=== PATIENT | male | born 1960 | race Caucasian/White ===

== ENCOUNTER 2019-07-16 18:10 | Emergency (ER) | payer OTHER, SELFPAY ==
[2019-07-16 18:11] VITALS: BP 152/105; PULSE 91; RESP 17; TEMP 36.8; O2SAT 97; BMI 27.4
--- NOTE | 2019-07-16 18:41 | ED.VIS.EYE ---
History of Present Illness Chief Complaint: Eye Problem Informant: Patient Location: Right Eye Onset: Today Context: Sudden Onset Timing: Continuous Current Severity: Mild Maximum Severity: Moderate Worsened by: Blinking Relieved by: Nothing Associated Symptoms - Eyes: Foreign body sensation History of injury: Yes, - - Grinding Visual correction: Glasses Narrative: Patient is 59-year-old male presents with foreign body sensation right eye. He states he was grinding. Is wearing his glasses. He denies photophobia. Denies drainage from the eye. Denies history of glaucoma or diabetes. He has had a foreign body in the past. He states he can see it. He has no other complaints. Prior similar symptoms: Yes Recent Illness/Hospitalization: No - Past Medical History (1) No significant past medical history Status: Acute Past Medical History - Allergies and Home Meds Allergies/Adverse Reactions: Allergies No Known Allergies Allergy (Verified 07/16/19 18:11) Primary Care Physician: Ron Underwood MD [Primary Care Provider] - Prior records reviewed: No Past Medical History: None Surgical History: noncontributory Lives: Spouse/ Significant Other Smoking Status: Never smoker Alcohol: None Drugs: None Review of Systems Eyes: Denies: Visual changes - bilaterally, Blurred Vision - bilaterally, Diplopia ENT: Denies: Rhinorrhea, Sore throat Hematologic: Denies: Easy bruising, Easy bleeding Allergy: Denies: Uticaria, Swelling of the mouth, Swelling of the tongue Physical Exam Visual Acuity: bilateral: 20/20 - 20/25 right and left eye Visual Acuity: Corrected Eyelid: Normal inspection, Right eyelid everted, Left eyelid everted, No foreign body Right Conjunctiva/Sclera: Normal inspection, No foreign body, No erythema Right Cornea: No abrasion, No dye uptake, Foreign body Left Cornea: Normal inspection, No foreign body, No abrasion Extraocular Motion: Normal exam, No pain, No palsy, No nystagmus Pupils: Normal accomodation, PERRL Right pupil size in mm: 3 Left pupil size in mm: 3 Anterior chamber: Normal exam, Deep and quiet Posterior Segment: Normal fundoscopic exam Vital Signs/Narrative: Vital Signs Temp Pulse Resp BP Pulse Ox 07/16/19 18:11 98.3 F 91 17 152/105 H 97 Inital Vital Signs reviewed: Yes General: Well nourished, Well developed Head: Normocephalic, Atraumatic ENT: Moist mucous membranes, No rhinorrhea Neck: Supple, Nontender Cardiovascular: Regular rate, Regular rhythm Respiratory: No distress Skin: Normal color, No rash Neurological: Alert, Oriented x3, Cranial nerves II-XII grossly intact, Normal Strength, Normal Sensation Psychological: Normal affect, Normal Mood Diagnostic/Tx/Re-eval - Treatment and Re-Evaluation Foreign body removal: Eye hilda Residual rust ring: No Removed with eye hilda: Yes Tetracaine: right eye - Medical Decision Making Has visible metallic foreign body with rust ring. I was anesthetized with tetracaine and stained with fluorescein. No other abnormalities noted. The metallic foreign body with rust ring was removed in total using ophthalmic bur. Patient tolerated procedure well. ED Disposition - Plan for ED Patient: Disposition: Home or Assisted Living Diagnosis: Foreign body in cornea, left eye, initial encounter Instructions: ED EYE FOREIGN BODY Corneal Referrals: Ron Underwood MD [Primary Care Provider] - As Needed
[2019-07-16] MEDS: Fluorescein 1 MG STRIP 1 STRIP RIGHT EYE (18:55)
[2019-07-16] MEDS: Tetracaine 0.5% Ophthalmic Bottle 1 DRP RIGHT EYE (18:56)
[2019-07-16 18:59] VITALS: RESP 16
== END 2019-07-16 18:58 | disposition home or self-care (01) ==
PROVIDERS: Emergency Provider Emergency Medicine; PCP Family Medicine
DX: T15.02XA Foreign body in cornea, left eye, initial encounter (principal); X58.XXXA Exposure to other specified factors, initial encounter; Y93.9 Activity, unspecified; Y92.9 Unspecified place or not applicable
CPT/HCPCS: 99283

== ENCOUNTER 2021-12-20 16:15 | Emergency (ER) | payer OTHER, SELFPAY ==
[2021-12-20 16:16] VITALS: BP 130/99; PULSE 112; RESP 18; TEMP 36.1; O2SAT 95; BMI 28.7
--- NOTE | 2021-12-20 16:38 | EX.ED.VISEXT ---
HPI History of Present Illness Chief Complaint: Bite Informant: patient Narrative Narrative: Patient found out that there was a bat in his house. He knows he was exposed to it about a week ago but does not know if he has been exposed since. He does not think that he was bitten. He gets lots of scrapes at work but does not think the bat caused any of these. He is totally asymptomatic and has no complaints at all. He has never had the rabies vaccine. ROS ROS ED ENT ENT ED: Denies sore throat Cardiovascular Cardiovascular: Denies racing heartbeat Gastrointestinal Gastrointestinal: Denies nausea or vomiting Musculoskeletal Musculoskeletal: Denies myalgias Integumentary Denies abscess, Abrasions or rash Neurologic Neurologic: Denies headache(s), paresthesias or weakness Allergic/Immunologic Allergic/Immunologic ED: Denies urticaria PFSH PFSH Home Medications fluoxetine 20 mg capsule 40 mg PO DAILY 05/04/15 [History Last Taken Unknown] Allergy/AdvReac Type Severity Reaction Status Date / Time No Known Allergies Allergy Verified 12/20/21 16:18 Social History Smoking Status: Never smoker EXAM Physical Exam Const Vital Signs: 12/20/21 16:16 Temperature 96.9 F L Temperature Source Temporal Pulse Rate 112 H Respiratory Rate 18 Blood Pressure 130/99 H Blood Pressure Mean 109 Pulse Ox 95 Oxygen Delivery Method Room Air Positive well nourished and well developed General Appearance ED: well developed and NAD HEENT atraumatic Eyes EOMs intact bilaterally Resp normal respiratory effort Cardio regular rate and regular rhythm Cardio Narrative: Rates about 85 when I listen to him. GI non-tender Back/Spine no CVA tenderness Extremity normal to inspection Neuro Sensorium / Orientation: alert Psych mental status grossly normal Skin skin turgor normal MDM MDM MDM Narrative Medical decision making narrative: We will initiate the rabies series here. I cannot inject the immunoglobulin around the bite site because there is no known bite site. But he does have known exposure. He will follow-up for his repeat vaccines. Discharge Plan Triage Chief Complaint: Bite ED Provider: Alonzo Weber Dx/Rx/DC Orders Clinical Impression: Exposure to bat without known bite Instructions: Understanding Rabies Prescriptions: No Action fluoxetine 20 MG capsule 40 mg PO DAILY Primary Care Provider: Ron Underwood Referrals: Ron Underwood MD [Primary Care Provider] - As Needed Activity Restrictions/Additional Instructions: Follow-up here for repeat doses as scheduled. To maintain immunity, titers are all been drawn to gauge need for further immunization Disposition Disposition: Home, Self Care
[2021-12-20 16:49] VITALS: RESP 18
[2021-12-20] MEDS: Rabies Immune Globulin/PF 300 UNIT/ML, 1 ML VIAL 310 UNIT IM (17:36)
[2021-12-20] MEDS: Rabies Immune Globulin/PF 300 UNIT/ML, 5 ML VIAL 1500 UNIT IM (17:38)
[2021-12-20] MEDS: Rabies Vaccine,Human Diploid 2.5 UNITS Vial IM (17:40)
== END 2021-12-20 18:33 | disposition home or self-care (01) ==
PROVIDERS: Emergency Provider Emergency Medicine; PCP Family Medicine; Visit Provider Emergency Medicine
DX: Z23 Encounter for immunization (principal)
CPT/HCPCS: 90375; 90675; 96372; 99282

== ENCOUNTER 2021-12-23 13:17 | Outpatient (CLI) | payer OTHER, SELFPAY ==
[2021-12-23 13:18] VITALS: BP 139/98; PULSE 88; RESP 16; TEMP 36.4; O2SAT 95; BMI 28.7
[2021-12-23] MEDS: Rabies Vaccine,Human Diploid 2.5 UNITS Vial IM (14:00)
== END 2021-12-23 14:53 | disposition home or self-care (01) ==
LOC: ED 14:54
PROVIDERS: PCP Family Medicine; Referring Provider Emergency Medicine; Visit Provider Emergency Medicine
DX: Z23 Encounter for immunization (principal)
CPT/HCPCS: 90675; 96372

== ENCOUNTER → 2021-12-28 | Outpatient (CLI) | payer OTHER, SELFPAY ==
[2021-12-28 16:54] VITALS: BP 144/104; PULSE 87; PULSE 90; RESP 16; TEMP 37.1; O2SAT 98; BMI 28.7
[2021-12-28] MEDS: Rabies Vaccine,Human Diploid 2.5 UNITS Vial IM (18:52)
== END | disposition home or self-care (01) ==
LOC: ED 18:53
PROVIDERS: PCP Family Medicine; Visit Provider Emergency Medicine
DX: Z23 Encounter for immunization (principal)
CPT/HCPCS: 90675; 96372

== ENCOUNTER 2022-01-03 17:42 | Outpatient (CLI) | payer OTHER, SELFPAY ==
[2022-01-03 17:42] VITALS: TEMP 37; BMI 28.7
[2022-01-03] MEDS: Rabies Vaccine,Human Diploid 2.5 UNITS Vial IM (18:26)
[2022-01-03 18:28] VITALS: BP 144/86; PULSE 88; RESP 17; TEMP 36.6; O2SAT 95; BMI 28.7
== END 2022-01-03 19:16 | disposition home or self-care (01) ==
PROVIDERS: PCP Family Medicine
DX: Z23 Encounter for immunization (principal)
CPT/HCPCS: 90675; 96372

== ENCOUNTER 2025-03-04 15:17 | Emergency (ER) | payer OTHER, SELFPAY ==
[2025-03-04 15:18] VITALS: BP 139/89; PULSE 117; RESP 18; TEMP 36.3; O2SAT 95; BMI 29.2
--- NOTE | 2025-03-04 15:31 | EX.ED.DYSGE1 ---
HPI History of Present Illness Chief Complaint: Bite Narrative Narrative: Patient is 64-year-old male who presents to the emergency department chief complaint of left leg dog bite. 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 He states that he went to his primary care physician who updated his tetanus shot and recommended him getting the rabies vaccination. He states that the health department and the game [employer] is also involved he states. This is a known dog and is someone's pet. PFSH PFS Home Medications Medication Instructions Recorded Last Taken Type fluoxetine 20 mg capsule 40 mg PO DAILY 05/04/15 Unknown History Allergy/AdvReac Type Severity Reaction Status Date / Time No Known Allergies Allergy Verified 03/04/25 15:18 Social History Smoking Status: Never smoker ROS ROS ED ROS Narrative Constitutional: Denies any fevers or chills, headaches Neurological: Denies any numbness, some tingling Musculoskeletal: Denies back pain Skin: Complains of dog bite to the left leg as noted above EXAM Physical Exam Narrative Exam Narrative: General: Patient is lying in bed rest comfortably did not appear to be acute distress Head: Atraumatic, normocephalic Eyes: PERRL bilaterally, EOMI bilateral, no conjunctival injection noted Neck: Soft, supple, trachea midline Cardiovascular: Patient tachycardic with a regular rate Musculoskeletal: Left lower extremity compartments are soft compressible Extremities: +5/5 strength in the bilateral lower extremities Neurological: Patient follow commands that he was at [facility] years 2024 Skin: Patient has dog bite to the left calf muscle that is scabbed over at this point in time no surrounding erythema no purulent discharge noted Const Vital Signs: 03/04/25 15:18 Temperature 97.3 F L Temperature Source Temporal Pulse Rate 117 H Respiratory Rate 18 Blood Pressure 139/89 H Blood Pressure Mean 105 Pulse Ox 95 Oxygen Delivery Method Room Air MDM MDM MDM Narrative Medical decision making narrative: Patient is a 64-year-old male who presented to the emergency department the chief complaint of dog bite to the left calf for rabies vaccination and immunoglobulin. On the differential diagnose includes but limited to dog bite, rabies although have low suspicion for this and I discussed this with him however he is adamant that he wants this vaccination series as this is also [employer]. Patient states that he already has a prescription for antibiotics for his dog bite. Once again his tetanus shot was updated by his primary care physician I injected the immunoglobulin around the wound the patient was given intramuscular vaccine as well. He tolerated this well. He is advised to return for the subsequent series he was also advised to have the dog quarantine and observed although once again I have low suspicion that this dog has rabies as this was a individual's pet. He is advised take the antibiotic as prescribed. He is agreeable to plan all questions earns answered is discharged home in stable condition Discharge Plan Triage Chief Complaint: Bite ED Provider: Agustin Ford Dx/Rx/DC Orders Clinical Impression: Dog bite of left lower leg, Rabies vaccine administered Prescriptions: No Action fluoxetine 20 MG capsule 40 mg PO DAILY Primary Care Provider: Ron Underwood Referrals: Ron Underwood MD [Primary Care Provider, Family Practice] Activity Restrictions/Additional Instructions: Ensure you follow the vaccine series. Have a dog observed. Follow-up your doctor & return with worsening symptoms or concerns Print Language: Tajik Disposition Disposition: Home, Self Care
[2025-03-04] MEDS: Rabies Immune Globulin/PF 300 UNIT/ML, 5 ML VIAL 1500 UNIT IM (16:06)
[2025-03-04] MEDS: Rabies Immune Globulin/PF 300 UNIT/ML, 1 ML VIAL 350 UNIT IM (16:08)
[2025-03-04 16:10] VITALS: BP 139/89; PULSE 117; RESP 18; TEMP 36.3; O2SAT 95
== END 2025-03-04 16:13 | disposition home or self-care (01) ==
PROVIDERS: Emergency Provider Emergency Medicine; PCP Family Medicine; Visit Provider Emergency Medicine
DX: S80.872A Other superficial bite, left lower leg, initial encounter (principal); W54.0XXA Bitten by dog, initial encounter; Y99.0 Civilian activity done for income or pay; Z23 Encounter for immunization
CPT/HCPCS: 90675; 96372; 99282; 90375

== ENCOUNTER → 2025-03-07 | Outpatient (CLI) | payer OTHER, SELFPAY ==
[2025-03-07 12:19] VITALS: BP 171/113; PULSE 99; RESP 16; TEMP 36.7; O2SAT 96; BMI 28.7
--- OUTSIDE RECORDS SUMMARY | 2025-03-07 12:33 | XMS RPT_ITS | CCD ---
Author Organization [facility] Care Team Providers Care 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 Name Role Phone Ron Whitley Primary Care Unavailable Provider, Ed Physician Attending Unavailab Alonzo [place] Attending Unavailable Ron Whitley Primary Care Unavailable Parth Ferris Referring Unavailable Parth Ferris Attending Unavailable Ron Whitley Primary Care Unavailable Alonzo Weber Attending Unavailable Ron Whitley Primary Care Unavailable Ron Whitley MD Primary Care Provider Ron Whitley MD Primary Care Provider Veda OIL BOILERAyaka CAREY Unavailable Leesa Brady PA-C Unavailable Ron Whitley MD Primary Care Provider [phone] TALI YANEZ Attending Unavailable RON WHITLEY Primary Care Unavailable RON WHITLEY Primary Care Unavailable AYAKA MCCOLLUM Referring Unavailable RON WHITLEY Primary Care Unavailable AYAKA MCCOLLUM Referring Unavailable RON WHITLEY Primary Care Unavailable AYAKA MCCOLLUM Attending Unavailable RON WHITLEY Primary Care Unavailable AYAKA MCCOLLUM Referring Unavailable RON WHITLEY Primary Care Unavailable AYAKA MCCOLLUM Referring Unavailable AYAKA MCCOLLUM Attending Unavailable RON WHITLEY Primary Care Unavailable Allergies Allergy Classification Reported Allergen(s) Allergy Type Date of Onset Reaction(s) Facility (18 sources) atorvastatin; Translations: [ATORVASTATIN] Drug Allergy 11-27-2019 Myalgia [facility] Work Phone: Medications Current Medications Medication Drug Class(es) Dates Sig (Normalized) Sig (Original) FLUoxetine 40 mg oral capsule (20 sources) Serotonin Reuptake Inhibitor Start: 10-24-2022 End: 05-07-2024 take 1 capsule by mouth once daily FLUoxetine (PROZAC) 40 mg capsule Indications: Generalized anxiety disorder Take 1 capsule by mouth once daily. 90 capsule 1 05/07/2024 Active Start: 05-04-2015 take 40 mg by mouth once daily Fluoxetine Active 40 MG PO DAILY May 04, 2015 1:00am Comment on above: Take 1 capsule by mo [facility] once daily. mirtazapine 15 mg oral tablet (5 sources) Start: 05-07-19 take 1 tablet by mouth once daily at bedtime mirtazapine (REMERON) 15 mg tablet Indications: Primary insomnia Take 1 tablet by mouth daily at bedtime. 90 tablet 05/07/2024 Active omeprazole 20 mg disintegrating oral tablet (18 sources) Proton Pump Inhibitor Start: 12-19-19 End: 05-07-19 take 1 tablet by mouth once daily omeprazole 20 mg disintegrating tablet (PriLOSEC) Indications: GERD without esophagitis Take 1 tablet by mouth once daily. 90 tablet 3 05/07/2024 Active Comment on above: Take 20 mg by mouth once daily. [facility]. pravastatin sodium 10 mg oral tablet (4 sources) HMG-CoA Reductase Inhibitor Start: 05-11-19 take 1 tablet by mouth once daily pravastatin (PRAVACHOL) 10 mg tablet Indications: Mixed hyperlipidemia Take 1 tablet by mouth once daily. 90 tablet 05/11/2024 Active Completed/Discontinued Medications Medication Drug Class(es) Dates Sig (Normalized) Sig (Original) LORazepam 0.5 mg oral tablet (6 sources) Benzodiazepine Start: 12-18-2022 End: 06-16-2023 take 1 tablet by mouth three times daily as needed for anxiety LORazepam (ATIVAN) 0.5 mg Indications: Generalized anxiety disorder Take 1 tablet by mouth three times daily as needed (anxiety) for up to 180 days. 10 tablet 12/18/2022 06/16/2023 Comment on above: Take 1 tablet by phill three times daily as needed (anxiety) for up to 180 days. polyethylene glycol 3350 263693 mg / potassium chloride 2970 mg / sodium bicarbonate 6740 mg / sodium chloride 5860 mg / sodium sulfate 96423 mg powder for oral solution (12 sources) Osmotic Laxative Start: 04-17-2021 End: 05-07-2024 peg 3350-Electrolytes (GOLYTELY) 236-22.74-6.74 -5.86 gram suspension Indications: Encounter for screening colonoscopy Refer to printed prep instructions from your provider. 4000 mL 04/17/2021 05/07/2024 Discontinued Comment on above: Refer to printed pre p instructions from your provider. propranolol hydrochloride 20 mg oral tablet (13 sources) beta-Adrenergic Tamanna Start: 03-09-2021 End: 05-07-2024 propranolol (INDERAL) 20 mg tablet Indications: Generalized anxiety disorder , Palpitations Take 1 tablet by mouth once daily as needed. Take one(1) tablet 30 min prior to stressful situation. 90 tablet 1 12/18/2022 05/07/2024 Discontinued Comment on above: Take 1 tablet by phill th once daily as needed. Take one(1) tablet 30 min prior to stressful situation. traZODone hydrochloride 50 mg oral tablet (9 sources) Serotonin Reuptake Inhibitor Start: 12-18-2022 End: 05-07-2024 take 1 tablet by mouth once daily at bedtime traZODone (DESYREL) 50 mg tablet Take 1 tablet by mouth daily at bedtime. 30 tablet 5 12/18/2022 05/07/2024 Discontinued Comment on above: Take 1 tablet by phill th daily at bedtime. Problems Active Problems Problem Classification Problem Date Documented Date Episodic/Chronic Abdominal pain (1 source) Unspecified abdominal pain; Translations: [Right flank pain] Onset: 11-24-2024 Episodic Anxiety disorders (20 sources) Generalized anxiety disorder; Translations: [Generalized anxiety disorder] Onset: 09-17-2008 10-29-2022 Chronic Disorders of lipid metabolism (20 sources) Mixed hyperlipidemia; Translations: [Mixed hyperlipidemia] Onset: 06-26-2011 10-29-2022 Chronic Esophageal disorders (19 sources) Gastroesophageal reflux disease without esophagitis; Translations: [Gastro-esophageal reflux disease without esophagitis] Onset: 08-18-2015 08-18-2015 Chronic Genitourinary symptoms and ill-defined conditions (19 sources) Proteinuria; Translations: [Proteinuria, unspecified] Onset: 08-21-2015 08-21-2015 Episodic Hyperplasia of prostate (3 sources) Benign prostatic hypertrophy with outflow obstruction; Translations: [Benign prostatic hyperplasia with lower urinary tract symptoms] Onset: 07-30-2024 07-08-2023 Chronic Miscellaneous mental health disorders (3 sources) Primary insomnia; Translations: [Primary insomnia] Onset: 05-07-2024 12-18-2022 Chronic Osteoarthritis (17 sources) Osteoarthritis; Translations: [Unspecified osteoarthritis, unspecified site] Onset: 06-06-2010 11-08-2015 Chronic Other circulatory disease (1 source) Elevated blood-pressure reading without diagnosis of hypertension; Translations: [Elevated blood-pressure reading, without diagnosis of hypertension] 05-07-2024 Episodic Other diseases of kidney and ureters (1 source) Other obstructive and reflux uropathy; Translations: [BPH with obstruction/lower urinary tract symptoms] Onset: 07-30-2024 Episodic Other eye disorders (1 source) Subconjunctival hemorrhage of right eye; Translations: [Conjunctival hemorrhage, right eye] 03-19-2023 Episodic Other injuries and conditions due to external causes (4 sources) Foreign body in left cornea; Translations: [Foreign body in cornea, left eye, initial encounter] Episodic Other lower respiratory disease (2 sources) Cough; Translations: [Acute cough] 03-19-2023 Episodic Other nervous system disorders (1 source) Other chronic pain; Translations: [Chronic midline low back pain without sciatica] Onset: 11-24-2024 Chronic Unclassified (4 sources) No history of clinical finding in subject; Translations: [No significant past medical history] Unclassified (1 source) Chronic midline low back pain without sciatica; Translations: [Chronic midline low back pain without sciatica] Onset: 11-24-2024 Past or Other Problems Problem Classification Problem Date Documented Da te Episodic/Chronic Cardiac dysrhythmias (17 sources) Palpitations; Translations: [Palpitations] Onset: 09-17-2008 06-23-2014 Episodic Diabetes mellitus without complication (20 sources) Hyperglycemia; Translations: [Impaired fasting glucose] Onset: 08-17-2013 10-29-2022 Episodic Immunizations and screening for infectious disease (7 sources) Contact with and (suspected) exposure to unspecified communicable disease; Translations: [Exposure to bat without known bite] Onset: 01-08-2022 05-07-2024 Episodic Other aftercare (1 source) Other fdc (current) drug therapy; Translations: [Medication management] Onset: 05-07-2024 Episodic Other and unspecified benign neoplasm (16 sources) Dermal cellular nevus ; Translations: [Other benign neoplasm of skin, unspecified] Onset: 10-24-2017 10-24-2017 Episodic Other circulatory disease (1 source) Elevated blood-pressure reading, without diagnosis of hypertension; Translations: [Elevated BP without diagnosis of hypertension] Onset: 05-07-2024 Episodic Other connective tissue disease (16 sources) Ganglion cyst of tendon sheath; Translations: [Ganglion, unspecified site] Onset: 06-06-2010 06-23-2014 Episodic Other screening for suspected conditions (not mental disorders or infectious disease) (20 sources) Patient encounter status; Translations: [Encounter for screening for malignant neoplasm of prostate] Onset: 04-11-2016 10-29-2022 Episodic Other upper respiratory disease (16 sources) Lesion of nose; Translations: [Other specified disorders of nose and nasal sinuses] Onset: 2017 2017 Episodic Screening and history of mental health and substance abuse codes (1 source) Encounter for screening for depression; Translations: [Screening for depression] Onset: 05-07-2024 Episodic Results Test Name Value Interpretation Reference Range Facility [facility] 11-24-2024 [facility] ASYA SHETH ([id number]) 1960 M Date Time Provider Department 11/24/24 10:20 AM AYAKA MCCOLLUM [facility] During your visit today, we recorded the following information about you: Pulse Blood pressure Weight 86/minute 140/90 91 kg Ayaka Mccollum APRN.[facility] 11/24/2024 10:45 AM Signed Chief Complaint Patient presents with: 6 Month Exam Back Pain: X 1 year worsening X 1 week HPI Asya Sheth is a 64 year old male who presents here today for Above Complaints.. Patient presents for routine follow up. Back Pain: - Chronic back pain, predominantly in the right lower back, x1 year. - Significant exacerbation over the past couple of weeks, affecting sleep. - Last night was the first night he could sleep without waking up in pain. - Denies numbness, tingling, or any known injury or instigating event. - Engages in frequent lifting and bending due to work. Past medical history, appointments, medications, allergies reviewed. 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 Osteoarthritis 06/06/2010 Palpitations 09/17/2008 Previous Surgical History PAST SURGICAL HISTORY Procedure Laterality Date COLONOSCOPY 05/22/2021 repeat in 5 years COLONOSCOPY FLX DX W/COLLJ SPEC WHEN PFRMD 08/09/2010 HERNIA REPAIR HX TONSILLECTOMY HX Family History FAMILY HISTORY Problem Relation Age of Onset other (colitis) Mother ulcerative colitis Coronary Artery Disease Father CABGX2 Patient Allergies ALLERGIES Allergen Reactions Lipitor [Atorvastat* Myalgia Current Medications Current Outpatient Medications on File Prior to Visit Medication Sig pravastatin (PRAVACHOL) 10 mg tablet Take 1 tablet by mouth once daily. omeprazole 20 mg disintegrating tablet (PriLOSEC) Take 1 tablet by mouth once daily. mirtazapine (REMERON) 15 mg tablet Take 1 tablet by mouth daily at bedtime. FLUoxetine (PROZAC) 40 mg capsule Take 1 capsule by mouth once daily. No current facility-administered medications on file prior to visit. Social History Social History Tobacco Use Smoking status: Never Smokeless tobacco: Former Vaping Use Vaping status: Never Used Substance Use Topics Alcohol use: Yes Alcohol/week: 4.0 - 6.0 standard drinks of alcohol Types: 4 - 6 Cans of Beer (12oz) per week Comment: 1 beer daily Drug use: Not Currently Review of Symptoms REVIEW OF SYSTEMS SEE HPI EXAM: BP 140/90 Pulse 86 Wt 91 kg (200 lb 9.9 oz) BMI 28.98 kg/m? General Appearance: Well appearing, alert, in no acute distress, well-hydrated, well nourished. Back:no pain to palpation of vertebrae, good flexion and extension, good range of motion, no muscle tenderness, reflexes are 2+ and symmetric, motor and sensory appear to be normal, negative SLR test, no evidence of scoliosis Lungs: Lungs clear to auscultation. No wheezing, rhonchi, rales.. Heart: RRR without murmur, gallop, or rubs. No ectopy. Health Maintenance List Advance Directive Discussion due on 04/21/2025 Shingrix Vaccine(1 of 2) due on 05/07/2025 Pneumococcal Vaccine: 50+(1 of 1 - PCV) due on 05/07/2025 Depression Screening due on 05/07/2025 Colorectal Cancer Screening due on 05/22/2026 Diabetes Screening due on 05/07/2027 DTaP,Tdap,Td Vaccine(2 - Td or Tdap) due on 06/29/2027 Lipid Screening due on 05/07/2029 Prostate Cancer Screening Discussion due on 06/05/2029 RSV Vaccine(1 - 1-dose 75+ series) due on 2034 Hepatitis C Screening Completed Influenza Vaccine Discontinued HIV Screening Discontinued ASSESSMENT/PLAN: 1. Mixed hyperlipidemia - ICD9: 272.2, ICD10: E78.2 (primary diagnosis) - Control undetermined, due for labs - Continue current medications - Counseled on healthy diet and regular exercise - LIPID PANEL, NONFASTING 2. GERD without esophagitis - ICD9: 530.81, ICD10: K21.9 - Continue treatment with Prilosec 20 mg QD - OMEPRAZOLE 20 MG DELAYED RELEASE,DISINTEGRATING TABLET 3. Primary insomnia - ICD9: 307.42, ICD10: F51.01 - MIRTAZAPINE 15 MG TABLET 4. Generalized anxiety disorder - ICD9: 300.02, ICD10: F41.1 - Patient reports he is not currently taking prozac. 5. Chronic midline low back pain without sciatica - ICD9: 724.2, 338.29, ICD10: M54.50, G89.29 -Patient offered PT but declined. Provided back stretches and exercises and advised patient to notify us if no improvement in symptoms. 6. Right flank pain - ICD9: 789.09, ICD10: R10.9 - Labs of Urine analysis - Work up with XR KUB - XR ABDOMEN 3V KUB W/OBLIQUES - UA DIP, URINE (POC) Ayaka Mccollum APRN.Ayaka Solorio APRN.VACUUM REPAIRER 11/24/2024 10 (more content not included)... Normal [facility] LIPID PANEL, NONFASTINGon Cholesterol [Mass/Vol] 218 mg/dL High <200 [facility] Comment on above: Order Comment: Speci men Type: BLOOD SPECIMEN Ordering Facility: [facility] Address: [address] [place] [address] Result Comment: <200 mg/dL, Desirable 200-239 mg/dL, Borderline high >239 mg/dL, High Performed By: #### L IPNF #### [facility] CLIA [id number] [address] [place] [address] [place] HDL CHOLESTEROL, NF 44 mg/dL Normal >39 [facility] Comment on above: Order Comment: Speci men Type: BLOOD SPECIMEN Ordering Facility: [facility] Address: [address] [place] [address] Result Comment: 40-5 9 mg/dL, Acceptable >59 mg/dL, High: Negative risk factor for coronary heart disease <40 mg/dL, Low: Positive risk factor for coronary heart disease Performed By: #### L IPNF #### [facility] CLIA [id number] [address] [place] [address] [place] LDL CHOLESTEROL CALCULATED, NF 132 mg/dL High <100 [facility] Comment on above: Order Comment: Speci men Type: BLOOD SPECIMEN Ordering Facility: [facility] Address: [address] [place] [address] Result Comment: <100 mg/dL, Optimal 100-129 mg/dL, Near optimal/above optimal 130-159 mg/dL, Borderline high 160-189 mg/dL, High >189 mg/dL, Very high Secondary prevention optimal LDL Cholesterol levels are recommended to be <70 mg/dL LDL cholesterol is calculated using the Andujar-NIH equation. Performed By: #### L IPNF #### [facility] CLIA [id number] [address] [place] [address] [place] LDL/HDL RATIO, NF 3.00 mg/dL High <2.54 [facility] Comment on above: Order Comment: Grace hayward Type: BLOOD SPECIMEN Ordering Facility: [facility] Address: [address] [place] [address] Result Comment: Donaldo basurto: 1. National Cholesterol Education Program ATP III Guideline At-A-Glance Quick Desk Reference: National Heart, Lung, and Blood [place]. National Institutes of Health. 2001: NIH Publication No. 01-3305. 2. An International Atherosclerosis Society position paper: global recommendations for the management of dyslipidemia: executive summary, Atherosclerosis. 2014: 232(2):410-413. Performed By: #### L IPNF #### [facility] CLIA [id number] [address] [place] [address] [place] NON HDL CHOL, NF 174 mg/dL High <130 [facility] Comment on above: Order Comment: Grace hayward Type: BLOOD SPECIMEN Ordering Facility: [facility] Address: [address] [place] [address] Result Comment: <130 mg/dL, Optimal 130-159 mg/dL, Near optimal/above optimal 160-189 mg/dL, Borderline high 190-219 mg/dL, High >219 mg/dL, Very high Secondary prevention optimal non HDL Cholesterol levels are recommended to be <100 mg/dL Performed By: #### L IPNF #### [facility] CLIA [id number] [address] [place] [address] [place] T CHOL/HDL RATIO NF 4.95 mg/dL Normal <5.10 [facility] Comment on above: Order Comment: Jaylini men Type: BLOOD SPECIMEN Ordering Facility: [facility] Address: [address] [place] [address] Performed By: #### L IPNF #### [facility] CLIA [id number] [address] [place] [address] [place] TRIGLYCERIDES, NF 234 mg/dL High <150 [facility] Comment on above: Order Comment: Grace men Type: BLOOD SPECIMEN Ordering Facility: [facility] Address: [address] [place] [address] Result Comment: <150 mg/dL, Normal 150-199 mg/dL, Borderline high 200-499 mg/dL, High >499 mg/dL, Very high Performed By: #### L IPNF #### [facility] CLIA [id number] [address] [place] [address] OF [facility] VLDL CHOLESTEROL, NF 42 mg/dL High <30 [facility] Comment on above: Order Comment: Speci men Type: BLOOD SPECIMEN Ordering Facility: [facility] Address: [address] [place] [address] Performed By: #### L IPNF #### [facility] CLIA [id number] [address] [place] [address] STATES OF [facility] XR ABDOMEN 3V KUB W/OBLIQUES on 11-24-2024 XR ABDOMEN 3V KUB W/OBLIQUES * * *Final Report* * * DATE OF EXAM: Nov 24 2024 11:03AM WOX [id number] - XR ABDOMEN 3V KUB W/OBLIQUES / PROCEDURE REASON: Right flank pain * * * * Physician Interpretation * * * * EXAM TITLE: XR ABDOMEN 3V KUB W/OBLIQUES EXAM DATE/TIME: 11/24/2024 11:03 AM COMPARISON: None. CLINICAL INDICATION/HISTORY: Flank pain. TECHNIQUE: AP and oblique views of the abdomen are presented. FINDINGS: No abnormal radiopaque opacities projecting over the kidneys. There are multiple phleboliths in the pelvis. No abnormally dilated bowel loops identified. The spine shows degenerative changes. IMPRESSION: Unremarkable abdomen x-ray. Sewer Repairer: PSCB Transcribe Date/Time: Nov 24 2024 11:08A Dictated by : ANISHA WILSON MD This examination was interpreted and the report reviewed and electronically signed by: ANISHA WILSON MD on Nov 24 2024 11:10AM EST [id number] Normal [facility] CNOVon 07-30-2024 CNOV Office Visit ([facility] ) CLAREASYA SANTANA ([id number]) 1960 M Date Time Provider Department 07/30/24 9:15 AM TALI YANEZ [facility] During your visit today, we recorded the following information about you: Pulse Weight Height 97/minute 90.3 kg 1.772 m Tali Yanez MD 07/30/2024 9:32 AM Signed ESTABLISHED PATIENT OFFICE VISIT HISTORY OF PRESENT ILLNESS Patient presents with: Benign Prostatic Hypertrophy Nocturia Asya Sheth is a 64 year old male who presents with for follow up regarding his PSA LAB RESULTS Creatinine Date Value Ref Range Status 05/07/2024 0.95 0.73 - 1.22 mg/dL Final PSA (ng/mL) Date Value 06/05/2024 3.45 06/14/2023 3.81 11/13/2022 4.51 10/10/2016 1.99 PSA Screening (ng/mL) Date Value 05/07/2024 4.31 Color (no units) Date Value 05/07/2024 Yellow 10/10/2016 Yellow Clarity (no units) Date Value 05/07/2024 Clear 10/10/2016 Clear Glucose, Urine Date Value 05/07/2024 Negative 10/10/2016 Negative mg/dL Bilirubin, Urine (no units) Date Value 05/07/2024 Negative 10/10/2016 Negative Ketones, Urine (no units) Date Value 05/07/2024 Negative 10/10/2016 Negative Specific Keyser, Ur (no units) Date Value 05/07/2024 1.022 10/10/2016 1.015 Hemoglobin/Blood,Ur Date Value 05/07/2024 Negative 10/10/2016 Negative pH, Urine (no units) Date Value 05/07/2024 5.5 10/10/2016 6.0 Protein, Urine Date Value 05/07/2024 Trace 10/10/2016 Negative mg/dL Urobilinogen (no units) Date Value 05/07/2024 0.2 EU/dL 10/10/2016 Normal Nitrites (no units) Date Value 05/07/2024 Negative 10/10/2016 Negative Leukest (no units) Date Value 10/10/2016 Negative Leuk Esterase (no units) Date Value 05/07/2024 Negative ALLERGIES Allergen Reactions Lipitor [Atorvastat* Myalgia MEDICATIONS: pravastatin (PRAVACHOL) 10 mg tablet Take 1 tablet by mouth once daily. omeprazole 20 mg disintegrating tablet (PriLOSEC) Take 1 tablet by mouth once daily. mirtazapine (REMERON) 15 mg tablet Take 1 tablet by mouth daily at bedtime. FLUoxetine (PROZAC) 40 mg capsule Take 1 capsule by mouth once daily. REVIEW OF SYSTEMS GENERAL:no unintentional weight loss, malaise or fevers. NEUROLOGIC: pt is alert and oriented GENITOURINARY: No history of dysuria, frequency or incontinence The remainder of the ROS was reviewed and is negative. HISTORIES PAST MEDICAL HISTORY Diagnosis Date Elevated fasting blood sugar 08/17/2013 Ganglion of tendon 06/06/2010 Generalized anxiety disorder 09/17/2008 GERD without esophagitis 08/18/2015 Intradermal nevus 10/24/2017 Removed from back 2015 Mixed hyperlipidemia 06/26/2011 Nasal sore 2017 chronic Osteoarthritis 06/06/2010 Palpitations 09/17/2008 FAMILY HISTORY Problem Relation Age of Onset other (colitis) Mother ulcerative colitis Coronary Artery Disease Father CABGX2 PAST SURGICAL HISTORY Procedure Laterality Date COLONOSCOPY 05/22/2021 repeat in 5 years COLONOSCOPY FLX DX W/COLLJ SPEC WHEN PFRMD 08/09/2010 HERNIA REPAIR HX TONSILLECTOMY HX SOCIAL HISTORY Social History Tobacco Use Smoking status: Never Smokeless tobacco: Former Vaping Use Vaping status: Never Used Substance Use Topics Alcohol use: Yes Alcohol/week: 4.0 - 6.0 standard drinks of alcohol Types: 4 - 6 Cans of Beer (12oz) per week Comment: 1 beer daily Drug use: Not Currently PHYSICAL EXAMINATION General appearance: Well appearing, alert, in no acute distress, well-hydrated, well nourished Psych Alert and oriented to person, place and time Respiratory: no wheezing or rhonchi Abdomen Genitourinary: MALE EXAM: Exam NOT Indicated 06/05/2024 PSA 3.5 06/14/2023 PSA 3.8 11/13/2022 PSA 4.5 Assessment and Plan: LUTS- IPSS 6, nocturia 0-1x, off urgency, no hematuria Elevated PSA- no Fhx of prostate cancer, prior DANIELLA B9 and he declined MRI. Latest PSA stable at 3.5 Allergies As of Date: 07/30/2024 Noted Allergy Reaction LIPITOR (ATORVASTATIN) 11/27/2019 17 - Myalgia Date Reviewed: 07/30/2024 Reviewed by: Yumiko Valdez MA - Fully Assessed Reason for Visit: Benign Prostatic Hypertrophy [1144] Nocturia [2774] Primary Visit Diagnosis:Elevated PSA [R97.20] Other Visit Diagnoses:BPH with obstruction/lower urinary tract symptoms [N40.1, N13.8] Nocturia [R35.1] Prescriptions as of 07/30/2024 - pravastatin (PRAVACHOL) 10 mg tablet Take 1 tablet by mouth once daily. - omeprazole 20 mg disintegrating tablet (PriLOSEC) Take 1 tablet by mouth once daily. - mirtazapine (REMERON) 15 mg tablet Take 1 tablet by mouth daily at bedtime. - FLUoxetine (PROZAC) 40 mg capsule Take 1 capsule by mouth once daily. Meds Comments as of 03/09/2021: 2 200 mg tabs Ibuprofen, L-Lysine daily and Loratadine 10 mg daily. Problem List As Of Date 07/30/2024 Noted Resolved Palpitations [R00.2] 08/21 (more content not included)... Normal [facility] Free PSA [Mass/Vol]on 2024 Free PSA/Total PSA [Mass fraction] 19 % Normal [facility] Comment on above: Order Comment: Speci men Type: BLOOD SPECIMEN Ordering Facility: [facility] Address: [address] [place] [address] Result Comment: Tota l and free PSA test methodology used is the Electrochemiluminescence Immunoassay by [employer]. Total or free PSA values by differing methodologies cannot be interchanged. The below table lists the probability of finding prostate cancer upon needle biopsy, for men 50 years or older and total PSA concentrations from 4.0-10.0 ng/mL. Results should be interpreted within the broader clinical context. Free PSA(%) 50-59 years 60-69 years >69 years <11 49.2% 57.5% 64.5% 11-18 26.9% 33.9% 40.8% 19-25 18.3% 23.9% 29.7% >25 9.1% 12.2% 15.8% Performed By: #### 1 0886-0 #### [facility] [place] [id number] [address] [place] [address] [place] Prostate specific Ag [Mass/Vol] 3.45 ng/mL High <2.60 [facility] Comment on above: Order Comment: Speci men Type: BLOOD SPECIMEN Ordering Facility: [facility] Address: [address] [place] [address] Result Comment: Tota l PSA test methodology used is the Electrochemiluminescence Immunoassay by [employer]. Total PSA values by differing methodologies cannot be interchanged. For an individual patient, the significance of a PSA level should be interpreted in a broad clinical context, including age, race, family history, digital rectal exam, prostate size, results of prior testing (prostate biopsy, free PSA, PCA3), and use of 5-alpha reductase inhibitors. Considering the high incidence of asymptomatic cancer in the general population that may not pose an ultimate risk to a patient, the decision to recommend urological evaluation or prostate biopsy should be individualized after consideration of all these factors. REFERENCE: Lazaro Clemens M.D., M.P.H., Hebert Espinal M.D., Ph.D., Sudhakar Carney M.D., Isis Mehta, M.P.H., Ayana Rodriguez, [place]. Effect of Verification Bias on Screening for Prostate Cancer by Measurement of Prostatic Specific Antigen. N Engl J Med 2003,349:335-42. Performed By: #### 1 0886-0 #### [facility] CLIA [id number] [address] [place] [address] OF ELIZABETH Fito 05-11-2024 STEPHANYN Telephone (FAMPWS) ASYA SHETH ([id number]) 1960 M Date Time Provider Department 05/11/24 AYAKA MCCOLLUM During your visit today, we recorded the following information about you: Ayaka Mccollum APRN.VACUUM REPAIRER 05/11/2024 7:59 AM Signed Please let patient know his labs show an elevated PSA. I would like to get a follow up lab to check this. Also his lipid panel is elevated from previous. His total cholesterol is high and his LDL is high. Is patient open to trying a different statin medication? Vira Wheatley LPN 05/11/2024 10:08 AM Signed Message left for patient to return call to review provider's message with him. FLAKITO Ayala Sherrie, RN 05/11/2024 10:44 AM Signed Patient voices understanding of provider's message below and will complete lab order. Patient agreeable to trying a different statin medication. Send to [facility]. Thank you. Ayaka Mccollum, KESHAWN.VACUUM REPAIRER 05/11/2024 12:04 PM Signed Rx sent. Vira Wheatley LPN 05/11/2024 12:28 PM Signed Patient updated and voiced understanding. Vira Wheatley LPN Allergies As of Date: 05/11/2024 Noted Allergy Reaction LIPITOR (ATORVASTATIN) 11/27/2019 17 - Myalgia Date Reviewed: 05/07/2024 Reviewed by: Janett Mejia MA - Fully Assessed Reason for Visit: Results [95] Primary Visit Diagnosis:Elevated PSA [R97.20] Other Visit Diagnosis:Mixed hyperlipidemia [E78.2] Order(s):PROSTATE SPECIFIC ANTIGEN, FREE [SQPSATF] Order #: [id number] FUTURE pravastatin (PRAVACHOL) 10 mg tabletTake 1 tablet by mouth once daily.Disp: 90 tabletRfl: 0 Prescriptions as of 05/11/2024 - pravastatin (PRAVACHOL) 10 mg tablet Take 1 tablet by mouth once daily. - omeprazole 20 mg disintegrating tablet (PriLOSEC) Take 1 tablet by mouth once daily. - mirtazapine (REMERON) 15 mg tablet Take 1 tablet by mouth daily at bedtime. - FLUoxetine (PROZAC) 40 mg capsule Take 1 capsule by mouth once daily. Meds Comments as of 03/09/2021: 2 200 mg tabs Ibuprofen, L-Lysine daily and Loratadine 10 mg daily. Problem List As Of Date 05/11/2024 Noted Resolved Palpitations [R00.2] 09/17/2008 Generalized anxiety disorder [F41.1] 09/17/2008 Osteoarthritis [M19.90] 06/06/2010 Ganglion of tendon [M67.40] 06/06/2010 Mixed hyperlipidemia [E78.2] 06/26/2011 Elevated fasting blood sugar [R73.01] 08/17/2013 GERD without esophagitis [K21.9] 08/18/2015 Proteinuria [R80.9] 08/21/2015 Prostate cancer screening [Z12.5] 04/11/2016 Well adult exam [Z00.00] 2017 Nasal sore [J34.89] 2017 Intradermal nevus [D23.9] 10/24/2017 Screening for colon cancer [Z12.11] 10/24/2017 Elevated PSA [R97.20] 06/13/2023 Prescriptions ordered this encounter Disp Refills Start End PRAVASTATIN 10 MG TABLET 90 t* 0 05/11/2024 Route: ORAL Sig: Take 1 tablet by mouth once daily. Encounter Status:Closed by VIRA WHEATLEY on 05/11/24 Normal [facility] CBC W Auto Differential pane l (Bld)on 05-07-2024 Basophils (Bld) [#/Vol] 0.03 10*3/uL Normal <0.11 [facility] Comment on above: Order Comment: Speci men Type: BLOOD SPECIMEN Ordering Facility: [facility] Address: [address] [place] [address] Performed By: #### 5 7021-8 #### [facility] CLIA [id number] [address] [place] [address] [place] [address] [place] Basophils/100 WBC (Bld) 0.5 % Normal [facility] Comment on above: Order Comment: Speci men Type: BLOOD SPECIMEN Ordering Facility: [facility] Address: [address] [place] [address] Performed By: #### 5 7021-8 #### [facility] CLIA [id number] [address] [place] [address] [place] Differential cell count method Nom (Bld) Auto Normal [facility] Comment on above: Order Comment: Speci men Type: BLOOD SPECIMEN Ordering Facility: [facility] Address: [address] [place] [address] Performed By: #### 5 7021-8 #### [facility] CLIA [id number] [address] [place] [address] [place] Eosinophils (Bld) [#/Vol] 0.13 10*3/uL Normal <0.46 [facility] Comment on above: Order Comment: Speci men Type: BLOOD SPECIMEN Ordering Facility: [facility] Address: [address] [place] [address] Performed By: #### 5 7021-8 #### [facility] CLIA [id number] [address] [place] [address] [place] Eosinophils/100 WBC (Bld) 2.2 % Normal [facility] Comment on above: Order Comment: Speci men Type: BLOOD SPECIMEN Ordering Facility: [facility] Address: [address] [place] [address] Performed By: #### 5 7021-8 #### [facility] CLIA [id number] [address] [place] [address] [place] Erythrocyte distribution width (RBC) [Ratio] 12.4 % Normal 11.5-15.0 [facility] Comment on above: Order Comment: Speci men Type: BLOOD SPECIMEN Ordering Facility: [facility] Address: [address] [place] [address] Performed By: #### 5 7021-8 #### [facility] CLIA [id number] [address] [place] [address] [place] Hematocrit (Bld) [Volume fraction] 47.9 % Normal 39.0-51.0 [facility] Comment on above: Order Comment: Speci men Type: BLOOD SPECIMEN Ordering Facility: [facility] Address: [address] [place] [address] Performed By: #### 5 7021-8 #### [facility] CLIA [id number] [address] [place] [address] [place] Hemoglobin (Bld) [Mass/Vol] 16.2 g/dL Normal 13.0-17.0 [facility] Comment on above: Order Comment: Speci men Type: BLOOD SPECIMEN Ordering Facility: [facility] Address: [address] [place] [address] Performed By: #### 5 7021-8 #### [facility] CLIA [id number] [address] [place] [address] [place] Immature granulocytes (Bld) [#/Vol] 10*3/uL Normal <0.10 [facility] Comment on above: Order Comment: Speci men Type: BLOOD SPECIMEN Ordering Facility: [facility] Address: [address] [place] [address] Performed By: #### 5 7021-8 #### [facility] CLIA [id number] [address] [place] [address] [place] Immature granulocytes/100 WBC (Bld) 0.3 % Normal [facility] Comment on above: Order Comment: Speci men Type: BLOOD SPECIMEN Ordering Facility: [facility] Address: [address] [place] [address] Performed By: #### 5 7021-8 #### [facility] CLIA [id number] [address] [place] [address] [place] Lymphocytes (Bld) [#/Vol] 1.19 10*3/uL Normal 1.00-4.00 [facility] Comment on above: Order Comment: Speci men Type: BLOOD SPECIMEN Ordering Facility: [facility] Address: [address] [place] [address] Performed By: #### 5 7021-8 #### [facility] CLIA [id number] [address] [place] [address] [place] Lymphocytes/100 WBC (Bld) 20.4 % Normal [facility] Comment on above: Order Comment: Speci men Type: BLOOD SPECIMEN Ordering Facility: [facility] Address: [address] [place] [address] Performed By: #### 5 7021-8 #### [facility] CLIA [id number] [address] [place] [address] [place] MCH (RBC) [Entitic mass] 31.9 pg Normal 26.0-34.0 [facility] Comment on above: Order Comment: Speci men Type: BLOOD SPECIMEN Ordering Facility: [facility] Address: [address] [place] [address] Performed By: #### 5 7021-8 #### [facility] CLIA [id number] [address] [place] [address] [place] MCHC (RBC) [Mass/Vol] 33.8 g/dL Normal 30.5-36.0 [facility] Comment on above: Order Comment: Speci men Type: BLOOD SPECIMEN Ordering Facility: [facility] Address: [address] [place] [address] Performed By: #### 5 7021-8 #### [facility] CLIA [id number] [address] [place] [address] [place] MCV (RBC) [Entitic vol] 94.3 fL Normal 80.0-100.0 [facility] Comment on above: Order Comment: Speci men Type: BLOOD SPECIMEN Ordering Facility: [facility] Address: [address] [place] [address] Performed By: #### 5 7021-8 #### [facility] CLIA [id number] [address] [place] [address] [place] Monocytes (Bld) [#/Vol] 0.51 10*3/uL Normal <0.87 [facility] Comment on above: Order Comment: Speci men Type: BLOOD SPECIMEN Ordering Facility: [facility] Address: [address] [place] [address] Performed By: #### 5 7021-8 #### [facility] CLIA [id number] [address] [place] [address] [place] Monocytes/100 WBC (Bld) 8.7 % Normal [facility] Comment on above: Order Comment: Speci men Type: BLOOD SPECIMEN Ordering Facility: [facility] Address: [address] [place] [address] Performed By: #### 5 7021-8 #### [facility] CLIA [id number] [address] [place] [address] [place] Neutrophils (Bld) [#/Vol] 3.96 10*3/uL Normal 1.45-7.50 [facility] Comment on above: Order Comment: Speci men Type: BLOOD SPECIMEN Ordering Facility: [facility] Address: [address] [place] [address] Performed By: #### 5 7021-8 #### [facility] CLIA [id number] [address] [place] [address] [place] Neutrophils/100 WBC (Bld) 67.9 % Normal [facility] Comment on above: Order Comment: Speci men Type: BLOOD SPECIMEN Ordering Facility: [facility] Address: [address] [place] [address] Performed By: #### 5 7021-8 #### [facility] CLIA [id number] [address] [place] [address] [place] Nucleated RBC (Bld) [#/Vol] 10*3/uL Normal <0.01 [facility] Comment on above: Order Comment: Speci men Type: BLOOD SPECIMEN Ordering Facility: [facility] Address: [address] [place] [address] Performed By: #### 5 7021-8 #### [facility] CLIA [id number] [address] [place] [address] [place] Nucleated RBC/100 WBC (Bld) [Ratio] 0.0 /100 WBC Normal [facility] Comment on above: Order Comment: Speci men Type: BLOOD SPECIMEN Ordering Facility: [facility] Address: [address] [place] [address] Performed By: #### 5 7021-8 #### [facility] CLIA [id number] [address] [place] [address] [place] Platelet mean volume (Bld) [Entitic vol] 10.1 fL Normal 9.0-12.7 [facility] Comment on above: Order Comment: Speci men Type: BLOOD SPECIMEN Ordering Facility: [facility] Address: [address] [place] [address] Performed By: #### 5 7021-8 #### [facility] CLIA [id number] [address] [place] [address] [place] Platelets (Bld) [#/Vol] 184 10*3/uL Normal 150-400 [facility] Comment on above: Order Comment: Speci men Type: BLOOD SPECIMEN Ordering Facility: [facility] Address: [address] [place] [address] Performed By: #### 5 7021-8 #### [facility] CLIA [id number] [address] [place] [address] [place] RBC (Bld) [#/Vol] 5.08 10*6/uL Normal 4.20-6.00 [facility] Comment on above: Order Comment: Speci men Type: BLOOD SPECIMEN Ordering Facility: [facility] Address: [address] [place] [address] Performed By: #### 5 7021-8 #### [facility] CLIA [id number] [address] [place], [place] [address] [id number] [place] WBC (Bld) [#/Vol] 5.84 10*3/uL Normal 3.70-11.00 [facility] Comment on above: Order Comment: Speci men Type: BLOOD SPECIMEN Ordering Facility: [facility] Address: [address] [place] [address] Performed By: #### 5 7021-8 #### [facility] CLIA [id number] [address] [place], [place] [id number] [place] CNOVon 05-07-2024 CNOV Office Visit (FAMPWS ) ASYA SHETH ([id number]) 1960 M Date Time Provider Department 05/07/24 10:40 AM AYAKA MCCOLLUM During your visit today, we recorded the following information about you: Pulse Respiration Blood pressure Weight 89/minute 16/minute 147/98 90.3 kg Ayaka Mccollum APRN.VACUUM REPAIRER 05/07/2024 11:40 AM Signed Chief Complaint Patient presents with: Physical HPI Asya Sheth is a 64 year old male who presents here today for Above Complaints.. Pt presents today for annual well visit. Pt states his anxiety has been well controlled with his current medication. He is still having difficulty with sleep he often wakes up during the night. He was prescribed trazadone to help with sleep on 12/18/2022, but took the medication with alcohol and was nauseated after. Pt states he has not tried taking the medication since and has not been getting quality sleep. Pt states he does currently drink 2-3 beers a night prior to going to sleep which could be affecting his sleep. He has tried melatonin and benadryl which pt states has not helped with his sleep and often leaves him feeling tired in the morning. Pt is open to trying a different medication to help with sleep. Pt denies nausea,vomiting, headache, cough, chest pain, SOB, fever, chills, lower extremity swelling, abdominal pain and dizziness. Past medical history, appointments, medications, allergies reviewed. 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 Osteoarthritis 06/06/2010 Palpitations 09/17/2008 Previous Surgical History PAST SURGICAL HISTORY Procedure Laterality Date COLONOSCOPY 05/22/2021 repeat in 5 years COLONOSCOPY FLX DX W/COLLJ SPEC WHEN PFRMD 08/09/2010 HERNIA REPAIR HX TONSILLECTOMY HX Family History FAMILY HISTORY Problem Relation Age of Onset other (colitis) Mother ulcerative colitis Coronary Artery Disease Father CABGX2 Patient Allergies ALLERGIES Allergen Reactions Lipitor [Atorvastat* Myalgia Current Medications Current Outpatient Medications on File Prior to Visit Medication Sig FLUoxetine (PROZAC) 40 mg capsule Take 1 capsule by mouth once daily. propranolol (INDERAL) 20 mg tablet Take 1 tablet by mouth once daily as needed. Take one(1) tablet 30 min prior to stressful situation. omeprazole 20 mg disintegrating tablet (PriLOSEC) Take 1 tablet by mouth once daily. traZODone (DESYREL) 50 mg tablet Take 1 tablet by mouth daily at bedtime. peg 3350-Electrolytes (GOLYTELY) 236-22.74-6.74 -5.86 gram suspension Refer to printed prep instructions from your provider. (Patient not taking: Reported on 12/18/2022) No current facility-administered medications on file prior to visit. Social History Social History Tobacco Use Smoking status: Never Smokeless tobacco: Former Vaping Use Vaping status: Never Used Substance Use Topics Alcohol use: Yes Alcohol/week: 4.0 - 6.0 standard drinks of alcohol Types: 4 - 6 Cans of Beer (12oz) per week Comment: 1 beer daily Drug use: Not Currently Review of Symptoms REVIEW OF SYSTEMS GENERAL: No weight loss, malaise or fevers, Negative for malaise, significant weight loss, fever RESPIRATORY: Negative for cough, hemoptysis, wheezing, COPD, dyspnea or shortness of breath CARDIOVASCULAR: Negative for chest pain, leg swelling, hypertension, CHF or palpitations PSYCH: Negative for mood disorder and recent psychosocial stressors NEURO: No history of headaches, syncope, paralysis, seizures or tremors EXAM: BP 147/98 Pulse 89 Resp 16 Wt 90.3 kg (199 lb) BMI 28.75 kg/m? General Appearance: Well appearing, alert, in no acute distress, well-hydrated, well nourished.. Lungs: Lungs clear to auscultation. No wheezing, rhonchi, rales.. Heart: RRR without murmur, gallop, or rubs. No ectopy. Abdomen: Normal abdominal exam, Abdomen soft, non-tender. Bowel sounds normal. No masses, organomegaly. Neurologic: Gait normal. Reflexes normal and symmetric. Sensation grossly intact.. Health Maintenance List Depression Screening Never done Shingrix Vaccine(1 of 2) Never done Pneumococcal Vaccine: 50+(1 of 1 - PCV) Never done Advance Directive Discussion Never done Diabetes Screening due on 11/13/2025 Colorectal Cancer Screening due on 05/22/2026 DTaP,Tdap,Td Vaccine(2 - Td or Tdap) due on 06/29/2027 Lipid Screening due on 11/14/2027 Prostate Cancer Screening Discussion due on 06/14/2028 RSV Vaccine(1 - 1-dose 75+ series) due on 2034 Hepatitis C Screening Completed Covid-19 Vaccine Completed Influenza Vaccine Discontinued HIV Screening Disc (more content not included)... Normal [facility] Comprehensive metabolic 2000 panelon 05-07-2024 Albumin [Mass/Vol] 4.4 g/dL Normal 3.9-4.[address] [facility] Comment on above: Order Comment: Speci men Type: URINE SPECIMEN Ordering Facility: [facility] Address: [address] [place] [address] Performed By: #### 2 4356-8 #### [facility] CLIA [id number] [address] [place] [address] [place] [address] [place] ALP [Catalytic activity/Vol] 101 U/L Normal 38-113 [facility] Comment on above: Order Comment: Speci men Type: URINE SPECIMEN Ordering Facility: [facility] Address: [address] [place] [address] Performed By: #### 2 4356-8 #### [facility] CLIA [id number] [address] [place] [address] [place] ALT [Catalytic activity/Vol] 40 U/L Normal 10-54 [facility] Comment on above: Order Comment: Speci men Type: URINE SPECIMEN Ordering Facility: [facility] Address: [address] [place] [address] Performed By: #### 2 4356-8 #### [facility] CLIA [id number] [address] [place] [address] [place] Anion gap [Moles/Vol] 13 mmol/L Normal 8-15 [facility] Comment on above: Order Comment: Speci men Type: URINE SPECIMEN Ordering Facility: [facility] Address: [address] [place] [address] Performed By: #### 2 4356-8 #### [facility] CLIA [id number] [address] [place] [address] [place] AST [Catalytic activity/Vol] 34 U/L Normal 14-40 [facility] Comment on above: Order Comment: Speci men Type: URINE SPECIMEN Ordering Facility: [facility] Address: [address] [place] [address] Performed By: #### 2 4356-8 #### [facility] CLIA [id number] [address] [place] [address] [place] Bilirubin [Mass/Vol] 0.9 mg/dL Normal 0.2-1.3 [facility] Comment on above: Order Comment: Speci men Type: URINE SPECIMEN Ordering Facility: [facility] Address: [address] [place] [address] Performed By: #### 2 4356-8 #### [facility] CLIA [id number] [address] [place] [address] [place] Calcium [Mass/Vol] 9.4 mg/dL Normal 8.5-10.[address] [facility] Comment on above: Order Comment: Speci men Type: URINE SPECIMEN Ordering Facility: [facility] Address: [address] [place] [address] Performed By: #### 2 4356-8 #### [facility] CLIA [id number] [address] [place] [address] [place] Chloride [Moles/Vol] 104 mmol/L Normal 98-107 [facility] Comment on above: Order Comment: Speci men Type: URINE SPECIMEN Ordering Facility: [facility] Address: [address] [place] [address] Performed By: #### 2 4356-8 #### [facility] [facility] CLIA [id number] [address] [place] [address] [place] CO2 [Moles/Vol] 23 mmol/L Normal 22-30 [facility] Comment on above: Order Comment: Speci men Type: URINE SPECIMEN Ordering Facility: [facility] Address: [address] [place] [address] Performed By: #### 2 4356-8 #### [facility] CLIA [id number] [address] [place] [address] [place] Creatinine [Mass/Vol] 0.95 mg/dL Normal 0.73-1.22 [facility] Comment on above: Order Comment: Speci men Type: URINE SPECIMEN Ordering Facility: [facility] Address: [address] [place] [address] Performed By: #### 2 4356-8 #### [facility] CLIA [id number] [address] [place] [address] [place] Creatinine and Glomerular filtration rate.predicted panel (S/P/Bld) 89 mL/min/1.73m??? Normal >=60 [facility] Comment on above: Order Comment: Speci men Type: URINE SPECIMEN Ordering Facility: [facility] Address: [address] [place] [address] Result Comment: Juanita mated Glomerular Filtration Rate (eGFR) is calculated using the 2020 CKD-EPI creatinine equation. This equation utilizes serum creatinine, sex, and age as parameters. The creatinine assay has traceable calibration to isotope dilution-mass spectrometry. Refer to KDIGO guidelines for clinical interpretation. In patients with unstable renal function, e.g. those with acute kidney injury, the eGFR may not accurately reflect actual GFR. Performed By: #### 2 4356-8 #### [facility] CLIA [id number] [address] [place] [address] [place] Glucose [Mass/Vol] 103 mg/dL High 74-[address] [facility] Comment on above: Order Comment: Speci men Type: URINE SPECIMEN Ordering Facility: [facility] Address: [address] [place] [address] Result Comment: The [place] Diabetes Association (ADA) provides guidance for cutoff values for fasting glucose and random glucose. The ADA defines fasting as no caloric intake for at least 8 hours. Fasting plasma glucose results between 100 to 125 mg/dL indicate increased risk for diabetes (prediabetes). Fasting plasma glucose results greater than or equal to 126 mg/dL meet the criteria for diagnosis of diabetes. In the absence of unequivocal hyperglycemia, results should be confirmed by repeat testing. In a patient with classic symptoms of hyperglycemia or hyperglycemic crisis, random plasma glucose results greater than or equal to 200 mg/dL meet the criteria for diagnosis of diabetes. Reference: Standards of Medical Care in Diabetes 2016, [place] Diabetes Association. Diabetes Care. 2016.39(Suppl 1). Performed By: #### 2 4356-8 #### [facility] CLIA [id number] [address] [place] [address] [place] Potassium [Moles/Vol] 4.6 mmol/L Normal 3.7-5.1 [facility] Comment on above: Order Comment: Speci men Type: URINE SPECIMEN Ordering Facility: [facility] Address: [address] [place] [address] Performed By: #### 2 4356-8 #### [facility] CLIA [id number] [address] [place] [address] [place] Protein [Mass/Vol] 7.3 g/dL Normal 6.3-8.[address] [facility] Comment on above: Order Comment: Speci men Type: URINE SPECIMEN Ordering Facility: [facility] Address: [address] [place] [address] Performed By: #### 2 4356-8 #### [facility] CLIA [id number] [address] [place] [address] [place] Sodium [Moles/Vol] 140 mmol/L Normal 136-[address] [facility] Comment on above: Order Comment: Speci men Type: URINE SPECIMEN Ordering Facility: [facility] Address: [address] [place] [address] Performed By: #### 2 4356-8 #### [facility] CLIA [id number] [address] [place] [address] [place] Urea nitrogen [Mass/Vol] 12 mg/dL Normal 9-24 [facility] Comment on above: Order Comment: Speci men Type: URINE SPECIMEN Ordering Facility: [facility] Address: [address] [place] [address] Performed By: #### 2 4356-8 #### [facility] CLIA [id number] [address] [place] [address] [place] HbA1c (Bld)on 05-07-2024 Average glucose Estimated from glycated hemoglobin (Bld) [Mass/Vol] 105 mg/dL Normal [facility] Comment on above: Order Comment: Speci men Type: BLOOD SPECIMEN Ordering Facility: [facility] Address: [address] [place] [address] Result Comment: eAG: (Estimated average glucose) is a calculated value from HgbA1c and is pharmacy sales representative of the average blood glucose level in the last 2-3 month period. Performed By: #### 5 5454-3 #### [facility] CLIA [id number] [address] [place] [address] [place] HbA1c (Bld) [Mass fraction] 5.3 % Normal 4.3-5.6 [facility] Comment on above: Order Comment: Grace men Type: BLOOD SPECIMEN Ordering Facility: [facility] Address: [address] [place] [address] Result Comment: [place] Diabetes Association guidelines indicate that patients with HgbA1c in the range 5.7-6.4% are at increased risk for development of diabetes, and intervention by lifestyle modification may be beneficial. HgbA1c greater or equal to 6.5% is considered diagnostic of diabetes. Performed By: #### 5 5454-3 #### [facility] CLIA [id number] [address] [place] [address] [place] LIPID PANEL, NONFASTINGon Cholesterol [Mass/Vol] 251 mg/dL High <200 [facility] Comment on above: Order Comment: Grace men Type: URINE SPECIMEN Ordering Facility: [facility] Address: [address] [place] [address] Result Comment: <200 mg/dL, Desirable 200-239 mg/dL, Borderline high >239 mg/dL, High Performed By: #### 2 4356-8 #### [facility] CLIA [id number] [address] [place] [address] [place] HDL CHOLESTEROL, NF 58 mg/dL Normal >39 [facility] Comment on above: Order Comment: Jaylini men Type: URINE SPECIMEN Ordering Facility: [facility] Address: [address] [place] [address] Result Comment: 40-5 9 mg/dL, Acceptable >59 mg/dL, High: Negative risk factor for coronary heart disease <40 mg/dL, Low: Positive risk factor for coronary heart disease Performed By: #### 2 4356-8 #### [facility] CLIA [id number] [address] [place] [address] [place] LDL CHOLESTEROL, NF 167 mg/dL High <100 [facility] Comment on above: Order Comment: Speci men Type: URINE SPECIMEN Ordering Facility: [facility] Address: [address] [place] [address] Result Comment: <100 mg/dL, Optimal 100-129 mg/dL, Near optimal/above optimal 130-159 mg/dL, Borderline high 160-189 mg/dL, High >189 mg/dL, Very high Secondary prevention optimal LDL Cholesterol levels are recommended to be < 70 mg/dL Performed By: #### 2 4356-8 #### [facility] CLIA [id number] [address] [place] [address] [place] LDL/HDL RATIO, NF 2.88 mg/dL High <2.54 [facility] Comment on above: Order Comment: Speci men Type: URINE SPECIMEN Ordering Facility: [facility] Address: [address] [place] [address] Result Comment: Refe rence: 1. National Cholesterol Education Program ATP III Guideline At-A-Glance Quick Desk Reference: National Heart, Lung, and Blood [place]. National Institutes of Health. 2001: NIH Publication No. 01-3305. 2. An International Atherosclerosis Society position paper: global recommendations for the management of dyslipidemia: executive summary, Atherosclerosis. 2014: 232(2):410-413. Performed By: #### 2 4356-8 #### [facility] CLIA [id number] [address] [place] [address] [place] NON HDL CHOL, NF 193 mg/dL High <130 [facility] Comment on above: Order Comment: Speci men Type: URINE SPECIMEN Ordering Facility: [facility] Address: [address] [place] [address] Result Comment: <130 mg/dL, Optimal 130-159 mg/dL, Near optimal/above optimal 160-189 mg/dL, Borderline high 190-219 mg/dL, High >219 mg/dL, Very high Secondary prevention optimal non HDL Cholesterol levels are recommended to be <100 mg/dL Performed By: #### 2 4356-8 #### [facility] CLIA [id number] [address] [place], [place] [address] [place] T CHOL/HDL RATIO NF 4.33 mg/dL Normal <5.10 [facility] Comment on above: Order Comment: Speci men Type: URINE SPECIMEN Ordering Facility: [facility] Address: [address] [place] [address] Performed By: #### 2 4356-8 #### [facility] CLIA [id number] [address] [place] [address] [place] TRIGLYCERIDES, NF 128 mg/dL Normal <150 [facility] Comment on above: Order Comment: Speci men Type: URINE SPECIMEN Ordering Facility: [facility] Address: [address] [place] [address] Result Comment: <150 mg/dL, Normal 150-199 mg/dL, Borderline high 200-499 mg/dL, High >499 mg/dL, Very high Performed By: #### 2 4356-8 #### [facility] CLIA [id number] [address] [place] [address] [place] VLDL CHOLESTEROL, NF 26 mg/dL Normal <30 [facility] Comment on above: Order Comment: Speci men Type: URINE SPECIMEN Ordering Facility: [facility] Address: [address] [place] [address] Performed By: #### 2 4356-8 #### [facility] CLIA [id number] [address] [place] [address] [place] Magnesium SerPl-mCncon 05-07 Magnesium [Mass/Vol] 2.1 mg/dL Normal 1.7-2.3 [facility] Comment on above: Order Comment: Speci men Type: URINE SPECIMEN Ordering Facility: [facility] Address: [address] [place] [address] Performed By: #### 2 4356-8 #### [facility] CLIA [id number] [address] [place] [address] [place] PSA/PROSTATE SPECIFIC ANTIGE N SCREENINGon 05-07-2024 Prostate specific Ag [Mass/Vol] 4.31 ng/mL High <2.60 [facility] Comment on above: Order Comment: Speci men Type: BLOOD SPECIMEN Ordering Facility: [facility] Address: [address] [place] [address] Result Comment: Mark santiago PSA test methodology used is the Electrochemiluminescence Immunoassay by [employer]. Total PSA values by differing methodologies cannot be interchanged. For an individual patient, the significance of a PSA level should be interpreted in a broad clinical context, including age, race, family history, digital rectal exam, prostate size, results of prior testing (prostate biopsy, free PSA, PCA3), and use of 5-alpha reductase inhibitors. Considering the high incidence of asymptomatic cancer in the general population that may not pose an ultimate risk to a patient, the decision to recommend urological evaluation or prostate biopsy should be individualized after consideration of all these factors. REFERENCE: Lazaro Clemens M.D., M.P.H., Hebert Espinal M.D., Ph.D., Sudhakar Carney M.D., Isis Mehta, M.P.H., Ayana Rodriguez, Sc.Hedy. Effect of Verification Bias on Screening for Prostate Cancer by Measurement of Prostatic Specific Antigen. N Engl J Med 2003,349:335-42. Performed By: #### P SAS1 #### [facility] CLIA [id number] [address] [place] [address] [place] TSH SerPl-aCncon 05-07-2024 TSH Qn 0.965 m[IU]/L Normal 0.270-4.200 [facility] Comment on above: Order Comment: Speci men Type: URINE SPECIMEN Ordering Facility: [facility] Address: [address] [place], [place] [address] [address] Performed By: #### 2 4356-8 #### [facility] CLIA [id number] [address] [place] [address] [place] Urinalysis complete panel (U )on 05-07-2024 Bacteria LM.HPF (Urine sed) [#/Area] Negative Normal Negative [facility] Comment on above: Order Comment: Speci men Type: URINE SPECIMEN Ordering Facility: [facility] Address: [address] [place] [address] Performed By: #### 2 4356-8 #### [facility] CLIA [id number] [address] [place] [address] [place] Bilirubin Ql (U) Negative Normal Negative [facility] Comment on above: Order Comment: Speci men Type: URINE SPECIMEN Ordering Facility: [facility] Address: [address] [place] [address] Performed By: #### 2 4356-8 #### [facility] CLIA [id number] [address] [place] [address] [place] Clarity (Unsp spec) Clear Normal Clear [facility] Comment on above: Order Comment: Speci men Type: URINE SPECIMEN Ordering Facility: [facility] Address: [address] [place] [address] Performed By: #### 2 4356-8 #### [facility] CLIA [id number] [address] [place] [address] [place] Color (U) Yellow Normal Yellow [facility] Comment on above: Order Comment: Speci men Type: URINE SPECIMEN Ordering Facility: [facility] Address: [address] [place] [address] Performed By: #### 2 4356-8 #### [facility] CLIA [id number] [address] [place] [address] [place] Epithelial cells LM.HPF (Urine sed) [#/Area] None Seen Normal [facility] Comment on above: Order Comment: Speci men Type: URINE SPECIMEN Ordering Facility: [facility] Address: [address] [place] [address] Performed By: #### 2 4356-8 #### [facility] CLIA [id number] [address] [place] [address] [place] Glucose Test strip (U) [Mass/Vol] Negative Normal Negative [facility] Comment on above: Order Comment: Speci men Type: URINE SPECIMEN Ordering Facility: [facility] Address: [address] [place] [address] Performed By: #### 2 4356-8 #### [facility] CLIA [id number] [address] [place] [address] [place] Hemoglobin Ql (U) Negative Normal Negative [facility] Comment on above: Order Comment: Speci men Type: URINE SPECIMEN Ordering Facility: [facility] Address: [address] [place] [address] Performed By: #### 2 4356-8 #### [facility] CLIA [id number] [address] [place] [address] [place] Hyaline casts (Urine sed) [#/Area] 0 /[LPF] Normal 0 /LPF [facility] Comment on above: Order Comment: Speci men Type: URINE SPECIMEN Ordering Facility: [facility] Address: [address] [place] [address] Performed By: #### 2 4356-8 #### [facility] CLIA [id number] [address] [place] [address] [place] Ketones Ql (U) Negative Normal Negative [facility] Comment on above: Order Comment: Speci men Type: URINE SPECIMEN Ordering Facility: [facility] Address: [address] [place] [address] Performed By: #### 2 4356-8 #### [facility] CLIA [id number] [address] [place] [address] [place] Leukocyte esterase Test strip Ql (U) Negative Normal Negative [facility] Comment on above: Order Comment: Speci men Type: URINE SPECIMEN Ordering Facility: [facility] Address: [address] [place] [address] Performed By: #### 2 4356-8 #### [facility] CLIA [id number] [address] [place] [address] [place] Nitrite Ql (U) Negative Normal Negative [facility] Comment on above: Order Comment: Speci men Type: URINE SPECIMEN Ordering Facility: [facility] Address: [address] [place] [address] Performed By: #### 2 4356-8 #### [facility] CLIA [id number] [address] [place] [address] [place] pH (U) 5.5 [pH] Normal <8.5 [facility] Comment on above: Order Comment: Speci men Type: URINE SPECIMEN Ordering Facility: [facility] Address: [address] [place] [address] Performed By: #### 2 4356-8 #### [facility] CLIA [id number] [address] [place] [address] [place] Protein (U) [Mass/Vol] Trace Abnormal Negative [facility] Comment on above: Order Comment: Speci men Type: URINE SPECIMEN Ordering Facility: [facility] Address: [address] [place] [address] Performed By: #### 2 4356-8 #### [facility] CLIA [id number] [address] [place] [address] [place] RBC LM.HPF (Urine sed) [#/Area] 0-2 /HPF Normal 0-2 /HPF [facility] Comment on above: Order Comment: Speci men Type: URINE SPECIMEN Ordering Facility: [facility] Address: [address] [place] [address] Performed By: #### 2 4356-8 #### [facility] CLIA [id number] [address] [place] [address] [place] Specific gravity (U) [Rel density] 1.022 Normal 1.005-1.030 [facility] Comment on above: Order Comment: Speci men Type: URINE SPECIMEN Ordering Facility: [facility] Address: [address] [place] [address] Performed By: #### 2 4356-8 #### [facility] CLIA [id number] [address] [place] [address] [place] Urobilinogen Ql (U) 0.2 EU/dL Normal 0.2-1.0 EU/dL [facility] Comment on above: Order Comment: Speci men Type: URINE SPECIMEN Ordering Facility: [facility] Address: [address] [place] [address] Performed By: #### 2 4356-8 #### [facility] CLIA [id number] [address] [place] [address] [place] WBC LM.HPF (Urine sed) [#/Area] 0-5 /HPF Normal 0-5 /HPF [facility] Comment on above: Order Comment: Speci men Type: URINE SPECIMEN Ordering Facility: [facility] Address: [address] [place] [address] Performed By: #### 2 4356-8 #### [facility] [place] [id number] [address] [place] [address] [place] Vit B12 [facility] 025 Cobalamin (Vitamin B12) [Mass/Vol] 495 pg/mL Normal 232-1245 [facility] Comment on above: Order Comment: Speci men Type: URINE SPECIMEN Ordering Facility: [facility] Address: [address] [place] [address] Performed By: #### 2 4356-8 #### [facility] CLIA [id number] [address] [place] [address] [place] Influenza virus A and B RNA and SARS-CoV-2 (COVID-19) N gene panel SEBASTIÁN+probe (Resp)on 03-19-2023 FLUAV RNA SEBASTIÁN+probe Ql (Unsp spec) Detected Abnormal Not Detected [facility] FLUBV RNA SEBASITÁN+probe Ql (Unsp spec) Not detected Not Detected [facility] SARS-CoV-2 (COVID-19) RNA SEBASTIÁN+probe Ql (Resp) Not detected See comment [facility] XR CHEST 2V FRONTAL/LATon [facility] XR Chest PA and Lateralon IMPRESSION: No acute radiographic abnormality. Sewer Repairer: ISABELL Transcribe Date/Time: Mar 19 2023 1:20P Dictated by : NAZIA OCAMPO MD This examination was interpreted and the report reviewed and electronically signed by: NAZIA OCAMPO MD on Mar 19 2023 1:21PM [facility] DIVISION OF RADIOLOGY * * *Final Report* * * DATE OF EXAM: Mar 19 2023 1:20PM WOX 5291 - XR CHEST 2V FRONTAL/LAT / PROCEDURE REASON: Acute cough * * * * Physician Interpretation * * * * EXAMINATION: CHEST RADIOGRAPH (2 VIEW FRONTAL & LATERAL) CLINICAL HISTORY: Acute cough MQ: XC2_6 EXAM DATE/TIME: 03/19/2023 1:20 PM COMPARISON: Chest x-ray dated June 23, 2049 RESULT: Lines, tubes, and devices: None. Lungs and pleura: No consolidation. No lung mass. No pleural effusion. No pneumothorax. Cardiomediastinal silhouette: Stable cardiomediastinal silhouette when accounting for slight differences in patient positioning. Bones and soft tissues: Degenerative changes are present within the thoracic spine. DIVISION OF RADIOLOGY Provider, [facility] - 03/19/2023 * * *Final Report* * * DATE OF EXAM: Mar 19 2023 1:20PM WOX 5291 - XR CHEST 2V FRONTAL/LAT / PROCEDURE REASON: Acute cough * * * * Physician Interpretation * * * * EXAMINATION: CHEST RADIOGRAPH (2 VIEW FRONTAL & LATERAL) CLINICAL HISTORY: Acute cough MQ: XC2_6 EXAM DATE/TIME: 03/19/2023 1:20 PM COMPARISON: Chest x-ray dated June 23, 2049 RESULT: Lines, tubes, and devices: None. Lungs and pleura: No consolidation. No lung mass. No pleural effusion. No pneumothorax. Cardiomediastinal silhouette: Stable cardiomediastinal silhouette when accounting for slight differences in patient positioning. Bones and soft tissues: Degenerative changes are present within the thoracic spine. IMPRESSION IMPRESSION: No acute radiographic abnormality. Sewer Repairer: PSCB Transcribe Date/Time: Mar 19 2023 1:20P Dictated by : NAZIA OCAMPO MD This examination was interpreted and the report reviewed and electronically signed by: NAZIA OCAMPO MD on Mar 19 2023 1:21PM EST [facility] Radiology Study observation (narrative) [facility] XR Chest PA and LateralOrder ed By: [facility] Provider on 03-19-2023 [facility] Emergency Department Summary on 12-20-2021 Emergency Department Summary [facility] Medical Records Department [address] [place] [address] Emergency Department Summary 12/20/21 MR#: [id number] Acct: [id number] Name: ASYA SHETH Rep #: [id number] : 1960 61 From: Alonzo Weber MD PCP: Dr. Ron Whitley MD Status:PRE ER Location: ED HPI History of Present Illness Chief Complaint: Bite Informant: patient Narrative Narrative: Patient found out that there was a bat in his house. He knows he was exposed to it about a week ago but does not know if he has been exposed since. He does not think that he was bitten. He gets lots of scrapes at work but does not think the bat caused any of these. He is totally asymptomatic and has no complaints at all. He has never had the rabies vaccine. [facility] ED ENT ENT ED: Denies sore throat Cardiovascular Cardiovascular: Denies racing heartbeat Gastrointestinal Gastrointestinal: Denies nausea or vomiting Musculoskeletal Musculoskeletal: Denies myalgias Integumentary Denies abscess, Abrasions or rash Neurologic Neurologic: Denies headache(s), paresthesias or weakness Allergic/Immunologic Allergic/Immunologic ED: Denies urticaria PFSH PFSH Home Medications fluoxetine 20 mg capsule 40 mg PO DAILY 05/04/15 [History Last Taken Unknown] Allergy/AdvReac Type Severity Reaction Status Date / Time No Known Allergies Allergy Verified 12/20/21 16:18 Social History Smoking Status: Never smoker EXAM Physical Exam Const Vital Signs: 12/20/21 16:16 Temperature 96.9 F L Temperature Source Temporal Pulse Rate 112 H Respiratory Rate 18 Blood Pressure 130/99 H Blood Pressure Mean 109 Pulse Ox 95 Oxygen Delivery Method Room Air Positive well nourished and well developed General Appearance ED: well developed and NAD HEENT atraumatic Eyes EOMs intact bilaterally Resp normal respiratory effort Cardio regular rate and regular rhythm Cardio Narrative: Rates about 85 when I listen to him. GI non-tender Back/Spine no CVA tenderness Extremity normal to inspection Neuro Sensorium / Orientation: alert Psych mental status grossly normal Skin skin turgor normal MDM MDM MDM Narrative Medical decision making narrative: We will initiate the rabies series here. I cannot inject the immunoglobulin around the bite site because there is no known bite site. But he does have known exposure. He will follow-up for his repeat vaccines. Discharge Plan Triage Chief Complaint: Bite ED Provider: Alonzo Weber Dx/Rx/DC Orders Clinical Impression: Exposure to bat without known bite Instructions: Understanding Rabies Prescriptions: No Action fluoxetine 20 MG capsule 40 mg PO DAILY Primary Care Provider: Ron Whitley Referrals: Ron Whitley MD [Primary Care Provider] - As Needed Activity Restrictions/Additional Instructions: Follow-up here for repeat doses as scheduled. To maintain immunity, titers are all been drawn to gauge need for further immunization Disposition Disposition: Home, Self Care What to do if you have Problems For any increased pain, shortness of breath, bleeding, nausea or vomiting, chest pain, or any unexpected problems, contact your Primary Care Provider. Call [facility] ([phone]) or report to the closest Emergency Room. Call 911 if necessary. 12/20/21 1641 Cosigner Signature (if applicable): CC: Dr. Ron Whitley MD Signed Normal [facility] Vital Signs Date Time Vital Sign Value Performing Clinician Facility 07-30-2024 09:06-0400 Body height 177.2 cm Tali Yanez MD Work Phone: [facility] 07-30-2024 09:06-0400 Body mass index (BMI) [Ratio] 28.75 kg/m2 Tali Yanez MD Work Phone: [facility] 07-30-2024 09:06-0400 Body weight 90.27 kg Tali Yanez MD Work Phone: [facility] 07-30-2024 09:06-0400 Heart rate 97 /min Tali Yanez MD Work Phone: [facility] 07-30-2024 09:06-0400 SaO2% (BldA) [Mass fraction] 98 % Tali Yanez MD Work Phone: [facility] 05-07-2024 10:27-0500 Body mass index (BMI) [Ratio] 28.75 kg/m2 Ayaka Mccollum OIL BOILER.VACUUM REPAIRER Work Phone: [facility] 05-07-2024 10:27-0500 Body weight 90.27 kg Ayaka Mccollum OIL BOILER.VACUUM REPAIRER Work Phone: [facility] 05-07-2024 10:27-0500 Diastolic blood pressure 98 mm[Hg] Ayaka Mccollum APRN.VACUUM REPAIRER Work Phone: [facility] 05-07-2024 10:27-0500 Heart rate 89 /min Ayaka Mccollum APRN.VACUUM REPAIRER Work Phone: [facility] 05-07-2024 10:27-0500 Respiratory rate 16 /min Ayaka Mccollum OIL BOILER.VACUUM REPAIRER Work Phone: [facility] 05-07-2024 10:27-0500 Systolic blood pressure 147 mm[Hg] Ayaka Mccollum OIL BOILER.VACUUM REPAIRER Work Phone: [facility] 07-08-2023 08:21-0400 Body height 177.2 cm Tali Yanez MD Work Phone: [facility] 07-08-2023 08:21-0400 Body weight 88 kg Tali Yanez MD Work Phone: [facility] 07-08-2023 08:21-0400 Heart rate 61 /min Tali Yanez MD Work Phone: [facility] 07-08-2023 08:21-0400 SaO2% (BldA) [Mass fraction] 99 % Tali Yanez MD Work Phone: [facility] 03-19-2023 12:52-0500 Body temperature 98.71 [degF] Camilla Chao PA-C Work Phone: [facility] 03-19-2023 12:52-0500 Body weight 88 kg Camilla Bogner PA-C Work Phone: [facility] 03-19-2023 12:52-0500 Diastolic blood pressure 80 mm[Hg] Camilla Bogner PA-C Work Phone: [facility] 03-19-2023 12:52-0500 Heart rate 97 /min Camilla Bogner PA-C Work Phone: [facility] 03-19-2023 12:52-0500 Respiratory rate 20 /min Camilla Bogner PA-C Work Phone: [facility] 03-19-2023 12:52-0500 SaO2% (BldA) [Mass fraction] 95 % Camilla Bogner PA-C Work Phone: [facility] 03-19-2023 12:52-0500 Systolic blood pressure 112 mm[Hg] Camilla Bogner PA-C Work Phone: [facility] 12-18-2022 11:57-0400 Body height 177.2 cm Leesa Brady PA-C Work Phone: [facility] 12-18-2022 11:57-0400 Body temperature 98.91 [degF] Leesa Brady PA-C Work Phone: [facility] 12-18-2022 11:57-0400 Body weight 88 kg Leesa Brady PA-C Work Phone: [facility] 12-18-2022 11:57-0400 Diastolic blood pressure 84 mm[Hg] Leesa Brady PA-C Work Phone: [facility] 12-18-2022 11:57-0400 Heart rate 60 /min Leesa Brady PA-C Work Phone: [facility] 12-18-2022 11:57-0400 Respiratory rate 16 /min Leesa Brady PA-C Work Phone: [facility] 12-18-2022 11:57-0400 Systolic blood pressure 122 mm[Hg] Leesa Brady PA-C Work Phone: [facility] 01-03-2022 18:28-0400 Body height 177.8 cm [facility] Work Phone: 01-03-2022 18:28-0400 Body mass index (BMI) [Ratio] 28.7 kg/m2 [facility] Work Phone: 01-03-2022 18:28-0400 Body temperature 97.9 [degF] [facility] Work Phone: 01-03-2022 18:28-0400 Body weight 90.71 kg [facility] Work Phone: 01-03-2022 18:28-0400 Diastolic blood pressure 86 mm[Hg] [facility] Work Phone: 01-03-2022 18:28-0400 Heart rate 88 /min [facility] Work Phone: 01-03-2022 18:28-0400 Respiratory rate 17 /min [facility] Work Phone: 01-03-2022 18:28-0400 SaO2% (BldA) [Mass fraction] 95 % [facility] Work Phone: 01-03-2022 18:28-0400 Systolic blood pressure 144 mm[Hg] [facility] Work Phone: 12-28-2021 16:54-0400 Body height 177.8 cm [facility] Work Phone: 12-28-2021 16:54-0400 Body mass index (BMI) [Ratio] 28.7 kg/m2 [facility] Work Phone: 12-28-2021 16:54-0400 Body temperature 98.7 [degF] [facility] Work Phone: 12-28-2021 16:54-0400 Body weight 90.71 kg [facility] Work Phone: 12-28-2021 16:54-0400 Diastolic blood pressure 104 mm[Hg] [facility] Work Phone: 12-28-2021 16:54-0400 Heart rate 90 /min [facility] Work Phone: 12-28-2021 16:54-0400 Respiratory rate 16 /min [facility] Work Phone: 12-28-2021 16:54-0400 SaO2% (BldA) [Mass fraction] 98 % [facility] Work Phone: 12-28-2021 16:54-0400 Systolic blood pressure 144 mm[Hg] [facility] Work Phone: 12-23-2021 13:18-0400 Body height 177.8 cm [facility] Work Phone: 12-23-2021 13:18-0400 Body mass index (BMI) [Ratio] 28.7 kg/m2 [facility] Work Phone: 12-23-2021 13:18-0400 Body temperature 97.5 [degF] [facility] Work Phone: 12-23-2021 13:18-0400 Body weight 90.71 kg [facility] Work Phone: 12-23-2021 13:18-0400 Diastolic blood pressure 98 mm[Hg] [facility] Work Phone: 12-23-2021 13:18-0400 Heart rate 88 /min [facility] Work Phone: 12-23-2021 13:18-0400 Respiratory rate 16 /min [facility] Work Phone: 12-23-2021 13:18-0400 SaO2% (BldA) [Mass fraction] 95 % [facility] Work Phone: 12-23-2021 13:18-0400 Systolic blood pressure 139 mm[Hg] [facility] Work Phone: 12-20-2021 16:49-0400 Respiratory rate 18 /min [facility] Work Phone: 12-20-2021 16:16-0400 Body height 177.8 cm [facility] Work Phone: 12-20-2021 16:16-0400 Body mass index (BMI) [Ratio] 28.7 kg/m2 [facility] Work Phone: 12-20-2021 16:16-0400 Body temperature 96.9 [degF] [facility] Work Phone: 12-20-2021 16:16-0400 Body weight 90.71 kg [facility] Work Phone: 12-20-2021 16:16-0400 Diastolic blood pressure 99 mm[Hg] [facility] Work Phone: 12-20-2021 16:16-0400 Heart rate 112 /min [facility] Work Phone: 12-20-2021 16:16-0400 SaO2% (BldA) [Mass fraction] 95 % [facility] Work Phone: 12-20-2021 16:16-0400 Systolic blood pressure 130 mm[Hg] [facility] Work Phone: Encounters Encounter Date Encounter Type Care Provider Facility Start: 11-24-2024 End: 11-24-2024 ambulatory RON WHITLEY Facility:[facility] Start: 11-24-2024 End: 11-24-2024 ambulatory AYAKA MCCOLLUM Facility:[facility] Start: 07-30-2024 End: 07-30-2024 Patient encounter procedure Tali Yanez MD Work Phone: Urology Comment on above: Elevated PSA (Primar y Dx); BPH with obstruction/lower urinary tract symptoms; Nocturia Start: 07-30-2024 End: 07-30-2024 ambulatory TALI YANEZ Facility:[facility] Start: 07-04-2024 End: 07-05-2024 Refill Ron Whitley MD Work Phone: [facility] Comment on above: Refill Request Start: 06-11-2024 End: 06-11-2024 Follow-up encounter Ayaka Mccollum APRN.VACUUM REPAIRER Work Phone: [facility] Start: 06-05-2024 End: 06-05-2024 ambulatory RON WHITLEY Facility:[facility] Start: 05-11-2024 End: 05-11-2024 Telephone encounter Ayaka Mccollum APRN.VACUUM REPAIRER Work Phone: [facility] Comment on above: Results Start: 05-07-2024 End: 05-07-2024 Patient encounter procedure Ayaka Mccollum APRN.VACUUM REPAIRER Work Phone: [facility] Comment on above: Medication managemen t (Primary Dx); Screening for depression; Elevated PSA; Mixed hyperlipidemia; Elevated fasting blood sugar; Generalized anxiety disorder; Encounter for immunization; GERD without esophagitis; Elevated BP without diagnosis of hypertension; Primary insomnia Start: 05-07-2024 End: 05-07-2024 ambulatory RON WHITLEY Facility:[facility] Start: 05-05-2024 End: 05-05-2024 Refill Ron Whitley MD Work Phone: [facility] Comment on above: Refill Request Start: 07-08-2023 End: 07-08-2023 Patient encounter procedure Tali Yanez MD Work Phone: Urology Comment on above: BPH with obstruction /lower urinary tract symptoms (Primary Dx); Elevated PSA; Nocturia Start: 06-15-2023 Telephone encounter Ron Whitley MD Work Phone: [facility] Comment on above: Results Start: 06-13-2023 Telephone encounter Rut Valentin [address] Comment on above: Orders Start: 03-20-2023 Telephone encounter Isai DAWSON Work Phone: [facility] Comment on above: Results Start: 03-19-2023 End: 03-19-2023 Subsequent hospital visit by physician Nika [facility] Work Phone: Radiology Comment on above: Acute cough [R05.1] Start: 03-19-2023 End: 03-19-2023 Office outpatient visit 15 minutes Camilla Chao PA-C Work Phone: [facility] Comment on above: Acute cough (Primary Dx); Subconjunctival hemorrhage of right eye Start: 12-18-2022 End: 12-18-2022 Patient encounter procedure Leesa Brady PA-C Work Phone: [facility] Comment on above: Well adult exam (Deepa quin Dx); Generalized anxiety disorder; Palpitations; Mixed hyperlipidemia; GERD without esophagitis; Elevated fasting blood sugar; Osteoarthritis, unspecified osteoarthritis type, unspecified site; Elevated PSA; Primary insomnia Start: 12-18-2022 End: 12-18-2022 Patient encounter status Leesa Brady PA-C Work Phone: [facility] Work Phone: Start: 11-23-2022 Refill Ron howard MD Work Phone: [facility] Comment on above: Refill Request Start: 11-21-2022 Telephone encounter Ron Whitley MD Work Phone: [facility] Comment on above: Appointment Start: 10-26-2022 Telephone encounter Leesa patiño PA-C Work Phone: [facility] Comment on above: Orders Start: 01-03-2022 End: 01-03-2022 ambulatory Ron Whitley Facility:[facility] Start: 01-03-2022 End: 01-03-2022 ambulatory [facility] Work Phone: Start: 01-03-2022 End: 01-03-2022 Patient encounter procedure [facility] Start: 12-28-2021 End: 12-28-2021 Patient encounter procedure [facility] Start: 12-28-2021 End: 12-28-2021 ambulatory Alonzo Weber [facility] Work Phone: Start: 12-23-2021 End: 12-23-2021 ambulatory Parth Ferris Facility:[facility] Start: 12-23-2021 End: 12-23-2021 Emergency department patient visit [facility] Start: 12-23-2021 End: 12-23-2021 Patient encounter procedure [facility] Start: 12-20-2021 End: 12-20-2021 Emergency department patient visit Alonzo Weber Facility:[facility] Start: 12-20-2021 End: 12-20-2021 Emergency department patient visit [facility] Start: 05-26-2019 Patient encounter status Maryuri Brady PA-C Work Phone: [facility] Work Phone: Procedures Date Procedure Procedure Detail Performing Clinician Start: 05-07-2024 Adult depression scr eening assessment Ayaka Mccollum APRN.VACUUM REPAIRER Work Phone: Start: 05-07-2024 Lipid 1996 panel - S allie or Plasma Ayaka Mccollum APRN.VACUUM REPAIRER Work Phone: Start: 03-19-2023 COVID & INFLUENZA A/ B NAAT, ROUTINE Camilla Chao PA-C Work Phone: Start: 03-19-2023 Radiologic exam ches t 2 views Camilla Chao PA-C Work Phone: Start: 11-13-2022 Lipid 1996 panel - S allie or Plasma Isai DAWSON Work Phone: Start: 05-22-2021 Colonoscopy Leesa NORRISC Work Phone: Plan of Treatment Date Care Activity Detail Author Start: 2034 RSV Vaccine (1 - 1-d ose 75+ series) RSV Vaccine (1 - 1-dose 75+ series) [facility] Start: 06-05-2029 Prostate specific antigen measurement Prostate Cancer Screening Discussion [facility] Start: 05-07-2029 Lipid panel Lipid Screening [facility] Start: 05-07-2029 Prostate specific antigen measurement Prostate Cancer Screening Discussion [facility] Start: 06-14-2028 Prostate specific antigen measurement Prostate Cancer Screening Discussion [facility] Start: 11-14-2027 Lipid 1996 panel - Serum or Plasma Lipid Screening [facility] Start: 11-14-2027 Lipid panel Lipid Screening [facility] Start: 11-14-2027 LIPID SCREEN LIPID SCREEN [facility] Start: 11-14-2027 PROSTATE CANCER SCREENING DISCUSSION PROSTATE CANCER SCREENING DISCUSSION [facility] Start: 11-14-2027 Prostate specific antigen measurement Prostate Cancer Screening Discussion [facility] Start: 06-29-2027 Urine microalbumin profile [facility] Start: 05-07-2027 Diabetes Screening Diabetes Screenin g [facility] Start: 05-22-2026 Colonoscopy COLONOSCOPY [facility] Start: 05-22-2026 COLORECTAL CANCER SCREENING COLORECTAL CANCER SCREENING [facility] Start: 05-22-2026 Screening for malign ant neoplasm of colon [facility] Start: 03-11-2026 LIPID SCREEN LIPID SCREEN [facility] Start: 11-13-2025 DIABETES SCREEN DIABETES SCREEN [facility] Start: 11-13-2025 Diabetes Screening Diabetes Screenin g [facility] Start: 05-07-2025 Depression Screening Depression Scre ening [facility] Start: 05-07-2025 Pneumococcal Vaccine : 50+ (1 of 1 - PCV) Pneumococcal Vaccine: 50+ (1 of 1 - PCV) [facility] Comment on above: Postponed from 04/25 (Declined at this time) Start: 05-07-2025 Shingrix Vaccine (1 of 2) Shingrix Vaccine (1 of 2) [facility] Comment on above: Postponed from 04/25 (Declined at this time) Start: 04-21-2025 Advance Directive Discussion Advance Directive Discussion [facility] Comment on above: Postponed from 04/25 (Declined at this time) Start: 11-04-2024 End: 11-04-2024 Patient encounter procedure [facility] Comment on above: 6 month follow up Start: 09-11-2024 Covid-19 Vaccine () Covid-19 Vaccine () [facility] Start: 07-30-2024 End: 07-30-2024 Patient encounter procedure 07/30/2024 9:15 AM EDT Office Visit Urology [address] [place] [address] Tali Yanez MD [address] [place] [address] 1 year follow up psa prior Urology Comment on above: 1 year follow up psa prior Start: 07-07-2024 End: 10-06-2024 Prostate specific Ag [Mass/volume] in Serum or Plasma PSA/PROSTSPECAG DIAG Lab Routine Elevated PSA BPH with obstruction/lower urinary tract symptoms Nocturia Expected: 07/07/2024 (Approximate), Expires: 10/06/2024 [facility] Work Phone: Comment on above: Expected: 07/07/2024 (Approximate), Expires: 10/06/2024 Start: 05-11-2024 End: 08-10-2024 Prostate Specific Ag Free [Mass/volume] in Serum or Plasma PROSTATE SPECIFIC ANTIGEN, FREE Lab Routine Elevated PSA Expected: 05/11/2024, Expires: 08/10/2024 [facility] Work Phone: Comment on above: Expected: 05/11/2024 , Expires: 08/10/2024 Start: 05-07-2024 End: 08-06-2024 CBC W Auto Differential panel - Blood [facility] Work Phone: Comment on above: Expected: 05/07/2024 , Expires: 08/06/2024 Start: 05-07-2024 End: 08-06-2024 Cobalamin (Vitamin B12) [Mass/volume] in Serum or Plasma [facility] Comment on above: Expected: 05/07/2024 , Expires: 08/06/2024 Start: 05-07-2024 End: 08-06-2024 Comprehensive metabolic 2000 panel - Serum or Plasma [facility] Comment on above: Expected: 05/07/2024 , Expires: 08/06/2024 Start: 05-07-2024 End: 08-06-2024 Hemoglobin A1c in Blood [facility] Comment on above: Expected: 05/07/2024 , Expires: 08/06/2024 Start: 05-07-2024 End: 08-06-2024 LIPID PANEL, NONFASTING [facility] Comment on above: Expected: 05/07/2024 , Expires: 08/06/2024 Start: 05-07-2024 End: 08-06-2024 Magnesium [Mass/volume] in Serum or Plasma [facility] Comment on above: Expected: 05/07/2024 , Expires: 08/06/2024 Start: 05-07-2024 End: 08-06-2024 PSA/PROSTATE SPECIFIC ANTIGEN SCREENING [facility] Comment on above: Expected: 05/07/2024 , Expires: 08/06/2024 Start: 05-07-2024 End: 08-06-2024 Thyrotropin [Units/volume] in Serum or Plasma [facility] Comment on above: Expected: 05/07/2024 , Expires: 08/06/2024 Start: 05-07-2024 End: 08-06-2024 Urinalysis complete panel - Urine [facility] Comment on above: Expected: 05/07/2024 , Expires: 08/06/2024 Start: 05-07-2024 End: 05-07-2024 Patient encounter procedure 05/07/2024 10:40 AM EST Office Visit [facility] [address] [place], [place] [id number] Ayaka Mccollum APRN.VACUUM REPAIRER [address] [place] [address] Yearly exam [facility] Comment on above: Yearly exam Start: 2024 Advance Directive Discussion Advance Directive Discussion [facility] Start: 03-11-2024 DIABETES SCREEN DIABETES SCREEN [facility] Start: 01-04-2024 End: 04-04-2024 Prostate specific Ag [Mass/volume] in Serum or Plasma PSA/PROSTSPECAG DIAG Lab Routine Elevated PSA BPH with obstruction/lower urinary tract symptoms Nocturia Expected: 01/04/2024 (Approximate), Expires: 04/04/2024 [facility] Work Phone: Comment on above: Expected: 01/04/2024 (Approximate), Expires: 04/04/2024 Start: 12-22-2023 Covid-19 Vaccine () Covid-19 Vaccine () [facility] Start: 06-13-2023 End: 09-12-2023 Prostate Specific Ag Free [Mass/volume] in Serum or Plasma PSA FREE Lab Routine Elevated PSA Expected: 06/13/2023, Expires: 09/12/2023 [facility] Work Phone: Comment on above: Expected: 06/13/2023 , Expires: 09/12/2023 Start: 04-22-2023 Depression Assessment Depression Ass [facility] Start: 04-21-2023 DEPRESSION ASSESSMENT DEPRESSION ASS [facility] Comment on above: Postponed from 04/22 (Postponed To Appropriate Date) Start: 03-20-2023 End: 05-20-2023 Prostate Specific Ag Free [Mass/volume] in Serum or Plasma PSA FREE Lab Routine Elevated PSA Expected: 03/20/2023, Expires: 05/20/2023 [facility] Work Phone: Comment on above: Expected: 03/20/2023 , Expires: 05/20/2023 Start: 12-21-2022 Covid-19 Vaccine () Covid-19 Vaccine () [facility] Start: 10-29-2022 End: 12-29-2022 CBC W Auto Differential panel - Blood CBC + DIFF Lab Routine Mixed hyperlipidemia Generalized anxiety disorder Prostate cancer screening Elevated fasting blood sugar Expected: 10/29/2022, Expires: 12/29/2022 [facility] Work Phone: Comment on above: Expected: 10/29/2022 , Expires: 12/29/2022 Start: 10-29-2022 End: 12-29-2022 Comprehensive metabolic 2000 panel - Serum or Plasma COMP METABOLIC PANEL Lab Routine Mixed hyperlipidemia Generalized anxiety disorder Prostate cancer screening Elevated fasting blood sugar Expected: 10/29/2022, Expires: 12/29/2022 [facility] Work Phone: Comment on above: Expected: 10/29/2022 , Expires: 12/29/2022 Start: 10-29-2022 End: 12-29-2022 Hemoglobin A1c in Blood HGB A1C Lab Routine Mixed hyperlipidemia Generalized anxiety disorder Prostate cancer screening Elevated fasting blood sugar Expected: 10/29/2022, Expires: 12/29/2022 [facility] Work Phone: Comment on above: Expected: 10/29/2022 , Expires: 12/29/2022 Start: 10-29-2022 End: 12-29-2022 LIPID PANEL, NONFASTING LIPID PANEL, NONFASTING Lab Routine Mixed hyperlipidemia Generalized anxiety disorder Prostate cancer screening Elevated fasting blood sugar Expected: 10/29/2022, Expires: 12/29/2022 [facility] Work Phone: Comment on above: Expected: 10/29/2022 , Expires: 12/29/2022 Start: 10-29-2022 End: 12-29-2022 Prostate specific Ag [Mass/volume] in Serum or Plasma PSA/PROSTSPECAG DIAG Lab Routine Prostate cancer screening Expected: 10/29/2022, Expires: 12/29/2022 [facility] Work Phone: Comment on above: Expected: 10/29/2022 , Expires: 12/29/2022 Start: 10-29-2022 End: 12-29-2022 Urinalysis complete panel - Urine URINALYSIS, WITH MICROSCOPIC Lab Routine Mixed hyperlipidemia Generalized anxiety disorder Prostate cancer screening Elevated fasting blood sugar Expected: 10/29/2022, Expires: 12/29/2022 [facility] Work Phone: Comment on above: Expected: 10/29/2022 , Expires: 12/29/2022 Start: 04-22-2022 DEPRESSION ASSESSMENT DEPRESSION ASS ESSMENT [facility] Start: 10-10-2021 PROSTATE CANCER SCREENING DISCUSSION PROSTATE CANCER SCREENING DISCUSSION [facility] Start: 05-18-2021 COVID-19 VACCINE (4 - Pfizer series) COVID-19 VACCINE (4 - Pfizer series) [facility] Start: 2019 RSV Vaccine (1 - 1-d ose 60+ series) RSV Vaccine (1 - 1-dose 60+ series) [facility] Start: 2009 Pneumococcal Vaccine : 50+ (1 of 1 - PCV) Pneumococcal Vaccine: 50+ (1 of 1 - PCV) [facility] Start: 2009 SHINGRIX VACCINE (1 of 2) SHINGRIX VACCINE (1 of 2) [facility] Start: 2004 COLOGUARD (FIT-DNA) COLOGUARD (FIT-D NA) [facility] Start: [address] COLONOGRAPHY [facility] Start: 2004 FECAL OCCULT BLOOD FECAL OCCULT BLOO D [facility] Start: 2004 Screening for malign ant neoplasm of colon [facility] Start: 2004 SIGMOIDOSCOPY SIGMOIDOSCOPY [facility] Start: 1977 Depression Screening Depression Scre ening [facility] Start: 1977 HIV SCREENING HIV SCREENING [facility] Patient Education Understanding Rabies [facility] Work Phone: Patient referral [facility] Work Phone: [facility] Immunizations Immunization Date Immunization Notes Care Provider Fa cili 01-03-2022 rabies vaccine, for intramuscular injection [facility] 12-28-2021 rabies vaccine, for intramuscular injection [facility] 12-23-2021 rabies vaccine, for intramuscular injection [facility] 12-20-2021 rabies immune globulin [facility] 12-20-2021 rabies vaccine, for intramuscular injection [facility] 07-27-2020 COVID-19 original vaccine, age 12+ yr, monovalent (PFIZER-BIONTECH - PURPLE TOP) Leesa Brady PA-C Work Phone: [facility] 07-02-2020 COVID-19 original vaccine, age 12+ yr, monovalent (PFIZER-BIONTECH - PURPLE TOP) Leesa Brady PA-C Work Phone: [facility] 06-28-2017 tetanus toxoid, redu alisia diphtheria toxoid, and acellular pertussis vaccine, adsorbed Leesa Brady PA-C Work Phone: [facility] 09-17-2008 tetanus and diphther ia toxoids, adsorbed, preservative free, for adult use (2 Lf of tetanus toxoid and 2 Lf of diphtheria toxoid) Leesa Brady PA-C Work Phone: [facility] Payers Date Payer Category Payer Self-pay [id number] 2018 Private Health Insurance MMO SUP ERMED PPO [id number] 2018 Unknown MMO MMO SUPERMED PPO [id number] 2018-Present [phone] [address] [place] [address] PPO [id number] 2018 Unknown [id number] Unknown OB [id number] Unknown OBW [id number] [id number] Unknown [id number] Unknown [id number] Unknown [id number] Unknown [id number] Social History Date Type Detail Facility Start: 12-20-2021 Tobacco smoking stat us NHIS Unknown if ever smoked [facility] Work Phone: Start: 07-16-2019 None [facility] Work Phone: Start: 07-16-2019 Spouse/ Signif icant Other [facility] Work Phone: Start: 1960 Sex Assigned At Male W [facility] Work Phone: Start: 06-23-2014 End: 12-18-2022 Tobacco smoking status NHIS Never smoked tobacco [facility] Work Phone: Start: 06-23-2014 End: 12-18-2022 Tobacco use and exposure Former smokeless tobacco user [facility] Work Phone: Start: 06-21-2021 End: 07-30-2024 Alcohol intake Current drinker of alcohol (finding) [facility] Start: 06-21-2021 End: 11-15-2022 History of Social function [facility] Start: 06-21-2021 End: 11-15-2022 Tobacco use panel [facility] Adult Depression Screening Assessment 0 [facility] Start: 05-22-2021 Alcohol Comment 1 beer daily [facility] Start: 1960 Sex Assigned At Not on file C [facility] Functional Status Date Assessment Result Facility 06-23-2014 Are you deaf, or do you have serious difficulty hearing No 06/23/2014 10:15 AM Sheela Thompson LPN [facility] Work Phone: 06-23-2014 Are you blind, or do you have serious difficulty seeing, even when wearing glasses No 06/23/2014 10:15 AM Sheela Thompson LPN No [facility] 06-23-2014 Do you have serious difficulty walking or climbing stairs No 06/23/2014 10:15 AM Sheela Thompson LPN No [facility] 06-23-2014 Do you have difficul ty dressing or bathing No 06/23/2014 10:15 AM Sheela Thompson LPN No [facility] 06-23-2014 Because of a physica l, mental, or emotional condition, do you have difficulty doing errands alone such as visiting a physician's office or shopping No 06/23/2014 10:15 AM Sheela Thompson LPN No [facility] Mental Status Date Assessment Result Facility 12-20-2021 Cognitive function Level Of Cons ciousness Awake;Alert;Appropriate;Fol lows Commands [facility] Work Phone: 06-23-2014 Because of a physica l, mental, or emotional condition, do you have serious difficulty concentrating, remembering, or making decisions No 06/23/2014 10:15 AM Sheela Thompson LPN No [facility] Clinical Notes 10-29-2022 to 11-24-2024 Tali Yanez MD - 07/30/2024 9:12 AM EDTTelephone Encounter - Marivel Oliveira MA - 07/05/2024 3:10 PM EDTTelephone Encounter - Marivel Oliveira MA - 07/05/2024 3:10 PM EDTPatient Instructions Note Date & Type Note Facility 11-24-2024 Note HNO ID: [id number] Author: JANETT SARABIA Tech Service: ? Author Type: Obstetrical Nurse Type: Progress Notes Filed: 11/24/2024 11:02 Note Text: Radiology Service Progress Note PATIENT NAME: Asya Sheth DATE OF SERVICE: November 24, 2024 TIME: 10:49 AM PATIENT IDENTITY VERIFICATION COMPLETED USING TWO (2) IDENTIFIERS: Name and Date of confirmed by patient verbally. FALL SCREENING: Has the patient had 2 falls in the last year or 1 fall with injury or currently using an Ambulatory Assistive Device (Walker, Cane, Wheelchair, Crutches, etc.)? No PATIENT GENDER DATA: Assigned male at PATIENT RELEVANT IMPLANT DATA REVIEWED: Yes PATIENT PRESENTS WITH AN IMPLANTABLE OR ATTACHED CROCODILE FARMER: No RADIOLOGY DEPARTMENT: General X-ray: Exam(s) Completed: Abdomen X-Ray: Abdomen with Obliques PERIPHERAL IV DATA: Not applicable SIGNED BY: Ben Mahan November 24, 2024 10:49 AM [facility] 11-24-2024 Note HNO ID: [id number] Author: AYAKA MCCOLLUM APRN.VACUUM REPAIRER Service: ? Author Type: Nurse Practitioner Type: Progress Notes Filed: 11/24/2024 10:45 Note Text: Chief Complaint Patient presents with: 6 Month Exam Back Pain: X 1 year worsening X 1 week HPI Asya Sheth is a 64 year old male who presents here today for Above Complaints.. Patient presents for routine follow up. Back Pain: - Chronic back pain, predominantly in the right lower back, x1 year. - Significant exacerbation over the past couple of weeks, affecting sleep. - Last night was the first night he could sleep without waking up in pain. - Denies numbness, tingling, or any known injury or instigating event. - Engages in frequent lifting and bending due to work. Past medical history, appointments, medications, allergies reviewed. 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 Osteoarthritis 06/06/2010 Palpitations 09/17/2008 Previous Surgical History PAST SURGICAL HISTORY Procedure Laterality Date COLONOSCOPY 05/22/2021 repeat in 5 years COLONOSCOPY FLX DX W/COLLJ SPEC WHEN PFRMD 08/09/2010 HERNIA REPAIR HX TONSILLECTOMY HX Family History FAMILY HISTORY Problem Relation Age of Onset other (colitis) Mother ulcerative colitis Coronary Artery Disease Father CABGX2 Patient Allergies ALLERGIES Allergen Reactions Lipitor [Atorvastat* Myalgia Current Medications Current Outpatient Medications on File Prior to Visit Medication Sig pravastatin (PRAVACHOL) 10 mg tablet Take 1 tablet by mouth once daily. omeprazole 20 mg disintegrating tablet (PriLOSEC) Take 1 tablet by mouth once daily. mirtazapine (REMERON) 15 mg tablet Take 1 tablet by mouth daily at bedtime. FLUoxetine (PROZAC) 40 mg capsule Take 1 capsule by mouth once daily. No current facility-administered medications on file prior to visit. Social History Social History Tobacco Use Smoking status: Never Smokeless tobacco: Former Vaping Use Vaping status: Never Used Substance Use Topics Alcohol use: Yes Alcohol/week: 4.0 - 6.0 standard drinks of alcohol Types: 4 - 6 Cans of Beer (12oz) per week Comment: 1 beer daily Drug use: Not Currently Review of Symptoms REVIEW OF SYSTEMS SEE HPI EXAM: BP 140/90 Pulse 86 Wt 91 kg (200 lb 9.9 oz) BMI 28.98 kg/m? General Appearance: Well appearing, alert, in no acute distress, well-hydrated, well nourished. Back:no pain to palpation of vertebrae, good flexion and extension, good range of motion, no muscle tenderness, reflexes are 2+ and symmetric, motor and sensory appear to be normal, negative SLR test, no evidence of scoliosis Lungs: Lungs clear to auscultation. No wheezing, rhonchi, rales.. Heart: RRR without murmur, gallop, or rubs. No ectopy. Health Maintenance List Advance Directive Discussion due on 04/21/2025 Shingrix Vaccine(1 of 2) due on 05/07/2025 Pneumococcal Vaccine: 50+(1 of 1 - PCV) due on 05/07/2025 Depression Screening due on 05/07/2025 Colorectal Cancer Screening due on 05/22/2026 Diabetes Screening due on 05/07/2027 DTaP,Tdap,Td Vaccine(2 - Td or Tdap) due on 06/29/2027 Lipid Screening due on 05/07/2029 Prostate Cancer Screening Discussion due on 06/05/2029 RSV Vaccine(1 - 1-dose 75+ series) due on 2034 Hepatitis C Screening Completed Influenza Vaccine Discontinued HIV Screening Discontinued ASSESSMENT/PLAN: 1. Mixed hyperlipidemia - ICD9: 272.2, ICD10: E78.2 (primary diagnosis) - Control undetermined, due for labs - Continue current medications - Counseled on healthy diet and regular exercise - LIPID PANEL, NONFASTING 2. GERD without esophagitis - ICD9: 530.81, ICD10: K21.9 - Continue treatment with Prilosec 20 mg QD - OMEPRAZOLE 20 MG DELAYED RELEASE,DISINTEGRATING TABLET 3. Primary insomnia - ICD9: 307.42, ICD10: F51.01 - MIRTAZAPINE 15 MG TABLET 4. Generalized anxiety disorder - ICD9: 300.02, ICD10: F41.1 - Patient reports he is not currently taking prozac. 5. Chronic midline low back pain without sciatica - ICD9: 724.2, 338.29, ICD10: M54.50, G89.29 -Patient offered PT but declined. Provided back stretches and exercises and advised patient to notify us if no improvement in symptoms. 6. Right flank pain - ICD9: 789.09, ICD10: R10.9 - Labs of Urine analysis - Work up with XR KUB - XR ABDOMEN 3V KUB W/OBLIQUES - UA DIP, URINE (POC) Ayaka Mccollum APRN.[facility] 07-30-2024 History of Presen t illness Narrative ESTABLISHED PATIENT OFFICE VISIT HISTORY OF PRESENT ILLNESS Patient presents with: Benign Prostatic Hypertrophy Nocturia Asya Sheth is a 64 year old male who presents with for follow up regarding his PSA LAB RESULTS Creatinine Date Value Ref Range Status 05/07/2024 0.95 0.73 - 1.22 mg/dL Final PSA (ng/mL) Date Value 06/05/2024 3.45 06/14/2023 3.81 11/13/2022 4.51 10/10/2016 1.99 PSA Screening (ng/mL) Date Value 05/07/2024 4.31 Color (no units) Date Value 05/07/2024 Yellow 10/10/2016 Yellow Clarity (no units) Date Value 05/07/2024 Clear 10/10/2016 Clear Glucose, Urine Date Value 05/07/2024 Negative 10/10/2016 Negative mg/dL Bilirubin, Urine (no units) Date Value 05/07/2024 Negative 10/10/2016 Negative Ketones, Urine (no units) Date Value 05/07/2024 Negative 10/10/2016 Negative Specific Keyser, Ur (no units) Date Value 05/07/2024 1.022 10/10/2016 1.015 Hemoglobin/Blood,Ur Date Value 05/07/2024 Negative 10/10/2016 Negative pH, Urine (no units) Date Value 05/07/2024 5.5 10/10/2016 6.0 Protein, Urine Date Value 05/07/2024 Trace 10/10/2016 Negative mg/dL Urobilinogen (no units) Date Value 05/07/2024 0.2 EU/dL 10/10/2016 Normal Nitrites (no units) Date Value 05/07/2024 Negative 10/10/2016 Negative Leukest (no units) Date Value 10/10/2016 Negative Leuk Esterase (no units) Date Value 05/07/2024 Negative ALLERGIES Allergen Reactions Lipitor [Atorvastat* Myalgia MEDICATIONS: pravastatin (PRAVACHOL) 10 mg tablet Take 1 tablet by mouth once daily. omeprazole 20 mg disintegrating tablet (PriLOSEC) Take 1 tablet by mouth once daily. mirtazapine (REMERON) 15 mg tablet Take 1 tablet by mouth daily at bedtime. FLUoxetine (PROZAC) 40 mg capsule Take 1 capsule by mouth once daily. REVIEW OF SYSTEMS GENERAL:no unintentional weight loss, malaise or fevers. NEUROLOGIC: pt is alert and oriented GENITOURINARY: No history of dysuria, frequency or incontinence The remainder of the ROS was reviewed and is negative. HISTORIES PAST MEDICAL HISTORY Diagnosis Date Elevated fasting blood sugar 08/17/2013 Ganglion of tendon 06/06/2010 Generalized anxiety disorder 09/17/2008 GERD without esophagitis 08/18/2015 Intradermal nevus 10/24/2017 Removed from back 2015 Mixed hyperlipidemia 06/26/2011 Nasal sore 2017 chronic Osteoarthritis 06/06/2010 Palpitations 09/17/2008 FAMILY HISTORY Problem Relation Age of Onset other (colitis) Mother ulcerative colitis Coronary Artery Disease Father CABGX2 PAST SURGICAL HISTORY Procedure Laterality Date COLONOSCOPY 05/22/2021 repeat in 5 years COLONOSCOPY FLX DX W/COLLJ SPEC WHEN PFRMD 08/09/2010 HERNIA REPAIR HX TONSILLECTOMY HX SOCIAL HISTORY Social History Tobacco Use Smoking status: Never Smokeless tobacco: Former Vaping Use Vaping status: Never Used Substance Use Topics Alcohol use: Yes Alcohol/week: 4.0 - 6.0 standard drinks of alcohol Types: 4 - 6 Cans of Beer (12oz) per week Comment: 1 beer daily Drug use: Not Currently PHYSICAL EXAMINATION General appearance: Well appearing, alert, in no acute distress, well-hydrated, well nourished Psych Alert and oriented to person, place and time Respiratory: no wheezing or rhonchi Abdomen Genitourinary: MALE EXAM: Exam NOT Indicated 06/05/2024 PSA 3.5 06/14/2023 PSA 3.8 11/13/2022 PSA 4.5 Assessment and Plan: LUTS- IPSS 6, nocturia 0-1x, off urgency, no hematuria Elevated PSA- no Fhx of prostate cancer, prior DANIELLA B9 and he declined MRI. Latest PSA stable at 3.5 documented in this encounter [facility] 07-30-2024 Note HNO ID: [id number] Author: TALI YANEZ MD Service: ? Author Type: Physician Type: Progress Notes Filed: 07/30/2024 09:32 Note Text: ESTABLISHED PATIENT OFFICE VISIT HISTORY OF PRESENT ILLNESS Patient presents with: Benign Prostatic Hypertrophy Nocturia Asya Sheth is a 64 year old male who presents with for follow up regarding his PSA LAB RESULTS Creatinine Date Value Ref Range Status 05/07/2024 0.95 0.73 - 1.22 mg/dL Final PSA (ng/mL) Date Value 06/05/2024 3.45 06/14/2023 3.81 11/13/2022 4.51 10/10/2016 1.99 PSA Screening (ng/mL) Date Value 05/07/2024 4.31 Color (no units) Date Value 05/07/2024 Yellow 10/10/2016 Yellow Clarity (no units) Date Value 05/07/2024 Clear 10/10/2016 Clear Glucose, Urine Date Value 05/07/2024 Negative 10/10/2016 Negative mg/dL Bilirubin, Urine (no units) Date Value 05/07/2024 Negative 10/10/2016 Negative Ketones, Urine (no units) Date Value 05/07/2024 Negative 10/10/2016 Negative Specific Keyser, Ur (no units) Date Value 05/07/2024 1.022 10/10/2016 1.015 Hemoglobin/Blood,Ur Date Value 05/07/2024 Negative 10/10/2016 Negative pH, Urine (no units) Date Value 05/07/2024 5.5 10/10/2016 6.0 Protein, Urine Date Value 05/07/2024 Trace 10/10/2016 Negative mg/dL Urobilinogen (no units) Date Value 05/07/2024 0.2 EU/dL 10/10/2016 Normal Nitrites (no units) Date Value 05/07/2024 Negative 10/10/2016 Negative Leukest (no units) Date Value 10/10/2016 Negative Leuk Esterase (no units) Date Value 05/07/2024 Negative ALLERGIES Allergen Reactions Lipitor [Atorvastat* Myalgia MEDICATIONS: pravastatin (PRAVACHOL) 10 mg tablet Take 1 tablet by mouth once daily. omeprazole 20 mg disintegrating tablet (PriLOSEC) Take 1 tablet by mouth once daily. mirtazapine (REMERON) 15 mg tablet Take 1 tablet by mouth daily at bedtime. FLUoxetine (PROZAC) 40 mg capsule Take 1 capsule by mouth once daily. REVIEW OF SYSTEMS GENERAL:no unintentional weight loss, malaise or fevers. NEUROLOGIC: pt is alert and oriented GENITOURINARY: No history of dysuria, frequency or incontinence The remainder of the ROS was reviewed and is negative. HISTORIES PAST MEDICAL HISTORY Diagnosis Date Elevated fasting blood sugar 08/17/2013 Ganglion of tendon 06/06/2010 Generalized anxiety disorder 09/17/2008 GERD without esophagitis 08/18/2015 Intradermal nevus 10/24/2017 Removed from back 2015 Mixed hyperlipidemia 06/26/2011 Nasal sore 2017 chronic Osteoarthritis 06/06/2010 Palpitations 09/17/2008 FAMILY HISTORY Problem Relation Age of Onset other (colitis) Mother ulcerative colitis Coronary Artery Disease Father CABGX2 PAST SURGICAL HISTORY Procedure Laterality Date COLONOSCOPY 05/22/2021 repeat in 5 years COLONOSCOPY FLX DX W/COLLJ SPEC WHEN PFRMD 08/09/2010 HERNIA REPAIR HX TONSILLECTOMY HX SOCIAL HISTORY Social History Tobacco Use Smoking status: Never Smokeless tobacco: Former Vaping Use Vaping status: Never Used Substance Use Topics Alcohol use: Yes Alcohol/week: 4.0 - 6.0 standard drinks of alcohol Types: 4 - 6 Cans of Beer (12oz) per week Comment: 1 beer daily Drug use: Not Currently PHYSICAL EXAMINATION General appearance: Well appearing, alert, in no acute distress, well-hydrated, well nourished Psych Alert and oriented to person, place and time Respiratory: no wheezing or rhonchi Abdomen Genitourinary: MALE EXAM: Exam NOT Indicated 06/05/2024 PSA 3.5 06/14/2023 PSA 3.8 11/13/2022 PSA 4.5 Assessment and Plan: LUTS- IPSS 6, nocturia 0-1x, off urgency, no hematuria Elevated PSA- no Fhx of prostate cancer, prior DANIELLA B9 and he declined MRI. Latest PSA stable at 3.5 [facility] 07-05-2024 Telephone encounter Note Pt notified via Apprema that he should have another 90 day supply at pharmacy. Marivel Oliveira MA [facility] 07-05-2024 Miscellaneous Notes Pt notified via Apprema that he should have another 90 day supply at pharmacy. Marivel Oliveira MA Prescription Refill Information The patient has been identified by name and date of : Yes Caregiver verified no other encounters exist for this prescription request: Yes Caregiver confirmed with patient/requestor that no other refills are due, in the near future, with this provider at this time: Yes The last office visit in the department: 05/07/24 Does the patient have a future office visit with this provider/department: Yes Requested Prescriptions Pending Prescriptions Disp Refills FLUoxetine (PROZAC) 40 mg capsule 90 capsule 1 Sig: Take 1 capsule by mouth once daily. Bessy Polanco July 04, 2024 11:14 AM documented in this encounter [facility] 07-04-2024 Telephone encounter Note Prescription Refill Information The patient has been identified by name and date of : Yes Caregiver verified no other encounters exist for this prescription request: Yes Caregiver confirmed with patient/requestor that no other refills are due, in the near future, with this provider at this time: Yes The last office visit in the department: 05/07/24 Does the patient have a future office visit with this provider/department: Yes Requested Prescriptions Pending Prescriptions Disp Refills FLUoxetine (PROZAC) 40 mg capsule 90 capsule 1 Sig: Take 1 capsule by mouth once daily. Bessy Polanco July 04, 2024 11:14 AM [facility] 06-11-2024 Telephone encounter Note Pt active on Tivixhart- message sent Janett Mejia MA [facility] 06-11-2024 Miscellaneous Notes Pt active on mychart- message sent Janett Mejia MA Please let patient know his PSA continues to decrease. documented in this encounter [facility] 06-11-2024 Telephone encounter Note Please let patient know his PSA continues to decrease. [facility] 05-11-2024 Telephone encounter Note Patient updated and voiced understanding. Vira Wheatley LPN [facility] 05-11-2024 Miscellaneous Notes Patient updated and voiced understanding. Vira Wheatley LPN Rx sent. Patient voices understanding of provider's message below and will complete lab order. Patient agreeable to trying a different statin medication. Send to [facility]. Thank you. Message left for patient to return call to review provider's message with him. Vira Wheatley LPN Please let patient know his labs show an elevated PSA. I would like to get a follow up lab to check this. Also his lipid panel is elevated from previous. His total cholesterol is high and his LDL is high. Is patient open to trying a different statin medication? documented in this encounter [facility] 05-11-2024 Telephone encounter Note Rx sent. [facility] 05-11-2024 Telephone encounter Note Patient voices understanding of provider's message below and will complete lab order. Patient agreeable to trying a different statin medication. Send to [facility]. Thank you. [facility] 05-11-2024 Telephone encounter Note Message left for patient to return call to review provider's message with him. Vira Wheatley LPN [facility] 05-11-2024 Telephone encounter Note Please let patient know his labs show an elevated PSA. I would like to get a follow up lab to check this. Also his lipid panel is elevated from previous. His total cholesterol is high and his LDL is high. Is patient open to trying a different statin medication? [facility] 05-07-2024 Note Addended by: AYAKA MCCOLLUM on: 05/07/2024 11:41 AM Modules accepted: Orders [facility] 05-07-2024 Miscellaneous Notes Addended by: AYAKA MCCOLLUM on: 05/07/2024 11:41 AM Modules accepted: Orders documented in this encounter [facility] 05-07-2024 Note HNO ID: [id number] Author: AYAKA MCCOLLUM APRN.STEPHANY Service: ? Author Type: Nurse Practitioner Type: Progress Notes Filed: 05/07/2024 11:40 Note Text: Chief Complaint Patient presents with: Physical HPI Asya Sheth is a 64 year old male who presents here today for Above Complaints.. Pt presents today for annual well visit. Pt states his anxiety has been well controlled with his current medication. He is still having difficulty with sleep he often wakes up during the night. He was prescribed trazadone to help with sleep on 12/18/2022, but took the medication with alcohol and was nauseated after. Pt states he has not tried taking the medication since and has not been getting quality sleep. Pt states he does currently drink 2-3 beers a night prior to going to sleep which could be affecting his sleep. He has tried melatonin and benadryl which pt states has not helped with his sleep and often leaves him feeling tired in the morning. Pt is open to trying a different medication to help with sleep. Pt denies nausea,vomiting, headache, cough, chest pain, SOB, fever, chills, lower extremity swelling, abdominal pain and dizziness. Past medical history, appointments, medications, allergies reviewed. 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 Osteoarthritis 06/06/2010 Palpitations 09/17/2008 Previous Surgical History PAST SURGICAL HISTORY Procedure Laterality Date COLONOSCOPY 05/22/2021 repeat in 5 years COLONOSCOPY FLX DX W/COLLJ SPEC WHEN PFRMD 08/09/2010 HERNIA REPAIR HX TONSILLECTOMY HX Family History FAMILY HISTORY Problem Relation Age of Onset other (colitis) Mother ulcerative colitis Coronary Artery Disease Father CABGX2 Patient Allergies ALLERGIES Allergen Reactions Lipitor [Atorvastat* Myalgia Current Medications Current Outpatient Medications on File Prior to Visit Medication Sig FLUoxetine (PROZAC) 40 mg capsule Take 1 capsule by mouth once daily. propranolol (INDERAL) 20 mg tablet Take 1 tablet by mouth once daily as needed. Take one(1) tablet 30 min prior to stressful situation. omeprazole 20 mg disintegrating tablet (PriLOSEC) Take 1 tablet by mouth once daily. traZODone (DESYREL) 50 mg tablet Take 1 tablet by mouth daily at bedtime. peg 3350-Electrolytes (GOLYTELY) 236-22.74-6.74 -5.86 gram suspension Refer to printed prep instructions from your provider. (Patient not taking: Reported on 12/18/2022) No current facility-administered medications on file prior to visit. Social History Social History Tobacco Use Smoking status: Never Smokeless tobacco: Former Vaping Use Vaping status: Never Used Substance Use Topics Alcohol use: Yes Alcohol/week: 4.0 - 6.0 standard drinks of alcohol Types: 4 - 6 Cans of Beer (12oz) per week Comment: 1 beer daily Drug use: Not Currently Review of Symptoms REVIEW OF SYSTEMS GENERAL: No weight loss, malaise or fevers, Negative for malaise, significant weight loss, fever RESPIRATORY: Negative for cough, hemoptysis, wheezing, COPD, dyspnea or shortness of breath CARDIOVASCULAR: Negative for chest pain, leg swelling, hypertension, CHF or palpitations PSYCH: Negative for mood disorder and recent psychosocial stressors NEURO: No history of headaches, syncope, paralysis, seizures or tremors EXAM: BP 147/98 Pulse 89 Resp 16 Wt 90.3 kg (199 lb) BMI 28.75 kg/m? General Appearance: Well appearing, alert, in no acute distress, well-hydrated, well nourished.. Lungs: Lungs clear to auscultation. No wheezing, rhonchi, rales.. Heart: RRR without murmur, gallop, or rubs. No ectopy. Abdomen: Normal abdominal exam, Abdomen soft, non-tender. Bowel sounds normal. No masses, organomegaly. Neurologic: Gait normal. Reflexes normal and symmetric. Sensation grossly intact.. Health Maintenance List Depression Screening Never done Shingrix Vaccine(1 of 2) Never done Pneumococcal Vaccine: 50+(1 of 1 - PCV) Never done Advance Directive Discussion Never done Diabetes Screening due on 11/13/2025 Colorectal Cancer Screening due on 05/22/2026 DTaP,Tdap,Td Vaccine(2 - Td or Tdap) due on 06/29/2027 Lipid Screening due on 11/14/2027 Prostate Cancer Screening Discussion due on 06/14/2028 RSV Vaccine(1 - 1-dose 75+ series) due on 2034 Hepatitis C Screening Completed Covid-19 Vaccine Completed Influenza Vaccine Discontinued HIV Screening Discontinued Data reviewed Last 5 Encounter BP Readings: Date: BP: 05/07/2024 147/98 03/19/2023 112/80 12/18/2022 122/84 06/13/2021 130/76 05/22/2021 126/83 ASSESSMENT/PLAN: 1. Medication management - ICD9: V58.69, ICD10: Z79.899 (primary diagnosis) (more content not included)... [facility] 05-07-2024 History of Presen t illness Narrative Chief Complaint Patient presents with: Physical HPI Asya Sheth is a 64 year old male who presents here today for Above Complaints.. Pt presents today for annual well visit. Pt states his anxiety has been well controlled with his current medication. He is still having difficulty with sleep he often wakes up during the night. He was prescribed trazadone to help with sleep on 12/18/2022, but took the medication with alcohol and was nauseated after. Pt states he has not tried taking the medication since and has not been getting quality sleep. Pt states he does currently drink 2-3 beers a night prior to going to sleep which could be affecting his sleep. He has tried melatonin and benadryl which pt states has not helped with his sleep and often leaves him feeling tired in the morning. Pt is open to trying a different medication to help with sleep. Pt denies nausea,vomiting, headache, cough, chest pain, SOB, fever, chills, lower extremity swelling, abdominal pain and dizziness. Past medical history, appointments, medications, allergies reviewed. 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 Osteoarthritis 06/06/2010 Palpitations 09/17/2008 Previous Surgical History PAST SURGICAL HISTORY Procedure Laterality Date COLONOSCOPY 05/22/2021 repeat in 5 years COLONOSCOPY FLX DX W/COLLJ SPEC WHEN PFRMD 08/09/2010 HERNIA REPAIR HX TONSILLECTOMY HX Family History FAMILY HISTORY Problem Relation Age of Onset other (colitis) Mother ulcerative colitis Coronary Artery Disease Father CABGX2 Patient Allergies ALLERGIES Allergen Reactions Lipitor [Atorvastat* Myalgia Current Medications Current Outpatient Medications on File Prior to Visit Medication Sig FLUoxetine (PROZAC) 40 mg capsule Take 1 capsule by mouth once daily. propranolol (INDERAL) 20 mg tablet Take 1 tablet by mouth once daily as needed. Take one(1) tablet 30 min prior to stressful situation. omeprazole 20 mg disintegrating tablet (PriLOSEC) Take 1 tablet by mouth once daily. traZODone (DESYREL) 50 mg tablet Take 1 tablet by mouth daily at bedtime. peg 3350-Electrolytes (GOLYTELY) 236-22.74-6.74 -5.86 gram suspension Refer to printed prep instructions from your provider. (Patient not taking: Reported on 12/18/2022) No current facility-administered medications on file prior to visit. Social History Social History Tobacco Use Smoking status: Never Smokeless tobacco: Former Vaping Use Vaping status: Never Used Substance Use Topics Alcohol use: Yes Alcohol/week: 4.0 - 6.0 standard drinks of alcohol Types: 4 - 6 Cans of Beer (12oz) per week Comment: 1 beer daily Drug use: Not Currently Review of Symptoms REVIEW OF SYSTEMS GENERAL: No weight loss, malaise or fevers, Negative for malaise, significant weight loss, fever RESPIRATORY: Negative for cough, hemoptysis, wheezing, COPD, dyspnea or shortness of breath CARDIOVASCULAR: Negative for chest pain, leg swelling, hypertension, CHF or palpitations PSYCH: Negative for mood disorder and recent psychosocial stressors NEURO: No history of headaches, syncope, paralysis, seizures or tremors EXAM: BP 147/98 Pulse 89 Resp 16 Wt 90.3 kg (199 lb) BMI 28.75 kg/m General Appearance: Well appearing, alert, in no acute distress, well-hydrated, well nourished.. Lungs: Lungs clear to auscultation. No wheezing, rhonchi, rales.. Heart: RRR without murmur, gallop, or rubs. No ectopy. Abdomen: Normal abdominal exam, Abdomen soft, non-tender. Bowel sounds normal. No masses, organomegaly. Neurologic: Gait normal. Reflexes normal and symmetric. Sensation grossly intact.. Health Maintenance List Depression Screening Never done Shingrix Vaccine(1 of 2) Never done Pneumococcal Vaccine: 50+(1 of 1 - PCV) Never done Advance Directive Discussion Never done Diabetes Screening due on 11/13/2025 Colorectal Cancer Screening due on 05/22/2026 DTaP,Tdap,Td Vaccine(2 - Td or Tdap) due on 06/29/2027 Lipid Screening due on 11/14/2027 Prostate Cancer Screening Discussion due on 06/14/2028 RSV Vaccine(1 - 1-dose 75+ series) due on 2034 Hepatitis C Screening Completed Covid-19 Vaccine Completed Influenza Vaccine Discontinued HIV Screening Discontinued Data reviewed Last 5 Encounter BP Readings: Date: BP: 05/07/2024 147/98 03/19/2023 112/80 12/18/2022 122/84 06/13/2021 130/76 05/22/2021 126/83 ASSESSMENT/PLAN: 1. Medication management - ICD9: V58.69, ICD10: Z79.899 (primary diagnosis) - COMPLETE BLOOD COUNT AND DIFFERENTIAL - COMPREHENSIVE METABOLIC PANEL - URINALYSIS, WITH MICROSCOPIC - THYROID STIMULATING HORMONE - VITAMIN B12 - MAGNESIUM 2. Screening for depression - ICD9: V79.0, ICD10: Z13.31 - DEPRESSION SCREENING 3. Elevated PSA - ICD9: 790.93, ICD10: R97.20 - PSA/PROSTATE SPECIFIC ANTIGEN SCREENING 4. Mixed hyperlipidemia - ICD9: 272.2, ICD10: E78.2 - Control undetermined, due for labs - Continue current medications - Counseled on healthy diet and regular exercise - LIPID PANEL, NONFASTING 5. Elevated fasting blood sugar - ICD9: 790.21, ICD10: R73.01 - HEMOGLOBIN A1C - URINALYSIS, WITH MICROSCOPIC 6. Generalized anxiety disorder - ICD9: 300.02, ICD10: F41.1 - FLUOXETINE 40 MG CAPSULE 7.GERD without esophagitis - ICD9: 530.81, ICD10: K21.9 - Continue treatment with Prilosec 20 mg QD - OMEPRAZOLE 20 MG DELAYED RELEASE,DISINTEGRATING TABLET 8. Elevated BP without diagnosis of hypertension - ICD9: 796.2, ICD10: R03.0 Suspected [place] elevation - Encouraged dietary sodium restriction/DASH diet - Recommended regular aerobic exercise. - Recommend home blood pressure monitoring, to bring results in on next visit - Goal of BP <130/80 9. Primary insomnia - ICD9: 307.42, ICD10: F51.01 - MIRTAZAPINE 15 MG TABLET I have personally seen and examined the patient and performed the medical-decision making components. I have reviewed the Advanced Practice Registered Nurse (OIL BOILER) student's documentation and verified the findings in the note as written. Any additions or changes are noted in bold/italics. Ayaka Mccollum APRN.VACUUM REPAIRER documented in this encounter [facility] 05-05-2024 Telephone encounter Note The following approved medication requests have been transmitted electronically. Requested Prescriptions Signed Prescriptions Disp Refills FLUoxetine (PROZAC) 40 mg capsule 30 capsule 0 Sig: Take 1 capsule by mouth once daily. Authorizing Provider: LEESA BRADY PA-C [facility] 05-05-2024 Miscellaneous Notes The following approved medication requests have been transmitted electronically. Requested Prescriptions Signed Prescriptions Disp Refills FLUoxetine (PROZAC) 40 mg capsule 30 capsule 0 Sig: Take 1 capsule by mouth once daily. Authorizing Provider: LEESA BRADY PA-C Patient scheduled for 05/07/2023 to be seen by Ayaka Prescription Refill Information The patient has been identified by name and date of : Yes Caregiver verified no other encounters exist for this prescription request: Yes Caregiver confirmed with patient/requestor that no other refills are due, in the near future, with this provider at this time: Yes The last office visit in the department: 12/18/2022 Does the patient have a future office visit with this provider/department: No Requested Prescriptions Pending Prescriptions Disp Refills FLUoxetine (PROZAC) 40 mg capsule 90 capsule 3 Sig: Take 1 capsule by mouth once daily. Mary Cash May 05, 2024 10:10 AM documented in this encounter [facility] 05-05-2024 Telephone encounter Note Patient scheduled for 05/07/2023 to be seen by Ayaka [facility] 05-05-2024 Telephone encounter Note Prescription Refill Information The patient has been identified by name and date of : Yes Caregiver verified no other encounters exist for this prescription request: Yes Caregiver confirmed with patient/requestor that no other refills are due, in the near future, with this provider at this time: Yes The last office visit in the department: 12/18/2022 Does the patient have a future office visit with this provider/department: No Requested Prescriptions Pending Prescriptions Disp Refills FLUoxetine (PROZAC) 40 mg capsule 90 capsule 3 Sig: Take 1 capsule by mouth once daily. Mary Crane [facility] May 05, 2024 10:10 AM [facility] 07-08-2023 History of Presen t illness Narrative NEW PATIENT HISTORY AND PHYSICAL EXAM HISTORY OF PRESENT ILLNESS Patient presents with: Elevated PSA Asya Sheth is a 63 year old male who presents as a new patient for evaluation of elevated PSA LAB RESULTS Creatinine Date Value Ref Range Status 11/13/2022 0.97 0.73 - 1.22 mg/dL Final PSA (ng/mL) Date Value 06/14/2023 3.81 11/13/2022 4.51 10/10/2016 1.99 Color (no units) Date Value 11/13/2022 Yellow 10/10/2016 Yellow Clarity (no units) Date Value 11/13/2022 Clear 10/10/2016 Clear Glucose, Urine Date Value 11/13/2022 Negative 10/10/2016 Negative mg/dL Bilirubin, Urine (no units) Date Value 11/13/2022 Negative 10/10/2016 Negative Ketones, Urine (no units) Date Value 11/13/2022 Negative 10/10/2016 Negative Specific Keyser, Ur (no units) Date Value 11/13/2022 1.023 10/10/2016 1.015 Hemoglobin/Blood,Ur Date Value 11/13/2022 Negative 10/10/2016 Negative pH, Urine (no units) Date Value 11/13/2022 5.5 10/10/2016 6.0 Protein, Urine Date Value 11/13/2022 Trace 10/10/2016 Negative mg/dL Urobilinogen (no units) Date Value 11/13/2022 Negative 10/10/2016 Normal Nitrites (no units) Date Value 11/13/2022 Negative 10/10/2016 Negative Leukest (no units) Date Value 10/10/2016 Negative Leuk Esterase (no units) Date Value 11/13/2022 25 Cheri/uL REVIEW OF SYSTEMS (10) ALLERGIC See allergies listed above GENERAL:no unintentional weight loss, healthy appearing male in no distress RESPIRATORY: Negative for cough, wheezing or shortness of breath. CARDIOVASCULAR: no leg swelling/edema. GASTROINTESTINAL: no nausea/emesis GENITOURINARY: nocturia MUSCULOSKELETAL: Not complaining of muscle pain NEUROLOGIC:alert and oriented SKIN warm and dry PSYCHIATRIC: not complaining of depression/anxiety The remainder of the ROS was reviewed and is negative. MEDICATIONS: FLUoxetine (PROZAC) 40 mg capsule Take 1 capsule by mouth once daily. propranolol (INDERAL) 20 mg tablet Take 1 tablet by mouth once daily as needed. Take one(1) tablet 30 min prior to stressful situation. omeprazole 20 mg disintegrating tablet (PriLOSEC) Take 1 tablet by mouth once daily. traZODone (DESYREL) 50 mg tablet Take 1 tablet by mouth daily at bedtime. peg 3350-Electrolytes (GOLYTELY) 236-22.74-6.74 -5.86 gram suspension Refer to printed prep instructions from your provider. (Patient not taking: Reported on 12/18/2022) ALLERGIES Allergen Reactions Lipitor [Atorvastat* Myalgia HISTORIES PAST MEDICAL HISTORY Diagnosis Date Elevated fasting blood sugar 08/17/2013 Ganglion of tendon 06/06/2010 Generalized anxiety disorder 09/17/2008 GERD without esophagitis 08/18/2015 Intradermal nevus 10/24/2017 Removed from back 2015 Mixed hyperlipidemia 06/26/2011 Nasal sore 2017 chronic Osteoarthritis 06/06/2010 Palpitations 09/17/2008 PAST SURGICAL HISTORY Procedure Laterality Date COLONOSCOPY 05/22/2021 repeat in 5 years COLONOSCOPY FLX DX W/COLLJ SPEC WHEN PFRMD 08/09/2010 HERNIA REPAIR HX TONSILLECTOMY HX FAMILY HISTORY Problem Relation Age of Onset other (colitis) Mother ulcerative colitis Coronary Artery Disease Father CABGX2 SOCIAL HISTORY Social History Tobacco Use Smoking status: Never Smokeless tobacco: Former Vaping Use Vaping Use: Never used Substance Use Topics Alcohol use: Yes Alcohol/week: 4.0 - 6.0 standard drinks of alcohol Types: 4 - 6 Cans of Beer (12oz) per week Comment: 1 beer daily Drug use: Not Currently Pulse 61 Ht 177.2 cm (5' 9.76) Wt 88 kg (194 lb) SpO2 99% BMI 28.02 kg/m PHYSICAL EXAM: (8) General Appearance: Well appearing, alert, in no acute distress, well-hydrated, well nourished.. Skin: Skin color, texture, turgor normal. Respiratory: Normal respritory effort no wheezing Genitourinary: Exam prostate 3+, NT and no nodules Neurologic alert and oriented Psych nl affect and mood PSA (ng/mL) Date Value 06/14/2023 3.81 11/13/2022 4.51 10/10/2016 1.99 Assessment and Plan: LUTS- IPSS 6, nocturia 0-1x, off urgency, no hematuria Elevated PSA- the patient and I have discussed the implications of his elevated PSA of 3.8 which could be from either a benign or malignant etiology. I told him that there are several things that could falsely elevate his PSA, including sex before blood test, enlarged prostate, or inflammatory process in prostate but he says none of these apply to his recently. We discussed the role of prostate MRI in a biopsy naive patient like himself and I explained that there is no consensus on the role of prostate MRI prior to first TRUS prostate biopsy but it may help detect clinically relevant cancer and allow us to calculate a PSA density both of which will help guide the decision regarding biopsy. I also explained that if the MRI is negative prostate cancer may still be present so a random biopsy may still be indicated. Pt understands the above and all questions were answered - he has no Fhx of prostate cancer, DANIELLA B9 - he's not interested in a prostate MRI, check PSA in 6 & 12 mths documented in this encounter [facility] 06-15-2023 Miscellaneous Notes Spoke with patient. Given message from provider's office. Patient verbalizes understanding. Gabbi Dumas RN Left message for patient to contact office. Information was faxed to Dr. Yanez Let patient know his total PSA is still elevated but not as high as the last time. However his % Free PSA is low at 13 and this is concerning. I would like to have him see Dr [facility]. Order placed. documented in this encounter [facility] 06-14-2023 Miscellaneous Notes Pt notified of Dr Whitley's message. Pt verbalizes understanding. Jt De Dios LPN Let patient know I replaced the order for the Free PSA that was originally placed 12/18/2022. Also advise him that he does not get it done in the next 60 days it will automatically cancel again. Patient needs PSA reordered. Lab at the end of April before he was able to get it done. Thank you documented in this encounter [facility] 03-20-2023 Miscellaneous Notes Pt was notified of the results. Pt verbalized understanding. Celina Marquez MA Left message for pt to call back. Celina Marquez MA Please call patient and let him know that he tested positive for influenza A. This is contagious. Stay isolated. He is out of the window for treatment with Tamiflu. Follow-up with PCP if symptoms or not improving. documented in this encounter [facility] 03-19-2023 History of Presen t illness Narrative Radiology Service Progress Note PATIENT NAME: Asya Sheth DATE OF SERVICE: March 19, 2023 TIME: 1:14 PM PATIENT IDENTITY VERIFICATION COMPLETED USING TWO (2) IDENTIFIERS: Name and Date of confirmed by patient verbally. FALL SCREENING: Has the patient had 2 falls in the last year or 1 fall with injury or currently using an Ambulatory Assistive Device (Walker, Cane, Wheelchair, Crutches, etc.)? No PATIENT GENDER DATA: Male PATIENT RELEVANT IMPLANT DATA REVIEWED: Yes RADIOLOGY DEPARTMENT: General X-ray: Exam(s) Completed: Chest X-Ray PERIPHERAL IV DATA: Not applicable SIGNED BY: RT Marlin(R) March 19, 2023 1:14 PM documented in this encounter [facility] 03-19-2023 History of Presen t illness Narrative 03/19/2023 Patient presents with: Flu Like Symptoms: Body aches, headache, cough, chills x 3 days Eye Problem: Left eye blood vessels popped x 1 week SUBJECTIVE: This is a 62 year old that is here today for Complaint(s) of flu like symptoms x 3 days. Notes body aches and chills and CALLAHAN. + cough and congestion. No flu shot this year. COVID negative at home. Denies SOB, wheezing, vomiting, diarrhea, chest pain, leg swelling, calf pain. Taking OTC cough/cold meds, tylenol/motrin. Also notes right eye redness along the side ad bottom. No pain associated, vision changes, trauma. Admits to lifting heavy items regularly. Does not wear contact lenses. 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 propranolol (INDERAL) 20 mg tablet Take 1 tablet by mouth once daily as needed. Take one(1) tablet 30 min prior to stressful situation. omeprazole 20 mg disintegrating tablet (PriLOSEC) Take 1 tablet by mouth once daily. LORazepam (ATIVAN) 0.5 mg Take 1 tablet by mouth three times daily as needed (anxiety) for up to 180 days. traZODone (DESYREL) 50 mg tablet Take 1 tablet by mouth daily at bedtime. peg 3350-Electrolytes (GOLYTELY) 236-22.74-6.74 -5.86 gram suspension Refer to printed prep instructions from your provider. (Patient not taking: Reported on 12/18/2022) No current facility-administered medications for this visit. SOCIAL HISTORY Social History Tobacco Use Smoking status: Never Smokeless tobacco: Former Vaping Use Vaping Use: Never used Substance Use Topics Alcohol use: Yes Alcohol/week: 4.0 - 6.0 standard drinks of alcohol Types: 4 - 6 Cans of Beer (12oz) per week Comment: 1 beer daily Drug use: Not Currently REVIEW OF SYSTEMS See HPI OBJECTIVE: BP 112/80 Pulse 97 Temp 37.1 C (98.7 F) Resp 20 Wt 88 kg (194 lb) SpO2 95% BMI 28.01 kg/m APPEARANCE alert, in no acute distress, well-hydrated, well nourished. EYES PERRLA, right conjunctiva, subconjunctival hemorrhage from 6 o'clock to 9 o'clock, does not cross limbus. EOMs intact. No drainage. No periorbital edema. Left conjunctiva normal and sclera normal. EARS External ears normal, canals clear. TMs normal MITCH NOSE/SINUS Nares normal. Septum midline. Mucosa normal. No drainage or sinus tenderness. THROAT normal, no erythema NECK Supple, no adenopathy; HEART RRR with normal S1 and S2, LUNG clear to auscultation, No wheezing, rhonchi, rales. ASSESSMENT/PLAN: 1. Acute cough - ICD9: 786.2, ICD10: R05.1 (primary diagnosis) Supportive care with fluids and rest R/o COVID suspicious for influenza. >48 hours, outside of tamiflu. OTC cough/cold meds Reviewed red flags and when to seek care sooner. - XR CHEST 2V FRONTAL/LAT - COVID & INFLUENZA A/B NAAT, ROUTINE F/u in 3-5 days if not improving, sooner if worsening. 2. Subconjunctival hemorrhage of right eye - ICD9: 372.72, ICD10: H11.31 Supportive Reviewed red flags and when to seek care sooner. Patient advise and reassurance given The patient indicates understanding of these issues and agrees with the plan. Camilla Chao PA-C 03/20/2023 documented in this encounter [facility] 12-18-2022 Instructions Leesa Brady PA-C - 12/18/2022 12:37 PM EDT Repeat PSA in . Follow up in 1 year documented in this encounter [facility] 12-18-2022 History of Presen t illness Narrative Chief Complaint Patient presents with: Yearly Exam HPI Asya Sheth is a 62 year old male who presents here today for yearly physical. Patient with hx of Anxiety, OA, elevated glucose, GERD, hyperlipidemia, and those as below. Has had some some issues with sleeping. Has trouble staying asleep. But he does go to bed fairly early and sleeps about 5-6 hrs before he starts to wake up. No other concerns. Past medical history, appointments, medications, allergies reviewed. 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 Osteoarthritis 06/06/2010 Palpitations 09/17/2008 Previous Surgical History PAST SURGICAL HISTORY Procedure Laterality Date COLONOSCOPY 05/22/2021 repeat in 5 years COLONOSCOPY FLX DX W/COLLJ SPEC WHEN PFRMD 08/09/2010 HERNIA REPAIR HX TONSILLECTOMY HX Family History FAMILY HISTORY Problem Relation Age of Onset other (colitis) Mother ulcerative colitis Coronary Artery Disease Father CABGX2 Patient Allergies ALLERGIES Allergen Reactions Lipitor [Atorvastat* Myalgia Current Medications Current Outpatient Medications on File Prior to Visit Medication Sig FLUoxetine (PROZAC) 40 mg capsule Take 1 capsule by mouth once daily. propranolol (INDERAL) 20 mg tablet Take 1 tablet by mouth once daily as needed. Take one(1) tablet 30 min prior to stressful situation. omeprazole 20 mg disintegrating tablet (PriLOSEC) Take 20 mg by mouth once daily. peg 3350-Electrolytes (GOLYTELY) 236-22.74-6.74 -5.86 gram suspension Refer to printed prep instructions from your provider. (Patient not taking: Reported on 12/18/2022) No current facility-administered medications on file prior to visit. Social History Social History Tobacco Use Smoking status: Never Smokeless tobacco: Former Vaping Use Vaping Use: Never used Substance Use Topics Alcohol use: Yes Alcohol/week: 10.0 - 15.0 standard drinks of alcohol Types: 4 - 6 Cans of Beer (12oz) per week Comment: 1 beer daily Drug use: Not Currently Review of Symptoms REVIEW OF SYSTEMS GENERAL: No weight loss, malaise or fevers HEENT: No changes in hearing or vision, no nose bleeds or other nasal problems NECK: Negative for lumps, goiter, pain and significant neck swelling RESPIRATORY: Negative for cough, hemoptysis, wheezing, COPD, dyspnea or shortness of breath CARDIOVASCULAR: Negative for chest pain, leg swelling, CHF or palpitations GI: Negative for abdominal discomfort, blood in stools or black stools, change in bowel habit, heart burn, nausea, vomiting : No history of dysuria, frequency or incontinence MUSCULOSKELETAL: Negative for joint pain or swelling, back pain or muscle pain SKIN: Negative for lesions, rash, and itching PSYCH: See HPI HEMATOLOGY/LYMPHOLOGY: Negative for prolonged bleeding, bruising easily or swollen nodes ENDOCRINE: Negative for cold or heat intolerance, polyuria, polydipsia and goiter NEURO: No history of headaches, syncope, paralysis, seizures or tremors EXAM: BP 122/84 (BP Site: Left Arm, BP Position: Sitting, BP Cuff Size: Large Adult) Pulse 60 Temp 37.2 C (98.9 F) Resp 16 Ht 177.2 cm (5' 9.78) Wt 88 kg (194 lb) BMI 28.01 kg/m General Appearance: Well appearing, alert, in no acute distress, well-hydrated, well nourished.. Skin: Skin color, texture, turgor normal, no suspicious rashes or lesions. Head: Normocephalic, no masses, lesions, tenderness or abnormalities. Eyes: Anicteric sclera. Pupils are equally round and reactive to light. Extraocular movements are intact. . Ears: External ears normal, canals clear, TMs pearly stephens. Nose/Sinuses: Nares normal, septum midline, mucosa normal, no drainage or sinus tenderness. Oropharynx: Lips, mucosa, and tongue normal, teeth and gums normal, oropharynx normal. Neck: Supple, no adenopathy; thyroid symmetric, normal size, no bruits. Lungs: Lungs clear to auscultation. No wheezing, rhonchi, rales.. Heart: RRR without murmur, gallop, or rubs. No ectopy. Abdomen: Normal abdominal exam, Abdomen soft, non-tender. Bowel sounds normal. No masses, organomegaly. Extremities: No deformities, edema, skin discoloration, clubbing or cyanosis. Good capillary refill. . Peripheral Pulses: Normal. Neurologic: Gait normal. Reflexes normal and symmetric. Sensation grossly intact.. Health Maintenance List SHINGRIX VACCINE(1 of 2) Never done DEPRESSION ASSESSMENT due on 04/21/2023 DIABETES SCREEN due on 11/13/2025 COLORECTAL CANCER SCREENING due on 05/22/2026 DTAP,TDAP,TD(2 - Td or Tdap) due on 06/29/2027 LIPID SCREEN due on 11/14/2027 PROSTATE CANCER SCREENING DISCUSSION due on 11/14/2027 HEPATITIS C SCREENING Completed COVID-19 VACCINE Completed INFLUENZA Discontinued HIV SCREENING Discontinued Data reviewed Component Latest Ref Rng & Units 11/13/2022 WBC 3.70 - 11.00 k/uL 6.05 RBC 4.20 - 6.00 m/uL 4.88 Hemoglobin 13.0 - 17.0 g/dL 15.6 Hematocrit 39.0 - 51.0 % 45.8 MCV 80.0 - 100.0 fL 93.9 MCH 26.0 - 34.0 pg 32.0 MCHC 30.5 - 36.0 g/dL 34.1 RDW-CV 11.5 - 15.0 % 12.2 Platelet Count 150 - 400 k/uL 229 MPV 9.0 - 12.7 fL 10.1 Neut% % 71.8 Abs Neut (ANC) 1.45 - 7.50 k/uL 4.34 Lymph% % 19.5 Abs Lymph 1.00 - 4.00 k/uL 1.18 Torrance% % 6.9 Abs [place]rance <0.87 k/uL 0.42 Eosin% % 1.0 Abs Eosin <0.46 k/uL 0.06 Baso% % 0.5 Abs Baso <0.11 k/uL 0.03 Immature Gran % % 0.3 IMMATURE GRANS (ABS) <0.10 k/uL <0.03 NRBC /100 WBC 0.0 Absolute nRBC <0.01 k/uL <0.01 DTYPE Auto Protein, Total 6.3 - 8.0 g/dL 7.2 Albumin 3.9 - 4.9 g/dL 4.5 Calcium 8.5 - 10.2 mg/dL 9.6 Bilirubin, Total 0.2 - 1.3 mg/dL 0.6 Alkaline Phosphatase 38 - 113 U/L 104 AST 14 - 40 U/L 33 ALT 10 - 54 U/L 43 Glucose 74 - 99 mg/dL 105 (H) BUN 9 - 24 mg/dL 13 Creatinine 0.73 - 1.22 mg/dL 0.97 Sodium 136 - 144 mmol/L 141 Potassium 3.7 - 5.1 mmol/L 4.5 Chloride 97 - 105 mmol/L 105 CO2 22 - 30 mmol/L 23 Anion Gap 9 - 18 mmol/L 13 eGFR >=60 mL/min/1.73m 88 Color Yellow Yellow Clarity Clear Clear Glucose, Urine Trace, Negative Negative Bilirubin, Urine Negative Negative Ketones, Urine Trace, Negative Negative Specific Keyser, Ur 1.005 - 1.030 1.023 Hemoglobin/Blood,Ur Negative, Trace Negative pH, Urine 5.0 - 8.0 5.5 Protein, Urine Trace, Negative Trace Urobilinogen Negative Negative Nitrites Negative Negative Leukest Negative, 25 Cheri/uL 25 Cheri/uL WBC, Urine 0-5 /HPF 0-5 /HPF RBC, Urine 0-3 /HPF 0-3 /HPF Hyaline Cast 0 /LPF 1-3 /LPF (A) Total Cholesterol, Nonfasting <200 mg/dL 239 (H) Triglycerides, Nonfasting <150 mg/dL 144 HDL Cholesterol, Nonfasting >39 mg/dL 51 LDL Cholesterol, Nonfasting <100 mg/dL 159 (H) Non HDL Cholesterol, Nonfasting <130 mg/dL 188 (H) VLDL Cholesterol, Nonfasting <30 mg/dL 29 Total Chol/HDL Ratio, Nonfasting <5.10 mg/dL 4.69 LDL/HDL Ratio, Nonfasting <2.54 mg/dL 3.12 (H) Hemoglobin A1C 4.3 - 5.6 % 5.6 Estimated Average Glucose mg/dL 114 PSA <2.60 ng/mL 4.51 (H) ASSESSMENT/PLAN: 1. Well adult exam - ICD9: V70.0, ICD10: Z00.00 (primary diagnosis) - Counseled on healthy diet and regular exercise - Follow up for annual exam in one year - patient will check insurance for shingles vaccine 2. Generalized anxiety disorder - ICD9: 300.02, ICD10: F41.1 Stable Refills given - FLUOXETINE 40 MG CAPSULE - PROPRANOLOL 20 MG TABLET - LORAZEPAM 0.5 MG TABLET 3. Palpitations - ICD9: 785.1, ICD10: R00.2 stable - PROPRANOLOL 20 MG TABLET 4. Mixed hyperlipidemia - ICD9: 272.2, ICD10: E78.2 - Uncontrolled - Counseled on healthy diet and regular exercise - discussed trying a different statin. Patient wishes to work on diet 5. GERD without esophagitis - ICD9: 530.81, ICD10: K21.9 Stable 6. Elevated fasting blood sugar - ICD9: 790.21, ICD10: R73.01 Recent a1c is normal 7. Osteoarthritis, unspecified osteoarthritis type, unspecified site - ICD9: 715.90, ICD10: M19.90 stable 8. Elevated PSA - ICD9: 790.93, ICD10: R97.20 Recheck in about 3 months - PSA FREE 9. Primary insomnia - ICD9: 307.42, ICD10: F51.01 Discussed proper sleep hygiene and normal expectations. Can try trazodone Recheck/update me in 2 weeks. Leesa Brady PA-C documented in this encounter [facility] 11-26-2022 Miscellaneous Notes Patient scheduled. Patience Gutierrez MA Left message on voicemail to call office back Nikki Hramon Ma Patient's complete PE on 11/15/2022 had to be canceled because Leesa had to leave due to illness. Please help reschedule documented in this encounter [facility] 11-23-2022 Miscellaneous Notes The following approved medication requests have been transmitted electronically. Requested Prescriptions Signed Prescriptions Disp Refills FLUoxetine (PROZAC) 40 mg capsule 30 capsule 0 Sig: Take 1 capsule by mouth once daily. Authorizing Provider: RON WHITLEY MD ALICE: 03/09/21 with ME NOV: 12/18/22-rescheduled d/t provider left sick with RR Last refill: 10/24/22 With 15 and 0 refills Janett Suazo MA Patient has been identified by name and date of : Yes Last office visit in this department: 03/09/2021 RX INSTRUCTIONS: Patient aware RX will be sent to pharmacy. No need to notify patient. Patient phones requesting refills as follows: Requested Prescriptions Pending Prescriptions Disp Refills FLUoxetine (PROZAC) 40 mg capsule 15 capsule 0 Sig: Take 1 capsule by mouth once daily. Please review and advise. Adithya Lara documented in this encounter [facility] 10-29-2022 Miscellaneous Notes Pt notified of same. Jt De Dios LPN Orders placed. Patient has an appointment scheduled for 11/15/22 and is asking if needs to complete labs prior? documented in this encounter [facility] Evaluation note No assessment inform ation available [facility] Work Phone: Evaluation note Diagnosis Mixed hyperlipidemia- Primary Generalized anxiety disorder Prostate cancer screening Special screening for malignant neoplasm of prostate Elevated fasting blood sugar Impaired fasting glucose [facility] Generalized anxiety disorder [facility] Diagnosis Well adult exam- Primary Routine general medical examination at a health care facility Generalized anxiety disorder Palpitations Mixed hyperlipidemia GERD without esophagitis Esophageal reflux Elevated fasting blood sugar Impaired fasting glucose Osteoarthritis, unspecified osteoarthritis type, unspecified site Elevated PSA Elevated prostate specific antigen (PSA) Primary insomnia Persistent disorder of initiating or maintaining sleep [facility] Acute cough- Primary Subconjunctival hemorrhage of right eye [facility] Diagnosis Elevated PSA Elevated prostate specific antigen (PSA) [facility] Diagnosis Elevated PSA- Primary Elevated prostate specific antigen (PSA) [facility] BPH with obstruction/lower urinary tract symptoms- Primary Hypertrophy of prostate with urinary obstruction and other lower urinary tract symptoms (LUTS) Elevated PSA Elevated prostate specific antigen (PSA) Nocturia [facility] Acute cough [facility] Diagnosis Generalized anxiety disorder [facility] Diagnosis Medication management- Primary Encounter for long-term (current) use of other medications Screening for depression Elevated PSA Elevated prostate specific antigen (PSA) Mixed hyperlipidemia Elevated fasting blood sugar Impaired fasting glucose Generalized anxiety disorder Encounter for immunization Need for other specified prophylactic vaccination against single bacterial disease GERD without esophagitis Esophageal reflux Elevated BP without diagnosis of hypertension Primary insomnia Persistent disorder of initiating or maintaining sleep [facility] Elevated PSA- Primary Elevated prostate specific antigen (PSA) Mixed hyperlipidemia [facility] Generalized anxiety disorder [facility] Elevated PSA- Primary Elevated prostate specific antigen (PSA) BPH with obstruction/lower urinary tract symptoms Hypertrophy of prostate with urinary obstruction and other lower urinary tract symptoms (LUTS) Nocturia [facility] Additional Instructions Follow-up here for repeat doses as scheduled. To maintain immunity, titers are all been drawn [facility] gauge [facility] Work [facility]: Chief Complaint and Reason for Visit Chief Complaint BAT EXPOSURE MEDS ONLY Chief Complaint BAT EXPOSURE Chief Complaint BAT EXPOSURE MEDS ONLY MEDS ONLY Chief Complaint BAT EXPOSURE MEDS ONLY MEDS ONLY RABIES VACCINE Advance Directives No Advanced Directives Records Found Advance Directive Response Recorded Date/ Time Living Will No December 20 2 4:56pm Power of Ear Mold Laboratory Technician No December 20 022 4:56pm Summary Purpose Family History No Family History Records FoundNo Family History Records FoundNo Family History Records Found Reason for Referral Specialty Diagnoses / Procedures Referred By Contjay t Referred To Contact Urology Diagnoses Elevated PSA Procedures CONSULT TO UROLOGY OFFICE/OUTPATIENT [facility] 60 MINUTES Ron Whitley MD [address] [place] [address] Referral ID Status Reason Start Date Expiration Date Visits Requested Visits Authorized [id number] Authorized PCP Requested Referral 06/15/2023 06/14/2024 1 1 Additional Source Comments Goals (unrecognized section and content) Goals may be documented in a n alternate sectionGoals may be documented in an alternate sectionGoals may be documented in an alternate sectionGoals may be documented in an alternate section (unrecognized sect ion and content) No Status Records FoundNo Status Records FoundNo Status Records Found INFORMATION SOURCE (unrecogn ized section and content) DATE CREATED AUTHOR 01/17/2022 [facility] DATE CREATED AUTHOR AUTHOR'S ORGANIZ ATION 07/31/2024 [facility] DATE CREATED AUTHOR AUTHOR'S ORGANIZ ATION 11/30/2024 [facility] Source Comments (unrecognize d section and content) In the event this informatio n is protected by the Federal Confidentiality of Alcohol and Drug Abuse Patient Records regulations: The Federal rules restrict any use of the information to criminally investigate or prosecute any alcohol or drug abuse patient[facility] the event this information is protected by the Federal Confidentiality of Alcohol and Drug Abuse Patient Records regulations: The Federal rules restrict any use of the information to criminally investigate or prosecute any alcohol or drug abuse patient.[facility] the event this information is protected by the Federal Confidentiality of Alcohol and Drug Abuse Patient Records regulations: The Federal rules restrict any use of the information to criminally investigate or prosecute any alcohol or drug abuse patient.[facility] the event this information is protected by the Federal Confidentiality of Alcohol and Drug Abuse Patient Records regulations: The Federal rules restrict any use of the information to criminally investigate or prosecute any alcohol or drug abuse patient.[facility] the event this information is protected by the Federal Confidentiality of Alcohol and Drug Abuse Patient Records regulations: The Federal rules restrict any use of the information to criminally investigate or prosecute any alcohol or drug abuse patient.[facility] the event this information is protected by the Federal Confidentiality of Alcohol and Drug Abuse Patient Records regulations: The Federal rules restrict any use of the information to criminally investigate or prosecute any alcohol or drug abuse patient.[facility] the event this information is protected by the Federal Confidentiality of Alcohol and Drug Abuse Patient Records regulations: The Federal rules restrict any use of the information to criminally investigate or prosecute any alcohol or drug abuse patient.[facility] the event this information is protected by the Federal Confidentiality of Alcohol and Drug Abuse Patient Records regulations: The Federal rules restrict any use of the information to criminally investigate or prosecute any alcohol or drug abuse patient.[facility] the event this information is protected by the Federal Confidentiality of Alcohol and Drug Abuse Patient Records regulations: The Federal rules restrict any use of the information to criminally investigate or prosecute any alcohol or drug abuse patient.[facility] the event this information is protected by the Federal Confidentiality of Alcohol and Drug Abuse Patient Records regulations: The Federal rules restrict any use of the information to criminally investigate or prosecute any alcohol or drug abuse patient.[facility] the event this information is protected by the Federal Confidentiality of Alcohol and Drug Abuse Patient Records regulations: The Federal rules restrict any use of the information to criminally investigate or prosecute any alcohol or drug abuse patient.[facility] the event this information is protected by the Federal Confidentiality of Alcohol and Drug Abuse Patient Records regulations: The Federal rules restrict any use of the information to criminally investigate or prosecute any alcohol or drug abuse patient.[facility] the event this information is protected by the Federal Confidentiality of Alcohol and Drug Abuse Patient Records regulations: The Federal rules restrict any use of the information to criminally investigate or prosecute any alcohol or drug abuse patient.[facility] the event this information is protected by the Federal Confidentiality of Alcohol and Drug Abuse Patient Records regulations: The Federal rules restrict any use of the information to criminally investigate or prosecute any alcohol or drug abuse patient.[facility] the event this information is protected by the Federal Confidentiality of Alcohol and Drug Abuse Patient Records regulations: The Federal rules restrict any use of the information to criminally investigate or prosecute any alcohol or drug abuse patient.[facility] the event this information is protected by the Federal Confidentiality of Alcohol and Drug Abuse Patient Records regulations: The Federal rules restrict any use of the information to criminally investigate or prosecute any alcohol or drug abuse patient.[facility] Reason for Visit (unrecogniz ed section and content) Reason Comments Orders Reason Comments Refill Request Reason Comments Appointment Reason Comments Yearly Exam Reason Comments Results Reason Comments Flu Like Symptoms Body aches, headache , cough, chills x 3 days Eye Problem Left eye blood vesse ls popped x 1 week Reason Comments Results Reason Comments Elevated PSA Specialty Diagnoses / Procedures Referred By Su de la cruz Referred To Contact Urology Diagnoses Elevated PSA Procedures CONSULT TO UROLOGY OFFICE/OUTPATIENT NEW HIGH MDM 60 MINUTES Ron Whitley MD [address] [place] [address] Referral ID Status Reason Start Date Expiration Date V isits Requested Visits Authorized [id number] Closed PCP Requested Referral 06/15/2023 06/14/2024 1 1 Reason Onset Date Comments Refill Request 05/05/2024 Reason Comments Physical Reason Onset Date Comments Refill Request 07/04/2024 Reason Comments Benign Prostatic Hypertrophy Nocturia Care Teams (unrecognized sec tion and content) 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 Relationship Specialty Start Date End Date Ron Whitley MD [address], [place] [address] PCP - General Family Medicine 05/09/15 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 Relationship Specialty Start Date End Date Ron Whitley MD [address], [place] [address] PCP - General Family Medicine 05/09/15 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 Relationship Specialty Start Date End Date Ron Whitley MD [address], [place] [id number] PCP - General Family Medicine 05/09/15 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 Relationship Specialty Start Date End Date Ron Whitley MD [address] [place], [place] [address] [phone] PCP - General Family Medicine 05/09/15 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 Relationship Specialty Start Date End Date Ron Whitley MD [address] [place], [place] [address] [phone] PCP - General Family Medicine 05/09/15 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 Relationship Specialty Start Date End Date Ron Whitley MD [address] [place] [address] PCP - General Family Medicine 05/09/15 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 Relationship Specialty Start Date End Date Ron Whitley MD [address] [place] [address] PCP - General Family Medicine 05/09/15 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 Relationship Specialty Start Date End Date Ron Whitley MD [address] [place] [address] PCP - General Family Medicine 05/09/15 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 Relationship Specialty Start Date End Date Ron Whitley MD [address] [place] [address] PCP - General Family Medicine 05/09/15 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 Relationship Specialty Start Date End Date Ron Whitley MD [address] [place] [address] PCP - General Family Medicine 05/09/15 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 Relationship Specialty Start Date End Date Ron Whitley MD [address] [place] [address] PCP - General Family Medicine 05/09/15 Ayaka Mccollum APRN.CNP [address] [place] [address] Hammer Adjuster Family Medicine 03/28/24 Leesa Brady PA-C [address] [place] [address] Hammer Adjuster Family Medicine 03/28/24 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 Relationship Specialty Start Date End Date Ron Whitley MD [address] [place] [address] PCP - General Family Medicine 05/09/15 Ayaka Mccollum, KESHAWN.VACUUM REPAIRER [address] [facility] [place] [address] Hammer Adjuster Family Medicine 03/28/24 Leesa Brady PA-C [address] [place] [address] Hammer Adjuster Family Medicine 03/28/24 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 Relationship Specialty Start Date End Date Ron Whitley MD [address] [place] [address] PCP - General Family Medicine 05/09/15 Ayaka Mccollum, KESHAWN.VACUUM REPAIRER [address] [facility] [place] [address] Hammer Adjuster Family Medicine 03/28/24 Leesa Brady PA-C [address] [place] [address] [facility] 03/28/24 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 Relationship Specialty Start Date End Date Ron Whitley MD [address] [place] [address] PCP - General Family Medicine 05/09/15 Ayaka Mccollum APRN.VACUUM REPAIRER [address] [facility] [place] [address] Hammer Adjuster Family Medicine 03/28/24 Leesa Brady PA-C [address] [place] [address] [facility] 03/28/24 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 Relationship Specialty [place] [address] [place] [phone] PCP - General Family Medicine 05/09/15 Ayaka Mccollum APRN.VACUUM REPAIRER [address] [place] [address] [phone] [facility] 03/28/24 Leesa Brady PA-C [facility] [place], [place] [address] [facility] 03/28/24 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 Relationship Specialty Start Date End Date Ron Whitley MD [address] [place] [phone] PCP - General Family Medicine 07/27/24 Ayaka Mccollum APRN.VACUUM REPAIRER [address] [place] [address] [phone] [facility] 03/28/24 Leesa Brady PA-C [facility] [place] [address] [facility] 03/28/24 FOR RECORDS PERTAINING TO PATIENTS WHO ARE OR HAVE BEEN ENROLLED IN A CHEMICAL DEPENDENCY/SUBSTANCEABUSE PROGRAM, SOME INFORMATION MAY BE OMITTED. This clinical summary was aggregated from multiple sources. Caution should be exercised in using it in the provision of clinical care. This summary normalizes information from multiple sources, and as a consequence, information in this document may materially change the coding, format and clinical context of patient data. In addition, data may be omitted in some cases. CLINICAL DECISIONS SHOULD BE BASED ON THE PRIMARY CLINICAL RECORDS. [facility] [employer] [facility]. provides no warranty or guarantee of the accuracy or completeness of information in this document.
--- OUTSIDE RECORDS SUMMARY | 2025-03-07 13:16 | XMS RPT_ITS | CCD ---
Author Organization [facility] Care Team Providers Care Data Entry Name Role Phone Ron Whitley Primary Care Unavailable Provider, Ed Physician Attending Unavailab Alonzo [place] Attending Unavailable Ron Whitley Primary Care Unavailable Parth Ferris Referring Unavailable Parth Ferris Attending Unavailable Ron Whitley Primary Care Unavailable Alonzo Weber Attending Unavailable Ron Whitley Primary Care Unavailable Ron Whitley MD Primary Care Provider Ron Whitley MD Primary Care Provider [phone] Veda ROLLER SETTERAyaka CAREY Unavailable Leesa Brady PA-C Unavailable Ron Whitley MD Primary Care Provider [phone] TALI YANEZ Attending Unavailable RON WHITLEY Primary [...] atorvastatin; Translations: [ATORVASTATIN] Drug Allergy 11-27-2019 Myalgia [facility] Work Phone: Medications Current Medications Medication Drug [...] on above: Take 1 capsule by mo [facility] once daily. mirtazapine 15 mg oral tablet [...] mouth once daily. [facility] tablet by [facility]. pravastatin sodium 10 mg [...] up to 180 days. polyethylene glycol 3350 [id number] mg / potassium chloride 2970 mg / sodium bicarbonate 6740 mg / sodium chloride 5860 mg / sodium sulfate 09298 mg powder for oral solution (12 sources) [...] 05-07-2024 Episodic Other aftercare (1 source) Other senior living (current) drug therapy; Translations: [Medication management] Onset: [...] Test Name Value Interpretation Reference Range Facility [facility] 11-24-2024 CNOV [facility] ASYA SHETH ([id number]) 1960 M Date Time Provider Department 11/24/24 10:20 AM AYAKA MCCOLLUM [facility] During your visit today, we recorded the following information about you: Pulse Blood pressure Weight 86/minute 140/90 91 kg Ayaka Mccollum APRN.[facility] 11/24/2024 10:45 AM Signed Chief Complaint [...] DIP, URINE (POC) Ayaka Mccollum APRN.Ayaka Solorio APRN.SWATCH PASTER 11/24/2024 10 (more content not included)... Normal [facility] LIPID PANEL, NONFASTINGon Cholesterol [Mass/Vol] 218 mg/dL High <200 [facility] Comment on above: Order Comment: Speci men Type: BLOOD SPECIMEN Ordering Facility: [facility] Address: [address] [place] [address] Result Comment: <200 mg/dL, Desirable 200-239 mg/dL, Borderline high >239 mg/dL, High Performed By: #### L IPNF #### [facility] CLIA [id number] [address] [place] [address] [place] HDL CHOLESTEROL, NF 44 mg/dL Normal >39 [facility] Comment on above: Order Comment: Speci men Type: BLOOD SPECIMEN Ordering Facility: [facility] Address: [address] [place] [address] Result Comment: 40-5 9 mg/dL, Acceptable >59 mg/dL, High: Negative risk factor for coronary heart disease <40 mg/dL, Low: Positive risk factor for coronary heart disease Performed By: #### L IPNF #### [facility] CLIA [id number] [address] [place] [address] [place] LDL CHOLESTEROL CALCULATED, NF 132 mg/dL High <100 [facility] Comment on above: Order Comment: Speci men Type: BLOOD SPECIMEN Ordering Facility: [facility] Address: [address] [place] [address] Result Comment: <100 mg/dL, Optimal 100-129 mg/dL, Near optimal/above optimal 130-159 mg/dL, Borderline high 160-189 mg/dL, High >189 mg/dL, Very high Secondary prevention optimal LDL Cholesterol levels are recommended to be <70 mg/dL LDL cholesterol is calculated using the Andujar-NIH equation. Performed By: #### L IPNF #### [facility] CLIA [id number] [address] [place] [address] [place] LDL/HDL RATIO, NF 3.00 mg/dL High <2.54 [facility] Comment on above: Order Comment: Grace hayward Type: BLOOD SPECIMEN Ordering Facility: [facility] Address: [address] [place] [address] Result Comment: Donaldo basurto: 1. National Cholesterol Education Program ATP III Guideline At-A-Glance Quick Desk Reference: National Heart, Lung, and Blood [place]. National Institutes of Health. 2001: NIH Publication No. 01-3305. 2. An International Atherosclerosis Society position paper: global recommendations for the management of dyslipidemia: executive summary, Atherosclerosis. 2014: 232(2):410-413. Performed By: #### L IPNF #### [facility] CLIA [id number] [address] [place] [address] [place] NON HDL CHOL, NF 174 mg/dL High <130 [facility] Comment on above: Order Comment: Grace ahyward Type: BLOOD SPECIMEN Ordering Facility: [facility] Address: [address] [place] [address] Result Comment: <130 mg/dL, Optimal 130-159 mg/dL, Near optimal/above optimal 160-189 mg/dL, Borderline high 190-219 mg/dL, High >219 mg/dL, Very high Secondary prevention optimal non HDL Cholesterol levels are recommended to be <100 mg/dL Performed By: #### L IPNF #### [facility] CLIA [id number] [address] [place] [address] [place] T CHOL/HDL RATIO NF 4.95 mg/dL Normal <5.10 [facility] Comment on above: Order Comment: Jaylini men Type: BLOOD SPECIMEN Ordering Facility: [facility] Address: [address] [place] [address] Performed By: #### L IPNF #### [facility] CLIA [id number] [address] [place] [address] [place] TRIGLYCERIDES, NF 234 mg/dL High <150 [facility] Comment on above: Order Comment: Grace men Type: BLOOD SPECIMEN Ordering Facility: [facility] Address: [address] [place] [address] Result Comment: <150 mg/dL, Normal 150-199 mg/dL, Borderline high 200-499 mg/dL, High >499 mg/dL, Very high Performed By: #### L IPNF #### [facility] CLIA [id number] [address] [place] [address] OF [facility] VLDL CHOLESTEROL, NF 42 mg/dL High <30 [facility] Comment on above: Order Comment: Speci men Type: BLOOD SPECIMEN Ordering Facility: [facility] Address: [address] [place] [address] Performed By: #### L IPNF #### [facility] CLIA [id number] [address] [place] [address] STATES OF [facility] XR ABDOMEN 3V KUB W/OBLIQUES on 11-24-2024 [...] shows degenerative changes. IMPRESSION: Unremarkable abdomen x-ray. [employer] Specialist: PSCB Transcribe Date/Time: Nov 24 2024 11:08A Dictated by : ANISHA WILSON MD This examination was interpreted and the report reviewed and electronically signed by: ANISHA WILSON MD on Nov 24 2024 11:10AM EST [id number] Normal [facility] CNOVon 07-30-2024 CNOV Office Visit ([facility] ) CLAREASYA SANTANA ([id number]) 1960 M Date Time Provider Department 07/30/24 [...] Date Value 05/07/2024 Negative 10/10/2016 Negative Specific [place], Ur (no units) Date Value 05/07/2024 1.022 [...] [R00.2] 08/21 (more content not included)... Normal [facility] Free PSA [Mass/Vol]on 2024 Free PSA/Total PSA [Mass fraction] 19 % Normal [facility] Comment on above: Order Comment: Speci men Type: BLOOD SPECIMEN Ordering Facility: [facility] Address: [address] [place] [address] Result Comment: Tota l and free PSA [...] 15.8% Performed By: #### 1 0886-0 #### [facility] IA [id number] [address] [place] [address] [place] Prostate specific Ag [Mass/Vol] 3.45 ng/mL High <2.60 [facility] Comment on above: Order Comment: Speci men Type: BLOOD SPECIMEN Ordering Facility: [facility] Address: [address] [place] [address] Result Comment: Tota l PSA test methodology [...] 2003,349:335-42. Performed By: #### 1 0886-0 #### [facility] CLIA [id number] [address] [place] [address] OF [place] Fito 05-11-2024 STEPHANYN Telephone (FAMPWS) ASYA SHETH ([id number]) 1960 M Date Time Provider Department 05/11/24 AYAKA MCCOLLUM During your visit today, we recorded the following information about you: Ayaka Mccollum APRN.SWATCH PASTER 05/11/2024 7:59 AM Signed Please let patient [...] trying a different statin medication. Send to [facility]. Thank you. Ayaka Mccollum, KESHAWN.SWATCH PASTER 05/11/2024 12:04 PM Signed Rx sent. Vira [...] Order(s):PROSTATE SPECIFIC ANTIGEN, FREE [SQPSATF] Order #: [id number] FUTURE pravastatin (PRAVACHOL) 10 mg tabletTake 1 [...] Status:Closed by VIRA WHEATLEY on 05/11/24 Normal [facility] CBC W Auto Differential pane l (Bld)on 05-07-2024 Basophils (Bld) [#/Vol] 0.03 10*3/uL Normal <0.11 [facility] Comment on above: Order Comment: Speci men Type: BLOOD SPECIMEN Ordering Facility: [facility] Address: [address] [place] [address] Performed By: #### 5 7021-8 #### [facility] CLIA [id number] [address] [place] [address] [place] [address] [place] Basophils/100 WBC (Bld) 0.5 % Normal [facility] Comment on above: Order Comment: Speci men Type: BLOOD SPECIMEN Ordering Facility: [facility] Address: [address] [place] [address] Performed By: #### 5 7021-8 #### [facility] CLIA [id number] [address] [place] [address] [place] Differential cell count method Nom (Bld) Auto Normal [facility] Comment on above: Order Comment: Speci men Type: BLOOD SPECIMEN Ordering Facility: [facility] Address: [address] [place] [address] Performed By: #### 5 7021-8 #### [facility] CLIA [id number] [address] [place] [address] [place] Eosinophils (Bld) [#/Vol] 0.13 10*3/uL Normal <0.46 [facility] Comment on above: Order Comment: Speci men Type: BLOOD SPECIMEN Ordering Facility: [facility] Address: [address] [place] [address] Performed By: #### 5 7021-8 #### [facility] CLIA [id number] [address] [place] [address] [place] Eosinophils/100 WBC (Bld) 2.2 % Normal [facility] Comment on above: Order Comment: Speci men Type: BLOOD SPECIMEN Ordering Facility: [facility] Address: [address] [place] [address] Performed By: #### 5 7021-8 #### [facility] CLIA [id number] [address] [place] [address] [place] Erythrocyte distribution width (RBC) [Ratio] 12.4 % Normal 11.5-15.0 [facility] Comment on above: Order Comment: Speci men Type: BLOOD SPECIMEN Ordering Facility: [facility] Address: [address] [place] [address] Performed By: #### 5 7021-8 #### [facility] CLIA [id number] [address] [place] [address] [place] Hematocrit (Bld) [Volume fraction] 47.9 % Normal 39.0-51.0 [facility] Comment on above: Order Comment: Speci men Type: BLOOD SPECIMEN Ordering Facility: [facility] Address: [address] [place] [address] Performed By: #### 5 7021-8 #### [facility] CLIA [id number] [address] [place] [address] [place] Hemoglobin (Bld) [Mass/Vol] 16.2 g/dL Normal 13.0-17.0 [facility] Comment on above: Order Comment: Speci men Type: BLOOD SPECIMEN Ordering Facility: [facility] Address: [address] [place] [address] Performed By: #### 5 7021-8 #### [facility] CLIA [id number] [address] [place] [address] [place] Immature granulocytes (Bld) [#/Vol] 10*3/uL Normal <0.10 [facility] Comment on above: Order Comment: Speci men Type: BLOOD SPECIMEN Ordering Facility: [facility] Address: [address] [place] [address] Performed By: #### 5 7021-8 #### [facility] CLIA [id number] [address] [place] [address] [place] Immature granulocytes/100 WBC (Bld) 0.3 % Normal [facility] Comment on above: Order Comment: Speci men Type: BLOOD SPECIMEN Ordering Facility: [facility] Address: [address] [place] [address] Performed By: #### 5 7021-8 #### [facility] CLIA [id number] [address] [place] [address] [place] Lymphocytes (Bld) [#/Vol] 1.19 10*3/uL Normal 1.00-4.00 [facility] Comment on above: Order Comment: Speci men Type: BLOOD SPECIMEN Ordering Facility: [facility] Address: [address] [place] [address] Performed By: #### 5 7021-8 #### [facility] CLIA [id number] [address] [place] [address] [place] Lymphocytes/100 WBC (Bld) 20.4 % Normal [facility] Comment on above: Order Comment: Speci men Type: BLOOD SPECIMEN Ordering Facility: [facility] Address: [address] [place] [address] Performed By: #### 5 7021-8 #### [facility] CLIA [id number] [address] [place] [address] [place] MCH (RBC) [Entitic mass] 31.9 pg Normal 26.0-34.0 [facility] Comment on above: Order Comment: Speci men Type: BLOOD SPECIMEN Ordering Facility: [facility] Address: [address] [place] [address] Performed By: #### 5 7021-8 #### [facility] CLIA [id number] [address] [place] [address] [place] MCHC (RBC) [Mass/Vol] 33.8 g/dL Normal 30.5-36.0 [facility] Comment on above: Order Comment: Speci men Type: BLOOD SPECIMEN Ordering Facility: [facility] Address: [address] [place] [address] Performed By: #### 5 7021-8 #### [facility] CLIA [id number] [address] [place] [address] [place] MCV (RBC) [Entitic vol] 94.3 fL Normal 80.0-100.0 [facility] Comment on above: Order Comment: Speci men Type: BLOOD SPECIMEN Ordering Facility: [facility] Address: [address] [place] [address] Performed By: #### 5 7021-8 #### [facility] CLIA [id number] [address] [place] [address] [place] Monocytes (Bld) [#/Vol] 0.51 10*3/uL Normal <0.87 [facility] Comment on above: Order Comment: Speci men Type: BLOOD SPECIMEN Ordering Facility: [facility] Address: [address] [place] [address] Performed By: #### 5 7021-8 #### [facility] CLIA [id number] [address] [place] [address] [place] Monocytes/100 WBC (Bld) 8.7 % Normal [facility] Comment on above: Order Comment: Speci men Type: BLOOD SPECIMEN Ordering Facility: [facility] Address: [address] [place] [address] Performed By: #### 5 7021-8 #### [facility] CLIA [id number] [address] [place] [address] [place] Neutrophils (Bld) [#/Vol] 3.96 10*3/uL Normal 1.45-7.50 [facility] Comment on above: Order Comment: Speci men Type: BLOOD SPECIMEN Ordering Facility: [facility] Address: [address] [place] [address] Performed By: #### 5 7021-8 #### [facility] CLIA [id number] [address] [place] [address] [place] Neutrophils/100 WBC (Bld) 67.9 % Normal [facility] Comment on above: Order Comment: Speci men Type: BLOOD SPECIMEN Ordering Facility: [facility] Address: [address] [place] [address] Performed By: #### 5 7021-8 #### [facility] CLIA [id number] [address] [place] [address] [place] Nucleated RBC (Bld) [#/Vol] 10*3/uL Normal <0.01 [facility] Comment on above: Order Comment: Speci men Type: BLOOD SPECIMEN Ordering Facility: [facility] Address: [address] [place] [address] Performed By: #### 5 7021-8 #### [facility] CLIA [id number] [address] [place] [address] [place] Nucleated RBC/100 WBC (Bld) [Ratio] 0.0 /100 WBC Normal [facility] Comment on above: Order Comment: Speci men Type: BLOOD SPECIMEN Ordering Facility: [facility] Address: [address] [place] [address] Performed By: #### 5 7021-8 #### [facility] CLIA [id number] [address] [place] [address] [place] Platelet mean volume (Bld) [Entitic vol] 10.1 fL Normal 9.0-12.7 [facility] Comment on above: Order Comment: Speci men Type: BLOOD SPECIMEN Ordering Facility: [facility] Address: [address] [place] [address] Performed By: #### 5 7021-8 #### [facility] CLIA [id number] [address] [place] [address] [place] Platelets (Bld) [#/Vol] 184 10*3/uL Normal 150-400 [facility] Comment on above: Order Comment: Speci men Type: BLOOD SPECIMEN Ordering Facility: [facility] Address: [address] [place] [address] Performed By: #### 5 7021-8 #### [facility] CLIA [id number] [address] [place] [address] [place] RBC (Bld) [#/Vol] 5.08 10*6/uL Normal 4.20-6.00 [facility] Comment on above: Order Comment: Speci men Type: BLOOD SPECIMEN Ordering Facility: [facility] Address: [address] [place] [address] Performed By: #### 5 7021-8 #### [facility] CLIA [id number] [address] [place], [place] [address] [id number] [place] WBC (Bld) [#/Vol] 5.84 10*3/uL Normal 3.70-11.00 [facility] Comment on above: Order Comment: Speci men Type: BLOOD SPECIMEN Ordering Facility: [facility] Address: [address] [place] [address] Performed By: #### 5 7021-8 #### [facility] CLIA [id number] [address] [place], [place] [id number] [place] CNOVon 05-07-2024 CNOV Office Visit (FAMPWS ) ASYA SHETH ([id number]) 1960 M Date Time Provider Department 05/07/24 10:40 AM AYAKA MCCOLLUM During your visit today, we recorded the following information about you: Pulse Respiration Blood pressure Weight 89/minute 16/minute 147/98 90.3 kg Ayaka Mccollum APRN.SWATCH PASTER 05/07/2024 11:40 AM Signed Chief Complaint Patient [...] Screening Disc (more content not included)... Normal [facility] Comprehensive metabolic 2000 panelon 05-07-2024 Albumin [Mass/Vol] 4.4 g/dL Normal 3.9-4.[address] [facility] Comment on above: Order Comment: Speci men Type: URINE SPECIMEN Ordering Facility: [facility] Address: [address] [place] [address] Performed By: #### 2 4356-8 #### [facility] CLIA [id number] [address] [place] [address] [place] [address] [place] ALP [Catalytic activity/Vol] 101 U/L Normal 38-113 [facility] Comment on above: Order Comment: Speci men Type: URINE SPECIMEN Ordering Facility: [facility] Address: [address] [place] [address] Performed By: #### 2 4356-8 #### [facility] CLIA [id number] [address] [place] [address] [place] ALT [Catalytic activity/Vol] 40 U/L Normal 10-54 [facility] Comment on above: Order Comment: Speci men Type: URINE SPECIMEN Ordering Facility: [facility] Address: [address] [place] [address] Performed By: #### 2 4356-8 #### [facility] CLIA [id number] [address] [place] [address] [place] Anion gap [Moles/Vol] 13 mmol/L Normal 8-15 [facility] Comment on above: Order Comment: Speci men Type: URINE SPECIMEN Ordering Facility: [facility] Address: [address] [place] [address] Performed By: #### 2 4356-8 #### [facility] CLIA [id number] [address] [place] [address] [place] AST [Catalytic activity/Vol] 34 U/L Normal 14-40 [facility] Comment on above: Order Comment: Speci men Type: URINE SPECIMEN Ordering Facility: [facility] Address: [address] [place] [address] Performed By: #### 2 4356-8 #### [facility] CLIA [id number] [address] [place] [address] [place] Bilirubin [Mass/Vol] 0.9 mg/dL Normal 0.2-1.3 [facility] Comment on above: Order Comment: Speci men Type: URINE SPECIMEN Ordering Facility: [facility] Address: [address] [place] [address] Performed By: #### 2 4356-8 #### [facility] CLIA [id number] [address] [place] [address] [place] Calcium [Mass/Vol] 9.4 mg/dL Normal 8.5-10.[address] [facility] Comment on above: Order Comment: Speci men Type: URINE SPECIMEN Ordering Facility: [facility] Address: [address] [place] [address] Performed By: #### 2 4356-8 #### [facility] CLIA [id number] [address] [place] [address] [place] Chloride [Moles/Vol] 104 mmol/L Normal 98-107 [facility] Comment on above: Order Comment: Speci men Type: URINE SPECIMEN Ordering Facility: [facility] Address: [address] [place] [address] Performed By: #### 2 4356-8 #### [facility] CLIA [id number] [address] [place] [address] [place] CO2 [Moles/Vol] 23 mmol/L Normal 22-30 [facility] Comment on above: Order Comment: Speci men Type: URINE SPECIMEN Ordering Facility: [facility] Address: [address] [place] [address] Performed By: #### 2 4356-8 #### [facility] CLIA [id number] [address] [place] [address] [place] Creatinine [Mass/Vol] 0.95 mg/dL Normal 0.73-1.22 [facility] Comment on above: Order Comment: Speci men Type: URINE SPECIMEN Ordering Facility: [facility] Address: [address] [place] [address] Performed By: #### 2 4356-8 #### [facility] CLIA [id number] [address] [place] [address] [place] Creatinine and Glomerular filtration rate.predicted panel (S/P/Bld) 89 mL/min/1.73m??? Normal >=60 [facility] Comment on above: Order Comment: Speci men Type: URINE SPECIMEN Ordering Facility: [facility] Address: [address] [place] [address] Result Comment: Juanita mated Glomerular Filtration Rate [...] GFR. Performed By: #### 2 4356-8 #### [facility] CLIA [id number] [address] [place] [address] [place] Glucose [Mass/Vol] 103 mg/dL High 74-[address] [facility] Comment on above: Order Comment: Speci men Type: URINE SPECIMEN Ordering Facility: [facility] Address: [address] [place] [address] Result Comment: The [place] [employer] (ADA) provides guidance for cutoff [...] Standards of Medical Care in Diabetes 2016, [place] [employer]. Diabetes Care. 2016.39(Suppl 1). Performed By: #### 2 4356-8 #### [facility] CLIA [id number] [address] [place] [address] [place] Potassium [Moles/Vol] 4.6 mmol/L Normal 3.7-5.1 [facility] Comment on above: Order Comment: Speci men Type: URINE SPECIMEN Ordering Facility: [facility] Address: [address] [place] [address] Performed By: #### 2 4356-8 #### [facility] CLIA [id number] [address] [place] [address] [place] Protein [Mass/Vol] 7.3 g/dL Normal 6.3-8.[address] [facility] Comment on above: Order Comment: Speci men Type: URINE SPECIMEN Ordering Facility: [facility] Address: [address] [place] [address] Performed By: #### 2 4356-8 #### [facility] CLIA [id number] [address] [place] [address] [place] Sodium [Moles/Vol] 140 mmol/L Normal 136-[address] [facility] Comment on above: Order Comment: Speci men Type: URINE SPECIMEN Ordering Facility: [facility] Address: [address] [place] [address] Performed By: #### 2 4356-8 #### [facility] CLIA [id number] [address] [place] [address] [place] Urea nitrogen [Mass/Vol] 12 mg/dL Normal 9-24 [facility] Comment on above: Order Comment: Speci men Type: URINE SPECIMEN Ordering Facility: [facility] Address: [address] [place] [address] Performed By: #### 2 4356-8 #### [facility] CLIA [id number] [address] [place] [address] [place] HbA1c (Bld)on 05-07-2024 Average glucose Estimated from glycated hemoglobin (Bld) [Mass/Vol] 105 mg/dL Normal [facility] Comment on above: Order Comment: Speci men Type: BLOOD SPECIMEN Ordering Facility: [facility] Address: [address] [place] [address] Result Comment: eAG: (Estimated average glucose) is a calculated value from HgbA1c and is rental sales representative of the average blood glucose level in the last 2-3 month period. Performed By: #### 5 5454-3 #### [facility] CLIA [id number] [address] [place] [address] [place] HbA1c (Bld) [Mass fraction] 5.3 % Normal 4.3-5.6 [facility] Comment on above: Order Comment: Grace men Type: BLOOD SPECIMEN Ordering Facility: [facility] Address: [address] [place] [address] Result Comment: Amer ican Diabetes Association guidelines indicate that patients with HgbA1c in the range 5.7-6.4% are at increased risk for development of diabetes, and intervention by lifestyle modification may be beneficial. HgbA1c greater or equal to 6.5% is considered diagnostic of diabetes. Performed By: #### 5 5454-3 #### [facility] CLIA [id number] [address] [place] [address] [place] LIPID PANEL, NONFASTINGon Cholesterol [Mass/Vol] 251 mg/dL High <200 [facility] Comment on above: Order Comment: Grace men Type: URINE SPECIMEN Ordering Facility: [facility] Address: [address] [place] [address] Result Comment: <200 mg/dL, Desirable 200-239 mg/dL, Borderline high >239 mg/dL, High Performed By: #### 2 4356-8 #### [facility] CLIA [id number] [address] [place] [address] [place] HDL CHOLESTEROL, NF 58 mg/dL Normal >39 [facility] Comment on above: Order Comment: Jaylini men Type: URINE SPECIMEN Ordering Facility: [facility] Address: [address] [place] [address] Result Comment: 40-5 9 mg/dL, Acceptable >59 mg/dL, High: Negative risk factor for coronary heart disease <40 mg/dL, Low: Positive risk factor for coronary heart disease Performed By: #### 2 4356-8 #### [facility] CLIA [id number] [address] [place] [address] [place] LDL CHOLESTEROL, NF 167 mg/dL High <100 [facility] Comment on above: Order Comment: Speci men Type: URINE SPECIMEN Ordering Facility: [facility] Address: [address] [place] [address] Result Comment: <100 mg/dL, Optimal 100-129 mg/dL, Near optimal/above optimal 130-159 mg/dL, Borderline high 160-189 mg/dL, High >189 mg/dL, Very high Secondary prevention optimal LDL Cholesterol levels are recommended to be < 70 mg/dL Performed By: #### 2 4356-8 #### [facility] CLIA [id number] [address] [place] [address] [place] LDL/HDL RATIO, NF 2.88 mg/dL High <2.54 [facility] Comment on above: Order Comment: Speci men Type: URINE SPECIMEN Ordering Facility: [facility] Address: [address] [place] [address] Result Comment: Refe rence: 1. National Cholesterol Education Program ATP III Guideline At-A-Glance Quick Desk Reference: National Heart, Lung, and Blood [place]. National Institutes of Health. 2001: NIH Publication No. 01-3305. 2. An International Atherosclerosis Society position paper: global recommendations for the management of dyslipidemia: executive summary, Atherosclerosis. 2014: 232(2):410-413. Performed By: #### 2 4356-8 #### [facility] CLIA [id number] [address] [place] [address] [place] NON HDL CHOL, NF 193 mg/dL High <130 [facility] Comment on above: Order Comment: Speci men Type: URINE SPECIMEN Ordering Facility: [facility] Address: [address] [place] [address] Result Comment: <130 mg/dL, Optimal 130-159 mg/dL, Near optimal/above optimal 160-189 mg/dL, Borderline high 190-219 mg/dL, High >219 mg/dL, Very high Secondary prevention optimal non HDL Cholesterol levels are recommended to be <100 mg/dL Performed By: #### 2 4356-8 #### [facility] CLIA [id number] [address] [place], [place] [id number] [place] T CHOL/HDL RATIO NF 4.33 mg/dL Normal <5.10 [facility] Comment on above: Order Comment: Speci men Type: URINE SPECIMEN Ordering Facility: [facility] Address: [address] [place] [address] Performed By: #### 2 4356-8 #### [facility] CLIA [id number] [address] [place] [address] [place] TRIGLYCERIDES, NF 128 mg/dL Normal <150 [facility] Comment on above: Order Comment: Speci men Type: URINE SPECIMEN Ordering Facility: [facility] Address: [address] [place] [address] Result Comment: <150 mg/dL, Normal 150-199 mg/dL, Borderline high 200-499 mg/dL, High >499 mg/dL, Very high Performed By: #### 2 4356-8 #### [facility] CLIA [id number] [address] [place] [address] [place] VLDL CHOLESTEROL, NF 26 mg/dL Normal <30 [facility] Comment on above: Order Comment: Speci men Type: URINE SPECIMEN Ordering Facility: [facility] Address: [address] [place] [address] Performed By: #### 2 4356-8 #### [facility] CLIA [id number] [address] [place] [address] [place] Magnesium SerPl-mCncon 05-07 Magnesium [Mass/Vol] 2.1 mg/dL Normal 1.7-2.3 [facility] Comment on above: Order Comment: Speci men Type: URINE SPECIMEN Ordering Facility: [facility] Address: [address] [place] [address] Performed By: #### 2 4356-8 #### [facility] CLIA [id number] [address] [place] [address] [place] PSA/PROSTATE SPECIFIC ANTIGE N SCREENINGon 05-07-2024 Prostate specific Ag [Mass/Vol] 4.31 ng/mL High <2.60 [facility] Comment on above: Order Comment: Speci men Type: BLOOD SPECIMEN Ordering Facility: [facility] Address: [address] [place] [address] Result Comment: Mark santiago PSA test methodology [...] 2003,349:335-42. Performed By: #### P SAS1 #### [facility] CLIA [id number] [address] [place] [address] [place] TSH SerPl-aCncon 05-07-2024 TSH Qn 0.965 m[IU]/L Normal 0.270-4.200 [facility] Comment on above: Order Comment: Speci men Type: URINE SPECIMEN Ordering Facility: [facility] Address: [address] [place], [place] [address] [address] Performed By: #### 2 4356-8 #### [facility] CLIA [id number] [address] [place] [address] [place] Urinalysis complete panel (U )on 05-07-2024 Bacteria LM.HPF (Urine sed) [#/Area] Negative Normal Negative [facility] Comment on above: Order Comment: Speci men Type: URINE SPECIMEN Ordering Facility: [facility] Address: [address] [place] [address] Performed By: #### 2 4356-8 #### [facility] CLIA [id number] [address] [place] [address] [place] Bilirubin Ql (U) Negative Normal Negative [facility] Comment on above: Order Comment: Speci men Type: URINE SPECIMEN Ordering Facility: [facility] Address: [address] [place] [address] Performed By: #### 2 4356-8 #### [facility] CLIA [id number] [address] [place] [address] [place] Clarity (Unsp spec) Clear Normal Clear [facility] Comment on above: Order Comment: Speci men Type: URINE SPECIMEN Ordering Facility: [facility] Address: [address] [place] [address] Performed By: #### 2 4356-8 #### [facility] CLIA [id number] [address] [place] [address] [place] Color (U) Yellow Normal Yellow [facility] Comment on above: Order Comment: Speci men Type: URINE SPECIMEN Ordering Facility: [facility] Address: [address] [place] [address] Performed By: #### 2 4356-8 #### [facility] CLIA [id number] [address] [place] [address] [place] Epithelial cells LM.HPF (Urine sed) [#/Area] None Seen Normal [facility] Comment on above: Order Comment: Speci men Type: URINE SPECIMEN Ordering Facility: [facility] Address: [address] [place] [address] Performed By: #### 2 4356-8 #### [facility] CLIA [id number] [address] [place] [address] [place] Glucose Test strip (U) [Mass/Vol] Negative Normal Negative [facility] Comment on above: Order Comment: Speci men Type: URINE SPECIMEN Ordering Facility: [facility] Address: [address] [place] [address] Performed By: #### 2 4356-8 #### [facility] CLIA [id number] [address] [place] [address] [place] Hemoglobin Ql (U) Negative Normal Negative [facility] Comment on above: Order Comment: Speci men Type: URINE SPECIMEN Ordering Facility: [facility] Address: [address] [place] [address] Performed By: #### 2 4356-8 #### [facility] CLIA [id number] [address] [place] [address] [place] Hyaline casts (Urine sed) [#/Area] 0 /[LPF] Normal 0 /LPF [facility] Comment on above: Order Comment: Speci men Type: URINE SPECIMEN Ordering Facility: [facility] Address: [address] [place] [address] Performed By: #### 2 4356-8 #### [facility] CLIA [id number] [address] [place] [address] [place] Ketones Ql (U) Negative Normal Negative [facility] Comment on above: Order Comment: Speci men Type: URINE SPECIMEN Ordering Facility: [facility] Address: [address] [place] [address] Performed By: #### 2 4356-8 #### [facility] CLIA [id number] [address] [place] [address] [place] Leukocyte esterase Test strip Ql (U) Negative Normal Negative [facility] Comment on above: Order Comment: Speci men Type: URINE SPECIMEN Ordering Facility: [facility] Address: [address] [place] [address] Performed By: #### 2 4356-8 #### [facility] CLIA [id number] [address] [place] [address] [place] Nitrite Ql (U) Negative Normal Negative [facility] Comment on above: Order Comment: Speci men Type: URINE SPECIMEN Ordering Facility: [facility] Address: [address] [place] [address] Performed By: #### 2 4356-8 #### [facility] CLIA [id number] [address] [place] [address] [place] pH (U) 5.5 [pH] Normal <8.5 [facility] Comment on above: Order Comment: Speci men Type: URINE SPECIMEN Ordering Facility: [facility] Address: [address] [place] [address] Performed By: #### 2 4356-8 #### [facility] CLIA [id number] [address] [place] [address] [place] Protein (U) [Mass/Vol] Trace Abnormal Negative [facility] Comment on above: Order Comment: Speci men Type: URINE SPECIMEN Ordering Facility: [facility] Address: [address] [place] [address] Performed By: #### 2 4356-8 #### [facility] CLIA [id number] [address] [place] [address] [place] RBC LM.HPF (Urine sed) [#/Area] 0-2 /HPF Normal 0-2 /HPF [facility] Comment on above: Order Comment: Speci men Type: URINE SPECIMEN Ordering Facility: [facility] Address: [address] [place] [address] Performed By: #### 2 4356-8 #### [facility] CLIA [id number] [address] [place] [address] [place] Specific gravity (U) [Rel density] 1.022 Normal 1.005-1.030 [facility] Comment on above: Order Comment: Speci men Type: URINE SPECIMEN Ordering Facility: [facility] Address: [address] [place] [address] Performed By: #### 2 4356-8 #### [facility] CLIA [id number] [address] [place] [address] [place] Urobilinogen Ql (U) 0.2 EU/dL Normal 0.2-1.0 EU/dL [facility] Comment on above: Order Comment: Speci men Type: URINE SPECIMEN Ordering Facility: [facility] Address: [address] [place] [address] Performed By: #### 2 4356-8 #### [facility] CLIA [id number] [address] [place] [address] [place] WBC LM.HPF (Urine sed) [#/Area] 0-5 /HPF Normal 0-5 /HPF [facility] Comment on above: Order Comment: Speci men Type: URINE SPECIMEN Ordering Facility: [facility] Address: [address] [place] [address] Performed By: #### 2 4356-8 #### [facility] IA [id number] [address] [place] [address] [place] [facility] Cobalamin (Vitamin B12) [Mass/Vol] 495 pg/mL Normal 232-1245 [facility] Comment on above: Order Comment: Speci men Type: URINE SPECIMEN Ordering Facility: [facility] Address: [address] [place] [address] Performed By: #### 2 4356-8 #### [facility] CLIA [id number] [address] [place] [address] [place] Influenza virus A and B RNA and SARS-CoV-2 (COVID-19) N gene panel SEBASTIÁN+probe (Resp)on 03-19-2023 FLUAV RNA SEBASTIÁN+probe Ql (Unsp spec) Detected Abnormal Not Detected [facility] FLUBV RNA SEBASTIÁN+probe Ql (Unsp spec) Not detected Not Detected [facility] SARS-CoV-2 (COVID-19) RNA SEBASTIÁN+probe Ql (Resp) Not detected See comment [facility] XR CHEST 2V FRONTAL/LATon [facility] XR Chest PA and Lateralon IMPRESSION: No acute radiographic abnormality. Retail Zone Specialist: ISABELL Transcribe Date/Time: Mar 19 2023 1:20P Dictated by : NAZIA OCAMPO MD This examination was interpreted and the report reviewed and electronically signed by: NAZIA OCAMPO MD on Mar 19 2023 1:21PM [facility] * * *Final Report* [...] the thoracic spine. DIVISION OF RADIOLOGY Provider, [facility] - 03/19/2023 * * *Final Report* * [...] spine. IMPRESSION IMPRESSION: No acute radiographic abnormality. Retail Zone Specialist: PSCB Transcribe Date/Time: Mar 19 2023 1:20P Dictated by : NAZIA OCAMPO MD This examination was interpreted and the report reviewed and electronically signed by: NAZIA OCAMPO MD on Mar 19 2023 1:21PM EST [facility] Radiology Study observation (narrative) [facility] XR Chest PA and LateralOrder ed By: [facility] Provider on 03-19-2023 [facility] Emergency Department Summary on 12-20-2021 Emergency Department Summary [facility] Medical Records Department [address] [place] [address] Emergency Department Summary 12/20/21 MR#: [id number] Acct: [id number] Name: ASYA SHETH Rep #: [id number] : 1960 61 From: Alonzo Weber MD [...] has never had the rabies vaccine. ROS [facility] ED ENT ENT ED: Denies [...] your Primary Care Provider. Call [facility] ([phone]) or report to the closest Emergency Room. Call 911 if necessary. 12/20/21 1641 Cosigner Signature (if applicable): CC: Dr. Ron Whitley MD Signed Normal [facility] Vital Signs Date Time Vital Sign Value Performing Clinician Facility 07-30-2024 09:06-0400 Body height 177.2 cm Tali Yanez MD Work Phone: [facility] 07-30-2024 09:06-0400 Body mass index (BMI) [Ratio] 28.75 kg/m2 Tali Yanez MD Work Phone: [facility] 07-30-2024 09:06-0400 Body weight 90.27 kg Tali Yanez MD Work Phone: [facility] 07-30-2024 09:06-0400 Heart rate 97 /min Tali Yanez MD Work Phone: [facility] 07-30-2024 09:06-0400 SaO2% (BldA) [Mass fraction] 98 % Tali Yanez MD Work Phone: [facility] 05-07-2024 10:27-0500 Body mass index (BMI) [Ratio] 28.75 kg/m2 Ayaka Mccollum ROLLER SETTER.SWATCH PASTER Work Phone: [facility] 05-07-2024 10:27-0500 Body weight 90.27 kg Ayaka Mccollum ROLLER SETTER.SWATCH PASTER Work Phone: [facility] 05-07-2024 10:27-0500 Diastolic blood pressure 98 mm[Hg] Ayaka Mccollum APRN.SWATCH PASTER Work Phone: [facility] 05-07-2024 10:27-0500 Heart rate 89 /min Ayaka Mccollum APRN.SWATCH PASTER Work Phone: [facility] 05-07-2024 10:27-0500 Respiratory rate 16 /min Ayaka Mccollum ROLLER SETTER.SWATCH PASTER Work Phone: [facility] 05-07-2024 10:27-0500 Systolic blood pressure 147 mm[Hg] Ayaka Mccollum ROLLER SETTER.SWATCH PASTER Work Phone: [facility] 07-08-2023 08:21-0400 Body height 177.2 cm Tali Yanez MD Work Phone: [facility] 07-08-2023 08:21-0400 Body weight 88 kg Tali Yanez MD Work Phone: [facility] 07-08-2023 08:21-0400 Heart rate 61 /min Tali Yanez MD Work Phone: [facility] 07-08-2023 08:21-0400 SaO2% (BldA) [Mass fraction] 99 % Tali Yanez MD Work Phone: [facility] 03-19-2023 12:52-0500 Body temperature 98.71 [degF] Camilla Chao PA-C Work Phone: [facility] 03-19-2023 12:52-0500 Body weight 88 kg Camilla Bogner PA-C Work Phone: [facility] 03-19-2023 12:52-0500 Diastolic blood pressure 80 mm[Hg] Camilla Bogner PA-C Work Phone: [facility] 03-19-2023 12:52-0500 Heart rate 97 /min Camilla Bogner PA-C Work Phone: [facility] 03-19-2023 12:52-0500 Respiratory rate 20 /min Camilla Bogner PA-C Work Phone: [facility] 03-19-2023 12:52-0500 SaO2% (BldA) [Mass fraction] 95 % Camilla Bogner PA-C Work Phone: [facility] 03-19-2023 12:52-0500 Systolic blood pressure 112 mm[Hg] Camilla Bogner PA-C Work Phone: [facility] 12-18-2022 11:57-0400 Body height 177.2 cm Leesa Brady PA-C Work Phone: [facility] 12-18-2022 11:57-0400 Body temperature 98.91 [degF] Leesa Brady PA-C Work Phone: [facility] 12-18-2022 11:57-0400 Body weight 88 kg Leesa Brady PA-C Work Phone: [facility] 12-18-2022 11:57-0400 Diastolic blood pressure 84 mm[Hg] Leesa Brady PA-C Work Phone: [facility] 12-18-2022 11:57-0400 Heart rate 60 /min Leesa Brady PA-C Work Phone: [facility] 12-18-2022 11:57-0400 Respiratory rate 16 /min Leesa Brady PA-C Work Phone: [facility] 12-18-2022 11:57-0400 Systolic blood pressure 122 mm[Hg] Leesa Brady PA-C Work Phone: [facility] 01-03-2022 18:28-0400 Body height 177.8 cm [facility] Work Phone: 01-03-2022 18:28-0400 Body mass index (BMI) [Ratio] 28.7 kg/m2 [facility] Work Phone: 01-03-2022 18:28-0400 Body temperature 97.9 [degF] [facility] Work Phone: 01-03-2022 18:28-0400 Body weight 90.71 kg [facility] Work Phone: 01-03-2022 18:28-0400 Diastolic blood pressure 86 mm[Hg] [facility] Work Phone: 01-03-2022 18:28-0400 Heart rate 88 /min [facility] Work Phone: 01-03-2022 18:28-0400 Respiratory rate 17 /min [facility] Work Phone: 01-03-2022 18:28-0400 SaO2% (BldA) [Mass fraction] 95 % [facility] Work Phone: 01-03-2022 18:28-0400 Systolic blood pressure 144 mm[Hg] [facility] Work Phone: 12-28-2021 16:54-0400 Body height 177.8 cm [facility] Work Phone: 12-28-2021 16:54-0400 Body mass index (BMI) [Ratio] 28.7 kg/m2 [facility] Work Phone: 12-28-2021 16:54-0400 Body temperature 98.7 [degF] [facility] Work Phone: 12-28-2021 16:54-0400 Body weight 90.71 kg [facility] Work Phone: 12-28-2021 16:54-0400 Diastolic blood pressure 104 mm[Hg] [facility] Work Phone: 12-28-2021 16:54-0400 Heart rate 90 /min [facility] Work Phone: 12-28-2021 16:54-0400 Respiratory rate 16 /min [facility] Work Phone: 12-28-2021 16:54-0400 SaO2% (BldA) [Mass fraction] 98 % [facility] Work Phone: 12-28-2021 16:54-0400 Systolic blood pressure 144 mm[Hg] [facility] Work Phone: 12-23-2021 13:18-0400 Body height 177.8 cm [facility] Work Phone: 12-23-2021 13:18-0400 Body mass index (BMI) [Ratio] 28.7 kg/m2 [facility] Work Phone: 12-23-2021 13:18-0400 Body temperature 97.5 [degF] [facility] Work Phone: 12-23-2021 13:18-0400 Body weight 90.71 kg [facility] Work Phone: 12-23-2021 13:18-0400 Diastolic blood pressure 98 mm[Hg] [facility] Work Phone: 12-23-2021 13:18-0400 Heart rate 88 /min [facility] Work Phone: 12-23-2021 13:18-0400 Respiratory rate 16 /min [facility] Work Phone: 12-23-2021 13:18-0400 SaO2% (BldA) [Mass fraction] 95 % [facility] Work Phone: 12-23-2021 13:18-0400 Systolic blood pressure 139 mm[Hg] [facility] Work Phone: 12-20-2021 16:49-0400 Respiratory rate 18 /min [facility] Work Phone: 12-20-2021 16:16-0400 Body height 177.8 cm [facility] Work Phone: 12-20-2021 16:16-0400 Body mass index (BMI) [Ratio] 28.7 kg/m2 [facility] Work Phone: 12-20-2021 16:16-0400 Body temperature 96.9 [degF] [facility] Work Phone: 12-20-2021 16:16-0400 Body weight 90.71 kg [facility] Work Phone: 12-20-2021 16:16-0400 Diastolic blood pressure 99 mm[Hg] [facility] Work Phone: 12-20-2021 16:16-0400 Heart rate 112 /min [facility] Work Phone: 12-20-2021 16:16-0400 SaO2% (BldA) [Mass fraction] 95 % [facility] Work Phone: 12-20-2021 16:16-0400 Systolic blood pressure 130 mm[Hg] [facility] Work Phone: Encounters Encounter Date Encounter Type Care Provider Facility Start: 11-24-2024 End: 11-24-2024 ambulatory RON WHITLEY Facility:[facility] Start: 11-24-2024 End: 11-24-2024 ambulatory AYAKA MCCOLLUM Facility:[facility] Start: 07-30-2024 End: 07-30-2024 Patient encounter procedure Tali Yanez MD Work Phone: Urology Comment on above: Elevated PSA (Primar y Dx); BPH with obstruction/lower urinary tract symptoms; Nocturia Start: 07-30-2024 End: 07-30-2024 ambulatory TALI YANEZ Facility:[facility] Start: 07-04-2024 End: 07-05-2024 Refill Ron Whitley MD Work Phone: [facility] [place] Comment on above: Refill Request Start: 06-11-2024 End: 06-11-2024 Follow-up encounter Ayaka Mccollum APRN.SWATCH PASTER Work Phone: [facility] Start: 06-05-2024 End: 06-05-2024 ambulatory RON WHITLEY Facility:[facility] Start: 05-11-2024 End: 05-11-2024 Telephone encounter Ayaka Mccollum APRN.SWATCH PASTER Work Phone: [facility] [place] Comment on above: Results Start: 05-07-2024 End: 05-07-2024 Patient encounter procedure Ayaka Mccollum APRN.SWATCH PASTER Work Phone: [facility] [place] Comment on above: Medication managemen t (Primary Dx); Screening for depression; Elevated PSA; Mixed hyperlipidemia; Elevated fasting blood sugar; Generalized anxiety disorder; Encounter for immunization; GERD without esophagitis; Elevated BP without diagnosis of hypertension; Primary insomnia Start: 05-07-2024 End: 05-07-2024 ambulatory RON WHITLEY Facility:[facility] Start: 05-05-2024 End: 05-05-2024 Refill Ron Whitley MD Work Phone: [facility] [place] Comment on above: Refill Request Start: 07-08-2023 End: 07-08-2023 Patient encounter procedure Tali Yanez MD Work Phone: Urology Comment on above: BPH with obstruction /lower urinary tract symptoms (Primary Dx); Elevated PSA; Nocturia Start: 06-15-2023 Telephone encounter Ron Whitley MD Work Phone: [facility] [place] Comment on above: Results Start: 06-13-2023 Telephone encounter Rut Valentin [address] Comment on above: Orders Start: 03-20-2023 Telephone encounter Isai DAWSON Work Phone: [facility] Comment on above: Results Start: 03-19-2023 End: 03-19-2023 Subsequent hospital visit by physician Nika [facility] Work Phone: Radiology Comment on above: Acute cough [R05.1] Start: 03-19-2023 End: 03-19-2023 Office outpatient visit 15 minutes Camilla Chao PA-C Work Phone: [facility] Comment on above: Acute cough (Primary Dx); Subconjunctival hemorrhage of right eye Start: 12-18-2022 End: 12-18-2022 Patient encounter procedure Leesa Brady PA-C Work Phone: [facility] Comment on above: Well adult exam (Deepa quin Dx); Generalized anxiety disorder; Palpitations; Mixed hyperlipidemia; GERD without esophagitis; Elevated fasting blood sugar; Osteoarthritis, unspecified osteoarthritis type, unspecified site; Elevated PSA; Primary insomnia Start: 12-18-2022 End: 12-18-2022 Patient encounter status Leesa Brady PA-C Work Phone: [facility] Work Phone: Start: 11-23-2022 Refill [facility]ard MD [facility] Comment on above: Refill Request Start: 11-21-2022 Telephone encounter [facility] Whit[facility] MD [facility] Comment on above: Appointment Start: 10-26-2022 Telephone encounter Leesa patiño PA-C Work Phone: [facility] [place] Comment on above: Orders Start: 01-03-2022 End: 01-03-2022 ambulatory Ron Whitley Facility:[facility] Start: 01-03-2022 End: 01-03-2022 ambulatory [facility] Work Phone: Start: 01-03-2022 End: 01-03-2022 Patient encounter procedure [facility] Start: 12-28-2021 End: 12-28-2021 Patient encounter procedure [facility] Start: 12-28-2021 End: 12-28-2021 ambulatory Alonzo Weber [facility] Work Phone: Start: 12-23-2021 End: 12-23-2021 ambulatory Parth Ferris Facility:[facility] Start: 12-23-2021 End: 12-23-2021 Emergency department patient visit [facility] Start: 12-23-2021 End: 12-23-2021 Patient encounter procedure [facility] Start: 12-20-2021 End: 12-20-2021 Emergency department patient visit Alonzo Weber Facility:[facility] Start: 12-20-2021 End: 12-20-2021 Emergency department patient visit [facility] Start: 05-26-2019 Patient encounter status Maryuri Brady PA-C Work Phone: [facility] Work Phone: Procedures Date Procedure Procedure Detail Performing Clinician Start: 05-07-2024 Adult depression scr eening assessment Ayaka Mccollum APRN.SWATCH PASTER Work Phone: Start: 05-07-2024 Lipid 1996 panel - S allie or Plasma Ayaka Mccollum APRN.SWATCH PASTER Work Phone: Start: 03-19-2023 COVID & INFLUENZA [...] RSV Vaccine (1 - 1-dose 75+ series) [facility] Start: 06-05-2029 Prostate specific antigen measurement Prostate Cancer Screening Discussion [facility] Start: 05-07-2029 Lipid panel Lipid Screening [facility] Start: 05-07-2029 Prostate specific antigen measurement Prostate Cancer Screening Discussion [facility] Start: 06-14-2028 Prostate specific antigen measurement Prostate Cancer Screening Discussion [facility] Start: 11-14-2027 Lipid 1996 panel - Serum or Plasma Lipid Screening [facility] Start: 11-14-2027 Lipid panel Lipid Screening [facility] Start: 11-14-2027 LIPID SCREEN LIPID SCREEN [facility] Start: 11-14-2027 PROSTATE CANCER SCREENING DISCUSSION PROSTATE CANCER SCREENING DISCUSSION [facility] Start: 11-14-2027 Prostate specific antigen measurement Prostate Cancer Screening Discussion [facility] Start: 06-29-2027 Urine microalbumin profile [facility] Start: 05-07-2027 Diabetes Screening Diabetes Screenin g [facility] Start: 05-22-2026 Colonoscopy COLONOSCOPY [facility] Start: 05-22-2026 COLORECTAL CANCER SCREENING COLORECTAL CANCER SCREENING [facility] Start: 05-22-2026 Screening for malign ant neoplasm of colon [facility] Start: 03-11-2026 LIPID SCREEN LIPID SCREEN [facility] Start: 11-13-2025 DIABETES SCREEN DIABETES SCREEN [facility] Start: 11-13-2025 Diabetes Screening Diabetes Screenin g [facility] Start: 05-07-2025 Depression Screening Depression Scre ening [facility] Start: 05-07-2025 Pneumococcal Vaccine : 50+ (1 of 1 - PCV) Pneumococcal Vaccine: 50+ (1 of 1 - PCV) [facility] Comment on above: Postponed from 04/25 (Declined at this time) Start: 05-07-2025 Shingrix Vaccine (1 of 2) Shingrix Vaccine (1 of 2) [facility] Comment on above: Postponed from 04/25 (Declined at this time) Start: 04-21-2025 Advance Directive Discussion Advance Directive Discussion [facility] Comment on above: Postponed from 04/25 (Declined at this time) Start: 11-04-2024 End: 11-04-2024 Patient encounter procedure [facility] Comment on above: 6 month follow up Start: 09-11-2024 Covid-19 Vaccine () Covid-19 Vaccine () [facility] Start: 07-30-2024 End: 07-30-2024 Patient encounter procedure 07/30/2024 9:15 AM EDT Office Visit Urology [address] [place] [address] Tali Yanez MD [address] [place] [address] 1 year follow up psa prior Urology Comment on above: 1 year follow up psa prior Start: 07-07-2024 End: 10-06-2024 Prostate specific Ag [Mass/volume] in Serum or Plasma PSA/PROSTSPECAG DIAG Lab Routine Elevated PSA BPH with obstruction/lower urinary tract symptoms Nocturia Expected: 07/07/2024 (Approximate), Expires: 10/06/2024 [facility] Work Phone: Comment on above: Expected: 07/07/2024 (Approximate), Expires: 10/06/2024 Start: 05-11-2024 End: 08-10-2024 Prostate Specific Ag Free [Mass/volume] in Serum or Plasma PROSTATE SPECIFIC ANTIGEN, FREE Lab Routine Elevated PSA Expected: 05/11/2024, Expires: 08/10/2024 [facility] Work Phone: Comment on above: Expected: 05/11/2024 , Expires: 08/10/2024 Start: 05-07-2024 End: 08-06-2024 CBC W Auto Differential panel - Blood [facility] Work Phone: Comment on above: Expected: 05/07/2024 , Expires: 08/06/2024 Start: 05-07-2024 End: 08-06-2024 Cobalamin (Vitamin B12) [Mass/volume] in Serum or Plasma [facility] Comment on above: Expected: 05/07/2024 , Expires: 08/06/2024 Start: 05-07-2024 End: 08-06-2024 Comprehensive metabolic 2000 panel - Serum or Plasma [facility] Comment on above: Expected: 05/07/2024 , Expires: 08/06/2024 Start: 05-07-2024 End: 08-06-2024 Hemoglobin A1c in Blood [facility] Comment on above: Expected: 05/07/2024 , Expires: 08/06/2024 Start: 05-07-2024 End: 08-06-2024 LIPID PANEL, NONFASTING [facility] Comment on above: Expected: 05/07/2024 , Expires: 08/06/2024 Start: 05-07-2024 End: 08-06-2024 Magnesium [Mass/volume] in Serum or Plasma [facility] Comment on above: Expected: 05/07/2024 , Expires: 08/06/2024 Start: 05-07-2024 End: 08-06-2024 PSA/PROSTATE SPECIFIC ANTIGEN SCREENING [facility] Comment on above: Expected: 05/07/2024 , Expires: 08/06/2024 Start: 05-07-2024 End: 08-06-2024 Thyrotropin [Units/volume] in Serum or Plasma [facility] Comment on above: Expected: 05/07/2024 , Expires: 08/06/2024 Start: 05-07-2024 End: 08-06-2024 Urinalysis complete panel - Urine [facility] Comment on above: Expected: 05/07/2024 , Expires: 08/06/2024 Start: 05-07-2024 End: 05-07-2024 Patient encounter procedure 05/07/2024 10:40 AM EST Office Visit [facility] [address], [place] [id number] Ayaka Mccollum APRN.SWATCH PASTER [address] [place] [address] Yearly exam [facility] Comment on above: Yearly exam Start: 2024 Advance Directive Discussion Advance Directive Discussion [facility] Start: 03-11-2024 DIABETES SCREEN DIABETES SCREEN [facility] Start: 01-04-2024 End: 04-04-2024 Prostate specific Ag [Mass/volume] in Serum or Plasma PSA/PROSTSPECAG DIAG Lab Routine Elevated PSA BPH with obstruction/lower urinary tract symptoms Nocturia Expected: 01/04/2024 (Approximate), Expires: 04/04/2024 [facility] Work Phone: Comment on above: Expected: 01/04/2024 (Approximate), Expires: 04/04/2024 Start: 12-22-2023 Covid-19 Vaccine () Covid-19 Vaccine () [facility] Start: 06-13-2023 End: 09-12-2023 Prostate Specific Ag Free [Mass/volume] in Serum or Plasma PSA FREE Lab Routine Elevated PSA Expected: 06/13/2023, Expires: 09/12/2023 [facility] Work Phone: Comment on above: Expected: 06/13/2023 , Expires: 09/12/2023 Start: 04-22-2023 Depression Assessment Depression Ass [facility] Start: 04-21-2023 DEPRESSION ASSESSMENT DEPRESSION ASS [facility] Comment on above: Postponed from 04/22 (Postponed To Appropriate Date) Start: 03-20-2023 End: 05-20-2023 Prostate Specific Ag Free [Mass/volume] in Serum or Plasma PSA FREE Lab Routine Elevated PSA Expected: 03/20/2023, Expires: 05/20/2023 [facility] Work Phone: Comment on above: Expected: 03/20/2023 , Expires: 05/20/2023 Start: 12-21-2022 Covid-19 Vaccine () Covid-19 Vaccine () [facility] Start: 10-29-2022 End: 12-29-2022 CBC W Auto Differential panel - Blood CBC + DIFF Lab Routine Mixed hyperlipidemia Generalized anxiety disorder Prostate cancer screening Elevated fasting blood sugar Expected: 10/29/2022, Expires: 12/29/2022 [facility] Work Phone: Comment on above: Expected: 10/29/2022 , Expires: 12/29/2022 Start: 10-29-2022 End: 12-29-2022 Comprehensive metabolic 2000 panel - Serum or Plasma COMP METABOLIC PANEL Lab Routine Mixed hyperlipidemia Generalized anxiety disorder Prostate cancer screening Elevated fasting blood sugar Expected: 10/29/2022, Expires: 12/29/2022 [facility] Work Phone: Comment on above: Expected: 10/29/2022 , Expires: 12/29/2022 Start: 10-29-2022 End: 12-29-2022 Hemoglobin A1c in Blood HGB A1C Lab Routine Mixed hyperlipidemia Generalized anxiety disorder Prostate cancer screening Elevated fasting blood sugar Expected: 10/29/2022, Expires: 12/29/2022 [facility] Work Phone: Comment on above: Expected: 10/29/2022 , Expires: 12/29/2022 Start: 10-29-2022 End: 12-29-2022 LIPID PANEL, NONFASTING LIPID PANEL, NONFASTING Lab Routine Mixed hyperlipidemia Generalized anxiety disorder Prostate cancer screening Elevated fasting blood sugar Expected: 10/29/2022, Expires: 12/29/2022 [facility] Work Phone: Comment on above: Expected: 10/29/2022 , Expires: 12/29/2022 Start: 10-29-2022 End: 12-29-2022 Prostate specific Ag [Mass/volume] in Serum or Plasma PSA/PROSTSPECAG DIAG Lab Routine Prostate cancer screening Expected: 10/29/2022, Expires: 12/29/2022 [facility] Work Phone: Comment on above: Expected: 10/29/2022 , Expires: 12/29/2022 Start: 10-29-2022 End: 12-29-2022 Urinalysis complete panel - Urine URINALYSIS, WITH MICROSCOPIC Lab Routine Mixed hyperlipidemia Generalized anxiety disorder Prostate cancer screening Elevated fasting blood sugar Expected: 10/29/2022, Expires: 12/29/2022 [facility] Work Phone: Comment on above: Expected: 10/29/2022 , Expires: 12/29/2022 Start: 04-22-2022 DEPRESSION ASSESSMENT DEPRESSION ASS ESSMENT [facility] Start: 10-10-2021 PROSTATE CANCER SCREENING DISCUSSION PROSTATE CANCER SCREENING DISCUSSION [facility] Start: 05-18-2021 COVID-19 VACCINE (4 - Pfizer series) COVID-19 VACCINE (4 - Pfizer series) [facility] Start: 2019 RSV Vaccine (1 - 1-d ose 60+ series) RSV Vaccine (1 - 1-dose 60+ series) [facility] Start: 2009 Pneumococcal Vaccine : 50+ (1 of 1 - PCV) Pneumococcal Vaccine: 50+ (1 of 1 - PCV) [facility] Start: 2009 SHINGRIX VACCINE (1 of 2) SHINGRIX VACCINE (1 of 2) [facility] Start: 2004 COLOGUARD (FIT-DNA) COLOGUARD (FIT-D NA) [facility] Start: [address] COLONOGRAPHY [facility] Start: 2004 FECAL OCCULT BLOOD FECAL OCCULT BLOO D [facility] Start: 2004 Screening for malign ant neoplasm of colon [facility] Start: 2004 SIGMOIDOSCOPY SIGMOIDOSCOPY [facility] Start: 1977 Depression Screening Depression Scre ening [facility] Start: 1977 HIV SCREENING HIV SCREENING [facility] Patient Education Understanding Rabies [facility] Work Phone: Patient referral [facility] Work Phone: [facility] Immunizations Immunization Date Immunization Notes Care Provider Fa cili 01-03-2022 rabies vaccine, for intramuscular injection [facility] 12-28-2021 rabies vaccine, for intramuscular injection [facility] 12-23-2021 rabies vaccine, for intramuscular injection [facility] 12-20-2021 rabies immune globulin [facility] 12-20-2021 rabies vaccine, for intramuscular injection [facility] 07-27-2020 COVID-19 original vaccine, age 12+ yr, monovalent (PFIZER-BIONTECH - PURPLE TOP) Leesa Brady PA-C Work Phone: [facility] 07-02-2020 COVID-19 original vaccine, age 12+ yr, monovalent (PFIZER-BIONTECH - PURPLE TOP) Leesa Brady PA-C Work Phone: [facility] 06-28-2017 tetanus toxoid, redu alisia diphtheria toxoid, and acellular pertussis vaccine, adsorbed Leesa Brady PA-C Work Phone: [facility] 09-17-2008 tetanus and diphther ia toxoids, adsorbed, preservative free, for adult use (2 Lf of tetanus toxoid and 2 Lf of diphtheria toxoid) Leesa Brady PA-C Work Phone: [facility] Payers Date Payer Category Payer Self-pay [id number] 2018 Private Health Insurance MMO SUP [employer] PPO [id number] 2018 Unknown MMO MMO [employer] PPO [id number] 2018-Present [phone] [address] [place] [address] PPO [id number] 2018 Unknown [id number] OB [id number] Unknown OBW AULTCOMP [id number] Unknown [id number] Unknown [id number] Unknown [id number] Social History Date Type Detail Facility Start: 12-20-2021 Tobacco smoking stat us NHIS Unknown if ever smoked [facility] Work Phone: Start: 07-16-2019 None [facility] Work Phone: Start: 07-16-2019 Spouse/ Signif icant Other [facility] Work Phone: Start: 1960 Sex Assigned At Male W [facility] Work Phone: Start: 06-23-2014 End: 12-18-2022 Tobacco smoking status NHIS Never smoked tobacco [facility] Work Phone: Start: 06-23-2014 End: 12-18-2022 Tobacco use and exposure Former smokeless tobacco user [facility] Work Phone: Start: 06-21-2021 End: 07-30-2024 Alcohol intake Current drinker of alcohol (finding) [facility] Start: 06-21-2021 End: 11-15-2022 History of Social function [facility] Start: 06-21-2021 End: 11-15-2022 Tobacco use panel [facility] Adult Depression Screening Assessment 0 [facility] Start: 05-22-2021 Alcohol Comment 1 beer daily [facility] Start: 1960 Sex Assigned At Not on file C [facility] Functional Status Date Assessment Result Facility 06-23-2014 Are you deaf, or do you have serious difficulty hearing No 06/23/2014 10:15 AM Sheela Thompson LPN [facility] Work Phone: 06-23-2014 Are you blind, or do you have serious difficulty seeing, even when wearing glasses No 06/23/2014 10:15 AM Sheela Thompson LPN No [facility] 06-23-2014 Do you have serious difficulty walking or climbing stairs No 06/23/2014 10:15 AM Sheela Thompson LPN No [facility] 06-23-2014 Do you have difficul ty dressing or bathing No 06/23/2014 10:15 AM Sheela Thompson LPN No [facility] 06-23-2014 Because of a physica l, mental, or emotional condition, do you have difficulty doing errands alone such as visiting a physician's office or shopping No 06/23/2014 10:15 AM Sheela Thompson LPN No [facility] Mental Status Date Assessment Result Facility 12-20-2021 Cognitive function Level Of Cons ciousness Awake;Alert;Appropriate;Fol lows Commands [facility] Work Phone: 06-23-2014 Because of a physica l, mental, or emotional condition, do you have serious difficulty concentrating, remembering, or making decisions No 06/23/2014 10:15 AM Sheela Thompson LPN No [facility] Clinical Notes 10-29-2022 to 11-24-2024 Tali Yanez MD - 07/30/2024 9:12 AM EDTTelephone Encounter - Marivel Oliveira MA - 07/05/2024 3:10 PM EDTTelephone Encounter - Marivel Oliveira MA - 07/05/2024 3:10 PM EDTPatient Instructions Note Date & Type Note Facility 11-24-2024 Note HNO ID: [id number] Author: JANETT SARABIA Tech Service: ? Author Type: Quality Control Inspector Type: Progress Notes Filed: 11/24/2024 11:02 Note [...] PATIENT PRESENTS WITH AN IMPLANTABLE OR ATTACHED BAND BUILDER: No RADIOLOGY DEPARTMENT: General X-ray: Exam(s) Completed: Abdomen X-Ray: Abdomen with Obliques PERIPHERAL IV DATA: Not applicable SIGNED BY: Ben Mahan November 24, 2024 10:49 AM [facility] 11-24-2024 Note HNO ID: [id number] Author: AYAKA MCCOLLUM APRN.SWATCH PASTER Service: ? Author Type: Nurse Practitioner Type: [...] - UA DIP, URINE (POC) Ayaka Mccollum APRN.[facility] 07-30-2024 History of Presen t illness Narrative [...] Date Value 05/07/2024 Negative 10/10/2016 Negative Specific [place], Ur (no units) Date Value 05/07/2024 1.022 [...] stable at 3.5 documented in this encounter [facility] 07-30-2024 Note HNO ID: [id number] Author: TALI YANEZ MD Service: ? Author [...] Date Value 05/07/2024 Negative 10/10/2016 Negative Specific [place], Ur (no units) Date Value 05/07/2024 1.022 [...] declined MRI. Latest PSA stable at 3.5 [facility] 07-05-2024 Telephone encounter Note Pt notified via [employer] that he should have another 90 day supply at pharmacy. Marivel Oliveira MA [facility] 07-05-2024 Miscellaneous Notes Pt notified via [employer] that he should have another 90 day [...] 2024 11:14 AM documented in this encounter [facility] 07-04-2024 Telephone encounter Note Prescription Refill Information [...] Bessy Polanco July 04, 2024 11:14 AM [facility] 06-11-2024 Telephone encounter Note Pt active on [employer]- message sent Janett Mejia MA [facility] 06-11-2024 Miscellaneous Notes Pt active on mychart- message sent Janett Mejia MA Please let patient know his PSA continues to decrease. documented in this encounter [facility] 06-11-2024 Telephone encounter Note Please let patient know his PSA continues to decrease. [facility] 05-11-2024 Telephone encounter Note Patient updated and voiced understanding. Vira Wheatley LPN [facility] 05-11-2024 Miscellaneous Notes Patient updated and voiced understanding. Vira Wheatley LPN Rx sent. Patient voices understanding of provider's message below and will complete lab order. Patient agreeable to trying a different statin medication. Send to [facility]. Thank you. Message left for patient [...] different statin medication? documented in this encounter [facility] 05-11-2024 Telephone encounter Note Rx sent. [facility] 05-11-2024 Telephone encounter Note Patient voices understanding of provider's message below and will complete lab order. Patient agreeable to trying a different statin medication. Send to [facility]. Thank you. [facility] 05-11-2024 Telephone encounter Note Message left for patient to return call to review provider's message with him. Vira Wheatley LPN [facility] 05-11-2024 Telephone encounter Note Please let patient know his labs show an elevated PSA. I would like to get a follow up lab to check this. Also his lipid panel is elevated from previous. His total cholesterol is high and his LDL is high. Is patient open to trying a different statin medication? [facility] 05-07-2024 Note Addended by: AYAKA MCCOLLUM on: 05/07/2024 11:41 AM Modules accepted: Orders [facility] 05-07-2024 Miscellaneous Notes Addended by: AYAKA MCCOLLUM on: 05/07/2024 11:41 AM Modules accepted: Orders documented in this encounter [facility] 05-07-2024 Note HNO ID: [id number] Author: AYAKA MCCOLLUM APRN.STEPHANY Service: ? Author [...] Z79.899 (primary diagnosis) (more content not included)... [facility] 05-07-2024 History of Presen t illness Narrative [...] have reviewed the Advanced Practice Registered Nurse (ROLLER SETTER) student's documentation and verified the findings in the note as written. Any additions or changes are noted in bold/italics. Ayaka Mccollum APRN.SWATCH PASTER documented in this encounter [facility] 05-05-2024 Telephone encounter Note The following approved medication requests have been transmitted electronically. Requested Prescriptions Signed Prescriptions Disp Refills FLUoxetine (PROZAC) 40 mg capsule 30 capsule 0 Sig: Take 1 capsule by mouth once daily. Authorizing Provider: LEESA BRADY PA-C [facility] 05-05-2024 Miscellaneous Notes The following approved medication [...] 2024 10:10 AM documented in this encounter [facility] 05-05-2024 Telephone encounter Note Patient scheduled for 05/07/2023 to be seen by Ayaka [facility] 05-05-2024 Telephone encounter Note Prescription Refill Information [...] capsule by mouth once daily. [facility] May 05, 2024 10:10 AM [facility] 07-08-2023 History of Presen t illness Narrative [...] Date Value 11/13/2022 Negative 10/10/2016 Negative Specific [place], Ur (no units) Date Value 11/13/2022 1.023 [...] & 12 mths documented in this encounter [facility] 06-15-2023 Miscellaneous Notes Spoke with patient. Given [...] [facility] Order placed. documented in this encounter [facility] 06-14-2023 Miscellaneous Notes Pt notified of Dr [...] done. Thank you documented in this encounter [facility] 03-20-2023 Miscellaneous Notes Pt was notified of [...] or not improving. documented in this encounter [facility] 03-19-2023 History of Presen t illness Narrative [...] 2023 1:14 PM documented in this encounter [facility] 03-19-2023 History of Presen t illness Narrative [...] Chao PA-C 03/20/2023 documented in this encounter [facility] 12-18-2022 Instructions Leesa Brady PA-C - 12/18/2022 12:37 PM EDT Repeat PSA in . Follow up in 1 year documented in this encounter [facility] 12-18-2022 History of Presen t illness Narrative [...] Abs Lymph 1.00 - 4.00 k/uL 1.18 Coles% % 6.9 Abs Coles <0.87 k/uL 0.42 Eosin% % 1.0 Abs [...] Negative Ketones, Urine Trace, Negative Negative Specific [place], Ur 1.005 - 1.030 1.023 Hemoglobin/Blood,Ur Negative, [...] Leesa Brady PA-C documented in this encounter [facility] 11-26-2022 Miscellaneous Notes Patient scheduled. Patience Gutierrez MA Left message on voicemail to call office back Nikki Harmon Ma Patient's complete PE on 11/15/2022 had to be canceled because Leesa had to leave due to illness. Please help reschedule documented in this encounter [facility] 11-23-2022 Miscellaneous Notes The following approved medication [...] advise. Adithya Lara documented in this encounter [facility] 10-29-2022 Miscellaneous Notes Pt notified of same. Jt De Dios LPN Orders placed. Patient has an appointment scheduled for 11/15/22 and is asking if needs to complete labs prior? documented in this encounter [facility] Evaluation note No assessment inform ation available [facility] Work Phone: Evaluation note Diagnosis Mixed hyperlipidemia- [...] specific antigen (PSA) [facility] B[facility] with obstruction/lower urinary [...] or maintaining sleep [facility] Elevated PSA- Primary Elevated prostate specific antigen (PSA) Mixed hyperlipidemia [facility] Generalized anxiety disorder [facility] Elevated PSA- Primary Elevated prostate specific antigen (PSA) BPH with obstruction/lower urinary tract symptoms Hypertrophy of prostate with urinary obstruction and other lower urinary tract symptoms (LUTS) Nocturia [facility] Additional Instructions Follow-up here [...] No December 20 2 4:56pm 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 No December 20 022 4:56pm Summary Purpose Family History No Family History Records FoundNo Family History Records FoundNo Family History Records Found Reason for Referral Specialty Diagnoses / Procedures Referred By Contjay t Referred To Contact Urology Diagnoses Elevated PSA Procedures CONSULT TO UROLOGY OFFICE/OUTPATIENT [facility] 60 MINUTES Ron Whitley MD [address] [place] [address] Referral ID Status Reason Start Date Expiration Date Visits Requested Visits Authorized [id number] Authorized PCP Requested Referral 06/15/2023 06/14/2024 1 [...] section and content) DATE CREATED AUTHOR 01/17/2022 [facility] DATE CREATED AUTHOR AUTHOR'S ORGANIZ ATION 07/31/2024 [facility] DATE CREATED AUTHOR AUTHOR'S ORGANIZ ATION 11/30/2024 [facility] Source Comments (unrecognize d section and content) In the event this informatio n is protected by the Federal Confidentiality of Alcohol and Drug Abuse Patient Records regulations: The Federal rules restrict any use of the information to criminally investigate or prosecute any alcohol or drug abuse patient.[facility] the event this information is protected by the Federal Confidentiality of Alcohol and Drug Abuse Patient Records regulations: The Federal rules restrict any use of the information to criminally investigate or prosecute any alcohol or drug abuse patient.[facility] the event this information is protected by the Federal Confidentiality of Alcohol and Drug Abuse Patient Records regulations: The Federal rules restrict any use of the information to criminally investigate or prosecute any alcohol or drug abuse patient.[facility] the event this information is protected by the Federal Confidentiality of Alcohol and Drug Abuse Patient Records regulations: The Federal rules restrict any use of the information to criminally investigate or prosecute any alcohol or drug abuse patient.[facility] the event this information is protected by the Federal Confidentiality of Alcohol and Drug Abuse Patient Records regulations: The Federal rules restrict any use of the information to criminally investigate or prosecute any alcohol or drug abuse patient.[facility] the event this information is protected by the Federal Confidentiality of Alcohol and Drug Abuse Patient Records regulations: The Federal rules restrict any use of the information to criminally investigate or prosecute any alcohol or drug abuse patient.[facility] the event this information is protected by the Federal Confidentiality of Alcohol and Drug Abuse Patient Records regulations: The Federal rules restrict any use of the information to criminally investigate or prosecute any alcohol or drug abuse patient.[facility] the event this information is protected by the Federal Confidentiality of Alcohol and Drug Abuse Patient Records regulations: The Federal rules restrict any use of the information to criminally investigate or prosecute any alcohol or drug abuse patient.[facility] the event this information is protected by the Federal Confidentiality of Alcohol and Drug Abuse Patient Records regulations: The Federal rules restrict any use of the information to criminally investigate or prosecute any alcohol or drug abuse patient.[facility] the event this information is protected by the Federal Confidentiality of Alcohol and Drug Abuse Patient Records regulations: The Federal rules restrict any use of the information to criminally investigate or prosecute any alcohol or drug abuse patient.[facility] the event this information is protected by the Federal Confidentiality of Alcohol and Drug Abuse Patient Records regulations: The Federal rules restrict any use of the information to criminally investigate or prosecute any alcohol or drug abuse patient.[facility] the event this information is protected by the Federal Confidentiality of Alcohol and Drug Abuse Patient Records regulations: The Federal rules restrict any use of the information to criminally investigate or prosecute any alcohol or drug abuse patient.[facility] the event this information is protected by the Federal Confidentiality of Alcohol and Drug Abuse Patient Records regulations: The Federal rules restrict any use of the information to criminally investigate or prosecute any alcohol or drug abuse patient.[facility] the event this information is protected by the Federal Confidentiality of Alcohol and Drug Abuse Patient Records regulations: The Federal rules restrict any use of the information to criminally investigate or prosecute any alcohol or drug abuse patient.[facility] the event this information is protected by the Federal Confidentiality of Alcohol and Drug Abuse Patient Records regulations: The Federal rules restrict any use of the information to criminally investigate or prosecute any alcohol or drug abuse patient.[facility] the event this information is protected by the Federal Confidentiality of Alcohol and Drug Abuse Patient Records regulations: The Federal rules restrict any use of the information to criminally investigate or prosecute any alcohol or drug abuse patient.[facility] Reason for Visit (unrecogniz ed section and [...] MDM 60 MINUTES Ron Whitley MD [address] [place] [address] Referral ID Status Reason Start Date Expiration Date V isits Requested Visits Authorized [id number] Closed PCP Requested Referral 06/15/2023 06/14/2024 1 1 Reason Onset Date Comments Refill Request 05/05/2024 Reason Comments Physical Reason Onset Date Comments Refill Request 07/04/2024 Reason Comments Benign Prostatic Hypertrophy Nocturia Care Teams (unrecognized sec tion and content) Data Entry Relationship Specialty Start Date End Date Ron Whitley MD [address] [place], [place] [id number] PCP - General Family Medicine 05/09/15 Data Entry Relationship Specialty Start Date End Date Ron Whitley MD [address] [place], [place] [id number] PCP - General Family Medicine 05/09/15 Data Entry Relationship Specialty Start Date End Date Ron Whitley MD [address] [place], [place] [id number] PCP - General Family Medicine 05/09/15 Data Entry Relationship Specialty Start Date End Date Ron Whitley MD [address] [place], [place] [address] [phone] PCP - General Family Medicine 05/09/15 Data Entry Relationship Specialty Start Date End Date Ron Whitley MD [address] [place], [place] [address] [phone] PCP - General Family Medicine 05/09/15 Data Entry Relationship Specialty Start Date End Date Ron Whitley MD [address] [facility] [place] [address] PCP - General Family Medicine 05/09/15 Data Entry Relationship Specialty Start Date End Date Ron Whitley MD [address] [place] [address] PCP - General Family Medicine 05/09/15 Data Entry Relationship Specialty Start Date End Date Ron Whitley MD [address] [place] [address] PCP - General Family Medicine 05/09/15 Data Entry Relationship Specialty Start Date End Date Ron Whitley MD [address] [place] [address] PCP - General Family Medicine 05/09/15 Data Entry Relationship Specialty Start Date End Date Ron Whitley MD [address] [place] [address] PCP - General Family Medicine 05/09/15 Data Entry Relationship Specialty Start Date End Date Ron Whitley MD [address] [place] [address] PCP - General Family Medicine 05/09/15 Ayaka Mccollum APRN.CNP [address] [place] [address] [facility] 03/28/24 Leesa Brady PA-C [address] [facility] [place] [address] [facility] 03/28/24 Data Entry Relationship Specialty Start Date End Date Ron Whitley MD [address] [facility] [place] [address] PCP - General Family Medicine 05/09/15 Ayaka Mccollum, KESHAWN.SWATCH PASTER [address] [facility] [place] [address] [facility] 03/28/24 Leesa Brady PA-C [address] [facility] [place] [address] [facility] 03/28/24 Data Entry Relationship Specialty Start Date End Date Ron Whitley MD [address] [facility] [place] [address] PCP - General Family Medicine 05/09/15 Ayaka Mccollum, KESHAWN.SWATCH PASTER [address] [facility] [place] [address] [facility] 03/28/24 Leesa Brady PA-C [address] [facility] [place] [address] [facility] 03/28/24 Data Entry Relationship Specialty Start Date End Date Ron Whitley MD [address] [facility] [place] [address] PCP - General Family Medicine 05/09/15 Ayaka Mccollum APRN.SWATCH PASTER [address] [facility] [place] [address] [facility] 03/28/24 Leesa Brady PA-C [address] [facility] [place] [address] [facility] 03/28/24 Data Entry Relationship Specialty [place] [address] [place] [id number] PCP - General Family Medicine 05/09/15 Ayaka Mccollum APRN.SWATCH PASTER [address] [place] [phone] [facility] 03/28/24 Leesa Brady PA-C [facility] [place], [place] [address] [facility] 03/28/24 Data Entry Relationship Specialty Start Date End Date Ron Whitley MD [address] [place] [id number] PCP - General Family Medicine 07/27/24 Ayaka Mccollum APRN.SWATCH PASTER [address] [place] [phone] [facility] 03/28/24 Leesa Brady PA-C [facility] [place] [address] [facility] 03/28/24 FOR RECORDS PERTAINING TO PATIENTS WHO [...] BE BASED ON THE PRIMARY CLINICAL RECORDS. [facility] [employer] [facility]. provides no warranty or guarantee of the accuracy or completeness of information in this document.
== END | disposition home or self-care (01) ==
PROVIDERS: PCP Family Medicine; Visit Provider Emergency Medicine
DX: Z20.3 Contact with and (suspected) exposure to rabies (principal); Z23 Encounter for immunization
CPT/HCPCS: 90675; 96372

== ENCOUNTER 2025-03-11 17:17 | Outpatient (CLI) | payer OTHER, SELFPAY ==
[2025-03-11 17:18] VITALS: BP 176/100; PULSE 96; RESP 16; TEMP 36.6; O2SAT 95; BMI 28.5
[2025-03-11 17:58] VITALS: BP 176/100; PULSE 96; RESP 16; TEMP 36.6; O2SAT 95
--- OUTSIDE RECORDS SUMMARY | 2025-03-11 19:26 | XMS RPT_ITS | CCD ---
Author Organization [facility] Care Team Providers Care Manufacturing Inspector Name Role Phone Ron Whitley Primary Care Unavailable Provider, Ed Physician Attending Unavailab Alonzo Boston Attending Unavailable Ron Whitley Primary Care Unavailable Parth Ferris Referring Unavailable Parth Ferris Attending Unavailable Ron Whitley Primary Care Unavailable Alonzo Weber Attending Unavailable Ron Whitley Primary Care Unavailable Ron Whitley MD Primary Care Provider [phone] Ron Whitley MD Primary Care Provider [phone] Veda MANAGER SOCIAL MEDIAAyaka CAREY Unavailable Leesa Brady PA-C Unavailable Ron Whitley MD Primary Care Provider [phone] TALI YANEZ Attending Unavailable RON WHITLEY Primary [...] atorvastatin; Translations: [ATORVASTATIN] Drug Allergy 11-27-2019 Myalgia [facility] Work Phone: Medications Current Medications Medication Drug [...] on above: Take 1 capsule by mo [facility] once daily. mirtazapine 15 mg oral [...] mouth once daily. [facility]. pravastatin sodium 10 mg [...] up to 180 days. polyethylene glycol 3350 020354 mg / potassium chloride 2970 mg / sodium bicarbonate 6740 mg / sodium chloride 5860 mg / sodium sulfate 92617 mg powder for oral solution (12 sources) [...] 05-07-2024 Episodic Other aftercare (1 source) Other fpc (current) drug therapy; Translations: [Medication management] Onset: [...] Test Name Value Interpretation Reference Range Facility [facility] 11-24-2024 [facility] ASYA SHETH ([id number]) 1960 M Date Time Provider Department 11/24/24 10:20 AM AYAKA MCCOLLUM [facility] During your visit today, we recorded the following information about you: Pulse Blood pressure Weight 86/minute 140/90 91 kg Ayaka Mccollum APRN.[facility] 11/24/2024 10:45 AM Signed Chief Complaint [...] DIP, URINE (POC) Ayaka Mccollum APRN.Ayaka Solorio APRN.NETWORK INTERN 11/24/2024 10 (more content not included)... Normal [facility] LIPID PANEL, NONFASTINGon Cholesterol [Mass/Vol] 218 mg/dL High <200 [facility] Comment on above: Order Comment: Speci men Type: BLOOD SPECIMEN Ordering Facility: [facility] Address: [address] [place] [address] Result Comment: <200 mg/dL, Desirable 200-239 mg/dL, Borderline high >239 mg/dL, High Performed By: #### L IPNF #### [facility] CLIA [id number] [address] [place] [address] [place] HDL CHOLESTEROL, NF 44 mg/dL Normal >39 [facility] Comment on above: Order Comment: Speci men Type: BLOOD SPECIMEN Ordering Facility: [facility] Address: [address] [place] [address] Result Comment: 40-5 9 mg/dL, Acceptable >59 mg/dL, High: Negative risk factor for coronary heart disease <40 mg/dL, Low: Positive risk factor for coronary heart disease Performed By: #### L IPNF #### [facility] CLIA [id number] [address] [place] [address] [place] LDL CHOLESTEROL CALCULATED, NF 132 mg/dL High <100 [facility] Comment on above: Order Comment: Speci men Type: BLOOD SPECIMEN Ordering Facility: [facility] Address: [address] [place] [address] Result Comment: <100 mg/dL, Optimal 100-129 mg/dL, Near optimal/above optimal 130-159 mg/dL, Borderline high 160-189 mg/dL, High >189 mg/dL, Very high Secondary prevention optimal LDL Cholesterol levels are recommended to be <70 mg/dL LDL cholesterol is calculated using the Andujar-NIH equation. Performed By: #### L IPNF #### [facility] CLIA [id number] [address] [place] [address] [place] LDL/HDL RATIO, NF 3.00 mg/dL High <2.54 [facility] Comment on above: Order Comment: Grace hayward Type: BLOOD SPECIMEN Ordering Facility: [facility] Address: [address] [place] [address] Result Comment: Donaldo basurto: 1. National Cholesterol Education Program ATP III Guideline At-A-Glance Quick Desk Reference: National Heart, Lung, and Blood [place]. National Institutes of Health. 2001: NIH Publication No. 01-3305. 2. An International Atherosclerosis Society position paper: global recommendations for the management of dyslipidemia: executive summary, Atherosclerosis. 2014: 232(2):410-413. Performed By: #### L IPNF #### [facility] CLIA [id number] [address] [place] [address] [place] NON HDL CHOL, NF 174 mg/dL High <130 [facility] Comment on above: Order Comment: Grace hayward Type: BLOOD SPECIMEN Ordering Facility: [facility] Address: [address] [place] [address] Result Comment: <130 mg/dL, Optimal 130-159 mg/dL, Near optimal/above optimal 160-189 mg/dL, Borderline high 190-219 mg/dL, High >219 mg/dL, Very high Secondary prevention optimal non HDL Cholesterol levels are recommended to be <100 mg/dL Performed By: #### L IPNF #### [facility] CLIA [id number] [address] [place] [address] [place] T CHOL/HDL RATIO NF 4.95 mg/dL Normal <5.10 [facility] Comment on above: Order Comment: Jaylini men Type: BLOOD SPECIMEN Ordering Facility: [facility] Address: [address] [place] [address] Performed By: #### L IPNF #### [facility] CLIA [id number] [address] [place] [address] [place] TRIGLYCERIDES, NF 234 mg/dL High <150 [facility] Comment on above: Order Comment: Grace men Type: BLOOD SPECIMEN Ordering Facility: [facility] Address: [address] [place] [address] Result Comment: <150 mg/dL, Normal 150-199 mg/dL, Borderline high 200-499 mg/dL, High >499 mg/dL, Very high Performed By: #### L IPNF #### [facility] CLIA [id number] [address] [place] [address] OF [facility] VLDL CHOLESTEROL, NF 42 mg/dL High <30 [facility] Comment on above: Order Comment: Speci men Type: BLOOD SPECIMEN Ordering Facility: [facility] Address: [address] [place] [address] Performed By: #### L IPNF #### [facility] CLIA [id number] [address] [place] [address] STATES OF [facility] XR ABDOMEN 3V KUB W/OBLIQUES [...] shows degenerative changes. IMPRESSION: Unremarkable abdomen x-ray. Hotel Server: PSCB Transcribe Date/Time: Nov 24 2024 11:08A Dictated by : ANISHA WILSON MD This examination was interpreted and the report reviewed and electronically signed by: ANISHA WILSON MD on Nov 24 2024 11:10AM EST [id number] Normal [facility] CNOVon 07-30-2024 CNOV Office Visit ([facility] ) CLAREASYA SANTANA ([id number]) 1960 M Date Time Provider Department 07/30/24 [...] Date Value 05/07/2024 Negative 10/10/2016 Negative Specific [place], Ur (no units) Date Value 05/07/2024 1.022 [...] [R00.2] 08/21 (more content not included)... Normal [facility] Free PSA [Mass/Vol]on 2024 Free PSA/Total PSA [Mass fraction] 19 % Normal [facility] Comment on above: Order Comment: Speci men Type: BLOOD SPECIMEN Ordering Facility: [facility] Address: [address] [place] [address] Result Comment: Tota l and free PSA [...] 15.8% Performed By: #### 1 0886-0 #### [facility] IA [id number] [address] [place] [address] [place] Prostate specific Ag [Mass/Vol] 3.45 ng/mL High <2.60 [facility] Comment on above: Order Comment: Speci men Type: BLOOD SPECIMEN Ordering Facility: [facility] Address: [address] [place] [address] Result Comment: Tota l PSA test methodology [...] 2003,349:335-42. Performed By: #### 1 0886-0 #### [facility] CLIA [id number] [address] [place] [address] OF [place] Fito 05-11-2024 STEPHANYN Telephone ([facility]) ASYA SHETH ([id number]) 1960 M Date Time Provider Department 05/11/24 AYAKA MCCOLLUM During your visit today, we recorded the following information about you: Ayaka Mccollum APRN.NETWORK INTERN 05/11/2024 7:59 AM Signed Please let patient [...] trying a different statin medication. Send to [facility]. Thank you. Ayaka Mccollum, EKSHAWN.NETWORK INTERN 05/11/2024 12:04 PM Signed Rx sent. Vira [...] Order(s):PROSTATE SPECIFIC ANTIGEN, FREE [SQPSATF] Order #: [id number] FUTURE pravastatin (PRAVACHOL) 10 mg tabletTake 1 [...] Status:Closed by VIRA WHEATLEY on 05/11/24 Normal [facility] CBC W Auto Differential pane l (Bld)on 05-07-2024 Basophils (Bld) [#/Vol] 0.03 10*3/uL Normal <0.11 [facility] Comment on above: Order Comment: Speci men Type: BLOOD SPECIMEN Ordering Facility: [facility] Address: [address] [place] [address] Performed By: #### 5 7021-8 #### [facility] CLIA [id number] [address] [place] [address] [place] [address] [place] Basophils/100 WBC (Bld) 0.5 % Normal [facility] Comment on above: Order Comment: Speci men Type: BLOOD SPECIMEN Ordering Facility: [facility] Address: [address] [place] [address] Performed By: #### 5 7021-8 #### [facility] CLIA [id number] [address] [place] [address] [place] Differential cell count method Nom (Bld) Auto Normal [facility] Comment on above: Order Comment: Speci men Type: BLOOD SPECIMEN Ordering Facility: [facility] Address: [address] [place] [address] Performed By: #### 5 7021-8 #### [facility] CLIA [id number] [address] [place] [address] [place] Eosinophils (Bld) [#/Vol] 0.13 10*3/uL Normal <0.46 [facility] Comment on above: Order Comment: Speci men Type: BLOOD SPECIMEN Ordering Facility: [facility] Address: [address] [place] [address] Performed By: #### 5 7021-8 #### [facility] CLIA [id number] [address] [place] [address] [place] Eosinophils/100 WBC (Bld) 2.2 % Normal [facility] Comment on above: Order Comment: Speci men Type: BLOOD SPECIMEN Ordering Facility: [facility] Address: [address] [place] [address] Performed By: #### 5 7021-8 #### [facility] CLIA [id number] [address] [place] [address] [place] Erythrocyte distribution width (RBC) [Ratio] 12.4 % Normal 11.5-15.0 [facility] Comment on above: Order Comment: Speci men Type: BLOOD SPECIMEN Ordering Facility: [facility] Address: [address] [place] [address] Performed By: #### 5 7021-8 #### [facility] CLIA [id number] [address] [place] [address] [place] Hematocrit (Bld) [Volume fraction] 47.9 % Normal 39.0-51.0 [facility] Comment on above: Order Comment: Speci men Type: BLOOD SPECIMEN Ordering Facility: [facility] Address: [address] [place] [address] Performed By: #### 5 7021-8 #### [facility] CLIA [id number] [address] [place] [address] [place] Hemoglobin (Bld) [Mass/Vol] 16.2 g/dL Normal 13.0-17.0 [facility] Comment on above: Order Comment: Speci men Type: BLOOD SPECIMEN Ordering Facility: [facility] Address: [address] [place] [address] Performed By: #### 5 7021-8 #### [facility] CLIA [id number] [address] [place] [address] [place] Immature granulocytes (Bld) [#/Vol] 10*3/uL Normal <0.10 [facility] Comment on above: Order Comment: Speci men Type: BLOOD SPECIMEN Ordering Facility: [facility] Address: [address] [place] [address] Performed By: #### 5 7021-8 #### [facility] CLIA [id number] [address] [place] [address] [place] Immature granulocytes/100 WBC (Bld) 0.3 % Normal [facility] Comment on above: Order Comment: Speci men Type: BLOOD SPECIMEN Ordering Facility: [facility] Address: [address] [place] [address] Performed By: #### 5 7021-8 #### [facility] CLIA [id number] [address] [place] [address] [place] Lymphocytes (Bld) [#/Vol] 1.19 10*3/uL Normal 1.00-4.00 [facility] Comment on above: Order Comment: Speci men Type: BLOOD SPECIMEN Ordering Facility: [facility] Address: [address] [place] [address] Performed By: #### 5 7021-8 #### [facility] CLIA [id number] [address] [place] [address] [place] Lymphocytes/100 WBC (Bld) 20.4 % Normal [facility] Comment on above: Order Comment: Speci men Type: BLOOD SPECIMEN Ordering Facility: [facility] Address: [address] [place] [address] Performed By: #### 5 7021-8 #### [facility] CLIA [id number] [address] [place] [address] [place] MCH (RBC) [Entitic mass] 31.9 pg Normal 26.0-34.0 [facility] Comment on above: Order Comment: Speci men Type: BLOOD SPECIMEN Ordering Facility: [facility] Address: [address] [place] [address] Performed By: #### 5 7021-8 #### [facility] CLIA [id number] [address] [place] [address] [place] MCHC (RBC) [Mass/Vol] 33.8 g/dL Normal 30.5-36.0 [facility] Comment on above: Order Comment: Speci men Type: BLOOD SPECIMEN Ordering Facility: [facility] Address: [address] [place] [address] Performed By: #### 5 7021-8 #### [facility] CLIA [id number] [address] [place] [address] [place] MCV (RBC) [Entitic vol] 94.3 fL Normal 80.0-100.0 [facility] Comment on above: Order Comment: Speci men Type: BLOOD SPECIMEN Ordering Facility: [facility] Address: [address] [place] [address] Performed By: #### 5 7021-8 #### [facility] CLIA [id number] [address] [place] [address] [place] Monocytes (Bld) [#/Vol] 0.51 10*3/uL Normal <0.87 [facility] Comment on above: Order Comment: Speci men Type: BLOOD SPECIMEN Ordering Facility: [facility] Address: [address] [place] [address] Performed By: #### 5 7021-8 #### [facility] CLIA [id number] [address] [place] [address] [place] Monocytes/100 WBC (Bld) 8.7 % Normal [facility] Comment on above: Order Comment: Speci men Type: BLOOD SPECIMEN Ordering Facility: [facility] Address: [address] [place] [address] Performed By: #### 5 7021-8 #### [facility] CLIA [id number] [address] [place] [address] [place] Neutrophils (Bld) [#/Vol] 3.96 10*3/uL Normal 1.45-7.50 [facility] Comment on above: Order Comment: Speci men Type: BLOOD SPECIMEN Ordering Facility: [facility] Address: [address] [place] [address] Performed By: #### 5 7021-8 #### [facility] CLIA [id number] [address] [place] [address] [place] Neutrophils/100 WBC (Bld) 67.9 % Normal [facility] Comment on above: Order Comment: Speci men Type: BLOOD SPECIMEN Ordering Facility: [facility] Address: [address] [place] [address] Performed By: #### 5 7021-8 #### [facility] CLIA [id number] [address] [place] [address] [place] Nucleated RBC (Bld) [#/Vol] 10*3/uL Normal <0.01 [facility] Comment on above: Order Comment: Speci men Type: BLOOD SPECIMEN Ordering Facility: [facility] Address: [address] [place] [address] Performed By: #### 5 7021-8 #### [facility] CLIA [id number] [address] [place] [address] [place] Nucleated RBC/100 WBC (Bld) [Ratio] 0.0 /100 WBC Normal [facility] Comment on above: Order Comment: Speci men Type: BLOOD SPECIMEN Ordering Facility: [facility] Address: [address] [place] [address] Performed By: #### 5 7021-8 #### [facility] CLIA [id number] [address] [place] [address] [place] Platelet mean volume (Bld) [Entitic vol] 10.1 fL Normal 9.0-12.7 [facility] Comment on above: Order Comment: Speci men Type: BLOOD SPECIMEN Ordering Facility: [facility] Address: [address] [place] [address] Performed By: #### 5 7021-8 #### [facility] CLIA [id number] [address] [place] [address] [place] Platelets (Bld) [#/Vol] 184 10*3/uL Normal 150-400 [facility] Comment on above: Order Comment: Speci men Type: BLOOD SPECIMEN Ordering Facility: [facility] Address: [address] [place] [address] Performed By: #### 5 7021-8 #### [facility] CLIA [id number] [address] [place] [address] [place] RBC (Bld) [#/Vol] 5.08 10*6/uL Normal 4.20-6.00 [facility] Comment on above: Order Comment: Speci men Type: BLOOD SPECIMEN Ordering Facility: [facility] Address: [address] [place] [address] Performed By: #### 5 7021-8 #### [facility] CLIA [id number] [address] [place], [place] [address] [id number] [place] WBC (Bld) [#/Vol] 5.84 10*3/uL Normal 3.70-11.00 [facility] Comment on above: Order Comment: Speci men Type: BLOOD SPECIMEN Ordering Facility: [facility] Address: [address] [place] [address] Performed By: #### 5 7021-8 #### [facility] CLIA [id number] [address] [place], [place] [address] [place] CNOVon 05-07-2024 CNOV Office Visit ([facility] ) ASYA SHETH ([id number]) 1960 M Date Time Provider Department 05/07/24 10:40 AM AYAKA MCCOLLUM During your visit today, we recorded the following information about you: Pulse Respiration Blood pressure Weight 89/minute 16/minute 147/98 90.3 kg Ayaka Mccollum APRN.NETWORK INTERN 05/07/2024 11:40 AM Signed Chief Complaint Patient [...] Screening Disc (more content not included)... Normal [facility] Comprehensive metabolic 2000 panelon 05-07-2024 Albumin [Mass/Vol] 4.4 g/dL Normal 3.9-4.9 [facility] Comment on above: Order Comment: Speci men Type: URINE SPECIMEN Ordering Facility: [facility] Address: [address] [place] [address] Performed By: #### 2 4356-8 #### [facility] CLIA [id number] [address] [place] [address] [place] [address] [place] ALP [Catalytic activity/Vol] 101 U/L Normal 38-113 [facility] Comment on above: Order Comment: Speci men Type: URINE SPECIMEN Ordering Facility: [facility] Address: [address] [place] [address] Performed By: #### 2 4356-8 #### [facility] CLIA [id number] [address] [place] [address] [place] ALT [Catalytic activity/Vol] 40 U/L Normal 10-54 [facility] Comment on above: Order Comment: Speci men Type: URINE SPECIMEN Ordering Facility: [facility] Address: [address] [place] [address] Performed By: #### 2 4356-8 #### [facility] CLIA [id number] [address] [place] [address] [place] Anion gap [Moles/Vol] 13 mmol/L Normal 8-15 [facility] Comment on above: Order Comment: Speci men Type: URINE SPECIMEN Ordering Facility: [facility] Address: [address] [place] [address] Performed By: #### 2 4356-8 #### [facility] CLIA [id number] [address] [place] [address] [place] AST [Catalytic activity/Vol] 34 U/L Normal 14-40 [facility] Comment on above: Order Comment: Speci men Type: URINE SPECIMEN Ordering Facility: [facility] Address: [address] [place] [address] Performed By: #### 2 4356-8 #### [facility] CLIA [id number] [address] [place] [address] [place] Bilirubin [Mass/Vol] 0.9 mg/dL Normal 0.2-1.3 [facility] Comment on above: Order Comment: Speci men Type: URINE SPECIMEN Ordering Facility: [facility] Address: [address] [place] [address] Performed By: #### 2 4356-8 #### [facility] CLIA [id number] [address] [place] [address] [place] Calcium [Mass/Vol] 9.4 mg/dL Normal 8.5-10.2 [facility] Comment on above: Order Comment: Speci men Type: URINE SPECIMEN Ordering Facility: [facility] Address: [address] [place] [address] Performed By: #### 2 4356-8 #### [facility] CLIA [id number] [address] [place] [address] [place] Chloride [Moles/Vol] 104 mmol/L Normal 98-107 [facility] Comment on above: Order Comment: Speci men Type: URINE SPECIMEN Ordering Facility: [facility] Address: [address] [place] [address] Performed By: #### 2 4356-8 #### [facility] CLIA [id number] [address] [place] [address] [place] CO2 [Moles/Vol] 23 mmol/L Normal 22-30 [facility] Comment on above: Order Comment: Speci men Type: URINE SPECIMEN Ordering Facility: [facility] Address: [address] [place] [address] Performed By: #### 2 4356-8 #### [facility] CLIA [id number] [address] [place] [address] [place] Creatinine [Mass/Vol] 0.95 mg/dL Normal 0.73-1.22 [facility] Comment on above: Order Comment: Speci men Type: URINE SPECIMEN Ordering Facility: [facility] Address: [address] [place] [address] Performed By: #### 2 4356-8 #### [facility] CLIA [id number] [address] [place] [address] [place] Creatinine and Glomerular filtration rate.predicted panel (S/P/Bld) 89 mL/min/1.73m??? Normal >=60 [facility] Comment on above: Order Comment: Speci men Type: URINE SPECIMEN Ordering Facility: [facility] Address: [address] [place] [address] Result Comment: Juanita mated Glomerular Filtration Rate [...] GFR. Performed By: #### 2 4356-8 #### [facility] CLIA [id number] [address] [place] [address] [place] Glucose [Mass/Vol] 103 mg/dL High 74-99 [facility] Comment on above: Order Comment: Speci men Type: URINE SPECIMEN Ordering Facility: [facility] Address: [address] [place] [address] Result Comment: The [place] [employer] Association (ADA) provides guidance for cutoff [...] Standards of Medical Care in Diabetes 2016, [place] [employer]. Diabetes Care. 2016.39(Suppl 1). Performed By: #### 2 4356-8 #### [facility] CLIA [id number] [address] [place] [address] [place] Potassium [Moles/Vol] 4.6 mmol/L Normal 3.7-5.1 [facility] Comment on above: Order Comment: Speci men Type: URINE SPECIMEN Ordering Facility: [facility] Address: [address] [place] [address] Performed By: #### 2 4356-8 #### [facility] CLIA [id number] [address] [place] [address] [place] Protein [Mass/Vol] 7.3 g/dL Normal 6.3-8.0 [facility] Comment on above: Order Comment: Speci men Type: URINE SPECIMEN Ordering Facility: [facility] Address: [address] [place] [address] Performed By: #### 2 4356-8 #### [facility] CLIA [id number] [address] [place] [address] [place] Sodium [Moles/Vol] 140 mmol/L Normal 136-144 [facility] Comment on above: Order Comment: Speci men Type: URINE SPECIMEN Ordering Facility: [facility] Address: [address] [place] [address] Performed By: #### 2 4356-8 #### [facility] CLIA [id number] [address] [place] [address] [place] Urea nitrogen [Mass/Vol] 12 mg/dL Normal 9-24 [facility] Comment on above: Order Comment: Speci men Type: URINE SPECIMEN Ordering Facility: [facility] Address: [address] [place] [address] Performed By: #### 2 4356-8 #### [facility] CLIA [id number] [address] [place] [address] [place] HbA1c (Bld)on 05-07-2024 Average glucose Estimated from glycated hemoglobin (Bld) [Mass/Vol] 105 mg/dL Normal [facility] Comment on above: Order Comment: Speci men Type: BLOOD SPECIMEN Ordering Facility: [facility] Address: [address] [place] [address] Result Comment: eAG: (Estimated average glucose) is a calculated value from HgbA1c and is appeals representative of the average blood glucose level in the last 2-3 month period. Performed By: #### 5 5454-3 #### [facility] CLIA [id number] [address] [place] [address] [place] HbA1c (Bld) [Mass fraction] 5.3 % Normal 4.3-5.6 [facility] Comment on above: Order Comment: Grace men Type: BLOOD SPECIMEN Ordering Facility: [facility] Address: [address] [place] [address] Result Comment: Amer ican Diabetes Association guidelines indicate that patients with HgbA1c in the range 5.7-6.4% are at increased risk for development of diabetes, and intervention by lifestyle modification may be beneficial. HgbA1c greater or equal to 6.5% is considered diagnostic of diabetes. Performed By: #### 5 5454-3 #### [facility] CLIA [id number] [address] [place] [address] [place] LIPID PANEL, NONFASTINGon Cholesterol [Mass/Vol] 251 mg/dL High <200 [facility] Comment on above: Order Comment: Grace men Type: URINE SPECIMEN Ordering Facility: [facility] Address: [address] [place] [address] Result Comment: <200 mg/dL, Desirable 200-239 mg/dL, Borderline high >239 mg/dL, High Performed By: #### 2 4356-8 #### [facility] CLIA [id number] [address] [place] [address] [place] HDL CHOLESTEROL, NF 58 mg/dL Normal >39 [facility] Comment on above: Order Comment: Jaylini men Type: URINE SPECIMEN Ordering Facility: [facility] Address: [address] [place] [address] Result Comment: 40-5 9 mg/dL, Acceptable >59 mg/dL, High: Negative risk factor for coronary heart disease <40 mg/dL, Low: Positive risk factor for coronary heart disease Performed By: #### 2 4356-8 #### [facility] CLIA [id number] [address] [place] [address] [place] LDL CHOLESTEROL, NF 167 mg/dL High <100 [facility] Comment on above: Order Comment: Speci men Type: URINE SPECIMEN Ordering Facility: [facility] Address: [address] [place] [address] Result Comment: <100 mg/dL, Optimal 100-129 mg/dL, Near optimal/above optimal 130-159 mg/dL, Borderline high 160-189 mg/dL, High >189 mg/dL, Very high Secondary prevention optimal LDL Cholesterol levels are recommended to be < 70 mg/dL Performed By: #### 2 4356-8 #### [facility] CLIA [id number] [address] [place] [address] [place] LDL/HDL RATIO, NF 2.88 mg/dL High <2.54 [facility] Comment on above: Order Comment: Speci men Type: URINE SPECIMEN Ordering Facility: [facility] Address: [address] [place] [address] Result Comment: Refe rence: 1. National Cholesterol Education Program ATP III Guideline At-A-Glance Quick Desk Reference: National Heart, Lung, and Blood [place]. National Institutes of Health. 2001: NIH Publication No. 01-3305. 2. An International Atherosclerosis Society position paper: global recommendations for the management of dyslipidemia: executive summary, Atherosclerosis. 2014: 232(2):410-413. Performed By: #### 2 4356-8 #### [facility] CLIA [id number] [address] [place] [address] [place] NON HDL CHOL, NF 193 mg/dL High <130 [facility] Comment on above: Order Comment: Speci men Type: URINE SPECIMEN Ordering Facility: [facility] Address: [address] [place] [address] Result Comment: <130 mg/dL, Optimal 130-159 mg/dL, Near optimal/above optimal 160-189 mg/dL, Borderline high 190-219 mg/dL, High >219 mg/dL, Very high Secondary prevention optimal non HDL Cholesterol levels are recommended to be <100 mg/dL Performed By: #### 2 4356-8 #### [facility] CLIA [id number] [address] [place], [place] [address] [place] T CHOL/HDL RATIO NF 4.33 mg/dL Normal <5.10 [facility] Comment on above: Order Comment: Speci men Type: URINE SPECIMEN Ordering Facility: [facility] Address: [address] [place] [address] Performed By: #### 2 4356-8 #### [facility] CLIA [id number] [address] [place] [address] [place] TRIGLYCERIDES, NF 128 mg/dL Normal <150 [facility] Comment on above: Order Comment: Speci men Type: URINE SPECIMEN Ordering Facility: [facility] Address: [address] [place] [address] Result Comment: <150 mg/dL, Normal 150-199 mg/dL, Borderline high 200-499 mg/dL, High >499 mg/dL, Very high Performed By: #### 2 4356-8 #### [facility] CLIA [id number] [address] [place] [address] [place] VLDL CHOLESTEROL, NF 26 mg/dL Normal <30 [facility] Comment on above: Order Comment: Speci men Type: URINE SPECIMEN Ordering Facility: [facility] Address: [address] [place] [address] Performed By: #### 2 4356-8 #### [facility] CLIA [id number] [address] [place] [address] [place] Magnesium SerPl-mCncon 05-07 Magnesium [Mass/Vol] 2.1 mg/dL Normal 1.7-2.3 [facility] Comment on above: Order Comment: Speci men Type: URINE SPECIMEN Ordering Facility: [facility] Address: [address] [place] [address] Performed By: #### 2 4356-8 #### [facility] CLIA [id number] [address] [place] [address] [place] PSA/PROSTATE SPECIFIC ANTIGE N SCREENINGon 05-07-2024 Prostate specific Ag [Mass/Vol] 4.31 ng/mL High <2.60 [facility] Comment on above: Order Comment: Speci men Type: BLOOD SPECIMEN Ordering Facility: [facility] Address: [address] [place] [address] Result Comment: Mark santiago PSA test methodology [...] 2003,349:335-42. Performed By: #### P SAS1 #### [facility] CLIA [id number] [address] [place] [address] [place] TSH SerPl-aCncon 05-07-2024 TSH Qn 0.965 m[IU]/L Normal 0.270-4.200 [facility] Comment on above: Order Comment: Speci men Type: URINE SPECIMEN Ordering Facility: [facility] Address: [address] [place], [place] [address] [address] Performed By: #### 2 4356-8 #### [facility] CLIA [id number] [address] [place] [address] [place] Urinalysis complete panel (U )on 05-07-2024 Bacteria LM.HPF (Urine sed) [#/Area] Negative Normal Negative [facility] Comment on above: Order Comment: Speci men Type: URINE SPECIMEN Ordering Facility: [facility] Address: [address] [place] [address] Performed By: #### 2 4356-8 #### [facility] CLIA [id number] [address] [place] [address] [place] Bilirubin Ql (U) Negative Normal Negative [facility] Comment on above: Order Comment: Speci men Type: URINE SPECIMEN Ordering Facility: [facility] Address: [address] [place] [address] Performed By: #### 2 4356-8 #### [facility] CLIA [id number] [address] [place] [address] [place] Clarity (Unsp spec) Clear Normal Clear [facility] Comment on above: Order Comment: Speci men Type: URINE SPECIMEN Ordering Facility: [facility] Address: [address] [place] [address] Performed By: #### 2 4356-8 #### [facility] CLIA [id number] [address] [place] [address] [place] Color (U) Yellow Normal Yellow [facility] Comment on above: Order Comment: Speci men Type: URINE SPECIMEN Ordering Facility: [facility] Address: [address] [place] [address] Performed By: #### 2 4356-8 #### [facility] CLIA [id number] [address] [place] [address] [place] Epithelial cells LM.HPF (Urine sed) [#/Area] None Seen Normal [facility] Comment on above: Order Comment: Speci men Type: URINE SPECIMEN Ordering Facility: [facility] Address: [address] [place] [address] Performed By: #### 2 4356-8 #### [facility] CLIA [id number] [address] [place] [address] [place] Glucose Test strip (U) [Mass/Vol] Negative Normal Negative [facility] Comment on above: Order Comment: Speci men Type: URINE SPECIMEN Ordering Facility: [facility] Address: [address] [place] [address] Performed By: #### 2 4356-8 #### [facility] CLIA [id number] [address] [place] [address] [place] Hemoglobin Ql (U) Negative Normal Negative [facility] Comment on above: Order Comment: Speci men Type: URINE SPECIMEN Ordering Facility: [facility] Address: [address] [place] [address] Performed By: #### 2 4356-8 #### [facility] CLIA [id number] [address] [place] [address] [place] Hyaline casts (Urine sed) [#/Area] 0 /[LPF] Normal 0 /LPF [facility] Comment on above: Order Comment: Speci men Type: URINE SPECIMEN Ordering Facility: [facility] Address: [address] [place] [address] Performed By: #### 2 4356-8 #### [facility] CLIA [id number] [address] [place] [address] [place] Ketones Ql (U) Negative Normal Negative [facility] Comment on above: Order Comment: Speci men Type: URINE SPECIMEN Ordering Facility: [facility] Address: [address] [place] [address] Performed By: #### 2 4356-8 #### [facility] CLIA [id number] [address] [place] [address] [place] Leukocyte esterase Test strip Ql (U) Negative Normal Negative [facility] Comment on above: Order Comment: Speci men Type: URINE SPECIMEN Ordering Facility: [facility] Address: [address] [place] [address] Performed By: #### 2 4356-8 #### [facility] CLIA [id number] [address] [place] [address] [place] Nitrite Ql (U) Negative Normal Negative [facility] Comment on above: Order Comment: Speci men Type: URINE SPECIMEN Ordering Facility: [facility] Address: [address] [place] [address] Performed By: #### 2 4356-8 #### [facility] CLIA [id number] [address] [place] [address] [place] pH (U) 5.5 [pH] Normal <8.5 [facility] Comment on above: Order Comment: Speci men Type: URINE SPECIMEN Ordering Facility: [facility] Address: [address] [place] [address] Performed By: #### 2 4356-8 #### [facility] CLIA [id number] [address] [place] [address] [place] Protein (U) [Mass/Vol] Trace Abnormal Negative [facility] Comment on above: Order Comment: Speci men Type: URINE SPECIMEN Ordering Facility: [facility] Address: [address] [place] [address] Performed By: #### 2 4356-8 #### [facility] CLIA [id number] [address] [place] [address] [place] RBC LM.HPF (Urine sed) [#/Area] 0-2 /HPF Normal 0-2 /HPF [facility] Comment on above: Order Comment: Speci men Type: URINE SPECIMEN Ordering Facility: [facility] Address: [address] [place] [address] Performed By: #### 2 4356-8 #### [facility] CLIA [id number] [address] [place] [address] [place] Specific gravity (U) [Rel density] 1.022 Normal 1.005-1.030 [facility] Comment on above: Order Comment: Speci men Type: URINE SPECIMEN Ordering Facility: [facility] Address: [address] [place] [address] Performed By: #### 2 4356-8 #### [facility] CLIA [id number] [address] [place] [address] [place] Urobilinogen Ql (U) 0.2 EU/dL Normal 0.2-1.0 EU/dL [facility] Comment on above: Order Comment: Speci men Type: URINE SPECIMEN Ordering Facility: [facility] Address: [address] [place] [address] Performed By: #### 2 4356-8 #### [facility] CLIA [id number] [address] [place] [address] [place] WBC LM.HPF (Urine sed) [#/Area] 0-5 /HPF Normal 0-5 /HPF [facility] Comment on above: Order Comment: Speci men Type: URINE SPECIMEN Ordering Facility: [facility] Address: [address] [place] [address] Performed By: #### 2 4356-8 #### [facility] IA [id number] [address] [place] [address] [place] Vit [facility] Cobalamin (Vitamin B12) [Mass/Vol] 495 pg/mL Normal 232-1245 [facility] Comment on above: Order Comment: Speci men Type: URINE SPECIMEN Ordering Facility: [facility] Address: [address] [place] [address] Performed By: #### 2 4356-8 #### [facility] CLIA [id number] [address] [place] [address] [place] Influenza virus A and B RNA and SARS-CoV-2 (COVID-19) N gene panel SEBASTIÁN+probe (Resp)on 03-19-2023 FLUAV RNA SEBASTINÁ+probe Ql (Unsp spec) Detected Abnormal Not Detected [facility] FLUBV RNA SEBASTIÁN+probe Ql (Unsp spec) Not detected Not Detected [facility] SARS-CoV-2 (COVID-19) RNA SEBASTIÁN+probe Ql (Resp) Not detected See comment [facility] XR CHEST 2V FRONTAL/LATon [facility] XR Chest PA and Lateralon IMPRESSION: No acute radiographic abnormality. Hotel Server: ISABELL Transcribe Date/Time: Mar 19 2023 1:20P Dictated by : NAZIA OCAMPO MD This examination was interpreted and the report reviewed and electronically signed by: NAZIA OCAMPO MD on Mar 19 2023 1:21PM [facility] DIVISION OF RADIOLOGY * * [...] the thoracic spine. DIVISION OF RADIOLOGY Provider, [facility] - 03/19/2023 * * *Final [...] spine. IMPRESSION IMPRESSION: No acute radiographic abnormality. Hotel Server: PSCB Transcribe Date/Time: Mar 19 2023 1:20P Dictated by : NAZIA OCAMPO MD This examination was interpreted and the report reviewed and electronically signed by: NAZIA OCAMPO MD on Mar 19 2023 1:21PM EST [facility] Radiology Study observation (narrative) [facility] XR Chest PA and LateralOrder ed By: [facility] Provider on 03-19-2023 [facility] Emergency Department Summary on 12-20-2021 Emergency Department Summary [facility] Medical Records Department [address] [place] [address] Emergency Department Summary 12/20/21 MR#: [id number] Acct: [id number] Name: ASYA SHETH Rep #: [id number] : 1960 61 From: Alonzo Weber MD [...] has never had the rabies vaccine. [facility] ENT ENT ED: Denies sore throat [...] Primary Care Provider: Ron Whitley Referrals: Ron Whtiley MD [Primary Care Provider] - As Needed [...] your Primary Care Provider. Call [facility] ([phone]) or report to the closest Emergency Room. Call 911 if necessary. 12/20/21 1641 Cosigner Signature (if applicable): CC: Dr. Ron Whitley MD Signed Normal [facility] Vital Signs Date Time Vital Sign Value Performing Clinician Facility 07-30-2024 09:06-0400 Body height 177.2 cm Tali Yanez MD Work Phone: [facility] 07-30-2024 09:06-0400 Body mass index (BMI) [Ratio] 28.75 kg/m2 Tali Yanez MD Work Phone: [facility] 07-30-2024 09:06-0400 Body weight 90.27 kg Tali Yanez MD Work Phone: [facility] 07-30-2024 09:06-0400 Heart rate 97 /min Tali Yanez MD Work Phone: [facility] 07-30-2024 09:06-0400 SaO2% (BldA) [Mass fraction] 98 % Tlai Yanez MD Work Phone: [facility] 05-07-2024 10:27-0500 Body mass index (BMI) [Ratio] 28.75 kg/m2 Ayaka Mccollum MANAGER SOCIAL [employer]IA.NETWORK INTERN Work Phone: [facility] 05-07-2024 10:27-0500 Body weight 90.27 kg Ayaka Mccollum MANAGER [employer]IAL [employer]IA.NETWORK INTERN Work Phone: [facility] 05-07-2024 10:27-0500 Diastolic blood pressure 98 mm[Hg] Ayaka Mccollum APRN.NETWORK INTERN Work Phone: [facility] 05-07-2024 10:27-0500 Heart rate 89 /min Ayaka Mccollum APRN.NETWORK INTERN Work Phone: [facility] 05-07-2024 10:27-0500 Respiratory rate 16 /min Ayaka Mccollum MANAGER SOCIAL MEDIA.NETWORK INTERN Work Phone: [facility] 05-07-2024 10:27-0500 Systolic blood pressure 147 mm[Hg] Ayaka Mccollum MANAGER SOCIAL MEDIA.NETWORK INTERN Work Phone: [facility] 07-08-2023 08:21-0400 Body height 177.2 cm Tali Yanez MD Work Phone: [facility] 07-08-2023 08:21-0400 Body weight 88 kg Tali Yanez MD Work Phone: [facility] 07-08-2023 08:21-0400 Heart rate 61 /min Tali Yanez MD Work Phone: [facility] 07-08-2023 08:21-0400 SaO2% (BldA) [Mass fraction] 99 % Tali Yanez MD Work Phone: [facility] 03-19-2023 12:52-0500 Body temperature 98.71 [degF] Camilla Chao PA-C Work Phone: [facility] 03-19-2023 12:52-0500 Body weight 88 kg Camilla Bogner PA-C Work Phone: [facility] 03-19-2023 12:52-0500 Diastolic blood pressure 80 mm[Hg] Camilla Bogner PA-C Work Phone: [facility] 03-19-2023 12:52-0500 Heart rate 97 /min Camilla Bogner PA-C Work Phone: [facility] 03-19-2023 12:52-0500 Respiratory rate 20 /min Camilla Bogner PA-C Work Phone: [facility] 03-19-2023 12:52-0500 SaO2% (BldA) [Mass fraction] 95 % Camilla Bogner PA-C Work Phone: [facility] 03-19-2023 12:52-0500 Systolic blood pressure 112 mm[Hg] Camilla Bogner PA-C Work Phone: [facility] 12-18-2022 11:57-0400 Body height 177.2 cm Leesa Brady PA-C Work Phone: [facility] 12-18-2022 11:57-0400 Body temperature 98.91 [degF] Leesa Brady PA-C Work Phone: [facility] 12-18-2022 11:57-0400 Body weight 88 kg Leesa Brady PA-C Work Phone: [facility] 12-18-2022 11:57-0400 Diastolic blood pressure 84 mm[Hg] Leesa Brady PA-C Work Phone: [facility] 12-18-2022 11:57-0400 Heart rate 60 /min Leesa Brady PA-C Work Phone: [facility] 12-18-2022 11:57-0400 Respiratory rate 16 /min Leesa Brady PA-C Work Phone: [facility] 12-18-2022 11:57-0400 Systolic blood pressure 122 mm[Hg] Leesa Brady PA-C Work Phone: [facility] 01-03-2022 18:28-0400 Body height 177.8 cm [facility] Work Phone: 01-03-2022 18:28-0400 Body mass index (BMI) [Ratio] 28.7 kg/m2 [facility] Work Phone: 01-03-2022 18:28-0400 Body temperature 97.9 [degF] [facility] Work Phone: 01-03-2022 18:28-0400 Body weight 90.71 kg [facility] Work Phone: 01-03-2022 18:28-0400 Diastolic blood pressure 86 mm[Hg] [facility] Work Phone: 01-03-2022 18:28-0400 Heart rate 88 /min [facility] Work Phone: 01-03-2022 18:28-0400 Respiratory rate 17 /min [facility] Work Phone: 01-03-2022 18:28-0400 SaO2% (BldA) [Mass fraction] 95 % [facility] Work Phone: 01-03-2022 18:28-0400 Systolic blood pressure 144 mm[Hg] [facility] Work Phone: 12-28-2021 16:54-0400 Body height 177.8 cm [facility] Work Phone: 12-28-2021 16:54-0400 Body mass index (BMI) [Ratio] 28.7 kg/m2 [facility] Work Phone: 12-28-2021 16:54-0400 Body temperature 98.7 [degF] [facility] Work Phone: 12-28-2021 16:54-0400 Body weight 90.71 kg [facility] Work Phone: 12-28-2021 16:54-0400 Diastolic blood pressure 104 mm[Hg] [facility] Work Phone: 12-28-2021 16:54-0400 Heart rate 90 /min [facility] Work Phone: 12-28-2021 16:54-0400 Respiratory rate 16 /min [facility] Work Phone: 12-28-2021 16:54-0400 SaO2% (BldA) [Mass fraction] 98 % [facility] Work Phone: 12-28-2021 16:54-0400 Systolic blood pressure 144 mm[Hg] [facility] Work Phone: 12-23-2021 13:18-0400 Body height 177.8 cm [facility] Work Phone: 12-23-2021 13:18-0400 Body mass index (BMI) [Ratio] 28.7 kg/m2 [facility] Work Phone: 12-23-2021 13:18-0400 Body temperature 97.5 [degF] [facility] Work Phone: 12-23-2021 13:18-0400 Body weight 90.71 kg [facility] Work Phone: 12-23-2021 13:18-0400 Diastolic blood pressure 98 mm[Hg] [facility] Work Phone: 12-23-2021 13:18-0400 Heart rate 88 /min [facility] Work Phone: 12-23-2021 13:18-0400 Respiratory rate 16 /min [facility] Work Phone: 12-23-2021 13:18-0400 SaO2% (BldA) [Mass fraction] 95 % [facility] Work Phone: 12-23-2021 13:18-0400 Systolic blood pressure 139 mm[Hg] [facility] Work Phone: 12-20-2021 16:49-0400 Respiratory rate 18 /min [facility] Work Phone: 12-20-2021 16:16-0400 Body height 177.8 cm [facility] Work Phone: 12-20-2021 16:16-0400 Body mass index (BMI) [Ratio] 28.7 kg/m2 [facility] Work Phone: 12-20-2021 16:16-0400 Body temperature 96.9 [degF] [facility] Work Phone: 12-20-2021 16:16-0400 Body weight 90.71 kg [facility] Work Phone: 12-20-2021 16:16-0400 Diastolic blood pressure 99 mm[Hg] [facility] Work Phone: 12-20-2021 16:16-0400 Heart rate 112 /min [facility] Work Phone: 12-20-2021 16:16-0400 SaO2% (BldA) [Mass fraction] 95 % [facility] Work Phone: 12-20-2021 16:16-0400 Systolic blood pressure 130 mm[Hg] [facility] Work Phone: Encounters Encounter Date Encounter Type Care Provider Facility Start: 11-24-2024 End: 11-24-2024 ambulatory RON WHITLEY Facility:[facility] Start: 11-24-2024 End: 11-24-2024 ambulatory AYAKA MCCOLLUM Facility:[facility] Start: 07-30-2024 End: 07-30-2024 Patient encounter procedure Tali Yanez MD Work Phone: Urology Comment on above: Elevated PSA (Primar y Dx); BPH with obstruction/lower urinary tract symptoms; Nocturia Start: 07-30-2024 End: 07-30-2024 ambulatory TALI YANEZ Facility:[facility] Start: 07-04-2024 End: 07-05-2024 Refill Ron Whitley MD Work Phone: [facility] Comment on above: Refill Request Start: 06-11-2024 End: 06-11-2024 Follow-up encounter Ayaka Mccollum APRN.NETWORK INTERN Work Phone: [facility] Start: 06-05-2024 End: 06-05-2024 ambulatory RON WHITLEY Facility:[facility] Start: 05-11-2024 End: 05-11-2024 Telephone encounter Ayaka Mccollum APRN.NETWORK INTERN Work Phone: [facility] Comment on above: Results Start: 05-07-2024 End: 05-07-2024 Patient encounter procedure Ayaka Mccollum APRN.NETWORK INTERN Work Phone: [facility] Comment on above: Medication managemen t (Primary Dx); Screening for depression; Elevated PSA; Mixed hyperlipidemia; Elevated fasting blood sugar; Generalized anxiety disorder; Encounter for immunization; GERD without esophagitis; Elevated BP without diagnosis of hypertension; Primary insomnia Start: 05-07-2024 End: 05-07-2024 ambulatory RON WHITLEY Facility:[facility] Start: 05-05-2024 End: 05-05-2024 Refill Ron Whitley MD Work Phone: [facility] Comment on above: Refill Request Start: 07-08-2023 End: 07-08-2023 Patient encounter procedure Tali Yanez MD Work Phone: Urology Comment on above: BPH with obstruction /lower urinary tract symptoms (Primary Dx); Elevated PSA; Nocturia Start: 06-15-2023 Telephone encounter Ron Whitley MD Work Phone: [facility] [place] Comment on above: Results Start: 06-13-2023 Telephone encounter Rut Valentin [address] Comment on above: Orders Start: 03-20-2023 Telephone encounter Isai DAWSON Work Phone: [facility] Comment on above: Results Start: 03-19-2023 End: 03-19-2023 Subsequent hospital visit by physician Nika [facility] Work Phone: Radiology Comment on above: Acute cough [R05.1] Start: 03-19-2023 End: 03-19-2023 Office outpatient visit 15 minutes Camilla Chao PA-C Work Phone: [facility] Comment on above: Acute cough (Primary Dx); Subconjunctival hemorrhage of right eye Start: 12-18-2022 End: 12-18-2022 Patient encounter procedure Leesa Brady PA-C Work Phone: [facility] Comment on above: Well adult exam (Deepa quin Dx); Generalized anxiety disorder; Palpitations; Mixed hyperlipidemia; GERD without esophagitis; Elevated fasting blood sugar; Osteoarthritis, unspecified osteoarthritis type, unspecified site; Elevated PSA; Primary insomnia Start: 12-18-2022 End: 12-18-2022 Patient encounter status Leesa Brady PA-C Work Phone: [facility] Work Phone: Start: 11-23-2022 Refill [facility]ard MD [facility] Comment on above: Refill Request Start: 11-21-2022 Telephone encounter Ron Whitley MD [facility] Comment on above: Appointment Start: 10-26-2022 Telephone encounter Leesa patiño PA-C Work Phone: [facility] Comment on above: Orders Start: 01-03-2022 End: 01-03-2022 ambulatory Ron Whitley Facility:[facility] Start: 01-03-2022 End: 01-03-2022 ambulatory [facility] Work Phone: Start: 01-03-2022 End: 01-03-2022 Patient encounter procedure [facility] Start: 12-28-2021 End: 12-28-2021 Patient encounter procedure [facility] Start: 12-28-2021 End: 12-28-2021 ambulatory Alonzo Weber [facility] Work Phone: Start: 12-23-2021 End: 12-23-2021 ambulatory Parth Ferris Facility:[facility] Start: 12-23-2021 End: 12-23-2021 Emergency department patient visit [facility] Start: 12-23-2021 End: 12-23-2021 Patient encounter procedure [facility] Start: 12-20-2021 End: 12-20-2021 Emergency department patient visit Alonzo Weber Facility:[facility] Start: 12-20-2021 End: 12-20-2021 Emergency department patient visit [facility] Start: 05-26-2019 Patient encounter status Maryuri Brady PA-C Work Phone: [facility] Work Phone: Procedures Date Procedure Procedure Detail Performing Clinician Start: 05-07-2024 Adult depression scr eening assessment Ayaka Mccollum APRN.NETWORK INTERN Work Phone: Start: 05-07-2024 Lipid 1996 panel - S allie or Plasma Ayaka Mccollum APRN.NETWORK INTERN Work Phone: Start: 03-19-2023 COVID & INFLUENZA [...] RSV Vaccine (1 - 1-dose 75+ series) [facility] Start: 06-05-2029 Prostate specific antigen measurement Prostate Cancer Screening Discussion [facility] Start: 05-07-2029 Lipid panel Lipid Screening [facility] Start: 05-07-2029 Prostate specific antigen measurement Prostate Cancer Screening Discussion [facility] Start: 06-14-2028 Prostate specific antigen measurement Prostate Cancer Screening Discussion [facility] Start: 11-14-2027 Lipid 1996 panel - Serum or Plasma Lipid Screening [facility] Start: 11-14-2027 Lipid panel Lipid Screening [facility] Start: 11-14-2027 LIPID SCREEN LIPID SCREEN [facility] Start: 11-14-2027 PROSTATE CANCER SCREENING DISCUSSION PROSTATE CANCER SCREENING DISCUSSION [facility] Start: 11-14-2027 Prostate specific antigen measurement Prostate Cancer Screening Discussion [facility] Start: 06-29-2027 Urine microalbumin profile [facility] Start: 05-07-2027 Diabetes Screening Diabetes Screenin g [facility] Start: 05-22-2026 Colonoscopy COLONOSCOPY [facility] Start: 05-22-2026 COLORECTAL CANCER SCREENING COLORECTAL CANCER SCREENING [facility] Start: 05-22-2026 Screening for malign ant neoplasm of colon [facility] Start: 03-11-2026 LIPID SCREEN LIPID SCREEN [facility] Start: 11-13-2025 DIABETES SCREEN DIABETES SCREEN [facility] Start: 11-13-2025 Diabetes Screening Diabetes Screenin g [facility] Start: 05-07-2025 Depression Screening Depression Scre ening [facility] Start: 05-07-2025 Pneumococcal Vaccine : 50+ (1 of 1 - PCV) Pneumococcal Vaccine: 50+ (1 of 1 - PCV) [facility] Comment on above: Postponed from 04/25 (Declined at this time) Start: 05-07-2025 Shingrix Vaccine (1 of 2) Shingrix Vaccine (1 of 2) [facility] Comment on above: Postponed from 04/25 (Declined at this time) Start: 04-21-2025 Advance Directive Discussion Advance Directive Discussion [facility] Comment on above: Postponed from 04/25 (Declined at this time) Start: 11-04-2024 End: 11-04-2024 Patient encounter procedure [facility] [place] Comment on above: 6 month follow up Start: 09-11-2024 Covid-19 Vaccine () Covid-19 Vaccine () [facility] Start: 07-30-2024 End: 07-30-2024 Patient encounter procedure 07/30/2024 9:15 AM EDT Office Visit Urology [address] [place] [address] Tali Yanez MD [address] [place] [address] 1 year follow up psa prior Urology Comment on above: 1 year follow up psa prior Start: 07-07-2024 End: 10-06-2024 Prostate specific Ag [Mass/volume] in Serum or Plasma PSA/PROSTSPECAG DIAG Lab Routine Elevated PSA BPH with obstruction/lower urinary tract symptoms Nocturia Expected: 07/07/2024 (Approximate), Expires: 10/06/2024 [facility] Work Phone: Comment on above: Expected: 07/07/2024 (Approximate), Expires: 10/06/2024 Start: 05-11-2024 End: 08-10-2024 Prostate Specific Ag Free [Mass/volume] in Serum or Plasma PROSTATE SPECIFIC ANTIGEN, FREE Lab Routine Elevated PSA Expected: 05/11/2024, Expires: 08/10/2024 [facility] Work Phone: Comment on above: Expected: 05/11/2024 , Expires: 08/10/2024 Start: 05-07-2024 End: 08-06-2024 CBC W Auto Differential panel - Blood [facility] Work Phone: Comment on above: Expected: 05/07/2024 , Expires: 08/06/2024 Start: 05-07-2024 End: 08-06-2024 Cobalamin (Vitamin B12) [Mass/volume] in Serum or Plasma [facility] Comment on above: Expected: 05/07/2024 , Expires: 08/06/2024 Start: 05-07-2024 End: 08-06-2024 Comprehensive metabolic 2000 panel - Serum or Plasma [facility] Comment on above: Expected: 05/07/2024 , Expires: 08/06/2024 Start: 05-07-2024 End: 08-06-2024 Hemoglobin A1c in Blood [facility] Comment on above: Expected: 05/07/2024 , Expires: 08/06/2024 Start: 05-07-2024 End: 08-06-2024 LIPID PANEL, NONFASTING [facility] Comment on above: Expected: 05/07/2024 , Expires: 08/06/2024 Start: 05-07-2024 End: 08-06-2024 Magnesium [Mass/volume] in Serum or Plasma [facility] Comment on above: Expected: 05/07/2024 , Expires: 08/06/2024 Start: 05-07-2024 End: 08-06-2024 PSA/PROSTATE SPECIFIC ANTIGEN SCREENING [facility] Comment on above: Expected: 05/07/2024 , Expires: 08/06/2024 Start: 05-07-2024 End: 08-06-2024 Thyrotropin [Units/volume] in Serum or Plasma [facility] Comment on above: Expected: 05/07/2024 , Expires: 08/06/2024 Start: 05-07-2024 End: 08-06-2024 Urinalysis complete panel - Urine [facility] Comment on above: Expected: 05/07/2024 , Expires: 08/06/2024 Start: 05-07-2024 End: 05-07-2024 Patient encounter procedure 05/07/2024 10:40 AM EST Office Visit [facility] [address] [place], [place] [id number] Ayaka Mccollum APRN.NETWORK INTERN [address] [place] [address] Yearly exam [facility] Comment on above: Yearly exam Start: 2024 Advance Directive Discussion Advance Directive Discussion [facility] Start: 03-11-2024 DIABETES SCREEN DIABETES SCREEN [facility] Start: 01-04-2024 End: 04-04-2024 Prostate specific Ag [Mass/volume] in Serum or Plasma PSA/PROSTSPECAG DIAG Lab Routine Elevated PSA BPH with obstruction/lower urinary tract symptoms Nocturia Expected: 01/04/2024 (Approximate), Expires: 04/04/2024 [facility] Work Phone: Comment on above: Expected: 01/04/2024 (Approximate), Expires: 04/04/2024 Start: 12-22-2023 Covid-19 Vaccine () Covid-19 Vaccine () [facility] Start: 06-13-2023 End: 09-12-2023 Prostate Specific Ag Free [Mass/volume] in Serum or Plasma PSA FREE Lab Routine Elevated PSA Expected: 06/13/2023, Expires: 09/12/2023 [facility] Work Phone: Comment on above: Expected: 06/13/2023 , Expires: 09/12/2023 Start: 04-22-2023 Depression Assessment Depression Ass [facility] Start: 04-21-2023 DEPRESSION ASSESSMENT DEPRESSION ASS [facility] Comment on above: Postponed from 04/22 (Postponed To Appropriate Date) Start: 03-20-2023 End: 05-20-2023 Prostate Specific Ag Free [Mass/volume] in Serum or Plasma PSA FREE Lab Routine Elevated PSA Expected: 03/20/2023, Expires: 05/20/2023 [facility] Work Phone: Comment on above: Expected: 03/20/2023 , Expires: 05/20/2023 Start: 12-21-2022 Covid-19 Vaccine () Covid-19 Vaccine () [facility] Start: 10-29-2022 End: 12-29-2022 CBC W Auto Differential panel - Blood CBC + DIFF Lab Routine Mixed hyperlipidemia Generalized anxiety disorder Prostate cancer screening Elevated fasting blood sugar Expected: 10/29/2022, Expires: 12/29/2022 [facility] Work Phone: Comment on above: Expected: 10/29/2022 , Expires: 12/29/2022 Start: 10-29-2022 End: 12-29-2022 Comprehensive metabolic 2000 panel - Serum or Plasma COMP METABOLIC PANEL Lab Routine Mixed hyperlipidemia Generalized anxiety disorder Prostate cancer screening Elevated fasting blood sugar Expected: 10/29/2022, Expires: 12/29/2022 [facility] Work Phone: Comment on above: Expected: 10/29/2022 , Expires: 12/29/2022 Start: 10-29-2022 End: 12-29-2022 Hemoglobin A1c in Blood HGB A1C Lab Routine Mixed hyperlipidemia Generalized anxiety disorder Prostate cancer screening Elevated fasting blood sugar Expected: 10/29/2022, Expires: 12/29/2022 [facility] Work Phone: Comment on above: Expected: 10/29/2022 , Expires: 12/29/2022 Start: 10-29-2022 End: 12-29-2022 LIPID PANEL, NONFASTING LIPID PANEL, NONFASTING Lab Routine Mixed hyperlipidemia Generalized anxiety disorder Prostate cancer screening Elevated fasting blood sugar Expected: 10/29/2022, Expires: 12/29/2022 [facility] Work Phone: Comment on above: Expected: 10/29/2022 , Expires: 12/29/2022 Start: 10-29-2022 End: 12-29-2022 Prostate specific Ag [Mass/volume] in Serum or Plasma PSA/PROSTSPECAG DIAG Lab Routine Prostate cancer screening Expected: 10/29/2022, Expires: 12/29/2022 [facility] Work Phone: Comment on above: Expected: 10/29/2022 , Expires: 12/29/2022 Start: 10-29-2022 End: 12-29-2022 Urinalysis complete panel - Urine URINALYSIS, WITH MICROSCOPIC Lab Routine Mixed hyperlipidemia Generalized anxiety disorder Prostate cancer screening Elevated fasting blood sugar Expected: 10/29/2022, Expires: 12/29/2022 [facility] Work Phone: Comment on above: Expected: 10/29/2022 , Expires: 12/29/2022 Start: 04-22-2022 DEPRESSION ASSESSMENT DEPRESSION ASS ESSMENT [facility] Start: 10-10-2021 PROSTATE CANCER SCREENING DISCUSSION PROSTATE CANCER SCREENING DISCUSSION [facility] Start: 05-18-2021 COVID-19 VACCINE (4 - Pfizer series) COVID-19 VACCINE (4 - Pfizer series) [facility] Start: 2019 RSV Vaccine (1 - 1-d ose 60+ series) RSV Vaccine (1 - 1-dose 60+ series) [facility] Start: 2009 Pneumococcal Vaccine : 50+ (1 of 1 - PCV) Pneumococcal Vaccine: 50+ (1 of 1 - PCV) [facility] Start: 2009 SHINGRIX VACCINE (1 of 2) SHINGRIX VACCINE (1 of 2) [facility] Start: 2004 COLOGUARD (FIT-DNA) COLOGUARD (FIT-D NA) [facility] Start: [address] COLONOGRAPHY [facility] Start: 2004 FECAL OCCULT BLOOD FECAL OCCULT BLOO D [facility] Start: 2004 Screening for malign ant neoplasm of colon [facility] Start: 2004 SIGMOIDOSCOPY SIGMOIDOSCOPY [facility] Start: 1977 Depression Screening Depression Scre ening [facility] Start: 1977 HIV SCREENING HIV SCREENING [facility] Patient Education Understanding Rabies [facility] Work Phone: Patient referral [facility] Work Phone: [facility] Immunizations Immunization Date Immunization Notes Care Provider Fa cili 01-03-2022 rabies vaccine, for intramuscular injection [facility] 12-28-2021 rabies vaccine, for intramuscular injection [facility] 12-23-2021 rabies vaccine, for intramuscular injection [facility] 12-20-2021 rabies immune globulin [facility] [place] 12-20-2021 rabies vaccine, for intramuscular injection [facility] 07-27-2020 COVID-19 original vaccine, age 12+ yr, monovalent (PFIZER-BIONTECH - PURPLE TOP) Leesa Brady PA-C Work Phone: [facility] 07-02-2020 COVID-19 original vaccine, age 12+ yr, monovalent (PFIZER-BIONTECH - PURPLE TOP) Leesa Brady PA-C Work Phone: [facility] 06-28-2017 tetanus toxoid, redu alisia diphtheria toxoid, and acellular pertussis vaccine, adsorbed Leesa Brady PA-C Work Phone: [facility] 09-17-2008 tetanus and diphther ia toxoids, adsorbed, preservative free, for adult use (2 Lf of tetanus toxoid and 2 Lf of diphtheria toxoid) Leesa Brady PA-C Work Phone: [facility] Payers Date Payer Category Payer Self-pay [id number] 2018 Private Health Insurance MMO SUP [employer] PPO [id number] 2018 Unknown MMO MMO [employer] PPO [id number] 2018-Present [phone] [address] [place] [address] PPO [id number] 2018 Unknown [id number] Unknown OB [id number] Unknown OBW AULTCOMP [id number] Unknown [id number] Unknown [id number] Unknown [id number] Social History Date Type Detail Facility Start: 12-20-2021 Tobacco smoking stat us NHIS Unknown if ever smoked [facility] Work Phone: Start: 07-16-2019 None [facility] Work Phone: Start: 07-16-2019 Spouse/ Signif icant Other [facility] Work Phone: Start: 1960 Sex Assigned At Male [facility] Work Phone: Start: 06-23-2014 End: 12-18-2022 Tobacco smoking status NHIS Never smoked tobacco [facility] Work Phone: Start: 06-23-2014 End: 12-18-2022 Tobacco use and exposure Former smokeless tobacco user [facility] Work Phone: Start: 06-21-2021 End: 07-30-2024 Alcohol intake Current drinker of alcohol (finding) [facility] Start: 06-21-2021 End: 11-15-2022 History of Social function [facility] Start: 06-21-2021 End: 11-15-2022 Tobacco use panel [facility] Adult Depression Screening Assessment 0 [facility] Start: 05-22-2021 Alcohol Comment 1 beer daily [facility] Start: 1960 Sex Assigned At Not on file [facility] Functional Status Date Assessment Result Facility 06-23-2014 Are you deaf, or do you have serious difficulty hearing No 06/23/2014 10:15 AM Sheela Thompson LPN [facility] Work Phone: 06-23-2014 Are you blind, or do you have serious difficulty seeing, even when wearing glasses No 06/23/2014 10:15 AM Sheela Thompson LPN No [facility] 06-23-2014 Do you have serious difficulty walking or climbing stairs No 06/23/2014 10:15 AM Sheela Thompson LPN No [facility] 06-23-2014 Do you have difficul ty dressing or bathing No 06/23/2014 10:15 AM Sheela Thompson LPN No [facility] 06-23-2014 Because of a physica l, mental, or emotional condition, do you have difficulty doing errands alone such as visiting a physician's office or shopping No 06/23/2014 10:15 AM Sheela Thompson LPN No [facility] Mental Status Date Assessment Result Facility 12-20-2021 Cognitive function Level Of Cons ciousness Awake;Alert;Appropriate;Fol lows Commands [facility] Work Phone: 06-23-2014 Because of a physica l, mental, or emotional condition, do you have serious difficulty concentrating, remembering, or making decisions No 06/23/2014 10:15 AM Sheela Thompson LPN No [facility] Clinical Notes 10-29-2022 to 11-24-2024 Tali Yanez MD - 07/30/2024 9:12 AM EDTTelephone Encounter - Marivel Oliveira MA - 07/05/2024 3:10 PM EDTTelephone Encounter - Marivel Oliveira MA - 07/05/2024 3:10 PM EDTPatient Instructions Note Date & Type Note Facility 11-24-2024 Note HNO ID: [id number] Author: JANETT SARABIA Tech Service: ? Author Type: Plastics Plater Type: Progress Notes Filed: 11/24/2024 11:02 Note [...] PATIENT PRESENTS WITH AN IMPLANTABLE OR ATTACHED SCIENTIFIC ILLUSTRATOR: No RADIOLOGY DEPARTMENT: General X-ray: Exam(s) Completed: Abdomen X-Ray: Abdomen with Obliques PERIPHERAL IV DATA: Not applicable SIGNED BY: Ben Mahan November 24, 2024 10:49 AM [facility] 11-24-2024 Note HNO ID: [id number] Author: AYAKA MCCOLLUM APRN.NETWORK INTERN Service: ? Author Type: Nurse Practitioner Type: [...] - UA DIP, URINE (POC) Ayaka Mccollum APRN.[facility] 07-30-2024 History of Presen t illness Narrative [...] Date Value 05/07/2024 Negative 10/10/2016 Negative Specific [place], Ur (no units) Date Value 05/07/2024 1.022 [...] stable at 3.5 documented in this encounter [facility] 07-30-2024 Note HNO ID: [id number] Author: TALI YANEZ MD Service: ? Author Type: Physician Type: Progress Notes Filed: 07/30/2024 09:32 Note Text: ESTABLISHED PATIENT OFFICE VISIT HISTORY OF PRESENT ILLNESS Patient presents with: Benign Prostatic Hypertrophy Nocturia sAya Sheth is a 64 year old male [...] Date Value 05/07/2024 Negative 10/10/2016 Negative Specific [place], Ur (no units) Date Value 05/07/2024 1.022 [...] declined MRI. Latest PSA stable at 3.5 [facility] 07-05-2024 Telephone encounter Note Pt notified via [employer] that he should have another 90 day supply at pharmacy. Marivel Oliveira MA [facility] 07-05-2024 Miscellaneous Notes Pt notified via [employer] that he should have another 90 day [...] 2024 11:14 AM documented in this encounter [facility] 07-04-2024 Telephone encounter Note Prescription Refill Information [...] Bessy Polanco July 04, 2024 11:14 AM [facility] 06-11-2024 Telephone encounter Note Pt active on [employer]- message sent Janett Mejia MA [facility] 06-11-2024 Miscellaneous Notes Pt active on mychart- message sent Janett Mejia MA Please let patient know his PSA continues to decrease. documented in this encounter [facility] 06-11-2024 Telephone encounter Note Please let patient know his PSA continues to decrease. [facility] 05-11-2024 Telephone encounter Note Patient updated and voiced understanding. Vira Wheatley LPN [facility] 05-11-2024 Miscellaneous Notes Patient updated and voiced understanding. Vira Wheatley LPN Rx sent. Patient voices understanding of provider's message below and will complete lab order. Patient agreeable to trying a different statin medication. Send to [facility]. Thank you. Message left [...] different statin medication? documented in this encounter [facility] 05-11-2024 Telephone encounter Note Rx sent. [facility] 05-11-2024 Telephone encounter Note Patient voices understanding of provider's message below and will complete lab order. Patient agreeable to trying a different statin medication. Send to [facility]. Thank you. [facility] 05-11-2024 Telephone encounter Note Message left for patient to return call to review provider's message with him. Vira Wheatley LPN [facility] 05-11-2024 Telephone encounter Note Please let patient know his labs show an elevated PSA. I would like to get a follow up lab to check this. Also his lipid panel is elevated from previous. His total cholesterol is high and his LDL is high. Is patient open to trying a different statin medication? [facility] 05-07-2024 Note Addended by: AYAKA MCCOLLUM on: 05/07/2024 11:41 AM Modules accepted: Orders [facility] 05-07-2024 Miscellaneous Notes Addended by: AYAKA MCCOLLUM on: 05/07/2024 11:41 AM Modules accepted: Orders documented in this encounter [facility] 05-07-2024 Note HNO ID: [id number] Author: AYAKA MCCOLLUM APRN.STEPHANY Service: ? Author Type: Nurse Practitioner Type: Progress Notes Filed: 05/07/2024 11:40 Note Text: Chief Complaint Patient presents with: Physical HPI Aysa Sheth is a 64 year old male [...] Z79.899 (primary diagnosis) (more content not included)... [facility] 05-07-2024 History of Presen t illness Narrative [...] have reviewed the Advanced Practice Registered Nurse (MANAGER SOCIAL MEDIA) student's documentation and verified the findings in the note as written. Any additions or changes are noted in bold/italics. Ayaka Mccollum APRN.NETWORK INTERN documented in this encounter [facility] 05-05-2024 Telephone encounter Note The following approved medication requests have been transmitted electronically. Requested Prescriptions Signed Prescriptions Disp Refills FLUoxetine (PROZAC) 40 mg capsule 30 capsule 0 Sig: Take 1 capsule by mouth once daily. Authorizing Provider: LEESA BRADY PA-C [facility] 05-05-2024 Miscellaneous Notes The following approved medication [...] 2024 10:10 AM documented in this encounter [facility] 05-05-2024 Telephone encounter Note Patient scheduled for 05/07/2023 to be seen by Ayaka [facility] 05-05-2024 Telephone encounter Note Prescription Refill Information [...] capsule by mouth once daily. [facility] Crane [facility] May 05, 2024 10:10 AM [facility] 07-08-2023 History of Presen t illness Narrative [...] Date Value 11/13/2022 Negative 10/10/2016 Negative Specific [place], Ur (no units) Date Value 11/13/2022 1.023 [...] & 12 mths documented in this encounter [facility] 06-15-2023 Miscellaneous Notes Spoke with patient. Given [...] [facility] Order [facility]. documented in this encounter [facility] 06-14-2023 Miscellaneous Notes Pt notified of Dr [...] done. Thank you documented in this encounter [facility] 03-20-2023 Miscellaneous Notes Pt was notified of [...] or not improving. documented in this encounter [facility] 03-19-2023 History of Presen t illness Narrative [...] 2023 1:14 PM documented in this encounter [facility] 03-19-2023 History of Presen t illness Narrative [...] Chao PA-C 03/20/2023 documented in this encounter [facility] 12-18-2022 Instructions Leesa Brady PA-C - 12/18/2022 12:37 PM EDT Repeat PSA in . Follow up in 1 year documented in this encounter [facility] 12-18-2022 History of Presen t illness Narrative [...] Abs Lymph 1.00 - 4.00 k/uL 1.18 Hartley% % 6.9 Abs Hartley <0.87 k/uL 0.42 Eosin% % 1.0 Abs [...] Negative Ketones, Urine Trace, Negative Negative Specific [place], Ur 1.005 - 1.030 1.023 Hemoglobin/Blood,Ur Negative, [...] Leesa Brady PA-C documented in this encounter [facility] 11-26-2022 Miscellaneous Notes Patient scheduled. Patience Gutierrez MA Left message on voicemail to call office back Nikki Harmon Ma Patient's complete PE on 11/15/2022 had to be canceled because Leesa had to leave due to illness. Please help reschedule documented in this encounter [facility] 11-23-2022 Miscellaneous Notes The following approved medication [...] advise. Adithya Lara documented in this encounter [facility] 10-29-2022 Miscellaneous Notes Pt notified of same. Jt De Dios LPN Orders placed. Patient has an appointment scheduled for 11/15/22 and is asking if needs to complete labs prior? documented in this encounter [facility] Evaluation note No assessment inform ation available [facility] [place] Work Phone: Evaluation note Diagnosis Mixed hyperlipidemia- [...] specific antigen (PSA) [facility] BPH with obstruction/lower urinary [...] or maintaining sleep [facility] Elevated PSA- Primary Elevated prostate specific antigen (PSA) Mixed hyperlipidemia [facility] Generalized anxiety disorder [facility] Elevated PSA- Primary Elevated prostate specific antigen (PSA) BPH with obstruction/lower urinary tract symptoms Hypertrophy of prostate with urinary obstruction and other lower urinary tract symptoms (LUTS) Nocturia [facility] Additional Instructions Follow-up here [...] No December 20 2 4:56pm Power of Spiral Binder No December 20 022 4:56pm Summary Purpose Family History No Family History Records FoundNo Family History Records FoundNo Family History Records Found Reason for Referral Specialty Diagnoses / Procedures Referred By Contjay t Referred To Contact Urology Diagnoses Elevated PSA Procedures CONSULT TO UROLOGY OFFICE/OUTPATIENT [facility] 60 MINUTES Ron Whitley MD [address] [place] [address] Referral ID Status Reason Start Date Expiration Date Visits Requested Visits Authorized [id number] Authorized PCP Requested Referral 06/15/2023 06/14/2024 1 [...] section and content) DATE CREATED AUTHOR 01/17/2022 [facility] DATE CREATED AUTHOR AUTHOR'S ORGANIZ ATION 07/31/2024 [facility] DATE CREATED AUTHOR AUTHOR'S ORGANIZ ATION 11/30/2024 [facility] Source Comments (unrecognize d section and content) In the event this informatio n is protected by the Federal Confidentiality of Alcohol and Drug Abuse Patient Records regulations: The Federal rules restrict any use of the information to criminally investigate or prosecute any alcohol or drug abuse patient.[facility] the event this information is protected by the Federal Confidentiality of Alcohol and Drug Abuse Patient Records regulations: The Federal rules restrict any use of the information to criminally investigate or prosecute any alcohol or drug abuse patient.[facility] the event this information is protected by the Federal Confidentiality of Alcohol and Drug Abuse Patient Records regulations: The Federal rules restrict any use of the information to criminally investigate or prosecute any alcohol or drug abuse patient.[facility] the event this information is protected by the Federal Confidentiality of Alcohol and Drug Abuse Patient Records regulations: The Federal rules restrict any use of the information to criminally investigate or prosecute any alcohol or drug abuse patient.[facility] the event this information is protected by the Federal Confidentiality of Alcohol and Drug Abuse Patient Records regulations: The Federal rules restrict any use of the information to criminally investigate or prosecute any alcohol or drug abuse patient.[facility] the event this information is protected by the Federal Confidentiality of Alcohol and Drug Abuse Patient Records regulations: The Federal rules restrict any use of the information to criminally investigate or prosecute any alcohol or drug abuse patient.[facility] the event this information is protected by the Federal Confidentiality of Alcohol and Drug Abuse Patient Records regulations: The Federal rules restrict any use of the information to criminally investigate or prosecute any alcohol or drug abuse patient.[facility] the event this information is protected by the Federal Confidentiality of Alcohol and Drug Abuse Patient Records regulations: The Federal rules restrict any use of the information to criminally investigate or prosecute any alcohol or drug abuse patient.[facility] the event this information is protected by the Federal Confidentiality of Alcohol and Drug Abuse Patient Records regulations: The Federal rules restrict any use of the information to criminally investigate or prosecute any alcohol or drug abuse patient.[facility] the event this information is protected by the Federal Confidentiality of Alcohol and Drug Abuse Patient Records regulations: The Federal rules restrict any use of the information to criminally investigate or prosecute any alcohol or drug abuse patient.[facility] the event this information is protected by the Federal Confidentiality of Alcohol and Drug Abuse Patient Records regulations: The Federal rules restrict any use of the information to criminally investigate or prosecute any alcohol or drug abuse patient.[facility] the event this information is protected by the Federal Confidentiality of Alcohol and Drug Abuse Patient Records regulations: The Federal rules restrict any use of the information to criminally investigate or prosecute any alcohol or drug abuse patient.[facility] the event this information is protected by the Federal Confidentiality of Alcohol and Drug Abuse Patient Records regulations: The Federal rules restrict any use of the information to criminally investigate or prosecute any alcohol or drug abuse patient.[facility] the event this information is protected by the Federal Confidentiality of Alcohol and Drug Abuse Patient Records regulations: The Federal rules restrict any use of the information to criminally investigate or prosecute any alcohol or drug abuse patient.[facility] the event this information is protected by the Federal Confidentiality of Alcohol and Drug Abuse Patient Records regulations: The Federal rules restrict any use of the information to criminally investigate or prosecute any alcohol or drug abuse patient.[facility] the event this information is protected by the Federal Confidentiality of Alcohol and Drug Abuse Patient Records regulations: The Federal rules restrict any use of the information to criminally investigate or prosecute any alcohol or drug abuse patient.[facility] Reason for Visit (unrecogniz ed section and [...] MDM 60 MINUTES Ron Whitley MD [address] [place] [address] Referral ID Status Reason Start Date Expiration Date V isits Requested Visits Authorized [id number] Closed PCP Requested Referral 06/15/2023 06/14/2024 1 1 Reason Onset Date Comments Refill Request 05/05/2024 Reason Comments Physical Reason Onset Date Comments Refill Request 07/04/2024 Reason Comments Benign Prostatic Hypertrophy Nocturia Care Teams (unrecognized sec tion and content) Manufacturing Inspector Relationship Specialty Start Date End Date Ron Whitley MD [address] [place], [place] [id number] PCP - General Family Medicine 05/09/15 Manufacturing Inspector Relationship Specialty Start Date End Date Ron Whitley MD [address] [place], [place] [id number] PCP - General Family Medicine 05/09/15 Manufacturing Inspector Relationship Specialty Start Date End Date Ron Whitley MD [address] [place], [place] [id number] PCP - General Family Medicine 05/09/15 Manufacturing Inspector Relationship Specialty Start Date End Date Ron Whitley MD [address] [place], [place] [id number] [phone] PCP - General Family Medicine 05/09/15 Manufacturing Inspector Relationship Specialty Start Date End Date Ron Whitley MD [address] [place], [place] [id number] [phone] PCP - General Family Medicine 05/09/15 Manufacturing Inspector Relationship Specialty Start Date End Date Rno Whitley MD [address] [facility] [place] [address] PCP - General Family Medicine 05/09/15 Manufacturing Inspector Relationship Specialty Start Date End Date Ron Whitley MD [address] [place] [address] PCP - General Family Medicine 05/09/15 Manufacturing Inspector Relationship Specialty Start Date End Date Ron Whitley MD [address] [place] [address] PCP - General Family Medicine 05/09/15 Manufacturing Inspector Relationship Specialty Start Date End Date Ron Whitley MD [address] [place] [address] PCP - General Family Medicine 05/09/15 Manufacturing Inspector Relationship Specialty Start Date End Date Ron Whitley MD [address] [place] [address] PCP - General Family Medicine 05/09/15 Manufacturing Inspector Relationship Specialty Start Date End Date Ron Whitley MD [address] [place] [address] PCP - General Family Medicine 05/09/15 Ayaka Mccollum APRN.CNP [address] [place] [address] [employer] [facility] 03/28/24 Leesa Brady PA-C [address] [facility] [place] [address] [employer] [facility] 03/28/24 Manufacturing Inspector Relationship Specialty Start Date End Date Ron Whitley MD [address] [facility] [place] [address] PCP - General Family Medicine 05/09/15 Ayaka Mccollum, KESHAWN.NETWORK INTERN [address] [facility] [place] [address] [employer] [facility] 03/28/24 Leesa Brady PA-C [address] [facility] [place] [address] [employer] [facility] 03/28/24 Manufacturing Inspector Relationship Specialty Start Date End Date Ron Whitley MD [address] [facility] [place] [address] PCP - General Family Medicine 05/09/15 Ayaka Mccollum, KESHAWN.NETWORK INTERN [address] [facility] [place] [address] [employer] [facility] 03/28/24 Leesa Brady PA-C [address] [facility] [place] [address] [employer] [facility] 03/28/24 Manufacturing Inspector Relationship Specialty Start Date End Date Ron Whitley MD [address] [facility] [place] [address] PCP - General Family Medicine 05/09/15 Ayaka Mccollum APRN.NETWORK INTERN [address] [facility] [place] [address] [employer] [facility] 03/28/24 Leesa Brady PA-C [address] [facility] [place] [address] [facility] 03/28/24 Manufacturing Inspector Relationship Specialty [place] [address] [place] [id number] PCP - General Family Medicine 05/09/15 Ayaka Mccollum APRN.NETWORK INTERN [address] [place] [id number] [facility] 03/28/24 Leesa Brady PA-C [facility] [place], [place] [id number] [facility] 03/28/24 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 [facility]. provides no warranty or guarantee of the accuracy or completeness of information in this document.
--- OUTSIDE RECORDS SUMMARY | 2025-03-11 19:27 | XMS RPT_ITS | CCD ---
Author Organization [facility] Care Team Providers Care Manager Account Management Name Role Phone Ron Whitley Primary Care Unavailable Provider, Ed Physician Attending Unavailab Alonzo [place] Attending Unavailable Ron Whitley Primary Care Unavailable Parth Ferris Referring Unavailable Parth Ferris Attending Unavailable Ron Whitley Primary Care Unavailable Alonzo Weber Attending Unavailable Ron Whitley Primary Care Unavailable Ron Whitley MD Primary Care Provider Ron Whitley MD Primary Care Provider Veda TEXTILE DESIGNERAyaka CAREY Unavailable Leesa Brady PA-C Unavailable [phone] Ron Whitley MD Primary Care Provider TALI YANEZ Attending Unavailable RON WHITLEY Primary [...] atorvastatin; Translations: [ATORVASTATIN] Drug Allergy 11-27-2019 Myalgia [facility] Work Phone: Medications Current Medications Medication Drug [...] on above: Take 1 capsule by mo [facility] once daily. mirtazapine 15 mg oral tablet [...] mouth once daily. [facility] tablet by [facility] pravastatin sodium 10 mg oral [...] up to 180 days. polyethylene glycol [id number] [id number] mg / potassium chloride 2970 mg / sodium bicarbonate 6740 mg / sodium chloride 5860 mg / sodium sulfate 97532 mg powder for oral solution (12 sources) [...] 05-07-2024 Episodic Other aftercare (1 source) Other jail (current) drug therapy; Translations: [Medication management] Onset: [...] Test Name Value Interpretation Reference Range Facility [facility] 11-24-2024 [facility] ASYA SHETH ([id number]) 1960 M Date Time Provider Department 11/24/24 10:20 AM AYAKA [facility]CCOLLUM [facility] During your visit today, we recorded the following information about you: Pulse Blood pressure Weight 86/minute 140/90 91 kg Ayaka Mccollum APRN.[facility] 11/24/2024 10:45 AM Signed Chief Complaint [...] DIP, URINE (POC) Ayaka Mccollum APRN.Ayaka Solorio APRN.EPIC KALEIDOSCOPE ANALYST 11/24/2024 10 (more content not included)... Normal [facility] LIPID PANEL, NONFASTINGon Cholesterol [Mass/Vol] 218 mg/dL High <200 [facility] Comment on above: Order Comment: Speci men Type: BLOOD SPECIMEN Ordering Facility: [facility] Address: [address] [place] [address] Result Comment: <200 mg/dL, Desirable 200-239 mg/dL, Borderline high >239 mg/dL, High Performed By: #### L IPNF #### [facility] CLIA [id number] [address] [place] [address] [place] HDL CHOLESTEROL, NF 44 mg/dL Normal >39 [facility] Comment on above: Order Comment: Speci men Type: BLOOD SPECIMEN Ordering Facility: [facility] Address: [address] [place] [address] Result Comment: 40-5 9 mg/dL, Acceptable >59 mg/dL, High: Negative risk factor for coronary heart disease <40 mg/dL, Low: Positive risk factor for coronary heart disease Performed By: #### L IPNF #### [facility] CLIA [id number] [address] [place] [address] [place] LDL CHOLESTEROL CALCULATED, NF 132 mg/dL High <100 [facility] Comment on above: Order Comment: Speci men Type: BLOOD SPECIMEN Ordering Facility: [facility] Address: [address] [place] [address] Result Comment: <100 mg/dL, Optimal 100-129 mg/dL, Near optimal/above optimal 130-159 mg/dL, Borderline high 160-189 mg/dL, High >189 mg/dL, Very high Secondary prevention optimal LDL Cholesterol levels are recommended to be <70 mg/dL LDL cholesterol is calculated using the Andujar-NIH equation. Performed By: #### L IPNF #### [facility] CLIA [id number] [address] [place] [address] [place] LDL/HDL RATIO, NF 3.00 mg/dL High <2.[address] [facility] Comment on above: Order Comment: Grace hayward Type: BLOOD SPECIMEN Ordering Facility: [facility] Address: [address] [place] [address] Result Comment: Donaldo basurto: 1. National Cholesterol Education Program ATP III Guideline At-A-Glance Quick Desk Reference: National Heart, Lung, and Blood [place]. National Institutes of Health. 2001: NIH Publication No. 01-3305. 2. An International Atherosclerosis Society position paper: global recommendations for the management of dyslipidemia: executive summary, Atherosclerosis. 2014: 232(2):410-413. Performed By: #### L IPNF #### [facility] CLIA [id number] [address] [place] [address] [place] NON HDL CHOL, NF 174 mg/dL High <130 [facility] Comment on above: Order Comment: Grace hayward Type: BLOOD SPECIMEN Ordering Facility: [facility] Address: [address] [place] [address] Result Comment: <130 mg/dL, Optimal 130-159 mg/dL, Near optimal/above optimal 160-189 mg/dL, Borderline high 190-219 mg/dL, High >219 mg/dL, Very high Secondary prevention optimal non HDL Cholesterol levels are recommended to be <100 mg/dL Performed By: #### L IPNF #### [facility] CLIA [id number] [address] [place] [address] [place] T CHOL/HDL RATIO NF 4.95 mg/dL Normal <5.10 [facility] Comment on above: Order Comment: Jaylini men Type: BLOOD SPECIMEN Ordering Facility: [facility] Address: [address] [place] [address] Performed By: #### L IPNF #### [facility] CLIA [id number] [address] [place] [address] [place] TRIGLYCERIDES, NF 234 mg/dL High <[address] [facility] Comment on above: Order Comment: Grace men Type: BLOOD SPECIMEN Ordering Facility: [facility] Address: [address] [place] [address] Result Comment: <150 mg/dL, Normal 150-199 mg/dL, Borderline high 200-499 mg/dL, High >499 mg/dL, Very high Performed By: #### L IPNF #### [facility] CLIA [id number] [address] [place] [address] OF [facility] VLDL CHOLESTEROL, NF 42 mg/dL High <30 [facility] Comment on above: Order Comment: Speci men Type: BLOOD SPECIMEN Ordering Facility: [facility] Address: [address] [place] [address] Performed By: #### L IPNF #### [facility] CLIA [id number] [address] [place] [address] STATES OF [facility] XR ABDOMEN 3V KUB W/OBLIQUES on [...] shows degenerative changes. IMPRESSION: Unremarkable abdomen x-ray. Conductor Pullman: PSCB Transcribe Date/Time: Nov 24 2024 11:08A Dictated by : ANISHA WILSON MD This examination was interpreted and the report reviewed and electronically signed by: ANISHA WILSON MD on Nov 24 2024 11:10AM EST [id number] Normal [facility] CNOVon 07-30-2024 CNOV Office Visit ([facility] ) CLAREASYA SANTANA ([id number]) 1960 M Date Time Provider Department 07/30/24 [...] Date Value 05/07/2024 Negative 10/10/2016 Negative Specific [place], Ur (no units) Date Value 05/07/2024 1.022 [...] (more content not included)... Normal [facility] Free PSA [Mass/Vol]on 2024 Free PSA/Total PSA [Mass fraction] 19 % Normal [facility] Comment on above: Order Comment: Speci men Type: BLOOD SPECIMEN Ordering Facility: [facility] Address: [address] [place] [address] Result Comment: Tota l and free PSA [...] 15.8% Performed By: #### 1 0886-0 #### [facility] IA [id number] [address] [place] [address] [place] Prostate specific Ag [Mass/Vol] 3.45 ng/mL High <2.60 [facility] Comment on above: Order Comment: Speci men Type: BLOOD SPECIMEN Ordering Facility: [facility] Address: [address] [place] [address] Result Comment: Tota l PSA test methodology [...] 2003,349:335-42. Performed By: #### 1 0886-0 #### [facility] CLIA [id number] [address] [place] [address] OF [place] Fito 05-11-2024 STEPHANYN Telephone (FAMPWS) ASYA SHETH ([id number]) 1960 M Date Time Provider Department 05/11/24 AYAKA MCCOLLUM During your visit today, we recorded the following information about you: Ayaka Mccollum APRN.EPIC KALEIDOSCOPE ANALYST 05/11/2024 7:59 AM Signed Please let patient [...] trying a different statin medication. Send to [facility]. Thank you. Ayaka Mccollum, KESHAWN.EPIC KALEIDOSCOPE ANALYST 05/11/2024 12:04 PM Signed Rx sent. Vira [...] Order(s):PROSTATE SPECIFIC ANTIGEN, FREE [SQPSATF] Order #: [id number] FUTURE pravastatin (PRAVACHOL) 10 mg tabletTake 1 [...] Status:Closed by VIRA WHEATLEY on 05/11/24 Normal [facility] CBC W Auto Differential pane l (Bld)on 05-07-2024 Basophils (Bld) [#/Vol] 0.03 10*3/uL Normal <0.11 [facility] Comment on above: Order Comment: Speci men Type: BLOOD SPECIMEN Ordering Facility: [facility] Address: [address] [place] [address] Performed By: #### 5 7021-8 #### [facility] CLIA [id number] [address] [place] [address] [place] [address] [place] Basophils/100 WBC (Bld) 0.5 % Normal [facility] Comment on above: Order Comment: Speci men Type: BLOOD SPECIMEN Ordering Facility: [facility] Address: [address] [place] [address] Performed By: #### 5 7021-8 #### [facility] CLIA [id number] [address] [place] [address] [place] Differential cell count method Nom (Bld) Auto Normal [facility] Comment on above: Order Comment: Speci men Type: BLOOD SPECIMEN Ordering Facility: [facility] Address: [address] [place] [address] Performed By: #### 5 7021-8 #### [facility] CLIA [id number] [address] [place] [address] [place] Eosinophils (Bld) [#/Vol] 0.13 10*3/uL Normal <0.46 [facility] Comment on above: Order Comment: Speci men Type: BLOOD SPECIMEN Ordering Facility: [facility] Address: [address] [place] [address] Performed By: #### 5 7021-8 #### [facility] CLIA [id number] [address] [place] [address] [place] Eosinophils/100 WBC (Bld) 2.2 % Normal [facility] Comment on above: Order Comment: Speci men Type: BLOOD SPECIMEN Ordering Facility: [facility] Address: [address] [place] [address] Performed By: #### 5 7021-8 #### [facility] CLIA [id number] [address] [place] [address] [place] Erythrocyte distribution width (RBC) [Ratio] 12.4 % Normal 11.5-15.0 [facility] Comment on above: Order Comment: Speci men Type: BLOOD SPECIMEN Ordering Facility: [facility] Address: [address] [place] [address] Performed By: #### 5 7021-8 #### [facility] CLIA [id number] [address] [place] [address] [place] Hematocrit (Bld) [Volume fraction] 47.9 % Normal 39.0-51.0 [facility] Comment on above: Order Comment: Speci men Type: BLOOD SPECIMEN Ordering Facility: [facility] Address: [address] [place] [address] Performed By: #### 5 7021-8 #### [facility] CLIA [id number] [address] [place] [address] [place] Hemoglobin (Bld) [Mass/Vol] 16.2 g/dL Normal 13.0-17.0 [facility] Comment on above: Order Comment: Speci men Type: BLOOD SPECIMEN Ordering Facility: [facility] Address: [address] [place] [address] Performed By: #### 5 7021-8 #### [facility] CLIA [id number] [address] [place] [address] [place] Immature granulocytes (Bld) [#/Vol] 10*3/uL Normal <0.10 [facility] Comment on above: Order Comment: Speci men Type: BLOOD SPECIMEN Ordering Facility: [facility] Address: [address] [place] [address] Performed By: #### 5 7021-8 #### [facility] CLIA [id number] [address] [place] [address] [place] Immature granulocytes/100 WBC (Bld) 0.3 % Normal [facility] Comment on above: Order Comment: Speci men Type: BLOOD SPECIMEN Ordering Facility: [facility] Address: [address] [place] [address] Performed By: #### 5 7021-8 #### [facility] CLIA [id number] [address] [place] [address] [place] Lymphocytes (Bld) [#/Vol] 1.19 10*3/uL Normal 1.00-4.00 [facility] Comment on above: Order Comment: Speci men Type: BLOOD SPECIMEN Ordering Facility: [facility] Address: [address] [place] [address] Performed By: #### 5 7021-8 #### [facility] CLIA [id number] [address] [place] [address] [place] Lymphocytes/100 WBC (Bld) 20.4 % Normal [facility] Comment on above: Order Comment: Speci men Type: BLOOD SPECIMEN Ordering Facility: [facility] Address: [address] [place] [address] Performed By: #### 5 7021-8 #### [facility] CLIA [id number] [address] [place] [address] [place] MCH (RBC) [Entitic mass] 31.9 pg Normal 26.0-34.0 [facility] Comment on above: Order Comment: Speci men Type: BLOOD SPECIMEN Ordering Facility: [facility] Address: [address] [place] [address] Performed By: #### 5 7021-8 #### [facility] CLIA [id number] [address] [place] [address] [place] MCHC (RBC) [Mass/Vol] 33.8 g/dL Normal 30.5-36.0 [facility] Comment on above: Order Comment: Speci men Type: BLOOD SPECIMEN Ordering Facility: [facility] Address: [address] [place] [address] Performed By: #### 5 7021-8 #### [facility] CLIA [id number] [address] [place] [address] [place] MCV (RBC) [Entitic vol] 94.3 fL Normal 80.0-100.0 [facility] Comment on above: Order Comment: Speci men Type: BLOOD SPECIMEN Ordering Facility: [facility] Address: [address] [place] [address] Performed By: #### 5 7021-8 #### [facility] CLIA [id number] [address] [place] [address] [place] Monocytes (Bld) [#/Vol] 0.51 10*3/uL Normal <0.87 [facility] Comment on above: Order Comment: Speci men Type: BLOOD SPECIMEN Ordering Facility: [facility] Address: [address] [place] [address] Performed By: #### 5 7021-8 #### [facility] CLIA [id number] [address] [place] [address] [place] Monocytes/100 WBC (Bld) 8.7 % Normal [facility] Comment on above: Order Comment: Speci men Type: BLOOD SPECIMEN Ordering Facility: [facility] Address: [address] [place] [address] Performed By: #### 5 7021-8 #### [facility] CLIA [id number] [address] [place] [address] [place] Neutrophils (Bld) [#/Vol] 3.96 10*3/uL Normal 1.45-7.50 [facility] Comment on above: Order Comment: Speci men Type: BLOOD SPECIMEN Ordering Facility: [facility] Address: [address] [place] [address] Performed By: #### 5 7021-8 #### [facility] CLIA [id number] [address] [place] [address] [place] Neutrophils/100 WBC (Bld) 67.9 % Normal [facility] Comment on above: Order Comment: Speci men Type: BLOOD SPECIMEN Ordering Facility: [facility] Address: [address] [place] [address] Performed By: #### 5 7021-8 #### [facility] CLIA [id number] [address] [place] [address] [place] Nucleated RBC (Bld) [#/Vol] 10*3/uL Normal <0.01 [facility] Comment on above: Order Comment: Speci men Type: BLOOD SPECIMEN Ordering Facility: [facility] Address: [address] [place] [address] Performed By: #### 5 7021-8 #### [facility] CLIA [id number] [address] [place] [address] [place] Nucleated RBC/100 WBC (Bld) [Ratio] 0.0 /100 WBC Normal [facility] Comment on above: Order Comment: Speci men Type: BLOOD SPECIMEN Ordering Facility: [facility] Address: [address] [place] [address] Performed By: #### 5 7021-8 #### [facility] CLIA [id number] [address] [place] [address] [place] Platelet mean volume (Bld) [Entitic vol] 10.1 fL Normal 9.0-12.7 [facility] Comment on above: Order Comment: Speci men Type: BLOOD SPECIMEN Ordering Facility: [facility] Address: [address] [place] [address] Performed By: #### 5 7021-8 #### [facility] CLIA [id number] [address] [place] [address] [place] Platelets (Bld) [#/Vol] 184 10*3/uL Normal 150-400 [facility] Comment on above: Order Comment: Speci men Type: BLOOD SPECIMEN Ordering Facility: [facility] Address: [address] [place] [address] Performed By: #### 5 7021-8 #### [facility] CLIA [id number] [address] [place] [address] [place] RBC (Bld) [#/Vol] 5.08 10*6/uL Normal 4.20-6.00 [facility] Comment on above: Order Comment: Speci men Type: BLOOD SPECIMEN Ordering Facility: [facility] Address: [address] [place] [address] Performed By: #### 5 7021-8 #### [facility] CLIA [id number] [address] [place], [place] [address] [id number] [place] WBC (Bld) [#/Vol] 5.84 10*3/uL Normal 3.70-11.00 [facility] Comment on above: Order Comment: Speci men Type: BLOOD SPECIMEN Ordering Facility: [facility] Address: [address] [place] [address] Performed By: #### 5 7021-8 #### [facility] CLIA [id number] [address] [place], [place] [address] [place] CNOVon 05-07-2024 CNOV Office Visit (FAMPWS ) ASYA SHETH ([id number]) 1960 M Date Time Provider Department 05/07/24 10:40 AM AYAKA MCCOLLUM During your visit today, we recorded the following information about you: Pulse Respiration Blood pressure Weight 89/minute 16/minute 147/98 90.3 kg Ayaka Mccollum APRN.EPIC KALEIDOSCOPE ANALYST 05/07/2024 11:40 AM Signed Chief Complaint Patient [...] Screening Disc (more content not included)... Normal [facility] Comprehensive metabolic 2000 panelon 05-07-2024 Albumin [Mass/Vol] 4.4 g/dL Normal 3.9-4.9 [facility] Comment on above: Order Comment: Speci men Type: URINE SPECIMEN Ordering Facility: [facility] Address: [address] [place] [address] Performed By: #### 2 4356-8 #### [facility] CLIA [id number] [address] [place] [address] [place] [address] [place] ALP [Catalytic activity/Vol] 101 U/L Normal 38-113 [facility] Comment on above: Order Comment: Speci men Type: URINE SPECIMEN Ordering Facility: [facility] Address: [address] [place] [address] Performed By: #### 2 4356-8 #### [facility] CLIA [id number] [address] [place] [address] [place] ALT [Catalytic activity/Vol] 40 U/L Normal 10-54 [facility] Comment on above: Order Comment: Speci men Type: URINE SPECIMEN Ordering Facility: [facility] Address: [address] [place] [address] Performed By: #### 2 4356-8 #### [facility] CLIA [id number] [address] [place] [address] [place] Anion gap [Moles/Vol] 13 mmol/L Normal 8-15 [facility] Comment on above: Order Comment: Speci men Type: URINE SPECIMEN Ordering Facility: [facility] Address: [address] [place] [address] Performed By: #### 2 4356-8 #### [facility] CLIA [id number] [address] [place] [address] [place] AST [Catalytic activity/Vol] 34 U/L Normal 14-40 [facility] Comment on above: Order Comment: Speci men Type: URINE SPECIMEN Ordering Facility: [facility] Address: [address] [place] [address] Performed By: #### 2 4356-8 #### [facility] CLIA [id number] [address] [place] [address] [place] Bilirubin [Mass/Vol] 0.9 mg/dL Normal 0.2-1.3 [facility] Comment on above: Order Comment: Speci men Type: URINE SPECIMEN Ordering Facility: [facility] Address: [address] [place] [address] Performed By: #### 2 4356-8 #### [facility] CLIA [id number] [address] [place] [address] [place] Calcium [Mass/Vol] 9.4 mg/dL Normal 8.5-10.2 [facility] Comment on above: Order Comment: Speci men Type: URINE SPECIMEN Ordering Facility: [facility] Address: [address] [place] [address] Performed By: #### 2 4356-8 #### [facility] CLIA [id number] [address] [place] [address] [place] Chloride [Moles/Vol] 104 mmol/L Normal 98-107 [facility] Comment on above: Order Comment: Speci men Type: URINE SPECIMEN Ordering Facility: [facility] Address: [address] [place] [address] Performed By: #### 2 4356-8 #### [facility] CLIA [id number] [address] [place] [address] [place] CO2 [Moles/Vol] 23 mmol/L Normal 22-30 [facility] Comment on above: Order Comment: Speci men Type: URINE SPECIMEN Ordering Facility: [facility] Address: [address] [place] [address] Performed By: #### 2 4356-8 #### [facility] CLIA [id number] [address] [place] [address] [place] Creatinine [Mass/Vol] 0.95 mg/dL Normal 0.73-1.22 [facility] Comment on above: Order Comment: Speci men Type: URINE SPECIMEN Ordering Facility: [facility] Address: [address] [place] [address] Performed By: #### 2 4356-8 #### [facility] CLIA [id number] [address] [place] [address] [place] Creatinine and Glomerular filtration rate.predicted panel (S/P/Bld) 89 mL/min/1.73m??? Normal >=60 [facility] Comment on above: Order Comment: Speci men Type: URINE SPECIMEN Ordering Facility: [facility] Address: [address] [place] [address] Result Comment: Juanita mated Glomerular Filtration Rate [...] GFR. Performed By: #### 2 4356-8 #### [facility] CLIA [id number] [address] [place] [address] [place] Glucose [Mass/Vol] 103 mg/dL High 74-99 [facility] Comment on above: Order Comment: Speci men Type: URINE SPECIMEN Ordering Facility: [facility] Address: [address] [place] [address] Result Comment: The [employer] (ADA) provides guidance for cutoff [...] Standards of Medical Care in Diabetes 2016, [employer]. Diabetes Care. 2016.39(Suppl 1). Performed By: #### 2 4356-8 #### [facility] CLIA [id number] [address] [place] [address] [place] Potassium [Moles/Vol] 4.6 mmol/L Normal 3.7-5.1 [facility] Comment on above: Order Comment: Speci men Type: URINE SPECIMEN Ordering Facility: [facility] Address: [address] [place] [address] Performed By: #### 2 4356-8 #### [facility] CLIA [id number] [address] [place] [address] [place] Protein [Mass/Vol] 7.3 g/dL Normal 6.3-8.0 [facility] Comment on above: Order Comment: Speci men Type: URINE SPECIMEN Ordering Facility: [facility] Address: [address] [place] [address] Performed By: #### 2 4356-8 #### [facility] CLIA [id number] [address] [place] [address] [place] Sodium [Moles/Vol] 140 mmol/L Normal 136-144 [facility] Comment on above: Order Comment: Speci men Type: URINE SPECIMEN Ordering Facility: [facility] Address: [address] [place] [address] Performed By: #### 2 4356-8 #### [facility] CLIA [id number] [address] [place] [address] [place] Urea nitrogen [Mass/Vol] 12 mg/dL Normal 9-24 [facility] Comment on above: Order Comment: Speci men Type: URINE SPECIMEN Ordering Facility: [facility] Address: [address] [place] [address] Performed By: #### 2 4356-8 #### [facility] CLIA [id number] [address] [place] [address] [place] HbA1c (Bld)on 05-07-2024 Average glucose Estimated from glycated hemoglobin (Bld) [Mass/Vol] 105 mg/dL Normal [facility] Comment on above: Order Comment: Speci men Type: BLOOD SPECIMEN Ordering Facility: [facility] Address: [address] [place] [address] Result Comment: eAG: (Estimated average glucose) is a calculated value from HgbA1c and is union contract representative of the average blood glucose level in the last 2-3 month period. Performed By: #### 5 5454-3 #### [facility] CLIA [id number] [address] [place] [address] [place] HbA1c (Bld) [Mass fraction] 5.3 % Normal 4.3-5.6 [facility] Comment on above: Order Comment: Grace men Type: BLOOD SPECIMEN Ordering Facility: [facility] Address: [address] [place] [address] Result Comment: Amer ican Diabetes Association guidelines indicate that patients with HgbA1c in the range 5.7-6.4% are at increased risk for development of diabetes, and intervention by lifestyle modification may be beneficial. HgbA1c greater or equal to 6.5% is considered diagnostic of diabetes. Performed By: #### 5 5454-3 #### [facility] CLIA [id number] [address] [place] [address] [place] LIPID PANEL, NONFASTINGon Cholesterol [Mass/Vol] 251 mg/dL High <200 [facility] Comment on above: Order Comment: Grace men Type: URINE SPECIMEN Ordering Facility: [facility] Address: [address] [place] [address] Result Comment: <200 mg/dL, Desirable 200-239 mg/dL, Borderline high >239 mg/dL, High Performed By: #### 2 4356-8 #### [facility] CLIA [id number] [address] [place] [address] [place] HDL CHOLESTEROL, NF 58 mg/dL Normal >39 [facility] Comment on above: Order Comment: Jaylini men Type: URINE SPECIMEN Ordering Facility: [facility] Address: [address] [place] [address] Result Comment: 40-5 9 mg/dL, Acceptable >59 mg/dL, High: Negative risk factor for coronary heart disease <40 mg/dL, Low: Positive risk factor for coronary heart disease Performed By: #### 2 4356-8 #### [facility] CLIA [id number] [address] [place] [address] [place] LDL CHOLESTEROL, NF 167 mg/dL High <100 [facility] Comment on above: Order Comment: Speci men Type: URINE SPECIMEN Ordering Facility: [facility] Address: [address] [place] [address] Result Comment: <100 mg/dL, Optimal 100-129 mg/dL, Near optimal/above optimal 130-159 mg/dL, Borderline high 160-189 mg/dL, High >189 mg/dL, Very high Secondary prevention optimal LDL Cholesterol levels are recommended to be < 70 mg/dL Performed By: #### 2 4356-8 #### [facility] CLIA [id number] [address] [place] [address] [place] LDL/HDL RATIO, NF 2.88 mg/dL High <2.[address] [facility] Comment on above: Order Comment: Speci men Type: URINE SPECIMEN Ordering Facility: [facility] Address: [address] [place] [address] Result Comment: Refe rence: 1. National Cholesterol Education Program ATP III Guideline At-A-Glance Quick Desk Reference: National Heart, Lung, and Blood [place]. National Institutes of Health. 2001: NIH Publication No. 01-3305. 2. An International Atherosclerosis Society position paper: global recommendations for the management of dyslipidemia: executive summary, Atherosclerosis. 2014: 232(2):410-413. Performed By: #### 2 4356-8 #### [facility] CLIA [id number] [address] [place] [address] [place] NON HDL CHOL, NF 193 mg/dL High <130 [facility] Comment on above: Order Comment: Speci men Type: URINE SPECIMEN Ordering Facility: [facility] Address: [address] [place] [address] Result Comment: <130 mg/dL, Optimal 130-159 mg/dL, Near optimal/above optimal 160-189 mg/dL, Borderline high 190-219 mg/dL, High >219 mg/dL, Very high Secondary prevention optimal non HDL Cholesterol levels are recommended to be <100 mg/dL Performed By: #### 2 4356-8 #### [facility] CLIA [id number] [address] [place], [place] [address] [place] T CHOL/HDL RATIO NF 4.33 mg/dL Normal <5.10 [facility] Comment on above: Order Comment: Speci men Type: URINE SPECIMEN Ordering Facility: [facility] Address: [address] [place] [address] Performed By: #### 2 4356-8 #### [facility] CLIA [id number] [address] [place] [address] [place] TRIGLYCERIDES, NF 128 mg/dL Normal <[address] [facility] Comment on above: Order Comment: Speci men Type: URINE SPECIMEN Ordering Facility: [facility] Address: [address] [place] [address] Result Comment: <150 mg/dL, Normal 150-199 mg/dL, Borderline high 200-499 mg/dL, High >499 mg/dL, Very high Performed By: #### 2 4356-8 #### [facility] CLIA [id number] [address] [place] [address] [place] VLDL CHOLESTEROL, NF 26 mg/dL Normal <30 [facility] Comment on above: Order Comment: Speci men Type: URINE SPECIMEN Ordering Facility: [facility] Address: [address] [place] [address] Performed By: #### 2 4356-8 #### [facility] CLIA [id number] [address] [place] [address] [place] Magnesium SerPl-mCncon 05-07 Magnesium [Mass/Vol] 2.1 mg/dL Normal 1.7-2.3 [facility] Comment on above: Order Comment: Speci men Type: URINE SPECIMEN Ordering Facility: [facility] Address: [address] [place] [address] Performed By: #### 2 4356-8 #### [facility] CLIA [id number] [address] [place] [address] [place] PSA/PROSTATE SPECIFIC ANTIGE N SCREENINGon 05-07-2024 Prostate specific Ag [Mass/Vol] 4.31 ng/mL High <2.60 [facility] Comment on above: Order Comment: Speci men Type: BLOOD SPECIMEN Ordering Facility: [facility] Address: [address] [place] [address] Result Comment: Mark santiago PSA test methodology [...] 2003,349:335-42. Performed By: #### P SAS1 #### [facility] CLIA [id number] [address] [place] [address] [place] TSH SerPl-aCncon 05-07-2024 TSH Qn 0.965 m[IU]/L Normal 0.270-4.200 [facility] Comment on above: Order Comment: Speci men Type: URINE SPECIMEN Ordering Facility: [facility] Address: [address] [place], [place] [address] [address] Performed By: #### 2 4356-8 #### [facility] CLIA [id number] [address] [place] [address] [place] Urinalysis complete panel (U )on 05-07-2024 Bacteria LM.HPF (Urine sed) [#/Area] Negative Normal Negative [facility] Comment on above: Order Comment: Speci men Type: URINE SPECIMEN Ordering Facility: [facility] Address: [address] [place] [address] Performed By: #### 2 4356-8 #### [facility] CLIA [id number] [address] [place] [address] [place] Bilirubin Ql (U) Negative Normal Negative [facility] Comment on above: Order Comment: Speci men Type: URINE SPECIMEN Ordering Facility: [facility] Address: [address] [place] [address] Performed By: #### 2 4356-8 #### [facility] CLIA [id number] [address] [place] [address] [place] Clarity (Unsp spec) Clear Normal Clear [facility] Comment on above: Order Comment: Speci men Type: URINE SPECIMEN Ordering Facility: [facility] Address: [address] [place] [address] Performed By: #### 2 4356-8 #### [facility] CLIA [id number] [address] [place] [address] [place] Color (U) Yellow Normal Yellow [facility] Comment on above: Order Comment: Speci men Type: URINE SPECIMEN Ordering Facility: [facility] Address: [address] [place] [address] Performed By: #### 2 4356-8 #### [facility] CLIA [id number] [address] [place] [address] [place] Epithelial cells LM.HPF (Urine sed) [#/Area] None Seen Normal [facility] Comment on above: Order Comment: Speci men Type: URINE SPECIMEN Ordering Facility: [facility] Address: [address] [place] [address] Performed By: #### 2 4356-8 #### [facility] CLIA [id number] [address] [place] [address] [place] Glucose Test strip (U) [Mass/Vol] Negative Normal Negative [facility] Comment on above: Order Comment: Speci men Type: URINE SPECIMEN Ordering Facility: [facility] Address: [address] [place] [address] Performed By: #### 2 4356-8 #### [facility] CLIA [id number] [address] [place] [address] [place] Hemoglobin Ql (U) Negative Normal Negative [facility] Comment on above: Order Comment: Speci men Type: URINE SPECIMEN Ordering Facility: [facility] Address: [address] [place] [address] Performed By: #### 2 4356-8 #### [facility] CLIA [id number] [address] [place] [address] [place] Hyaline casts (Urine sed) [#/Area] 0 /[LPF] Normal 0 /LPF [facility] Comment on above: Order Comment: Speci men Type: URINE SPECIMEN Ordering Facility: [facility] Address: [address] [place] [address] Performed By: #### 2 4356-8 #### [facility] CLIA [id number] [address] [place] [address] [place] Ketones Ql (U) Negative Normal Negative [facility] Comment on above: Order Comment: Speci men Type: URINE SPECIMEN Ordering Facility: [facility] Address: [address] [place] [address] Performed By: #### 2 4356-8 #### [facility] CLIA [id number] [address] [place] [address] [place] Leukocyte esterase Test strip Ql (U) Negative Normal Negative [facility] Comment on above: Order Comment: Speci men Type: URINE SPECIMEN Ordering Facility: [facility] Address: [address] [place] [address] Performed By: #### 2 4356-8 #### [facility] CLIA [id number] [address] [place] [address] [place] Nitrite Ql (U) Negative Normal Negative [facility] Comment on above: Order Comment: Speci men Type: URINE SPECIMEN Ordering Facility: [facility] Address: [address] [place] [address] Performed By: #### 2 4356-8 #### [facility] CLIA [id number] [address] [place] [address] [place] pH (U) 5.5 [pH] Normal <8.5 [facility] Comment on above: Order Comment: Speci men Type: URINE SPECIMEN Ordering Facility: [facility] Address: [address] [place] [address] Performed By: #### 2 4356-8 #### [facility] CLIA [id number] [address] [place] [address] [place] Protein (U) [Mass/Vol] Trace Abnormal Negative [facility] Comment on above: Order Comment: Speci men Type: URINE SPECIMEN Ordering Facility: [facility] Address: [address] [place] [address] Performed By: #### 2 4356-8 #### [facility] CLIA [id number] [address] [place] [address] [place] RBC LM.HPF (Urine sed) [#/Area] 0-2 /HPF Normal 0-2 /HPF [facility] Comment on above: Order Comment: Speci men Type: URINE SPECIMEN Ordering Facility: [facility] Address: [address] [place] [address] Performed By: #### 2 4356-8 #### [facility] CLIA [id number] [address] [place] [address] [place] Specific gravity (U) [Rel density] 1.022 Normal 1.005-1.030 [facility] Comment on above: Order Comment: Speci men Type: URINE SPECIMEN Ordering Facility: [facility] Address: [address] [place] [address] Performed By: #### 2 4356-8 #### [facility] CLIA [id number] [address] [place] [address] [place] Urobilinogen Ql (U) 0.2 EU/dL Normal 0.2-1.0 EU/dL [facility] Comment on above: Order Comment: Speci men Type: URINE SPECIMEN Ordering Facility: [facility] Address: [address] [place] [address] Performed By: #### 2 4356-8 #### [facility] CLIA [id number] [address] [place] [address] [place] WBC LM.HPF (Urine sed) [#/Area] 0-5 /HPF Normal 0-5 /HPF [facility] Comment on above: Order Comment: Speci men Type: URINE SPECIMEN Ordering Facility: [facility] Address: [address] [place] [address] Performed By: #### 2 4356-8 #### [facility] [place] [id number] [address] [place] [address] [place] Vit B12 [facility] Cobalamin (Vitamin B12) [Mass/Vol] 495 pg/mL Normal 232-1245 [facility] Comment on above: Order Comment: Speci men Type: URINE SPECIMEN Ordering Facility: [facility] Address: [address] [place] [address] Performed By: #### 2 4356-8 #### [facility] CLIA [id number] [address] [place] [address] [place] Influenza virus A and B RNA and SARS-CoV-2 (COVID-19) N gene panel SEBASTIÁN+probe (Resp)on 03-19-2023 FLUAV RNA SEBASTIÁN+probe Ql (Unsp spec) Detected Abnormal Not Detected [facility] FLUBV RNA SEBASTIÁN+probe Ql (Unsp spec) Not detected Not Detected [facility] SARS-CoV-2 (COVID-19) RNA SEBASTIÁN+probe Ql (Resp) Not detected See comment [facility] XR CHEST 2V FRONTAL/LATon [facility] XR Chest PA and Lateralon IMPRESSION: No acute radiographic abnormality. Conductor Pullman: ISABELL Transcribe Date/Time: Mar 19 2023 1:20P Dictated by : NAZIA OCAMPO MD This examination was interpreted and the report reviewed and electronically signed by: NAZIA OCAMPO MD on Mar 19 2023 1:21PM [facility] DIVISION OF RADIOLOGY * * *Final Report* [...] the thoracic spine. DIVISION OF RADIOLOGY Provider, [facility] - 03/19/2023 * * *Final Report* [...] spine. IMPRESSION IMPRESSION: No acute radiographic abnormality. Conductor Pullman: PSCB Transcribe Date/Time: Mar 19 2023 1:20P Dictated by : NAZIA OCAMPO MD This examination was interpreted and the report reviewed and electronically signed by: NAZIA OCAMPO MD on Mar 19 2023 1:21PM EST [facility] Radiology Study observation (narrative) [facility] XR Chest PA and LateralOrder ed By: Ccf Provider on 03-19-2023 [facility] Emergency Department Summary on 12-20-2021 Emergency Department Summary [facility] Medical Records Department [address] [place] [address] Emergency Department Summary 12/20/21 MR#: [id number] Acct: [id number] Name: ASYA SHETH Rep #: [id number] : 1960 61 From: Alonzo Weber MD [...] never had the rabies vaccine. [facility] ED ENT ENT ED: Denies sore throat [...] your Primary Care Provider. Call [facility] ([phone]) or report to the closest Emergency Room. Call 911 if necessary. 12/20/21 1641 Cosigner Signature (if applicable): CC: Dr. Ron Whitley MD Signed Normal [facility] Vital Signs Date Time Vital Sign Value Performing Clinician Facility 07-30-2024 09:06-0400 Body height 177.2 cm Tali Yanez MD Work Phone: [facility] 07-30-2024 09:06-0400 Body mass index (BMI) [Ratio] 28.75 kg/m2 Tali Yanez MD Work Phone: [facility] 07-30-2024 09:06-0400 Body weight 90.27 kg Tali Yanez MD Work Phone: [facility] 07-30-2024 09:06-0400 Heart rate 97 /min Tali Yanez MD Work Phone: [facility] 07-30-2024 09:06-0400 SaO2% (BldA) [Mass fraction] 98 % Tali Yanez MD Work Phone: [facility] 05-07-2024 10:27-0500 Body mass index (BMI) [Ratio] 28.75 kg/m2 Ayaka Mccollum TEXTILE DESIGNER.EPIC KALEIDOSCOPE ANALYST Work Phone: [facility] 05-07-2024 10:27-0500 Body weight 90.27 kg Ayaka Mccollum TEXTILE DESIGNER.EPIC KALEIDOSCOPE ANALYST Work Phone: [facility] 05-07-2024 10:27-0500 Diastolic blood pressure 98 mm[Hg] Ayaka Mccollum APRN.EPIC KALEIDOSCOPE ANALYST Work Phone: [facility] 05-07-2024 10:27-0500 Heart rate 89 /min Ayaka Mccollum APRN.EPIC KALEIDOSCOPE ANALYST Work Phone: [facility] 05-07-2024 10:27-0500 Respiratory rate 16 /min Ayaka Mccollum TEXTILE DESIGNER.EPIC KALEIDOSCOPE ANALYST Work Phone: [facility] 05-07-2024 10:27-0500 Systolic blood pressure 147 mm[Hg] Ayaka Mccollum TEXTILE DESIGNER.EPIC KALEIDOSCOPE ANALYST Work Phone: [facility] 07-08-2023 08:21-0400 Body height 177.2 cm Tali Yanez MD Work Phone: [facility] 07-08-2023 08:21-0400 Body weight 88 kg Tali Yanez MD Work Phone: [facility] 07-08-2023 08:21-0400 Heart rate 61 /min Tali Yanez MD Work Phone: [facility] 07-08-2023 08:21-0400 SaO2% (BldA) [Mass fraction] 99 % Tali Yanez MD Work Phone: [facility] 03-19-2023 12:52-0500 Body temperature 98.71 [degF] Camilla Chao PA-C Work Phone: [facility] 03-19-2023 12:52-0500 Body weight 88 kg Camilla Bogner PA-C Work Phone: [facility] 03-19-2023 12:52-0500 Diastolic blood pressure 80 mm[Hg] Camilla Bogner PA-C Work Phone: [facility] 03-19-2023 12:52-0500 Heart rate 97 /min Camilla Bogner PA-C Work Phone: [facility] 03-19-2023 12:52-0500 Respiratory rate 20 /min Camilla Bogner PA-C Work Phone: [facility] 03-19-2023 12:52-0500 SaO2% (BldA) [Mass fraction] 95 % Camilla Bogner PA-C Work Phone: [facility] 03-19-2023 12:52-0500 Systolic blood pressure 112 mm[Hg] Camilla Bogner PA-C Work Phone: [facility] 12-18-2022 11:57-0400 Body height 177.2 cm Leesa Brady PA-C Work Phone: [facility] 12-18-2022 11:57-0400 Body temperature 98.91 [degF] Leesa Brady PA-C Work Phone: [facility] 12-18-2022 11:57-0400 Body weight 88 kg Leesa Brady PA-C Work Phone: [facility] 12-18-2022 11:57-0400 Diastolic blood pressure 84 mm[Hg] Leesa Brady PA-C Work Phone: [facility] 12-18-2022 11:57-0400 Heart rate 60 /min Leesa Brady PA-C Work Phone: [facility] 12-18-2022 11:57-0400 Respiratory rate 16 /min Leesa Brady PA-C Work Phone: [facility] 12-18-2022 11:57-0400 Systolic blood pressure 122 mm[Hg] Leesa Brady PA-C Work Phone: [facility] 01-03-2022 18:28-0400 Body height 177.8 cm [facility] Work Phone: 01-03-2022 18:28-0400 Body mass index (BMI) [Ratio] 28.7 kg/m2 [facility] Work Phone: 01-03-2022 18:28-0400 Body temperature 97.9 [degF] [facility] Work Phone: 01-03-2022 18:28-0400 Body weight 90.71 kg [facility] Work Phone: 01-03-2022 18:28-0400 Diastolic blood pressure 86 mm[Hg] [facility] Work Phone: 01-03-2022 18:28-0400 Heart rate 88 /min [facility] Work Phone: 01-03-2022 18:28-0400 Respiratory rate 17 /min [facility] Work Phone: 01-03-2022 18:28-0400 SaO2% (BldA) [Mass fraction] 95 % [facility] Work Phone: 01-03-2022 18:28-0400 Systolic blood pressure 144 mm[Hg] [facility] Work Phone: 12-28-2021 16:54-0400 Body height 177.8 cm [facility] Work Phone: 12-28-2021 16:54-0400 Body mass index (BMI) [Ratio] 28.7 kg/m2 [facility] Work Phone: 12-28-2021 16:54-0400 Body temperature 98.7 [degF] [facility] Work Phone: 12-28-2021 16:54-0400 Body weight 90.71 kg [facility] Work Phone: 12-28-2021 16:54-0400 Diastolic blood pressure 104 mm[Hg] [facility] Work Phone: 12-28-2021 16:54-0400 Heart rate 90 /min [facility] Work Phone: 12-28-2021 16:54-0400 Respiratory rate 16 /min [facility] Work Phone: 12-28-2021 16:54-0400 SaO2% (BldA) [Mass fraction] 98 % [facility] Work Phone: 12-28-2021 16:54-0400 Systolic blood pressure 144 mm[Hg] [facility] Work Phone: 12-23-2021 13:18-0400 Body height 177.8 cm [facility] Work Phone: 12-23-2021 13:18-0400 Body mass index (BMI) [Ratio] 28.7 kg/m2 [facility] Work Phone: 12-23-2021 13:18-0400 Body temperature 97.5 [degF] [facility] Work Phone: 12-23-2021 13:18-0400 Body weight 90.71 kg [facility] Work Phone: 12-23-2021 13:18-0400 Diastolic blood pressure 98 mm[Hg] [facility] Work Phone: 12-23-2021 13:18-0400 Heart rate 88 /min [facility] Work Phone: 12-23-2021 13:18-0400 Respiratory rate 16 /min [facility] Work Phone: 12-23-2021 13:18-0400 SaO2% (BldA) [Mass fraction] 95 % [facility] Work Phone: 12-23-2021 13:18-0400 Systolic blood pressure 139 mm[Hg] [facility] Work Phone: 12-20-2021 16:49-0400 Respiratory rate 18 /min [facility] Work Phone: 12-20-2021 16:16-0400 Body height 177.8 cm [facility] Work Phone: 12-20-2021 16:16-0400 Body mass index (BMI) [Ratio] 28.7 kg/m2 [facility] Work Phone: 12-20-2021 16:16-0400 Body temperature 96.9 [degF] [facility] Work Phone: 12-20-2021 16:16-0400 Body weight 90.71 kg [facility] Work Phone: 12-20-2021 16:16-0400 Diastolic blood pressure 99 mm[Hg] [facility] Work Phone: 12-20-2021 16:16-0400 Heart rate 112 /min [facility] Work Phone: 12-20-2021 16:16-0400 SaO2% (BldA) [Mass fraction] 95 % [facility] Work Phone: 12-20-2021 16:16-0400 Systolic blood pressure 130 mm[Hg] [facility] Work Phone: Encounters Encounter Date Encounter Type Care Provider Facility Start: 11-24-2024 End: 11-24-2024 ambulatory RON WHITLEY Facility:[facility] Start: 11-24-2024 End: 11-24-2024 ambulatory AYAKA MCCOLLUM Facility:[facility] Start: 07-30-2024 End: 07-30-2024 Patient encounter procedure Tali Yanez MD Work Phone: Urology Comment on above: Elevated PSA (Primar y Dx); BPH with obstruction/lower urinary tract symptoms; Nocturia Start: 07-30-2024 End: 07-30-2024 ambulatory TALI YANEZ Facility:[facility] Start: 07-04-2024 End: 07-05-2024 Refill Ron Whitley MD Work Phone: [facility] [place] Comment on above: Refill Request Start: 06-11-2024 End: 06-11-2024 Follow-up encounter Ayaka Mccollum APRN.EPIC KALEIDOSCOPE ANALYST Work Phone: [facility] Start: 06-05-2024 End: 06-05-2024 ambulatory RON WHITLEY Facility:[facility] Start: 05-11-2024 End: 05-11-2024 Telephone encounter Ayaka Mccollum APRN.EPIC KALEIDOSCOPE ANALYST Work Phone: [facility] [place] Comment on above: Results Start: 05-07-2024 End: 05-07-2024 Patient encounter procedure Ayaka Mccollum APRN.EPIC KALEIDOSCOPE ANALYST Work Phone: [facility] Comment on above: Medication managemen t (Primary Dx); Screening for depression; Elevated PSA; Mixed hyperlipidemia; Elevated fasting blood sugar; Generalized anxiety disorder; Encounter for immunization; GERD without esophagitis; Elevated BP without diagnosis of hypertension; Primary insomnia Start: 05-07-2024 End: 05-07-2024 ambulatory RON WHITLEY Facility:[facility] Start: 05-05-2024 End: 05-05-2024 Refill Ron Whitley MD Work Phone: [facility] Comment on above: Refill Request Start: 07-08-2023 End: 07-08-2023 Patient encounter procedure Tali Yanez MD Work Phone: Urology Comment on above: BPH with obstruction /lower urinary tract symptoms (Primary Dx); Elevated PSA; Nocturia Start: 06-15-2023 Telephone encounter Ron Whitley MD Work Phone: [facility] [place] Comment on above: Results Start: 06-13-2023 Telephone encounter Rut Valentin [address] Comment on above: Orders Start: 03-20-2023 Telephone encounter Isai DAWSON Work Phone: [facility] Comment on above: Results Start: 03-19-2023 End: 03-19-2023 Subsequent hospital visit by physician Nika [facility] Work Phone: Radiology Comment on above: Acute cough [R05.1] Start: 03-19-2023 End: 03-19-2023 Office outpatient visit 15 minutes Camilla Chao PA-C Work Phone: [facility] Comment on above: Acute cough (Primary Dx); Subconjunctival hemorrhage of right eye Start: 12-18-2022 End: 12-18-2022 Patient encounter procedure Leesa Brady PA-C Work Phone: [facility] Comment on above: Well adult exam (Deepa quin Dx); Generalized anxiety disorder; Palpitations; Mixed hyperlipidemia; GERD without esophagitis; Elevated fasting blood sugar; Osteoarthritis, unspecified osteoarthritis type, unspecified site; Elevated PSA; Primary insomnia Start: 12-18-2022 End: 12-18-2022 Patient encounter status Leesa Brady PA-C Work Phone: [facility] Work Phone: Start: 11-23-2022 Refill Ron howard MD Work Phone: [facility] Comment on above: Refill Request Start: 11-21-2022 Telephone encounter Ron Whitley MD Work Phone: [facility] Comment on above: Appointment Start: 10-26-2022 Telephone encounter Leesa patiño PA-C Work Phone: [facility] Comment on above: Orders Start: 01-03-2022 End: 01-03-2022 ambulatory Ron Whitley Facility:[facility] Start: 01-03-2022 End: 01-03-[address] [facility] Work Phone: Start: 01-03-2022 End: 01-03-2022 Patient encounter procedure [facility] Start: 12-28-2021 End: 12-28-2021 Patient encounter procedure [facility] Start: 12-28-2021 End: 12-28-2021 ambulatory Alonzo Weber [facility] Work Phone: Start: 12-23-2021 End: 12-23-2021 ambulatory Parth Ferris Facility:[facility] Start: 12-23-2021 End: 12-23-2021 Emergency department patient visit [facility] Start: 12-23-2021 End: 12-23-2021 Patient encounter procedure [facility] Start: 12-20-2021 End: 12-20-2021 Emergency department patient visit Alonzo Weber Facility:[facility] Start: 12-20-2021 End: 12-20-2021 Emergency department patient visit [facility] Start: 05-26-2019 Patient encounter status Maryuri Brady PA-C Work Phone: [facility] Work Phone: Procedures Date Procedure Procedure Detail Performing Clinician Start: 05-07-2024 Adult depression scr eening assessment Ayaka Mccollum APRN.EPIC KALEIDOSCOPE ANALYST Work Phone: Start: 05-07-2024 Lipid 1996 panel - S allie or Plasma Ayaka Mccollum APRN.EPIC KALEIDOSCOPE ANALYST Work Phone: Start: 03-19-2023 COVID & INFLUENZA [...] RSV Vaccine (1 - 1-dose 75+ series) [facility] Start: 06-05-2029 Prostate specific antigen measurement Prostate Cancer Screening Discussion [facility] Start: 05-07-2029 Lipid panel Lipid Screening [facility] Start: 05-07-2029 Prostate specific antigen measurement Prostate Cancer Screening Discussion [facility] Start: 06-14-2028 Prostate specific antigen measurement Prostate Cancer Screening Discussion [facility] Start: 11-14-2027 Lipid 1996 panel - Serum or Plasma Lipid Screening [facility] Start: 11-14-2027 Lipid panel Lipid Screening [facility] Start: 11-14-2027 LIPID SCREEN LIPID SCREEN [facility] Start: 11-14-2027 PROSTATE CANCER SCREENING DISCUSSION PROSTATE CANCER SCREENING DISCUSSION [facility] Start: 11-14-2027 Prostate specific antigen measurement Prostate Cancer Screening Discussion [facility] Start: 06-29-2027 Urine microalbumin profile [facility] Start: 05-07-2027 Diabetes Screening Diabetes Screenin g [facility] Start: 05-22-2026 Colonoscopy COLONOSCOPY [facility] Start: 05-22-2026 COLORECTAL CANCER SCREENING COLORECTAL CANCER SCREENING [facility] Start: 05-22-2026 Screening for malign ant neoplasm of colon [facility] Start: 03-11-2026 LIPID SCREEN LIPID SCREEN [facility] Start: 11-13-2025 DIABETES SCREEN DIABETES SCREEN [facility] Start: 11-13-2025 Diabetes Screening Diabetes Screenin g [facility] Start: 05-07-2025 Depression Screening Depression Scre ening [facility] Start: 05-07-2025 Pneumococcal Vaccine : 50+ (1 of 1 - PCV) Pneumococcal Vaccine: 50+ (1 of 1 - PCV) [facility] Comment on above: Postponed from 04/25 (Declined at this time) Start: 05-07-2025 Shingrix Vaccine (1 of 2) Shingrix Vaccine (1 of 2) [facility] Comment on above: Postponed from 04/25 (Declined at this time) Start: 04-21-2025 Advance Directive Discussion Advance Directive Discussion [facility] Comment on above: Postponed from 04/25 (Declined at this time) Start: 11-04-2024 End: 11-04-2024 Patient encounter procedure [facility] [place] Comment on above: 6 month follow up Start: 09-11-2024 Covid-19 Vaccine () Covid-19 Vaccine () [facility] Start: 07-30-2024 End: 07-30-2024 Patient encounter procedure 07/30/2024 9:15 AM EDT Office Visit Urology [address] [place] [address] Tali Yanez MD [address] [place] [address] 1 year follow up psa prior Urology Comment on above: 1 year follow up psa prior Start: 07-07-2024 End: 10-06-2024 Prostate specific Ag [Mass/volume] in Serum or Plasma PSA/PROSTSPECAG DIAG Lab Routine Elevated PSA BPH with obstruction/lower urinary tract symptoms Nocturia Expected: 07/07/2024 (Approximate), Expires: 10/06/2024 [facility] Work Phone: Comment on above: Expected: 07/07/2024 (Approximate), Expires: 10/06/2024 Start: 05-11-2024 End: 08-10-2024 Prostate Specific Ag Free [Mass/volume] in Serum or Plasma PROSTATE SPECIFIC ANTIGEN, FREE Lab Routine Elevated PSA Expected: 05/11/2024, Expires: 08/10/2024 [facility] Work Phone: Comment on above: Expected: 05/11/2024 , Expires: 08/10/2024 Start: 05-07-2024 End: 08-06-2024 CBC W Auto Differential panel - Blood [facility] Work Phone: Comment on above: Expected: 05/07/2024 , Expires: 08/06/2024 Start: 05-07-2024 End: 08-06-2024 Cobalamin (Vitamin B12) [Mass/volume] in Serum or Plasma [facility] Comment on above: Expected: 05/07/2024 , Expires: 08/06/2024 Start: 05-07-2024 End: 08-06-2024 Comprehensive metabolic 2000 panel - Serum or Plasma [facility] Comment on above: Expected: 05/07/2024 , Expires: 08/06/2024 Start: 05-07-2024 End: 08-06-2024 Hemoglobin A1c in Blood [facility] Comment on above: Expected: 05/07/2024 , Expires: 08/06/2024 Start: 05-07-2024 End: 08-06-2024 LIPID PANEL, NONFASTING [facility] Comment on above: Expected: 05/07/2024 , Expires: 08/06/2024 Start: 05-07-2024 End: 08-06-2024 Magnesium [Mass/volume] in Serum or Plasma [facility] Comment on above: Expected: 05/07/2024 , Expires: 08/06/2024 Start: 05-07-2024 End: 08-06-2024 PSA/PROSTATE SPECIFIC ANTIGEN SCREENING [facility] Comment on above: Expected: 05/07/2024 , Expires: 08/06/2024 Start: 05-07-2024 End: 08-06-2024 Thyrotropin [Units/volume] in Serum or Plasma [facility] Comment on above: Expected: 05/07/2024 , Expires: 08/06/2024 Start: 05-07-2024 End: 08-06-2024 Urinalysis complete panel - Urine [facility] Comment on above: Expected: 05/07/2024 , Expires: 08/06/2024 Start: 05-07-2024 End: 05-07-2024 Patient encounter procedure 05/07/2024 10:40 AM EST Office Visit [facility] [address] [place], [place] [id number] Ayaka Mccollum APRN.EPIC KALEIDOSCOPE ANALYST [address] [place] [address] Yearly exam [facility] Comment on above: Yearly exam Start: 2024 Advance Directive Discussion Advance Directive Discussion [facility] Start: 03-11-2024 DIABETES SCREEN DIABETES SCREEN [facility] Start: 01-04-2024 End: 04-04-2024 Prostate specific Ag [Mass/volume] in Serum or Plasma PSA/PROSTSPECAG DIAG Lab Routine Elevated PSA BPH with obstruction/lower urinary tract symptoms Nocturia Expected: 01/04/2024 (Approximate), Expires: 04/04/2024 [facility] Work Phone: Comment on above: Expected: 01/04/2024 (Approximate), Expires: 04/04/2024 Start: 12-22-2023 Covid-19 Vaccine () Covid-19 Vaccine () [facility] Start: 06-13-2023 End: 09-12-2023 Prostate Specific Ag Free [Mass/volume] in Serum or Plasma PSA FREE Lab Routine Elevated PSA Expected: 06/13/2023, Expires: 09/12/2023 [facility] Work Phone: Comment on above: Expected: 06/13/2023 , Expires: 09/12/2023 Start: 04-22-2023 Depression Assessment Depression Ass [facility] Start: 04-21-2023 [address] DE[address] ASS [facility] Comment on above: Postponed from 04/22 (Postponed To Appropriate Date) Start: 03-20-2023 End: 05-20-2023 Prostate Specific Ag Free [Mass/volume] in Serum or Plasma PSA FREE Lab Routine Elevated PSA Expected: 03/20/2023, Expires: 05/20/2023 [facility] Work Phone: Comment on above: Expected: 03/20/2023 , Expires: 05/20/2023 Start: 12-21-2022 Covid-19 Vaccine () Covid-19 Vaccine () [facility] Start: 10-29-2022 End: 12-29-2022 CBC W Auto Differential panel - Blood CBC + DIFF Lab Routine Mixed hyperlipidemia Generalized anxiety disorder Prostate cancer screening Elevated fasting blood sugar Expected: 10/29/2022, Expires: 12/29/2022 [facility] Work Phone: Comment on above: Expected: 10/29/2022 , Expires: 12/29/2022 Start: 10-29-2022 End: 12-29-2022 Comprehensive metabolic 2000 panel - Serum or Plasma COMP METABOLIC PANEL Lab Routine Mixed hyperlipidemia Generalized anxiety disorder Prostate cancer screening Elevated fasting blood sugar Expected: 10/29/2022, Expires: 12/29/2022 [facility] Work Phone: Comment on above: Expected: 10/29/2022 , Expires: 12/29/2022 Start: 10-29-2022 End: 12-29-2022 Hemoglobin A1c in Blood HGB A1C Lab Routine Mixed hyperlipidemia Generalized anxiety disorder Prostate cancer screening Elevated fasting blood sugar Expected: 10/29/2022, Expires: 12/29/2022 [facility] Work Phone: Comment on above: Expected: 10/29/2022 , Expires: 12/29/2022 Start: 10-29-2022 End: 12-29-2022 LIPID PANEL, NONFASTING LIPID PANEL, NONFASTING Lab Routine Mixed hyperlipidemia Generalized anxiety disorder Prostate cancer screening Elevated fasting blood sugar Expected: 10/29/2022, Expires: 12/29/2022 [facility] Work Phone: Comment on above: Expected: 10/29/2022 , Expires: 12/29/2022 Start: 10-29-2022 End: 12-29-2022 Prostate specific Ag [Mass/volume] in Serum or Plasma PSA/PROSTSPECAG DIAG Lab Routine Prostate cancer screening Expected: 10/29/2022, Expires: 12/29/2022 [facility] Work Phone: Comment on above: Expected: 10/29/2022 , Expires: 12/29/2022 Start: 10-29-2022 End: 12-29-2022 Urinalysis complete panel - Urine URINALYSIS, WITH MICROSCOPIC Lab Routine Mixed hyperlipidemia Generalized anxiety disorder Prostate cancer screening Elevated fasting blood sugar Expected: 10/29/2022, Expires: 12/29/2022 [facility] Work Phone: Comment on above: Expected: 10/29/2022 , Expires: 12/29/2022 Start: 04-22-2022 DEPRESSION ASSESSMENT DEPRESSION ASS ESSMENT [facility] Start: 10-10-2021 PROSTATE CANCER SCREENING DISCUSSION PROSTATE CANCER SCREENING DISCUSSION [facility] Start: 05-18-2021 COVID-19 VACCINE (4 - Pfizer series) COVID-19 VACCINE (4 - Pfizer series) [facility] Start: 2019 RSV Vaccine (1 - 1-d ose 60+ series) RSV Vaccine (1 - 1-dose 60+ series) [facility] Start: 2009 Pneumococcal Vaccine : 50+ (1 of 1 - PCV) Pneumococcal Vaccine: 50+ (1 of 1 - PCV) [facility] Start: 2009 SHINGRIX VACCINE (1 of 2) SHINGRIX VACCINE (1 of 2) [facility] Start: 2004 COLOGUARD (FIT-DNA) COLOGUARD (FIT-D NA) [facility] Start: [address] COLONOGRAPHY [facility] Start: 2004 FECAL OCCULT BLOOD FECAL OCCULT BLOO D [facility] Start: 2004 Screening for malign ant neoplasm of colon [facility] Start: 2004 SIGMOIDOSCOPY SIGMOIDOSCOPY [facility] Start: 1977 Depression Screening Depression Scre ening [facility] Start: 1977 HIV SCREENING HIV SCREENING [facility] Patient Education Understanding Rabies [facility] Work Phone: Patient referral [facility] Work Phone: [facility] Immunizations Immunization Date Immunization Notes Care Provider Fa cili 01-03-2022 rabies vaccine, for intramuscular injection [facility] 12-28-2021 rabies vaccine, for intramuscular injection [facility] 12-23-2021 rabies vaccine, for intramuscular injection [facility] 12-20-2021 rabies immune globulin [facility] 12-20-2021 rabies vaccine, for intramuscular injection [facility] 07-27-2020 COVID-19 original vaccine, age 12+ yr, monovalent (PFIZER-BIONTECH - PURPLE TOP) Leesa Brady PA-C Work Phone: [facility] 07-02-2020 COVID-19 original vaccine, age 12+ yr, monovalent (PFIZER-BIONTECH - PURPLE TOP) Leesa Brady PA-C Work Phone: [facility] 06-28-2017 tetanus toxoid, redu alisia diphtheria toxoid, and acellular pertussis vaccine, adsorbed Leesa Brady PA-C Work Phone: [facility] 09-17-2008 tetanus and diphther ia toxoids, adsorbed, preservative free, for adult use (2 Lf of tetanus toxoid and 2 Lf of diphtheria toxoid) Leesa Brady PA-C Work Phone: [facility] Payers Date Payer Category Payer Self-pay [id number] 2018 Private Health Insurance MMO SU[employer] PPO [id number] 2018 Unknown MMO MMO [employer] PPO [id number] 2018-Present [phone] [address] [place] [address] PPO [id number] 2018 [id number] OB [id number] Unknown OBW AULTCOMP [id number] Unknown [id number] Unknown [id number] Unknown [id number] Social History Date Type Detail Facility Start: 12-20-2021 Tobacco smoking stat us NHIS Unknown if ever smoked [facility] Work Phone: Start: 07-16-2019 None [facility] Work Phone: Start: 07-16-2019 Spouse/ Signif icant Other [facility] Work Phone: Start: 1960 Sex Assigned At Male W [facility] Work Phone: Start: 06-23-2014 End: 12-18-2022 Tobacco smoking status NHIS Never smoked tobacco [facility] Work Phone: Start: 06-23-2014 End: 12-18-2022 Tobacco use and exposure Former smokeless tobacco user [facility] Work Phone: Start: 06-21-2021 End: 07-30-2024 Alcohol intake Current drinker of alcohol (finding) [facility] Start: 06-21-2021 End: 11-15-2022 History of Social function [facility] Start: 06-21-2021 End: 11-15-2022 Tobacco use panel [facility] Adult Depression Screening Assessment 0 [facility] Start: 05-22-2021 Alcohol Comment 1 beer daily [facility] Start: 1960 Sex Assigned At Not on file [facility] Functional Status Date Assessment Result Facility 06-23-2014 Are you deaf, or do you have serious difficulty hearing No 06/23/2014 10:15 AM Sheela Thompson LPN [facility] Work Phone: 06-23-2014 Are you blind, or do you have serious difficulty seeing, even when wearing glasses No 06/23/2014 10:15 AM Sheela Thompson LPN No [facility] 06-23-2014 Do you have serious difficulty walking or climbing stairs No 06/23/2014 10:15 AM Sheela Thompson LPN No [facility] 06-23-2014 Do you have difficul ty dressing or bathing No 06/23/2014 10:15 AM Sheela Thompson LPN No [facility] 06-23-2014 Because of a physica l, mental, or emotional condition, do you have difficulty doing errands alone such as visiting a physician's office or shopping No 06/23/2014 10:15 AM Sheela Thompson LPN No [facility] Mental Status Date Assessment Result Facility 12-20-2021 Cognitive function Level Of Cons ciousness Awake;Alert;Appropriate;Fol lows Commands [facility] Work Phone: 06-23-2014 Because of a physica l, mental, or emotional condition, do you have serious difficulty concentrating, remembering, or making decisions No 06/23/2014 10:15 AM Sheela Thompson LPN No [facility] Clinical Notes 10-29-2022 to 11-24-2024 Tali Yanez MD - 07/30/2024 9:12 AM EDTTelephone Encounter - Marivel Oliveira MA - 07/05/2024 3:10 PM EDTTelephone Encounter - Marivel Oliveira MA - 07/05/2024 3:10 PM EDTPatient Instructions Note Date & Type Note Facility 11-24-2024 Note HNO ID: [id number] Author: JANETT SARABIA Tech Service: ? Author Type: Cook Mayonnaise Type: Progress Notes Filed: 11/24/2024 11:02 Note [...] PATIENT PRESENTS WITH AN IMPLANTABLE OR ATTACHED FISH EGG PACKER: No RADIOLOGY DEPARTMENT: General X-ray: Exam(s) Completed: Abdomen X-Ray: Abdomen with Obliques PERIPHERAL IV DATA: Not applicable SIGNED BY: Ben Mahan November 24, 2024 10:49 AM [facility] 11-24-2024 Note HNO ID: [id number] Author: AYAKA MCCOLLUM APRN.EPIC KALEIDOSCOPE ANALYST Service: ? Author Type: Nurse Practitioner Type: [...] - UA DIP, URINE (POC) Ayaka Mccollum APRN.[facility] 07-30-2024 History of Presen t [...] Date Value 05/07/2024 Negative 10/10/2016 Negative Specific Garwin, Ur (no units) Date Value 05/07/2024 1.022 [...] stable at 3.5 documented in this encounter [facility] 07-30-2024 Note HNO ID: [id number] Author: TALI YANEZ MD Service: ? Author [...] Date Value 05/07/2024 Negative 10/10/2016 Negative Specific Garwin, Ur (no units) Date Value 05/07/2024 1.022 [...] Latest PSA stable at 3.5 [facility] 07-05-2024 Telephone encounter Note Pt notified via Charlie App that he should have another 90 day supply at pharmacy. Marivel Oliveira MA [facility] 07-05-2024 Miscellaneous Notes Pt notified via Charlie App that he should have another 90 day [...] 2024 11:14 AM documented in this encounter [facility] 07-04-2024 Telephone encounter Note Prescription Refill Information [...] Bessy Polanco July 04, 2024 11:14 AM [facility] 06-11-2024 Telephone encounter Note Pt active on Code Kingdom[employer]art- message sent Janett Mejia MA [facility] 06-11-2024 Miscellaneous Notes Pt active on mychart- message sent Janett Mejia MA Please let patient know his PSA continues to decrease. documented in this encounter [facility] 06-11-2024 Telephone encounter Note Please let patient know his PSA continues to decrease. [facility] 05-11-2024 Telephone encounter Note Patient updated and voiced understanding. Vira Wheatlye LPN [facility] 05-11-2024 Miscellaneous Notes Patient updated and voiced understanding. Vira Wheatley LPN Rx sent. Patient voices understanding of provider's message below and will complete lab order. Patient agreeable to trying a different statin medication. Send to [facility]. Thank you. Message left for [...] different statin medication? documented in this encounter [facility] 05-11-2024 Telephone encounter Note Rx sent. [facility] 05-11-2024 Telephone encounter Note Patient voices understanding of provider's message below and will complete lab order. Patient agreeable to trying a different statin medication. Send to [facility]. Thank you. [facility] 05-11-2024 Telephone encounter Note Message left for patient to return call to review provider's message with him. Vira Wheatley LPN [facility] 05-11-2024 Telephone encounter Note Please let patient know his labs show an elevated PSA. I would like to get a follow up lab to check this. Also his lipid panel is elevated from previous. His total cholesterol is high and his LDL is high. Is patient open to trying a different statin medication? [facility] 05-07-2024 Note Addended by: AYAKA MCCOLLUM on: 05/07/2024 11:41 AM Modules accepted: Orders [facility] 05-07-2024 Miscellaneous Notes Addended by: AYAKA MCCOLLUM on: 05/07/2024 11:41 AM Modules accepted: Orders documented in this encounter [facility] 05-07-2024 Note HNO ID: [id number] Author: AYAKA MCCOLLUM APRN.STEPHANY Service: ? Author [...] Z79.899 (primary diagnosis) (more content not included)... [facility] 05-07-2024 History of Presen t [...] have reviewed the Advanced Practice Registered Nurse (TEXTILE DESIGNER) student's documentation and verified the findings in the note as written. Any additions or changes are noted in bold/italics. Ayaka Mccollum APRN.EPIC KALEIDOSCOPE ANALYST documented in this encounter [facility] 05-05-2024 Telephone encounter Note The following approved medication requests have been transmitted electronically. Requested Prescriptions Signed Prescriptions Disp Refills FLUoxetine (PROZAC) 40 mg capsule 30 capsule 0 Sig: Take 1 capsule by mouth once daily. Authorizing Provider: LEESA BRADY PA-C [facility] 05-05-2024 Miscellaneous Notes The following approved medication [...] 2024 10:10 AM documented in this encounter [facility] 05-05-2024 Telephone encounter Note Patient scheduled for 05/07/2023 to be seen by Ayaka [facility] 05-05-2024 Telephone encounter Note Prescription Refill Information [...] capsule by mouth once daily. [facility] May 05, 2024 10:10 AM [facility] 07-08-2023 History of Presen t illness Narrative [...] Date Value 11/13/2022 Negative 10/10/2016 Negative Specific Garwin, Ur (no units) Date Value 11/13/2022 1.023 [...] & 12 mths documented in this encounter [facility] 06-15-2023 Miscellaneous Notes Spoke with patient. Given [...] [facility] Order placed. documented in this encounter [facility] 06-14-2023 Miscellaneous Notes Pt notified of Dr [...] done. Thank you documented in this encounter [facility] 03-20-2023 Miscellaneous Notes Pt was notified of [...] or not improving. documented in this encounter [facility] 03-19-2023 History of Presen t illness Narrative [...] 2023 1:14 PM documented in this encounter [facility] 03-19-2023 History of Presen t illness Narrative [...] Chao PA-C 03/20/2023 documented in this encounter [facility] 12-18-2022 Instructions Leesa Brady PA-C - 12/18/2022 12:37 PM EDT Repeat PSA in . Follow up in 1 year documented in this encounter [facility] 12-18-2022 History of Presen t illness Narrative [...] Abs Lymph 1.00 - 4.00 k/uL 1.18 [place]% % 6.9 Abs [place] <0.87 k/uL 0.42 Eosin% % 1.0 Abs [...] Negative Ketones, Urine Trace, Negative Negative Specific Garwin, Ur 1.005 - 1.030 1.023 Hemoglobin/Blood,Ur Negative, [...] Leesa Brady PA-C documented in this encounter [facility] 11-26-2022 Miscellaneous Notes Patient scheduled. Patience Gutierrez MA Left message on voicemail to call office back Nikki Harmon Ma Patient's complete PE on 11/15/2022 had to be canceled because Leesa had to leave due to illness. Please help reschedule documented in this encounter [facility] 11-23-2022 Miscellaneous Notes The following approved medication [...] advise. Adithya Lara documented in this encounter [facility] 10-29-2022 Miscellaneous Notes Pt notified of same. Jt De Dios LPN Orders placed. Patient has an appointment scheduled for 11/15/22 and is asking if needs to complete labs prior? documented in this encounter [facility] Evaluation note No assessment inform ation available [facility] Work Phone: Evaluation note Diagnosis Mixed hyperlipidemia- [...] specific antigen (PSA) [facility] BPH with obstruction/lower urinary [...] or maintaining sleep [facility] Elevated PSA- Primary Elevated prostate specific antigen (PSA) Mixed hyperlipidemia [facility] Generalized anxiety disorder [facility] Elevated PSA- Primary Elevated prostate specific antigen (PSA) BPH with obstruction/lower urinary tract symptoms Hypertrophy of prostate with urinary obstruction and other lower urinary tract symptoms (LUTS) Nocturia [facility] Additional Instructions Follow-up here [...] No December 20 2 4:56pm Power of Life Coach No December 20 022 4:56pm Summary Purpose Family History No Family History Records FoundNo Family History Records FoundNo Family History Records Found Reason for Referral Specialty Diagnoses / Procedures Referred By Contjay t Referred To Contact Urology Diagnoses Elevated PSA Procedures CONSULT TO UROLOGY OFFICE/OUTPATIENT [facility] 60 MINUTES Ron Whitley MD [address] [place] [address] Referral ID Status Reason Start Date Expiration Date Visits Requested Visits Authorized [id number] Authorized PCP Requested Referral 06/15/2023 06/14/2024 1 [...] section and content) DATE CREATED AUTHOR 01/17/2022 [facility] DATE CREATED AUTHOR AUTHOR'S ORGANIZ ATION 07/31/2024 [facility] DATE CREATED AUTHOR AUTHOR'S ORGANIZ ATION 11/30/2024 [facility] Source Comments (unrecognize d section and content) In the event this informatio n is protected by the Federal Confidentiality of Alcohol and Drug Abuse Patient Records regulations: The Federal rules restrict any use of the information to criminally investigate or prosecute any alcohol or drug abuse patient.[facility] the event this information is protected by the Federal Confidentiality of Alcohol and Drug Abuse Patient Records regulations: The Federal rules restrict any use of the information to criminally investigate or prosecute any alcohol or drug abuse patient.[facility] the event this information is protected by the Federal Confidentiality of Alcohol and Drug Abuse Patient Records regulations: The Federal rules restrict any use of the information to criminally investigate or prosecute any alcohol or drug abuse patient.[facility] the event this information is protected by the Federal Confidentiality of Alcohol and Drug Abuse Patient Records regulations: The Federal rules restrict any use of the information to criminally investigate or prosecute any alcohol or drug abuse patient.[facility] the event this information is protected by the Federal Confidentiality of Alcohol and Drug Abuse Patient Records regulations: The Federal rules restrict any use of the information to criminally investigate or prosecute any alcohol or drug abuse patient.[facility] the event this information is protected by the Federal Confidentiality of Alcohol and Drug Abuse Patient Records regulations: The Federal rules restrict any use of the information to criminally investigate or prosecute any alcohol or drug abuse patient.[facility] the event this information is protected by the Federal Confidentiality of Alcohol and Drug Abuse Patient Records regulations: The Federal rules restrict any use of the information to criminally investigate or prosecute any alcohol or drug abuse patient.[facility] the event this information is protected by the Federal Confidentiality of Alcohol and Drug Abuse Patient Records regulations: The Federal rules restrict any use of the information to criminally investigate or prosecute any alcohol or drug abuse patient.[facility] the event this information is protected by the Federal Confidentiality of Alcohol and Drug Abuse Patient Records regulations: The Federal rules restrict any use of the information to criminally investigate or prosecute any alcohol or drug abuse patient.[facility] the event this information is protected by the Federal Confidentiality of Alcohol and Drug Abuse Patient Records regulations: The Federal rules restrict any use of the information to criminally investigate or prosecute any alcohol or drug abuse patient.[facility] the event this information is protected by the Federal Confidentiality of Alcohol and Drug Abuse Patient Records regulations: The Federal rules restrict any use of the information to criminally investigate or prosecute any alcohol or drug abuse patient.[facility] the event this information is protected by the Federal Confidentiality of Alcohol and Drug Abuse Patient Records regulations: The Federal rules restrict any use of the information to criminally investigate or prosecute any alcohol or drug abuse patient.[facility] the event this information is protected by the Federal Confidentiality of Alcohol and Drug Abuse Patient Records regulations: The Federal rules restrict any use of the information to criminally investigate or prosecute any alcohol or drug abuse patient.[facility] the event this information is protected by the Federal Confidentiality of Alcohol and Drug Abuse Patient Records regulations: The Federal rules restrict any use of the information to criminally investigate or prosecute any alcohol or drug abuse patient.[facility] the event this information is protected by the Federal Confidentiality of Alcohol and Drug Abuse Patient Records regulations: The Federal rules restrict any use of the information to criminally investigate or prosecute any alcohol or drug abuse patient.[facility] the event this information is protected by the Federal Confidentiality of Alcohol and Drug Abuse Patient Records regulations: The Federal rules restrict any use of the information to criminally investigate or prosecute any alcohol or drug abuse patient.[facility] Reason for Visit (unrecogniz ed section and [...] MDM 60 MINUTES Ron Whitley MD [address] [place] [address] Referral ID Status Reason Start Date Expiration Date V isits Requested Visits Authorized [id number] Closed PCP Requested Referral 06/15/2023 06/14/2024 1 1 Reason Onset Date Comments Refill Request 05/05/2024 Reason Comments Physical Reason Onset Date Comments Refill Request 07/04/2024 Reason Comments Benign Prostatic Hypertrophy Nocturia Care Teams (unrecognized sec tion and content) Manager Account Management Relationship Specialty Start Date End Date Ron Whitley MD [address] [place], [place] [id number] PCP - General Family Medicine 05/09/15 Manager Account Management Relationship Specialty Start Date End Date Ron Whitley MD [address] [place], [place] [address] PCP - General Family Medicine 05/09/15 Manager Account Management Relationship Specialty Start Date End Date Ron Whitley MD [address] [place], [place] [id number] PCP - General Family Medicine 05/09/15 Manager Account Management Relationship Specialty Start Date End Date Ron Whitley MD [address] [place], [place] [address] [phone] PCP - General Family Medicine 05/09/15 Manager Account Management Relationship Specialty Start Date End Date Ron Whitley MD [address] [place], [place] [address] [phone] PCP - General Family Medicine 05/09/15 Manager Account Management Relationship Specialty Start Date End Date Ron Whitley MD [address] [facility] [place] [address] PCP - General Family Medicine 05/09/15 Manager Account Management Relationship Specialty Start Date End Date Ron Whitley MD [address] [place] [address] PCP - General Family Medicine 05/09/15 Manager Account Management Relationship Specialty Start Date End Date Ron Whitley MD [address] [place] [address] PCP - General Family Medicine 05/09/15 Manager Account Management Relationship Specialty Start Date End Date Ron Whitley MD [address] [place] [address] PCP - General Family Medicine 05/09/15 Manager Account Management Relationship Specialty Start Date End Date Rno Whitley MD [address] [place] [address] PCP - General Family Medicine 05/09/15 Manager Account Management Relationship Specialty Start Date End Date Ron Whitley MD [address] [place] [address] PCP - General Family Medicine 05/09/15 Ayaka Mccollum APRN.CNP [address] [place] [address] Research Pharmacist Family Medicine 03/28/24 Leesa Brady PA-C [address] [facility] [place] [address] Research Pharmacist Family Medicine 03/28/24 Manager Account Management Relationship Specialty Start Date End Date Ron Whitley MD [address] [facility] [place] [address] PCP - General Family Medicine 05/09/15 Ayaka Mccollum, KESHAWN.EPIC KALEIDOSCOPE ANALYST [address] [place] [address] Research Pharmacist Family Medicine 03/28/24 Leesa Brady PA-C [address] [facility] [place] [address] Research Pharmacist Family Medicine 03/28/24 Manager Account Management Relationship Specialty Start Date End Date Ron Whitley MD [address] [facility] [place] [address] PCP - General Family Medicine 05/09/15 Ayaka Mccollum, KESHAWN.EPIC KALEIDOSCOPE ANALYST [address] [place] [address] Research Pharmacist Family Medicine 03/28/24 Leesa Brady PA-C [address] [facility] [place] [address] Research Pharmacist Family Medicine 03/28/24 Manager Account Management Relationship Specialty Start Date End Date Ron Whitley MD [address] [facility] [place] [address] PCP - General Family Medicine 05/09/15 Ayaka Mccollum APRN.EPIC KALEIDOSCOPE ANALYST [address] [place] [address] Research Pharmacist Family Medicine 03/28/24 Leesa Brady PA-C [address] [facility] [place] [address] [facility] 03/28/24 Manager Account Management Relationship Specialty [place] [address] [place] [id number] PCP - General Family Medicine 05/09/15 Ayaka Mccollum APRN.EPIC KALEIDOSCOPE ANALYST [address] [place] [phone] [facility] 03/28/24 Leesa Brady PA-C [facility] [place], [place] [phone] [facility] 03/28/24 Manager Account Management Relationship Specialty Start Date End Date Ron Whitley MD [address] [place] [id number] PCP - General Family Medicine 07/27/24 Ayaka Mccollum APRN.EPIC KALEIDOSCOPE ANALYST [address] [place] [address] [phone] [facility] 03/28/24 Leesa Brady PA-C [facility] [place] [address] [facility] 03/28/24 FOR RECORDS PERTAINING TO PATIENTS WHO [...] BE BASED ON THE PRIMARY CLINICAL RECORDS. [facility] [employer] [facility]. provides no warranty or guarantee of the accuracy or completeness of information in this document.
== END 2025-03-11 18:08 | disposition home or self-care (01) ==
PROVIDERS: PCP Family Medicine; Visit Provider Emergency Medicine
DX: Z20.3 Contact with and (suspected) exposure to rabies (principal); Z23 Encounter for immunization
CPT/HCPCS: 90675; 96372

== ENCOUNTER 2025-03-18 10:55 | Outpatient (CLI) | payer OTHER, SELFPAY ==
[2025-03-18 10:55] VITALS: BP 155/99; PULSE 97; RESP 14; TEMP 36.6; O2SAT 100
--- OUTSIDE RECORDS SUMMARY | 2025-03-18 11:27 | XMS RPT_ITS | CCD ---
Author Organization [facility] Care Team Providers Care Folder Taper Operator Name Role Phone Ron Whitley Primary Care Unavailable Provider, Ed Physician Attending Unavailab Alonzo [place] Attending Unavailable Ron Whitley Primary Care Unavailable Parth Ferris Referring Unavailable Parth Ferris Attending Unavailable Ron Whitley Primary Care Unavailable Alonzo Weber Attending Unavailable Ron Whitley Primary Care Unavailable Ron Whitley MD Primary Care Provider [phone] Ron Whitley MD Primary Care Provider Veda SURVEY INSTRUMENT OPERATORAyaka CAREY Unavailable Leesa Brady PA-C Unavailable Ron Whitley MD Primary Care Provider TALI [...] Translations: [ATORVASTATIN] Drug Allergy 11-27-2019 Myalgia [facility] [place] Work Phone: Medications Current Medications Medication [...] on above: Take 1 capsule by mo [facility] once daily. mirtazapine 15 mg oral tablet [...] mouth once daily. Take 1 tablet by [facility] once daily. pravastatin sodium 10 [...] up to 180 days. polyethylene glycol 3350 115314 mg / potassium chloride 2970 mg / sodium bicarbonate 6740 mg / sodium chloride 5860 mg / sodium sulfate 14937 mg powder for oral solution (12 sources) [...] 05-07-2024 Episodic Other aftercare (1 source) Other halfway (current) drug therapy; Translations: [Medication management] Onset: [...] Test Name Value Interpretation Reference Range Facility [facility] 11-24-2024 [facility]OV [facility] ASYA SHETH ([id number]) 1960 M Date Time Provider Department 11/24/24 10:20 AM AYAKA MCCOLLUM [facility] During your visit today, we recorded the following information about you: Pulse Blood pressure Weight 86/minute 140/90 91 kg Ayaka Mccollum APRN.[facility] 11/24/2024 10:45 AM Signed Chief Complaint [...] DIP, URINE (POC) Ayaka Mccollum APRN.Ayaka Solorio APRN.[facility] 11/24/2024 10 (more content not included)... Normal [facility] LIPID PANEL, NONFASTINGon Cholesterol [Mass/Vol] 218 mg/dL High <200 [facility] Comment on above: Order Comment: Speci men Type: BLOOD SPECIMEN Ordering Facility: [facility] Address: [address] [place] [address] Result Comment: <200 mg/dL, Desirable 200-239 mg/dL, Borderline high >239 mg/dL, High Performed By: #### L IPNF #### [facility] CLIA [id number] [address] [place] [address] [place] HDL CHOLESTEROL, NF 44 mg/dL Normal >39 [facility] Comment on above: Order Comment: Speci men Type: BLOOD SPECIMEN Ordering Facility: [facility] Address: [address] [place] [address] Result Comment: 40-5 9 mg/dL, Acceptable >59 mg/dL, High: Negative risk factor for coronary heart disease <40 mg/dL, Low: Positive risk factor for coronary heart disease Performed By: #### L IPNF #### [facility] CLIA [id number] [address] [place] [address] [place] LDL CHOLESTEROL CALCULATED, NF 132 mg/dL High <100 [facility] Comment on above: Order Comment: Speci men Type: BLOOD SPECIMEN Ordering Facility: [facility] Address: [address] [place] [address] Result Comment: <100 mg/dL, Optimal 100-129 mg/dL, Near optimal/above optimal 130-159 mg/dL, Borderline high 160-189 mg/dL, High >189 mg/dL, Very high Secondary prevention optimal LDL Cholesterol levels are recommended to be <70 mg/dL LDL cholesterol is calculated using the Andujar-NIH equation. Performed By: #### L IPNF #### [facility] CLIA [id number] [address] [place] [address] [place] LDL/HDL RATIO, NF 3.00 mg/dL High <2.54 [facility] Comment on above: Order Comment: Grace hayward Type: BLOOD SPECIMEN Ordering Facility: [facility] Address: [address] [place] [address] Result Comment: Donaldo basurto: 1. National Cholesterol Education Program ATP III Guideline At-A-Glance Quick Desk Reference: National Heart, Lung, and Blood [place]. National Institutes of Health. 2001: NIH Publication No. 01-3305. 2. An International Atherosclerosis Society position paper: global recommendations for the management of dyslipidemia: executive summary, Atherosclerosis. 2014: 232(2):410-413. Performed By: #### L IPNF #### [facility] CLIA [id number] [address] [place] [address] [place] NON HDL CHOL, NF 174 mg/dL High <130 [facility] Comment on above: Order Comment: Grace hayward Type: BLOOD SPECIMEN Ordering Facility: [facility] Address: [address] [place] [address] Result Comment: <130 mg/dL, Optimal 130-159 mg/dL, Near optimal/above optimal 160-189 mg/dL, Borderline high 190-219 mg/dL, High >219 mg/dL, Very high Secondary prevention optimal non HDL Cholesterol levels are recommended to be <100 mg/dL Performed By: #### L IPNF #### [facility] CLIA [id number] [address] [place] [address] [place] T CHOL/HDL RATIO NF 4.95 mg/dL Normal <5.10 [facility] Comment on above: Order Comment: Jaylini men Type: BLOOD SPECIMEN Ordering Facility: [facility] Address: [address] [place] [address] Performed By: #### L IPNF #### [facility] CLIA [id number] [address] [place] [address] [place] TRIGLYCERIDES, NF 234 mg/dL High <150 [facility] Comment on above: Order Comment: Grace men Type: BLOOD SPECIMEN Ordering Facility: [facility] Address: [address] [place] [address] Result Comment: <150 mg/dL, Normal 150-199 mg/dL, Borderline high 200-499 mg/dL, High >499 mg/dL, Very high Performed By: #### L IPNF #### [facility] CLIA [id number] [address] [place] [address] OF [facility] VLDL CHOLESTEROL, NF 42 mg/dL High <30 [facility] Comment on above: Order Comment: Speci men Type: BLOOD SPECIMEN Ordering Facility: [facility] Address: [address] [place] [address] Performed By: #### L IPNF #### [facility] CLIA [id number] [address] [place] [address] STATES OF [facility] XR ABDOMEN 3V KUB W/OBLIQUES on [...] shows degenerative changes. IMPRESSION: Unremarkable abdomen x-ray. Chemical Production Engineer: PSCB Transcribe Date/Time: Nov 24 2024 11:08A Dictated by : ANISHA WILSON MD This examination was interpreted and the report reviewed and electronically signed by: ANISHA WILSON MD on Nov 24 2024 11:10AM EST [id number] Normal [facility] CNOVon 07-30-2024 CNOV Office Visit ([facility] ) CLAREASYA SANTANA ([id number]) 1960 M Date Time Provider Department 07/30/24 [...] Date Value 05/07/2024 Negative 10/10/2016 Negative Specific [place], Ur (no units) Date Value 05/07/2024 1.022 [...] [R00.2] 08/21 (more content not included)... Normal [facility] Free PSA [Mass/Vol]on 2024 Free PSA/Total PSA [Mass fraction] 19 % Normal [facility] Comment on above: Order Comment: Speci men Type: BLOOD SPECIMEN Ordering Facility: [facility] Address: [address] [place] [address] Result Comment: Tota l and free PSA [...] 15.8% Performed By: #### 1 0886-0 #### [facility] IA [id number] [address] [place] [address] [place] Prostate specific Ag [Mass/Vol] 3.45 ng/mL High <2.60 [facility] Comment on above: Order Comment: Speci men Type: BLOOD SPECIMEN Ordering Facility: [facility] Address: [address] [place] [address] Result Comment: Tota l PSA test methodology [...] 2003,349:335-42. Performed By: #### 1 0886-0 #### [facility] CLIA [id number] [address] [place] [address] OF [place] Fito 05-11-2024 STEPHANYN Telephone (FAMPWS) ASYA SHETH ([id number]) 1960 M Date Time Provider Department 05/11/24 AYAKA MCCOLLUM During your visit today, we recorded the following information about you: Ayaka Mccollum APRN.[facility] 05/11/2024 7:59 AM Signed Please let patient [...] trying a different statin medication. Send to [facility]. Thank you. Ayaka Mccollum, KESHAWN.WOOL[facility] TESTER 05/11/2024 12:04 PM Signed Rx sent. Vira [...] Order(s):PROSTATE SPECIFIC ANTIGEN, FREE [SQPSATF] Order #: [id number] FUTURE pravastatin (PRAVACHOL) 10 mg tabletTake 1 [...] Status:Closed by VIRA WHEATLEY on 05/11/24 Normal [facility] CBC W Auto Differential pane l (Bld)on 05-07-2024 Basophils (Bld) [#/Vol] 0.03 10*3/uL Normal <0.11 [facility] Comment on above: Order Comment: Speci men Type: BLOOD SPECIMEN Ordering Facility: [facility] Address: [address] [place] [address] Performed By: #### 5 7021-8 #### [facility] CLIA [id number] [address] [place] [address] [place] [address] [place] Basophils/100 WBC (Bld) 0.5 % Normal [facility] Comment on above: Order Comment: Speci men Type: BLOOD SPECIMEN Ordering Facility: [facility] Address: [address] [place] [address] Performed By: #### 5 7021-8 #### [facility] CLIA [id number] [address] [place] [address] [place] Differential cell count method Nom (Bld) Auto Normal [facility] Comment on above: Order Comment: Speci men Type: BLOOD SPECIMEN Ordering Facility: [facility] Address: [address] [place] [address] Performed By: #### 5 7021-8 #### [facility] CLIA [id number] [address] [place] [address] [place] Eosinophils (Bld) [#/Vol] 0.13 10*3/uL Normal <0.46 [facility] Comment on above: Order Comment: Speci men Type: BLOOD SPECIMEN Ordering Facility: [facility] Address: [address] [place] [address] Performed By: #### 5 7021-8 #### [facility] CLIA [id number] [address] [place] [address] [place] Eosinophils/100 WBC (Bld) 2.2 % Normal [facility] Comment on above: Order Comment: Speci men Type: BLOOD SPECIMEN Ordering Facility: [facility] Address: [address] [place] [address] Performed By: #### 5 7021-8 #### [facility] CLIA [id number] [address] [place] [address] [place] Erythrocyte distribution width (RBC) [Ratio] 12.4 % Normal 11.5-15.0 [facility] Comment on above: Order Comment: Speci men Type: BLOOD SPECIMEN Ordering Facility: [facility] Address: [address] [place] [address] Performed By: #### 5 7021-8 #### [facility] CLIA [id number] [address] [place] [address] [place] Hematocrit (Bld) [Volume fraction] 47.9 % Normal 39.0-51.0 [facility] Comment on above: Order Comment: Speci men Type: BLOOD SPECIMEN Ordering Facility: [facility] Address: [address] [place] [address] Performed By: #### 5 7021-8 #### [facility] CLIA [id number] [address] [place] [address] [place] Hemoglobin (Bld) [Mass/Vol] 16.2 g/dL Normal 13.0-17.0 [facility] Comment on above: Order Comment: Speci men Type: BLOOD SPECIMEN Ordering Facility: [facility] Address: [address] [place] [address] Performed By: #### 5 7021-8 #### [facility] CLIA [id number] [address] [place] [address] [place] Immature granulocytes (Bld) [#/Vol] 10*3/uL Normal <0.10 [facility] Comment on above: Order Comment: Speci men Type: BLOOD SPECIMEN Ordering Facility: [facility] Address: [address] [place] [address] Performed By: #### 5 7021-8 #### [facility] CLIA [id number] [address] [place] [address] [place] Immature granulocytes/100 WBC (Bld) 0.3 % Normal [facility] Comment on above: Order Comment: Speci men Type: BLOOD SPECIMEN Ordering Facility: [facility] Address: [address] [place] [address] Performed By: #### 5 7021-8 #### [facility] CLIA [id number] [address] [place] [address] [place] Lymphocytes (Bld) [#/Vol] 1.19 10*3/uL Normal 1.00-4.00 [facility] Comment on above: Order Comment: Speci men Type: BLOOD SPECIMEN Ordering Facility: [facility] Address: [address] [place] [address] Performed By: #### 5 7021-8 #### [facility] CLIA [id number] [address] [place] [address] [place] Lymphocytes/100 WBC (Bld) 20.4 % Normal [facility] Comment on above: Order Comment: Speci men Type: BLOOD SPECIMEN Ordering Facility: [facility] Address: [address] [place] [address] Performed By: #### 5 7021-8 #### [facility] CLIA [id number] [address] [place] [address] [place] MCH (RBC) [Entitic mass] 31.9 pg Normal 26.0-34.0 [facility] Comment on above: Order Comment: Speci men Type: BLOOD SPECIMEN Ordering Facility: [facility] Address: [address] [place] [address] Performed By: #### 5 7021-8 #### [facility] CLIA [id number] [address] [place] [address] [place] MCHC (RBC) [Mass/Vol] 33.8 g/dL Normal 30.5-36.0 [facility] Comment on above: Order Comment: Speci men Type: BLOOD SPECIMEN Ordering Facility: [facility] Address: [address] [place] [address] Performed By: #### 5 7021-8 #### [facility] CLIA [id number] [address] [place] [address] [place] MCV (RBC) [Entitic vol] 94.3 fL Normal 80.0-100.0 [facility] Comment on above: Order Comment: Speci men Type: BLOOD SPECIMEN Ordering Facility: [facility] Address: [address] [place] [address] Performed By: #### 5 7021-8 #### [facility] CLIA [id number] [address] [place] [address] [place] Monocytes (Bld) [#/Vol] 0.51 10*3/uL Normal <0.87 [facility] Comment on above: Order Comment: Speci men Type: BLOOD SPECIMEN Ordering Facility: [facility] Address: [address] [place] [address] Performed By: #### 5 7021-8 #### [facility] CLIA [id number] [address] [place] [address] [place] Monocytes/100 WBC (Bld) 8.7 % Normal [facility] Comment on above: Order Comment: Speci men Type: BLOOD SPECIMEN Ordering Facility: [facility] Address: [address] [place] [address] Performed By: #### 5 7021-8 #### [facility] CLIA [id number] [address] [place] [address] [place] Neutrophils (Bld) [#/Vol] 3.96 10*3/uL Normal 1.45-7.50 [facility] Comment on above: Order Comment: Speci men Type: BLOOD SPECIMEN Ordering Facility: [facility] Address: [address] [place] [address] Performed By: #### 5 7021-8 #### [facility] CLIA [id number] [address] [place] [address] [place] Neutrophils/100 WBC (Bld) 67.9 % Normal [facility] Comment on above: Order Comment: Speci men Type: BLOOD SPECIMEN Ordering Facility: [facility] Address: [address] [place] [address] Performed By: #### 5 7021-8 #### [facility] CLIA [id number] [address] [place] [address] [place] Nucleated RBC (Bld) [#/Vol] 10*3/uL Normal <0.01 [facility] Comment on above: Order Comment: Speci men Type: BLOOD SPECIMEN Ordering Facility: [facility] Address: [address] [place] [address] Performed By: #### 5 7021-8 #### [facility] CLIA [id number] [address] [place] [address] [place] Nucleated RBC/100 WBC (Bld) [Ratio] 0.0 /100 WBC Normal [facility] Comment on above: Order Comment: Speci men Type: BLOOD SPECIMEN Ordering Facility: [facility] Address: [address] [place] [address] Performed By: #### 5 7021-8 #### [facility] CLIA [id number] [address] [place] [address] [place] Platelet mean volume (Bld) [Entitic vol] 10.1 fL Normal 9.0-12.7 [facility] Comment on above: Order Comment: Speci men Type: BLOOD SPECIMEN Ordering Facility: [facility] Address: [address] [place] [address] Performed By: #### 5 7021-8 #### [facility] CLIA [id number] [address] [place] [address] [place] Platelets (Bld) [#/Vol] 184 10*3/uL Normal 150-400 [facility] Comment on above: Order Comment: Speci men Type: BLOOD SPECIMEN Ordering Facility: [facility] Address: [address] [place] [address] Performed By: #### 5 7021-8 #### [facility] CLIA [id number] [address] [place] [address] [place] RBC (Bld) [#/Vol] 5.08 10*6/uL Normal 4.20-6.00 [facility] Comment on above: Order Comment: Speci men Type: BLOOD SPECIMEN Ordering Facility: [facility] Address: [address] [place] [address] Performed By: #### 5 7021-8 #### [facility] CLIA [id number] [address] [place], [place] [address] [id number] [place] WBC (Bld) [#/Vol] 5.84 10*3/uL Normal 3.70-11.00 [facility] Comment on above: Order Comment: Speci men Type: BLOOD SPECIMEN Ordering Facility: [facility] Address: [address] [place] [address] Performed By: #### 5 7021-8 #### [facility] CLIA [id number] [address] [place], [place] [address] [place] CNOVon 05-07-2024 CNOV Office Visit (FAMPWS ) ASYA SHETH ([id number]) 1960 M Date Time Provider Department 05/07/24 10:40 AM AYAKA MCCOLLUM During your visit today, we recorded the following information about you: Pulse Respiration Blood pressure Weight 89/minute 16/minute 147/98 90.3 kg Ayaka Mccollum APRN.WOOLEN TESTER 05/07/2024 11:40 AM Signed Chief Complaint Patient [...] Screening Disc (more content not included)... Normal [facility] Comprehensive metabolic 2000 panelon 05-07-2024 Albumin [Mass/Vol] 4.4 g/dL Normal 3.9-4.9 [facility] Comment on above: Order Comment: Speci men Type: URINE SPECIMEN Ordering Facility: [facility] Address: [address] [place] [address] Performed By: #### 2 4356-8 #### [facility] CLIA [id number] [address] [place] [address] [place] [address] [place] ALP [Catalytic activity/Vol] 101 U/L Normal 38-113 [facility] Comment on above: Order Comment: Speci men Type: URINE SPECIMEN Ordering Facility: [facility] Address: [address] [place] [address] Performed By: #### 2 4356-8 #### [facility] CLIA [id number] [address] [place] [address] [place] ALT [Catalytic activity/Vol] 40 U/L Normal 10-54 [facility] Comment on above: Order Comment: Speci men Type: URINE SPECIMEN Ordering Facility: [facility] Address: [address] [place] [address] Performed By: #### 2 4356-8 #### [facility] CLIA [id number] [address] [place] [address] [place] Anion gap [Moles/Vol] 13 mmol/L Normal 8-15 [facility] Comment on above: Order Comment: Speci men Type: URINE SPECIMEN Ordering Facility: [facility] Address: [address] [place] [address] Performed By: #### 2 4356-8 #### [facility] CLIA [id number] [address] [place] [address] [place] AST [Catalytic activity/Vol] 34 U/L Normal 14-40 [facility] Comment on above: Order Comment: Speci men Type: URINE SPECIMEN Ordering Facility: [facility] Address: [address] [place] [address] Performed By: #### 2 4356-8 #### [facility] CLIA [id number] [address] [place] [address] [place] Bilirubin [Mass/Vol] 0.9 mg/dL Normal 0.2-1.3 [facility] Comment on above: Order Comment: Speci men Type: URINE SPECIMEN Ordering Facility: [facility] Address: [address] [place] [address] Performed By: #### 2 4356-8 #### [facility] CLIA [id number] [address] [place] [address] [place] Calcium [Mass/Vol] 9.4 mg/dL Normal 8.5-10.2 [facility] Comment on above: Order Comment: Speci men Type: URINE SPECIMEN Ordering Facility: [facility] Address: [address] [place] [address] Performed By: #### 2 4356-8 #### [facility] CLIA [id number] [address] [place] [address] [place] Chloride [Moles/Vol] 104 mmol/L Normal 98-107 [facility] Comment on above: Order Comment: Speci men Type: URINE SPECIMEN Ordering Facility: [facility] Address: [address] [place] [address] Performed By: #### 2 4356-8 #### [facility] CLIA [id number] [address] [place] [address] [place] CO2 [Moles/Vol] 23 mmol/L Normal 22-30 [facility] Comment on above: Order Comment: Speci men Type: URINE SPECIMEN Ordering Facility: [facility] Address: [address] [place] [address] Performed By: #### 2 4356-8 #### [facility] CLIA [id number] [address] [place] [address] [place] Creatinine [Mass/Vol] 0.95 mg/dL Normal 0.73-1.22 [facility] Comment on above: Order Comment: Speci men Type: URINE SPECIMEN Ordering Facility: [facility] Address: [address] [place] [address] Performed By: #### 2 4356-8 #### [facility] CLIA [id number] [address] [place] [address] [place] Creatinine and Glomerular filtration rate.predicted panel (S/P/Bld) 89 mL/min/1.73m??? Normal >=60 [facility] Comment on above: Order Comment: Speci men Type: URINE SPECIMEN Ordering Facility: [facility] Address: [address] [place] [address] Result Comment: Juanita mated Glomerular Filtration Rate [...] GFR. Performed By: #### 2 4356-8 #### [facility] CLIA [id number] [address] [place] [address] [place] Glucose [Mass/Vol] 103 mg/dL High 74-99 [facility] Comment on above: Order Comment: Speci men Type: URINE SPECIMEN Ordering Facility: [facility] Address: [address] [place] [address] Result Comment: The [place] [employer] (ADA) provides guidance for cutoff [...] Standards of Medical Care in Diabetes 2016, [place] [employer]. Diabetes Care. 2016.39(Suppl 1). Performed By: #### 2 4356-8 #### [facility] CLIA [id number] [address] [place] [address] [place] Potassium [Moles/Vol] 4.6 mmol/L Normal 3.7-5.1 [facility] Comment on above: Order Comment: Speci men Type: URINE SPECIMEN Ordering Facility: [facility] Address: [address] [place] [address] Performed By: #### 2 4356-8 #### [facility] CLIA [id number] [address] [place] [address] [place] Protein [Mass/Vol] 7.3 g/dL Normal 6.3-8.0 [facility] Comment on above: Order Comment: Speci men Type: URINE SPECIMEN Ordering Facility: [facility] Address: [address] [place] [address] Performed By: #### 2 4356-8 #### [facility] CLIA [id number] [address] [place] [address] [place] Sodium [Moles/Vol] 140 mmol/L Normal 136-144 [facility] Comment on above: Order Comment: Speci men Type: URINE SPECIMEN Ordering Facility: [facility] Address: [address] [place] [address] Performed By: #### 2 4356-8 #### [facility] CLIA [id number] [address] [place] [address] [place] Urea nitrogen [Mass/Vol] 12 mg/dL Normal 9-24 [facility] Comment on above: Order Comment: Speci men Type: URINE SPECIMEN Ordering Facility: [facility] Address: [address] [place] [address] Performed By: #### 2 4356-8 #### [facility] CLIA [id number] [address] [place] [address] [place] HbA1c (Bld)on 05-07-2024 Average glucose Estimated from glycated hemoglobin (Bld) [Mass/Vol] 105 mg/dL Normal [facility] Comment on above: Order Comment: Speci men Type: BLOOD SPECIMEN Ordering Facility: [facility] Address: [address] [place] [address] Result Comment: eAG: (Estimated average glucose) is a calculated value from HgbA1c and is sales representative girls' apparel of the average blood glucose level in the last 2-3 month period. Performed By: #### 5 5454-3 #### [facility] CLIA [id number] [address] [place] [address] [place] HbA1c (Bld) [Mass fraction] 5.3 % Normal 4.3-5.6 [facility] Comment on above: Order Comment: Grace men Type: BLOOD SPECIMEN Ordering Facility: [facility] Address: [address] [place] [address] Result Comment: Amer ican Diabetes Association guidelines indicate that patients with HgbA1c in the range 5.7-6.4% are at increased risk for development of diabetes, and intervention by lifestyle modification may be beneficial. HgbA1c greater or equal to 6.5% is considered diagnostic of diabetes. Performed By: #### 5 5454-3 #### [facility] CLIA [id number] [address] [place] [address] [place] LIPID PANEL, NONFASTINGon Cholesterol [Mass/Vol] 251 mg/dL High <200 [facility] Comment on above: Order Comment: Grace men Type: URINE SPECIMEN Ordering Facility: [facility] Address: [address] [place] [address] Result Comment: <200 mg/dL, Desirable 200-239 mg/dL, Borderline high >239 mg/dL, High Performed By: #### 2 4356-8 #### [facility] CLIA [id number] [address] [place] [address] [place] HDL CHOLESTEROL, NF 58 mg/dL Normal >39 [facility] Comment on above: Order Comment: Jaylini men Type: URINE SPECIMEN Ordering Facility: [facility] Address: [address] [place] [address] Result Comment: 40-5 9 mg/dL, Acceptable >59 mg/dL, High: Negative risk factor for coronary heart disease <40 mg/dL, Low: Positive risk factor for coronary heart disease Performed By: #### 2 4356-8 #### [facility] CLIA [id number] [address] [place] [address] [place] LDL CHOLESTEROL, NF 167 mg/dL High <100 [facility] Comment on above: Order Comment: Speci men Type: URINE SPECIMEN Ordering Facility: [facility] Address: [address] [place] [address] Result Comment: <100 mg/dL, Optimal 100-129 mg/dL, Near optimal/above optimal 130-159 mg/dL, Borderline high 160-189 mg/dL, High >189 mg/dL, Very high Secondary prevention optimal LDL Cholesterol levels are recommended to be < 70 mg/dL Performed By: #### 2 4356-8 #### [facility] CLIA [id number] [address] [place] [address] [place] LDL/HDL RATIO, NF 2.88 mg/dL High <2.54 [facility] Comment on above: Order Comment: Speci men Type: URINE SPECIMEN Ordering Facility: [facility] Address: [address] [place] [address] Result Comment: Refe rence: 1. National Cholesterol Education Program ATP III Guideline At-A-Glance Quick Desk Reference: National Heart, Lung, and Blood [place]. National Institutes of Health. 2001: NIH Publication No. 01-3305. 2. An International Atherosclerosis Society position paper: global recommendations for the management of dyslipidemia: executive summary, Atherosclerosis. 2014: 232(2):410-413. Performed By: #### 2 4356-8 #### [facility] CLIA [id number] [address] [place] [address] [place] NON HDL CHOL, NF 193 mg/dL High <130 [facility] Comment on above: Order Comment: Speci men Type: URINE SPECIMEN Ordering Facility: [facility] Address: [address] [place] [address] Result Comment: <130 mg/dL, Optimal 130-159 mg/dL, Near optimal/above optimal 160-189 mg/dL, Borderline high 190-219 mg/dL, High >219 mg/dL, Very high Secondary prevention optimal non HDL Cholesterol levels are recommended to be <100 mg/dL Performed By: #### 2 4356-8 #### [facility] CLIA [id number] [address] [place], [place] [address] [place] T CHOL/HDL RATIO NF 4.33 mg/dL Normal <5.10 [facility] Comment on above: Order Comment: Speci men Type: URINE SPECIMEN Ordering Facility: [facility] Address: [address] [place] [address] Performed By: #### 2 4356-8 #### [facility] CLIA [id number] [address] [place] [address] [place] TRIGLYCERIDES, NF 128 mg/dL Normal <150 [facility] Comment on above: Order Comment: Speci men Type: URINE SPECIMEN Ordering Facility: [facility] Address: [address] [place] [address] Result Comment: <150 mg/dL, Normal 150-199 mg/dL, Borderline high 200-499 mg/dL, High >499 mg/dL, Very high Performed By: #### 2 4356-8 #### [facility] CLIA [id number] [address] [place] [address] [place] VLDL CHOLESTEROL, NF 26 mg/dL Normal <30 [facility] Comment on above: Order Comment: Speci men Type: URINE SPECIMEN Ordering Facility: [facility] Address: [address] [place] [address] Performed By: #### 2 4356-8 #### [facility] CLIA [id number] [address] [place] [address] [place] Magnesium SerPl-mCncon 05-07 Magnesium [Mass/Vol] 2.1 mg/dL Normal 1.7-2.3 [facility] Comment on above: Order Comment: Speci men Type: URINE SPECIMEN Ordering Facility: [facility] Address: [address] [place] [address] Performed By: #### 2 4356-8 #### [facility] CLIA [id number] [address] [place] [address] [place] PSA/PROSTATE SPECIFIC ANTIGE N SCREENINGon 05-07-2024 Prostate specific Ag [Mass/Vol] 4.31 ng/mL High <2.60 [facility] Comment on above: Order Comment: Speci men Type: BLOOD SPECIMEN Ordering Facility: [facility] Address: [address] [place] [address] Result Comment: Mark santiago PSA test methodology [...] 2003,349:335-42. Performed By: #### P SAS1 #### [facility] CLIA [id number] [address] [place] [address] [place] TSH SerPl-aCncon 05-07-2024 TSH Qn 0.965 m[IU]/L Normal 0.270-4.200 [facility] Comment on above: Order Comment: Speci men Type: URINE SPECIMEN Ordering Facility: [facility] Address: [address] [place], [place] [address] [address] Performed By: #### 2 4356-8 #### [facility] CLIA [id number] [address] [place] [address] [place] Urinalysis complete panel (U )on 05-07-2024 Bacteria LM.HPF (Urine sed) [#/Area] Negative Normal Negative [facility] Comment on above: Order Comment: Speci men Type: URINE SPECIMEN Ordering Facility: [facility] Address: [address] [place] [address] Performed By: #### 2 4356-8 #### [facility] CLIA [id number] [address] [place] [address] [place] Bilirubin Ql (U) Negative Normal Negative [facility] Comment on above: Order Comment: Speci men Type: URINE SPECIMEN Ordering Facility: [facility] Address: [address] [place] [address] Performed By: #### 2 4356-8 #### [facility] CLIA [id number] [address] [place] [address] [place] Clarity (Unsp spec) Clear Normal Clear [facility] Comment on above: Order Comment: Speci men Type: URINE SPECIMEN Ordering Facility: [facility] Address: [address] [place] [address] Performed By: #### 2 4356-8 #### [facility] CLIA [id number] [address] [place] [address] [place] Color (U) Yellow Normal Yellow [facility] Comment on above: Order Comment: Speci men Type: URINE SPECIMEN Ordering Facility: [facility] Address: [address] [place] [address] Performed By: #### 2 4356-8 #### [facility] CLIA [id number] [address] [place] [address] [place] Epithelial cells LM.HPF (Urine sed) [#/Area] None Seen Normal [facility] Comment on above: Order Comment: Speci men Type: URINE SPECIMEN Ordering Facility: [facility] Address: [address] [place] [address] Performed By: #### 2 4356-8 #### [facility] CLIA [id number] [address] [place] [address] [place] Glucose Test strip (U) [Mass/Vol] Negative Normal Negative [facility] Comment on above: Order Comment: Speci men Type: URINE SPECIMEN Ordering Facility: [facility] Address: [address] [place] [address] Performed By: #### 2 4356-8 #### [facility] CLIA [id number] [address] [place] [address] [place] Hemoglobin Ql (U) Negative Normal Negative [facility] Comment on above: Order Comment: Speci men Type: URINE SPECIMEN Ordering Facility: [facility] Address: [address] [place] [address] Performed By: #### 2 4356-8 #### [facility] CLIA [id number] [address] [place] [address] [place] Hyaline casts (Urine sed) [#/Area] 0 /[LPF] Normal 0 /LPF [facility] Comment on above: Order Comment: Speci men Type: URINE SPECIMEN Ordering Facility: [facility] Address: [address] [place] [address] Performed By: #### 2 4356-8 #### [facility] CLIA [id number] [address] [place] [address] [place] Ketones Ql (U) Negative Normal Negative [facility] Comment on above: Order Comment: Speci men Type: URINE SPECIMEN Ordering Facility: [facility] Address: [address] [place] [address] Performed By: #### 2 4356-8 #### [facility] CLIA [id number] [address] [place] [address] [place] Leukocyte esterase Test strip Ql (U) Negative Normal Negative [facility] Comment on above: Order Comment: Speci men Type: URINE SPECIMEN Ordering Facility: [facility] Address: [address] [place] [address] Performed By: #### 2 4356-8 #### [facility] CLIA [id number] [address] [place] [address] [place] Nitrite Ql (U) Negative Normal Negative [facility] Comment on above: Order Comment: Speci men Type: URINE SPECIMEN Ordering Facility: [facility] Address: [address] [place] [address] Performed By: #### 2 4356-8 #### [facility] CLIA [id number] [address] [place] [address] [place] pH (U) 5.5 [pH] Normal <8.5 [facility] Comment on above: Order Comment: Speci men Type: URINE SPECIMEN Ordering Facility: [facility] Address: [address] [place] [address] Performed By: #### 2 4356-8 #### [facility] CLIA [id number] [address] [place] [address] [place] Protein (U) [Mass/Vol] Trace Abnormal Negative [facility] Comment on above: Order Comment: Speci men Type: URINE SPECIMEN Ordering Facility: [facility] Address: [address] [place] [address] Performed By: #### 2 4356-8 #### [facility] CLIA [id number] [address] [place] [address] [place] RBC LM.HPF (Urine sed) [#/Area] 0-2 /HPF Normal 0-2 /HPF [facility] Comment on above: Order Comment: Speci men Type: URINE SPECIMEN Ordering Facility: [facility] Address: [address] [place] [address] Performed By: #### 2 4356-8 #### [facility] CLIA [id number] [address] [place] [address] [place] Specific gravity (U) [Rel density] 1.022 Normal 1.005-1.030 [facility] Comment on above: Order Comment: Speci men Type: URINE SPECIMEN Ordering Facility: [facility] Address: [address] [place] [address] Performed By: #### 2 4356-8 #### [facility] CLIA [id number] [address] [place] [address] [place] Urobilinogen Ql (U) 0.2 EU/dL Normal 0.2-1.0 EU/dL [facility] Comment on above: Order Comment: Speci men Type: URINE SPECIMEN Ordering Facility: [facility] Address: [address] [place] [address] Performed By: #### 2 4356-8 #### [facility] CLIA [id number] [address] [place] [address] [place] WBC LM.HPF (Urine sed) [#/Area] 0-5 /HPF Normal 0-5 /HPF [facility] Comment on above: Order Comment: Speci men Type: URINE SPECIMEN Ordering Facility: [facility] Address: [address] [place] [address] Performed By: #### 2 4356-8 #### [facility] [place] [id number] [address] [place] [address] [place] [facility] Cobalamin (Vitamin B12) [Mass/Vol] 495 pg/mL Normal 232-1245 [facility] Comment on above: Order Comment: Speci men Type: URINE SPECIMEN Ordering Facility: [facility] Address: [address] [place] [address] Performed By: #### 2 4356-8 #### [facility] CLIA [id number] [address] [place] [address] [place] Influenza virus A and B RNA and SARS-CoV-2 (COVID-19) N gene panel SEBASTIÁN+probe (Resp)on 03-19-2023 FLUAV RNA SEBASTIÁN+probe Ql (Unsp spec) Detected Abnormal Not Detected [facility] [place] [facility] FLUBV RNA SEBASTIÁN+probe Ql (Unsp spec) Not detected Not Detected [facility] [place] [facility] SARS-CoV-2 (COVID-19) RNA SEBASTIÁN+probe Ql (Resp) Not detected See comment [facility] [place] [facility] XR CHEST 2V FRONTAL/LATon [facility] [place] [facility] XR Chest PA and Lateralon IMPRESSION: No acute radiographic abnormality. Chemical Production Engineer: ISABELL Transcribe Date/Time: Mar 19 2023 1:20P Dictated by : NAZIA OCAMPO MD This examination was interpreted and the report reviewed and electronically signed by: NAZIA OCAMPO MD on Mar 19 2023 1:21PM [facility] DIVISION OF RADIOLOGY * [...] RADIOLOGY Provider, [facility] - 03/19/2023 * * *Final Report* * [...] spine. IMPRESSION IMPRESSION: No acute radiographic abnormality. Chemical Production Engineer: PSCB Transcribe Date/Time: Mar 19 2023 1:20P Dictated by : NAZIA OCAMPO MD This examination was interpreted and the report reviewed and electronically signed by: NAZIA OCAMPO MD on Mar 19 2023 1:21PM EST [facility] [place] [facility] Radiology Study observation (narrative) [facility] XR Chest PA and LateralOrder ed By: Ccf Provider on 03-19-2023 [facility] Emergency Department Summary on 12-20-2021 Emergency Department Summary [facility] Medical Records Department [address] [place] [address] Emergency Department Summary 12/20/21 MR#: [id number] Acct: [id number] Name: ASYA SHETH Rep #: [id number] : 1960 61 From: Alonzo Weber MD [...] has never had the rabies vaccine. ROS [email or web address]] ED ENT ENT ED: Denies sore throat [...] mg PO DAILY Primary Care Provider: Ron Whtiley Referrals: Ron Whitley MD [Primary Care Provider] [...] your Primary Care Provider. Call [facility] ([phone]) or report to the closest Emergency Room. Call 911 if necessary. 12/20/21 1641 Cosigner Signature (if applicable): CC: Dr. Ron Whitley MD Signed Normal [facility] Vital Signs Date Time Vital Sign Value Performing Clinician Facility 07-30-2024 09:06-0400 Body height 177.2 cm Tali Yanez MD Work Phone: [facility] [place] [facility] 07-30-2024 09:06-0400 Body mass index (BMI) [Ratio] 28.75 kg/m2 Tali Yanez MD Work Phone: [facility] [place] 07-30-2024 09:06-0400 Body weight 90.27 kg Tali Yanez MD Work Phone: [facility] [place] 07-30-2024 09:06-0400 Heart rate 97 /min Tali Yanez MD Work Phone: [facility] 07-30-2024 09:06-0400 SaO2% (BldA) [Mass fraction] 98 % Tali Yanez MD Work Phone: [facility] 05-07-2024 10:27-0500 Body mass index (BMI) [Ratio] 28.75 kg/m2 Ayaka Mccollum SURVEY INSTRUMENT OPERATOR.WOOLEN TESTER Work Phone: [facility] [place] 05-07-2024 10:27-0500 Body weight 90.27 kg Ayaka Mccollum SURVEY INSTRUMENT OPERATOR.WOOLEN TESTER Work Phone: [facility] 05-07-2024 10:27-0500 Diastolic blood pressure 98 mm[Hg] Ayaka Mccollum APRN.WOOLEN TESTER Work Phone: [facility] 05-07-2024 10:27-0500 Heart rate 89 /min Ayaka Mccollum APRN.WOOLEN TESTER Work Phone: [facility] [place] 05-07-2024 10:27-0500 Respiratory rate 16 /min Ayaka Mccollum SURVEY INSTRUMENT OPERATOR.WOOLEN TESTER Work Phone: [facility] 05-07-2024 10:27-0500 Systolic blood pressure 147 mm[Hg] Ayaka Mccollum SURVEY INSTRUMENT OPERATOR.WOOLEN TESTER Work Phone: [facility] [place] 07-08-2023 08:21-0400 Body height 177.2 cm Tali Yanez MD Work Phone: [facility] 07-08-2023 08:21-0400 Body weight 88 kg Tali Yanez MD Work Phone: [facility] 07-08-2023 08:21-0400 Heart rate 61 /min Tali Yanez MD Work Phone: [facility] 07-08-2023 08:21-0400 SaO2% (BldA) [Mass fraction] 99 % Tali Yanez MD Work Phone: [facility] [place] 03-19-2023 12:52-0500 Body temperature 98.71 [degF] Camilla Chao PA-C Work Phone: [facility] 03-19-2023 12:52-0500 Body weight 88 kg Camilla Bogner PA-C Work Phone: [facility] 03-19-2023 12:52-0500 Diastolic blood pressure 80 mm[Hg] Camilla Bogner PA-C Work Phone: [facility] 03-19-2023 12:52-0500 Heart rate 97 /min Camilla Bogner PA-C Work Phone: [facility] 03-19-2023 12:52-0500 Respiratory rate 20 /min Camilla Bogner PA-C Work Phone: [facility] 03-19-2023 12:52-0500 SaO2% (BldA) [Mass fraction] 95 % Camilal Bogner PA-C Work Phone: [facility] 03-19-2023 12:52-0500 Systolic blood pressure 112 mm[Hg] Camilla Bogner PA-C Work Phone: [facility] 12-18-2022 11:57-0400 Body height 177.2 cm Leesa Brady PA-C Work Phone: [facility] 12-18-2022 11:57-0400 Body temperature 98.91 [degF] Leesa Brady PA-C Work Phone: [facility] 12-18-2022 11:57-0400 Body weight 88 kg Leesa Brady PA-C Work Phone: [facility] 12-18-2022 11:57-0400 Diastolic blood pressure 84 mm[Hg] Leesa Brady PA-C Work Phone: [facility] 12-18-2022 11:57-0400 Heart rate 60 /min Leesa Brady PA-C Work Phone: [facility] 12-18-2022 11:57-0400 Respiratory rate 16 /min Leesa Brady PA-C Work Phone: [facility] 12-18-2022 11:57-0400 Systolic blood pressure 122 mm[Hg] Leesa Brady PA-C Work Phone: [facility] 01-03-2022 18:28-0400 Body height 177.8 cm [facility] Work Phone: 01-03-2022 18:28-0400 Body mass index (BMI) [Ratio] 28.7 kg/m2 [facility] Work Phone: 01-03-2022 18:28-0400 Body temperature 97.9 [degF] [facility] Work Phone: 01-03-2022 18:28-0400 Body weight 90.71 kg [facility] Work Phone: 01-03-2022 18:28-0400 Diastolic blood pressure 86 mm[Hg] [facility] Work Phone: 01-03-2022 18:28-0400 Heart rate 88 /min [facility] Work Phone: 01-03-2022 18:28-0400 Respiratory rate 17 /min [facility] Work Phone: 01-03-2022 18:28-0400 SaO2% (BldA) [Mass fraction] 95 % [facility] Work Phone: 01-03-2022 18:28-0400 Systolic blood pressure 144 mm[Hg] [facility] Work Phone: 12-28-2021 16:54-0400 Body height 177.8 cm [facility] Work Phone: 12-28-2021 16:54-0400 Body mass index (BMI) [Ratio] 28.7 kg/m2 [facility] Work Phone: 12-28-2021 16:54-0400 Body temperature 98.7 [degF] [facility] Work Phone: 12-28-2021 16:54-0400 Body weight 90.71 kg [facility] Work Phone: 12-28-2021 16:54-0400 Diastolic blood pressure 104 mm[Hg] [facility] Work Phone: 12-28-2021 16:54-0400 Heart rate 90 /min [facility] Work Phone: 12-28-2021 16:54-0400 Respiratory rate 16 /min [facility] Work Phone: 12-28-2021 16:54-0400 SaO2% (BldA) [Mass fraction] 98 % [facility] Work Phone: 12-28-2021 16:54-0400 Systolic blood pressure 144 mm[Hg] [facility] Work Phone: 12-23-2021 13:18-0400 Body height 177.8 cm [facility] Work Phone: 12-23-2021 13:18-0400 Body mass index (BMI) [Ratio] 28.7 kg/m2 [facility] Work Phone: 12-23-2021 13:18-0400 Body temperature 97.5 [degF] [facility] Work Phone: 12-23-2021 13:18-0400 Body weight 90.71 kg [facility] Work Phone: 12-23-2021 13:18-0400 Diastolic blood pressure 98 mm[Hg] [facility] Work Phone: 12-23-2021 13:18-0400 Heart rate 88 /min [facility] Work Phone: 12-23-2021 13:18-0400 Respiratory rate 16 /min [facility] Work Phone: 12-23-2021 13:18-0400 SaO2% (BldA) [Mass fraction] 95 % [facility] Work Phone: 12-23-2021 13:18-0400 Systolic blood pressure 139 mm[Hg] [facility] Work Phone: 12-20-2021 16:49-0400 Respiratory rate 18 /min [facility] Work Phone: 12-20-2021 16:16-0400 Body height 177.8 cm [facility] Work Phone: 12-20-2021 16:16-0400 Body mass index (BMI) [Ratio] 28.7 kg/m2 [facility] Work Phone: 12-20-2021 16:16-0400 Body temperature 96.9 [degF] [facility] Work Phone: 12-20-2021 16:16-0400 Body weight 90.71 kg [facility] Work Phone: 12-20-2021 16:16-0400 Diastolic blood pressure 99 mm[Hg] [facility] Work Phone: 12-20-2021 16:16-0400 Heart rate 112 /min [facility] Work Phone: 12-20-2021 16:16-0400 SaO2% (BldA) [Mass fraction] 95 % [facility] Work Phone: 12-20-2021 16:16-0400 Systolic blood pressure 130 mm[Hg] [facility] Work Phone: Encounters Encounter Date Encounter Type Care Provider Facility Start: 11-24-2024 End: 11-24-2024 ambulatory RON WHITLEY Facility:[facility] Start: 11-24-2024 End: 11-24-2024 ambulatory AYAKA MCCOLLUM Facility:[facility] Start: 07-30-2024 End: 07-30-2024 Patient encounter procedure Tali Yanez MD Work Phone: Urology Comment on above: Elevated PSA (Primar y Dx); BPH with obstruction/lower urinary tract symptoms; Nocturia Start: 07-30-2024 End: 07-30-2024 ambulatory TALI YANEZ Facility:[facility] Start: 07-04-2024 End: 07-05-2024 Refill Ron Whitley MD Work Phone: [facility] Comment on above: Refill Request Start: 06-11-2024 End: 06-11-2024 Follow-up encounter Ayaka Mccollum APRN.WOOLEN TESTER Work Phone: [facility] Start: 06-05-2024 End: 06-05-2024 ambulatory RON WHITLEY Facility:[facility] Start: 05-11-2024 End: 05-11-2024 Telephone encounter Ayaka Mccollum APRN.WOOLEN TESTER Work Phone: [facility] Comment on above: Results Start: 05-07-2024 End: 05-07-2024 Patient encounter procedure Ayaka Mccollum APRN.WOOLEN TESTER Work Phone: [facility] Comment on above: Medication managemen t (Primary Dx); Screening for depression; Elevated PSA; Mixed hyperlipidemia; Elevated fasting blood sugar; Generalized anxiety disorder; Encounter for immunization; GERD without esophagitis; Elevated BP without diagnosis of hypertension; Primary insomnia Start: 05-07-2024 End: 05-07-2024 ambulatory RON WHITLEY Facility:[facility] Start: 05-05-2024 End: 05-05-2024 Refill Ron Whitley MD Work Phone: [facility] Comment on above: Refill Request Start: 07-08-2023 End: 07-08-2023 Patient encounter procedure Tali Yanez MD Work Phone: Urology Comment on above: BPH with obstruction /lower urinary tract symptoms (Primary Dx); Elevated PSA; Nocturia Start: 06-15-2023 Telephone encounter Ron Whitley MD Work Phone: [facility] Comment on above: Results Start: 06-13-2023 Telephone encounter Rut Valentin [address] Comment on above: Orders Start: 03-20-2023 Telephone encounter Isai DAWSON Work Phone: [facility] Comment on above: Results Start: 03-19-2023 End: 03-19-2023 Subsequent hospital visit by physician Nika [facility] Work Phone: Radiology Comment on above: Acute cough [R05.1] Start: 03-19-2023 End: 03-19-2023 Office outpatient visit 15 minutes Camilla Chao PA-C Work Phone: [facility] Comment on above: Acute cough (Primary Dx); Subconjunctival hemorrhage of right eye Start: 12-18-2022 End: 12-18-2022 Patient encounter procedure Leesa Brady PA-C Work Phone: [facility] Comment on above: Well adult exam (Deepa quin Dx); Generalized anxiety disorder; Palpitations; Mixed hyperlipidemia; GERD without esophagitis; Elevated fasting blood sugar; Osteoarthritis, unspecified osteoarthritis type, unspecified site; Elevated PSA; Primary insomnia Start: 12-18-2022 End: 12-18-2022 Patient encounter status Leesa Brady PA-C Work Phone: [facility] Work Phone: Start: 11-23-2022 Refill Ron howard MD Work Phone: [facility] Comment on above: Refill Request Start: 11-21-2022 Telephone encounter Ron Whitley MD Work Phone: [facility] Comment on above: Appointment Start: 10-26-2022 Telephone encounter Leesa patiño PA-C Work Phone: [facility] Comment on above: Orders Start: 01-03-2022 End: 01-03-2022 ambulatory Ron Whitley Facility:[facility] Start: 01-03-2022 End: 01-03-[address] [facility] Work Phone: Start: 01-03-2022 End: 01-03-2022 Patient encounter procedure [facility] Start: 12-28-2021 End: 12-28-2021 Patient encounter procedure [facility] Start: 12-28-2021 End: 12-28-2021 ambulatory Alonzo Weber [facility] Work Phone: Start: 12-23-2021 End: 12-23-2021 ambulatory Parth Ferris Facility:[facility] Start: 12-23-2021 End: 12-23-2021 Emergency department patient visit [facility] Start: 12-23-2021 End: 12-23-2021 Patient encounter procedure [facility] Start: 12-20-2021 End: 12-20-2021 Emergency department patient visit Alonzo Weber Facility:[facility] Start: 12-20-2021 End: 12-20-2021 Emergency department patient visit [facility] Start: 05-26-2019 Patient encounter status Maryuri Brady PA-C Work Phone: [facility] Work Phone: Procedures Date Procedure Procedure Detail Performing Clinician Start: 05-07-2024 Adult depression scr eening assessment Ayaka Mccollum APRN.WOOLEN TESTER Work Phone: Start: 05-07-2024 Lipid 1996 panel - S allie or Plasma Ayaka Mccollum APRN.WOOLEN TESTER Work Phone: Start: 03-19-2023 COVID & INFLUENZA [...] Vaccine (1 - 1-dose 75+ series) [facility] Start: 06-05-2029 Prostate specific antigen measurement Prostate Cancer Screening Discussion [facility] Start: 05-07-2029 Lipid panel Lipid Screening [facility] Start: 05-07-2029 Prostate specific antigen measurement Prostate Cancer Screening Discussion [facility] Start: 06-14-2028 Prostate specific antigen measurement Prostate Cancer Screening Discussion [facility] Start: 11-14-2027 Lipid 1996 panel - Serum or Plasma Lipid Screening [facility] Start: 11-14-2027 Lipid panel Lipid Screening [facility] Start: 11-14-2027 LIPID SCREEN LIPID SCREEN [facility] Start: 11-14-2027 PROSTATE CANCER SCREENING DISCUSSION PROSTATE CANCER SCREENING DISCUSSION [facility] Start: 11-14-2027 Prostate specific antigen measurement Prostate Cancer Screening Discussion [facility] Start: 06-29-2027 Urine microalbumin profile [facility] Start: 05-07-2027 Diabetes Screening Diabetes Screenin g [facility] Start: 05-22-2026 Colonoscopy COLONOSCOPY [facility] Start: 05-22-2026 COLORECTAL CANCER SCREENING COLORECTAL CANCER SCREENING [facility] Start: 05-22-2026 Screening for malign ant neoplasm of colon [facility] Start: 03-11-2026 LIPID SCREEN LIPID SCREEN [facility] Start: 11-13-2025 DIABETES SCREEN DIABETES SCREEN [facility] Start: 11-13-2025 Diabetes Screening Diabetes Screenin g [facility] Start: 05-07-2025 Depression Screening Depression Scre ening [facility] Start: 05-07-2025 Pneumococcal Vaccine : 50+ (1 of 1 - PCV) Pneumococcal Vaccine: 50+ (1 of 1 - PCV) [facility] Comment on above: Postponed from 04/25 (Declined at this time) Start: 05-07-2025 Shingrix Vaccine (1 of 2) Shingrix Vaccine (1 of 2) [facility] Comment on above: Postponed from 04/25 (Declined at this time) Start: 04-21-2025 Advance Directive Discussion Advance Directive Discussion [facility] Comment on above: Postponed from 04/25 (Declined at this time) Start: 11-04-2024 End: 11-04-2024 Patient encounter procedure [facility] [place] Comment on above: 6 month follow up Start: 09-11-2024 Covid-19 Vaccine () Covid-19 Vaccine () [facility] Start: 07-30-2024 End: 07-30-2024 Patient encounter procedure 07/30/2024 9:15 AM EDT Office Visit Urology [address] [place] [address] Tali Yanez MD [address] [place] [address] 1 year follow up psa prior Urology Comment on above: 1 year follow up psa prior Start: 07-07-2024 End: 10-06-2024 Prostate specific Ag [Mass/volume] in Serum or Plasma PSA/PROSTSPECAG DIAG Lab Routine Elevated PSA BPH with obstruction/lower urinary tract symptoms Nocturia Expected: 07/07/2024 (Approximate), Expires: 10/06/2024 [facility] Work Phone: Comment on above: Expected: 07/07/2024 (Approximate), Expires: 10/06/2024 Start: 05-11-2024 End: 08-10-2024 Prostate Specific Ag Free [Mass/volume] in Serum or Plasma PROSTATE SPECIFIC ANTIGEN, FREE Lab Routine Elevated PSA Expected: 05/11/2024, Expires: 08/10/2024 [facility] Work Phone: Comment on above: Expected: 05/11/2024 , Expires: 08/10/2024 Start: 05-07-2024 End: 08-06-2024 CBC W Auto Differential panel - Blood [facility] Work Phone: Comment on above: Expected: 05/07/2024 , Expires: 08/06/2024 Start: 05-07-2024 End: 08-06-2024 Cobalamin (Vitamin B12) [Mass/volume] in Serum or Plasma [facility] Comment on above: Expected: 05/07/2024 , Expires: 08/06/2024 Start: 05-07-2024 End: 08-06-2024 Comprehensive metabolic 2000 panel - Serum or Plasma [facility] Comment on above: Expected: 05/07/2024 , Expires: 08/06/2024 Start: 05-07-2024 End: 08-06-2024 Hemoglobin A1c in Blood [facility] Comment on above: Expected: 05/07/2024 , Expires: 08/06/2024 Start: 05-07-2024 End: 08-06-2024 LIPID PANEL, NONFASTING [facility] Comment on above: Expected: 05/07/2024 , Expires: 08/06/2024 Start: 05-07-2024 End: 08-06-2024 Magnesium [Mass/volume] in Serum or Plasma [facility] Comment on above: Expected: 05/07/2024 , Expires: 08/06/2024 Start: 05-07-2024 End: 08-06-2024 PSA/PROSTATE SPECIFIC ANTIGEN SCREENING [facility] Comment on above: Expected: 05/07/2024 , Expires: 08/06/2024 Start: 05-07-2024 End: 08-06-2024 Thyrotropin [Units/volume] in Serum or Plasma [facility] Comment on above: Expected: 05/07/2024 , Expires: 08/06/2024 Start: 05-07-2024 End: 08-06-2024 Urinalysis complete panel - Urine [facility] Comment on above: Expected: 05/07/2024 , Expires: 08/06/2024 Start: 05-07-2024 End: 05-07-2024 Patient encounter procedure 05/07/2024 10:40 AM EST Office Visit [facility] [address] [place], [place] [id number] Ayaka Mccollum APRN.WOOLEN TESTER [address] [place] [address] Yearly exam [facility] Comment on above: Yearly exam Start: 2024 Advance Directive Discussion Advance Directive Discussion [facility] Start: 03-11-2024 DIABETES SCREEN DIABETES SCREEN [facility] Start: 01-04-2024 End: 04-04-2024 Prostate specific Ag [Mass/volume] in Serum or Plasma PSA/PROSTSPECAG DIAG Lab Routine Elevated PSA BPH with obstruction/lower urinary tract symptoms Nocturia Expected: 01/04/2024 (Approximate), Expires: 04/04/2024 [facility] Work Phone: Comment on above: Expected: 01/04/2024 (Approximate), Expires: 04/04/2024 Start: 12-22-2023 Covid-19 Vaccine () Covid-19 Vaccine () [facility] Start: 06-13-2023 End: 09-12-2023 Prostate Specific Ag Free [Mass/volume] in Serum or Plasma PSA FREE Lab Routine Elevated PSA Expected: 06/13/2023, Expires: 09/12/2023 [facility] Work Phone: Comment on above: Expected: 06/13/2023 , Expires: 09/12/2023 Start: 04-22-2023 Depression Assessment Depression Ass [facility] Start: 04-21-2023 DEPRESSION ASSESSMENT DEPRESSION ASS [facility] Comment on above: Postponed from 04/22 (Postponed To Appropriate Date) Start: 03-20-2023 End: 05-20-2023 Prostate Specific Ag Free [Mass/volume] in Serum or Plasma PSA FREE Lab Routine Elevated PSA Expected: 03/20/2023, Expires: 05/20/2023 [facility] Work Phone: Comment on above: Expected: 03/20/2023 , Expires: 05/20/2023 Start: 12-21-2022 Covid-19 Vaccine () Covid-19 Vaccine () [facility] Start: 10-29-2022 End: 12-29-2022 CBC W Auto Differential panel - Blood CBC + DIFF Lab Routine Mixed hyperlipidemia Generalized anxiety disorder Prostate cancer screening Elevated fasting blood sugar Expected: 10/29/2022, Expires: 12/29/2022 [facility] Work Phone: Comment on above: Expected: 10/29/2022 , Expires: 12/29/2022 Start: 10-29-2022 End: 12-29-2022 Comprehensive metabolic 2000 panel - Serum or Plasma COMP METABOLIC PANEL Lab Routine Mixed hyperlipidemia Generalized anxiety disorder Prostate cancer screening Elevated fasting blood sugar Expected: 10/29/2022, Expires: 12/29/2022 [facility] Work Phone: Comment on above: Expected: 10/29/2022 , Expires: 12/29/2022 Start: 10-29-2022 End: 12-29-2022 Hemoglobin A1c in Blood HGB A1C Lab Routine Mixed hyperlipidemia Generalized anxiety disorder Prostate cancer screening Elevated fasting blood sugar Expected: 10/29/2022, Expires: 12/29/2022 [facility] Work Phone: Comment on above: Expected: 10/29/2022 , Expires: 12/29/2022 Start: 10-29-2022 End: 12-29-2022 LIPID PANEL, NONFASTING LIPID PANEL, NONFASTING Lab Routine Mixed hyperlipidemia Generalized anxiety disorder Prostate cancer screening Elevated fasting blood sugar Expected: 10/29/2022, Expires: 12/29/2022 [facility] Work Phone: Comment on above: Expected: 10/29/2022 , Expires: 12/29/2022 Start: 10-29-2022 End: 12-29-2022 Prostate specific Ag [Mass/volume] in Serum or Plasma PSA/PROSTSPECAG DIAG Lab Routine Prostate cancer screening Expected: 10/29/2022, Expires: 12/29/2022 [facility] Work Phone: Comment on above: Expected: 10/29/2022 , Expires: 12/29/2022 Start: 10-29-2022 End: 12-29-2022 Urinalysis complete panel - Urine URINALYSIS, WITH MICROSCOPIC Lab Routine Mixed hyperlipidemia Generalized anxiety disorder Prostate cancer screening Elevated fasting blood sugar Expected: 10/29/2022, Expires: 12/29/2022 [facility] Work Phone: Comment on above: Expected: 10/29/2022 , Expires: 12/29/2022 Start: 04-22-2022 DEPRESSION ASSESSMENT DEPRESSION ASS ESSMENT [facility] Start: 10-10-2021 PROSTATE CANCER SCREENING DISCUSSION PROSTATE CANCER SCREENING DISCUSSION [facility] Start: 05-18-2021 COVID-19 VACCINE (4 - Pfizer series) COVID-19 VACCINE (4 - Pfizer series) [facility] Start: 2019 RSV Vaccine (1 - 1-d ose 60+ series) RSV Vaccine (1 - 1-dose 60+ series) [facility] Start: 2009 Pneumococcal Vaccine : 50+ (1 of 1 - PCV) Pneumococcal Vaccine: 50+ (1 of 1 - PCV) [facility] Start: 2009 SHINGRIX VACCINE (1 of 2) SHINGRIX VACCINE (1 of 2) [facility] Start: 2004 COLOGUARD (FIT-DNA) COLOGUARD (FIT-D NA) [facility] Start: [address] COLONOGRAPHY [facility] Start: 2004 FECAL OCCULT BLOOD FECAL OCCULT BLOO D [facility] Start: 2004 Screening for malign ant neoplasm of colon [facility] Start: 2004 SIGMOIDOSCOPY SIGMOIDOSCOPY [facility] Start: 1977 Depression Screening Depression Scre ening [facility] Start: 1977 HIV SCREENING HIV SCREENING [facility] Patient Education Understanding Rabies [facility] Work Phone: Patient referral [facility] Work Phone: [facility] Immunizations Immunization Date Immunization Notes Care Provider Fa cili 01-03-2022 rabies vaccine, for intramuscular injection [facility] 12-28-2021 rabies vaccine, for intramuscular injection [facility] 12-23-2021 rabies vaccine, for intramuscular injection [facility] 12-20-2021 rabies immune globulin [facility] 12-20-2021 rabies vaccine, for intramuscular injection [facility] 07-27-2020 COVID-19 original vaccine, age 12+ yr, monovalent (PFIZER-BIONTECH - PURPLE TOP) Leesa Brady PA-C Work Phone: [facility] 07-02-2020 COVID-19 original vaccine, age 12+ yr, monovalent (PFIZER-BIONTECH - PURPLE TOP) Leesa Brady PA-C Work Phone: [facility] 06-28-2017 tetanus toxoid, redu alisia diphtheria toxoid, and acellular pertussis vaccine, adsorbed Leesa Brady PA-C Work Phone: [facility] 09-17-2008 tetanus and diphther ia toxoids, adsorbed, preservative free, for adult use (2 Lf of tetanus toxoid and 2 Lf of diphtheria toxoid) Leesa Brady PA-C Work Phone: [facility] Payers Date Payer Category Payer Self-pay [id number] 2018 Private Health Insurance MMO SU[employer] PPO [id number] 2018 Unknown MMO MMO [employer] PPO [id number] 2018-Present [phone] [address] [place] [address] PPO [id number] 2018 Unknown [id number] OB [id number] Unknown OBW [id number] [id number] Unknown [id number] Unknown [id number] Unknown [id number] Unknown [id number] Social History Date Type Detail Facility Start: 12-20-2021 Tobacco smoking stat us NHIS Unknown if ever smoked [facility] Work Phone: Start: 07-16-2019 None [facility] Work Phone: Start: 07-16-2019 Spouse/ Signif icant Other [facility] Work Phone: Start: 1960 Sex Assigned At Male [facility] Work Phone: Start: 06-23-2014 End: 12-18-2022 Tobacco smoking status NHIS Never smoked tobacco [facility] Work Phone: Start: 06-23-2014 End: 12-18-2022 Tobacco use and exposure Former smokeless tobacco user [facility] Work Phone: Start: 06-21-2021 End: 07-30-2024 Alcohol intake Current drinker of alcohol (finding) [facility] Start: 06-21-2021 End: 11-15-2022 History of Social function [facility] Start: 06-21-2021 End: 11-15-2022 Tobacco use panel [facility] Adult Depression Screening Assessment 0 [facility] Start: 05-22-2021 Alcohol Comment 1 beer daily [facility] Start: 1960 Sex Assigned At Not on file [facility] Functional Status Date Assessment Result Facility 06-23-2014 Are you deaf, or do you have serious difficulty hearing No 06/23/2014 10:15 AM Sheela Thompson LPN [facility] Work Phone: 06-23-2014 Are you blind, or do you have serious difficulty seeing, even when wearing glasses No 06/23/2014 10:15 AM Sheela Thompson LPN No [facility] 06-23-2014 Do you have serious difficulty walking or climbing stairs No 06/23/2014 10:15 AM Sheela Thompson LPN No [facility] 06-23-2014 Do you have difficul ty dressing or bathing No 06/23/2014 10:15 AM Sheela Thompson LPN No [facility] 06-23-2014 Because of a physica l, mental, or emotional condition, do you have difficulty doing errands alone such as visiting a physician's office or shopping No 06/23/2014 10:15 AM Sheela Thompson LPN No [facility] Mental Status Date Assessment Result Facility 12-20-2021 Cognitive function Level Of Cons ciousness Awake;Alert;Appropriate;Fol lows Commands [facility] Work Phone: 06-23-2014 Because of a physica l, mental, or emotional condition, do you have serious difficulty concentrating, remembering, or making decisions No 06/23/2014 10:15 AM Sheela Thompson LPN No [facility] Clinical Notes 10-29-2022 to 11-24-2024 Tali Yanze MD - 07/30/2024 9:12 AM EDTTelephone Encounter - Marivel Oliveira MA - 07/05/2024 3:10 PM EDTTelephone Encounter - Marivel Oliveira MA - 07/05/2024 3:10 PM EDTPatient Instructions Note Date & Type Note Facility 11-24-2024 Note HNO ID: [id number] Author: JANETT SARABIA Tech Service: ? Author Type: Food Operations Manager Type: Progress Notes Filed: 11/24/2024 11:02 Note [...] PATIENT PRESENTS WITH AN IMPLANTABLE OR ATTACHED ELECTRONICS MANUFACTURER: No RADIOLOGY DEPARTMENT: General X-ray: Exam(s) Completed: Abdomen X-Ray: Abdomen with Obliques PERIPHERAL IV DATA: Not applicable SIGNED BY: Ben Mahan November 24, 2024 10:49 AM [facility] 11-24-2024 Note HNO ID: [id number] Author: AYAKA MCCOLLUM APRN.WOOLEN TESTER Service: ? Author Type: Nurse Practitioner Type: [...] - UA DIP, URINE (POC) Ayaka Mccollum APRN.[facility] 07-30-2024 History of Presen t illness [...] Date Value 05/07/2024 Negative 10/10/2016 Negative Specific [place], Ur (no units) Date Value 05/07/2024 1.022 [...] at 3.5 documented in this encounter [facility] 07-30-2024 Note HNO ID: [id number] Author: TALI YANEZ MD Service: ? Author [...] Date Value 05/07/2024 Negative 10/10/2016 Negative Specific [place], Ur (no units) Date Value 05/07/2024 1.022 [...] declined MRI. Latest PSA stable at 3.5 [facility] 07-05-2024 Telephone encounter Note Pt notified via myAchy that he should have another 90 day supply at pharmacy. Marivel Oliveira MA [facility] 07-05-2024 Miscellaneous Notes Pt notified via myAchy that he should have another 90 day [...] 11:14 AM documented in this encounter [facility] 07-04-2024 Telephone encounter Note Prescription Refill [...] Polanco July 04, 2024 11:14 AM [facility] 06-11-2024 Telephone encounter Note Pt active on Talentaghart- message sent Janett Mejia MA [facility] 06-11-2024 Miscellaneous Notes Pt active on mychart- message sent Janett Mejia MA Please let patient know his PSA continues to decrease. documented in this encounter [facility] 06-11-2024 Telephone encounter Note Please let patient know his PSA continues to decrease. [facility] 05-11-2024 Telephone encounter Note Patient updated and voiced understanding. Vira Wheatley LPN [facility] 05-11-2024 Miscellaneous Notes Patient updated and voiced understanding. Vira Wheatley LPN Rx sent. Patient voices understanding of provider's message below and will complete lab order. Patient agreeable to trying a different statin medication. Send to [facility]. Thank you. Message left [...] statin medication? documented in this encounter [facility] 05-11-2024 Telephone encounter Note Rx sent. [facility] 05-11-2024 Telephone encounter Note Patient voices understanding of provider's message below and will complete lab order. Patient agreeable to trying a different statin medication. Send to [facility]. Thank you. [facility] 05-11-2024 Telephone encounter Note Message left for patient to return call to review provider's message with him. Vira Wheatley LPN [facility] 05-11-2024 Telephone encounter Note Please let patient know his labs show an elevated PSA. I would like to get a follow up lab to check this. Also his lipid panel is elevated from previous. His total cholesterol is high and his LDL is high. Is patient open to trying a different statin medication? [facility] 05-07-2024 Note Addended by: AYAKA MCCOLLUM on: 05/07/2024 11:41 AM Modules accepted: Orders [facility] 05-07-2024 Miscellaneous Notes Addended by: AYAKA MCCOLLUM on: 05/07/2024 11:41 AM Modules accepted: Orders documented in this encounter [facility] 05-07-2024 Note HNO ID: [id number] Author: AYAKA MCCOLLUM APRN.STEPHANY Service: ? Author [...] Z79.899 (primary diagnosis) (more content not included)... [facility] 05-07-2024 History of Presen t illness Narrative [...] have reviewed the Advanced Practice Registered Nurse (SURVEY INSTRUMENT OPERATOR) student's documentation and verified the findings in the note as written. Any additions or changes are noted in bold/italics. Ayaka Mccollum APRN.WOOLEN TESTER documented in this encounter [facility] 05-05-2024 Telephone encounter Note The following approved medication requests have been transmitted electronically. Requested Prescriptions Signed Prescriptions Disp Refills FLUoxetine (PROZAC) 40 mg capsule 30 capsule 0 Sig: Take 1 capsule by mouth once daily. Authorizing Provider: LEESA BRADY PA-C [facility] 05-05-2024 Miscellaneous Notes The following approved [...] 10:10 AM documented in this encounter [facility] 05-05-2024 Telephone encounter Note Patient scheduled for 05/07/2023 to be seen by Ayaka [facility] 05-05-2024 Telephone encounter Note Prescription Refill [...] capsule by mouth once daily. [facility] May 05, 2024 10:10 AM [facility] 07-08-2023 History of Presen t illness [...] Date Value 11/13/2022 Negative 10/10/2016 Negative Specific [place], Ur (no units) Date Value 11/13/2022 1.023 [...] Currently Pulse 61 Ht 177.2 cm (5' 9.76") Wt 88 kg (194 lb) SpO2 99% [...] 12 mths documented in this encounter [facility] 06-15-2023 Miscellaneous Notes Spoke with patient. [...] [facility] Order placed. documented in this encounter [facility] 06-14-2023 Miscellaneous Notes Pt notified of [...] Thank you documented in this encounter [facility] 03-20-2023 Miscellaneous Notes Pt was notified [...] not improving. documented in this encounter [facility] 03-19-2023 History of Presen t illness [...] 1:14 PM documented in this encounter [facility] 03-19-2023 History of Presen t illness [...] PA-C 03/20/2023 documented in this encounter [facility] 12-18-2022 Instructions Leesa Brady PA-C - 12/18/2022 12:37 PM EDT Repeat PSA in . Follow up in 1 year documented in this encounter [facility] 12-18-2022 History of Presen t illness [...] F) Resp 16 Ht 177.2 cm (5' 9.78") Wt 88 kg (194 lb) BMI 28.01 [...] Abs Lymph 1.00 - 4.00 k/uL 1.18 [place]arrow% % 6.9 Abs [place] <0.87 k/uL 0.42 Eosin% % 1.0 Abs [...] Negative Ketones, Urine Trace, Negative Negative Specific [place], Ur 1.005 - 1.030 1.023 Hemoglobin/Blood,Ur Negative, [...] Brady PA-C documented in this encounter [facility] 11-26-2022 Miscellaneous Notes Patient scheduled. Patience Gutierrez MA Left message on voicemail to call office back Nikki Harmon Ma Patient's complete PE on 11/15/2022 had to be canceled because Leesa had to leave due to illness. Please help reschedule documented in this encounter [facility] 11-23-2022 Miscellaneous Notes The following approved [...] Adithya Lara documented in this encounter [facility] 10-29-2022 Miscellaneous Notes Pt notified of same. Jt De Dios LPN Orders placed. Patient has an appointment scheduled for 11/15/22 and is asking if needs to complete labs prior? documented in this encounter [facility] Evaluation note No assessment inform ation available [facility] Work Phone: Evaluation note Diagnosis Mixed hyperlipidemia- [...] specific antigen (PSA) [facility] B[facility] with obstruction/lower urinary [...] symptoms (LUTS) Nocturia [facility] Dis[facility] instructions Additional Instructions Follow-up here for [...] Date/ Time Living Will No December 20 4:56pm Power of Food Operations Manager No December 20 022 4:56pm Summary Purpose Family History No Family History Records FoundNo Family History Records FoundNo Family History Records Found Reason for Referral Specialty Diagnoses / Procedures Referred By Su de la cruz Referred To Contact Urology Diagnoses Elevated PSA Procedures CONSULT TO UROLOGY OFFICE/OUTPATIENT [facility] 60 MINUTES Ron Whitley MD [address] [place] [address] Referral ID Status Reason Start Date Expiration Date Visits Requested Visits Authorized [id number] Authorized PCP Requested Referral 06/15/2023 06/14/2024 1 [...] section and content) DATE CREATED AUTHOR 01/17/2022 [facility] DATE CREATED AUTHOR AUTHOR'S ORGANIZ ATION 07/31/2024 [facility] DATE CREATED AUTHOR AUTHOR'S ORGANIZ ATION 11/30/2024 [facility] Source Comments (unrecognize d section and content) In the event this informatio n is protected by the Federal Confidentiality of Alcohol and Drug Abuse Patient Records regulations: The Federal rules restrict any use of the information to criminally investigate or prosecute any alcohol or drug abuse patient.[facility] the event this information is protected by the Federal Confidentiality of Alcohol and Drug Abuse Patient Records regulations: The Federal rules restrict any use of the information to criminally investigate or prosecute any alcohol or drug abuse patient.[facility] the event this information is protected by the Federal Confidentiality of Alcohol and Drug Abuse Patient Records regulations: The Federal rules restrict any use of the information to criminally investigate or prosecute any alcohol or drug abuse patient.[facility] the event this information is protected by the Federal Confidentiality of Alcohol and Drug Abuse Patient Records regulations: The Federal rules restrict any use of the information to criminally investigate or prosecute any alcohol or drug abuse patient.[facility] the event this information is protected by the Federal Confidentiality of Alcohol and Drug Abuse Patient Records regulations: The Federal rules restrict any use of the information to criminally investigate or prosecute any alcohol or drug abuse patient.[facility] the event this information is protected by the Federal Confidentiality of Alcohol and Drug Abuse Patient Records regulations: The Federal rules restrict any use of the information to criminally investigate or prosecute any alcohol or drug abuse patient.[facility] the event this information is protected by the Federal Confidentiality of Alcohol and Drug Abuse Patient Records regulations: The Federal rules restrict any use of the information to criminally investigate or prosecute any alcohol or drug abuse patient.[facility] the event this information is protected by the Federal Confidentiality of Alcohol and Drug Abuse Patient Records regulations: The Federal rules restrict any use of the information to criminally investigate or prosecute any alcohol or drug abuse patient.[facility] the event this information is protected by the Federal Confidentiality of Alcohol and Drug Abuse Patient Records regulations: The Federal rules restrict any use of the information to criminally investigate or prosecute any alcohol or drug abuse patient.[facility] the event this information is protected by the Federal Confidentiality of Alcohol and Drug Abuse Patient Records regulations: The Federal rules restrict any use of the information to criminally investigate or prosecute any alcohol or drug abuse patient.[facility] the event this information is protected by the Federal Confidentiality of Alcohol and Drug Abuse Patient Records regulations: The Federal rules restrict any use of the information to criminally investigate or prosecute any alcohol or drug abuse patient.[facility] the event this information is protected by the Federal Confidentiality of Alcohol and Drug Abuse Patient Records regulations: The Federal rules restrict any use of the information to criminally investigate or prosecute any alcohol or drug abuse patient.[facility] the event this information is protected by the Federal Confidentiality of Alcohol and Drug Abuse Patient Records regulations: The Federal rules restrict any use of the information to criminally investigate or prosecute any alcohol or drug abuse patient.[facility] the event this information is protected by the Federal Confidentiality of Alcohol and Drug Abuse Patient Records regulations: The Federal rules restrict any use of the information to criminally investigate or prosecute any alcohol or drug abuse patient.[facility] the event this information is protected by the Federal Confidentiality of Alcohol and Drug Abuse Patient Records regulations: The Federal rules restrict any use of the information to criminally investigate or prosecute any alcohol or drug abuse patient.[facility] the event this information is protected by the Federal Confidentiality of Alcohol and Drug Abuse Patient Records regulations: The Federal rules restrict any use of the information to criminally investigate or prosecute any alcohol or drug abuse patient.[facility] Reason for Visit (unrecogniz ed section [...] MDM 60 MINUTES Ron Whitley MD [address] [place] [address] Referral ID Status Reason Start Date Expiration Date V isits Requested Visits Authorized [id number] Closed PCP Requested Referral 06/15/2023 06/14/2024 1 1 Reason Onset Date Comments Refill Request 05/05/2024 Reason Comments Physical Reason Onset Date Comments Refill Request 07/04/2024 Reason Comments Benign Prostatic Hypertrophy Nocturia Care Teams (unrecognized sec tion and content) Folder Taper Operator Relationship Specialty Start Date End Date Ron Whitley MD [address] [place], [place] [id number] PCP - General Family Medicine 05/09/15 Folder Taper Operator Relationship Specialty Start Date End Date Ron Whitley MD [address] [place], [place] [id number] PCP - General Family Medicine 05/09/15 Folder Taper Operator Relationship Specialty Start Date End Date Ron Whitley MD [address] [place], [place] [id number] PCP - General Family Medicine 05/09/15 Folder Taper Operator Relationship Specialty Start Date End Date Ron Whitley MD [address] [place], [place] [address] [phone] PCP - General Family Medicine 05/09/15 Folder Taper Operator Relationship Specialty Start Date End Date Ron Whitley MD [address] [place], [place] [address] [phone] PCP - General Family Medicine 05/09/15 Folder Taper Operator Relationship Specialty Start Date End Date Ron Whitley MD [address] [place] [address] PCP - General Family Medicine 05/09/15 Folder Taper Operator Relationship Specialty Start Date End Date Ron Whitley MD [address] [place] [address] PCP - General Family Medicine 05/09/15 Folder Taper Operator Relationship Specialty Start Date End Date Ron Whitley MD [address] [place] [address] PCP - General Family Medicine 05/09/15 Folder Taper Operator Relationship Specialty Start Date End Date Ron Whitley MD [address] [place] [address] PCP - General Family Medicine 05/09/15 Folder Taper Operator Relationship Specialty Start Date End Date Ron Whitley MD [address] [place] [address] PCP - General Family Medicine 05/09/15 Folder Taper Operator Relationship Specialty Start Date End Date Ron Whitley MD [address] [place] [address] PCP - General Family Medicine 05/09/15 Ayaka Mccollum, KESHAWN.WOOLEN TESTER [address] [place] [address] Powerhouse Mechanic Apprentice Family Medicine 03/28/24 Leesa Brady PA-C [address] [place] [address] Powerhouse Mechanic Apprentice Family Medicine 03/28/24 Folder Taper Operator Relationship Specialty Start Date End Date Ron Whitley MD [address] [place] [address] PCP - General Family Medicine 05/09/15 Ayaka Mccollum, KESHAWN.WOOLEN TESTER [address] [facility] [place] [address] Powerhouse Mechanic Apprentice Family Medicine 03/28/24 Leesa Brady PA-C [address] [place] [address] Powerhouse Mechanic Apprentice Family Medicine 03/28/24 Folder Taper Operator Relationship Specialty Start Date End Date Ron Whitley MD [address] [place] [address] PCP - General Family Medicine 05/09/15 Ayaka Mccollum, SURVEY INSTRUMENT OPERATOR.WOOLEN TESTER [address] [facility] [place] [address] Powerhouse Mechanic Apprentice Family Medicine 03/28/24 Leesa Brady PA-C [address] [place] [address] Powerhouse Mechanic Apprentice Family Medicine 03/28/24 Folder Taper Operator Relationship Specialty Start Date End Date Ron Whitley MD [address] [place] [address] PCP - General Family Medicine 05/09/15 Ayaka Mccollum, SURVEY INSTRUMENT OPERATOR.WOOLEN TESTER [address] [facility] [place] [address] Powerhouse Mechanic Apprentice Family Medicine 03/28/24 Leesa Brady PA-C [address] [place] [address] [facility] 03/28/24 Folder Taper Operator Relationship Specialty [place] [address] [place] [id number] PCP - General Family Medicine 05/09/15 Ayaka Mccollum APRN.WOOLEN TESTER [address] [place] [id number] [facility] 03/28/24 Leesa Brady PA-C [facility] [place] [address] [facility] 03/28/24 Folder Taper Operator Relationship Specialty Start Date End Date Ron Whitley MD [address] [place] [id number] PCP - General Family [facility] 07/27/24 Ayaka Mccollum APRN.WOOLEN TESTER [address] [place] [id number] [facility] 03/28/24 Leesa Brady PA-C [facility] [place], [place] [address] [facility] 03/28/24 FOR RECORDS PERTAINING TO PATIENTS WHO [...] BE BASED ON THE PRIMARY CLINICAL RECORDS. [facility]. provides no warranty or guarantee of the accuracy or completeness of information in this document.
[2025-03-18 11:40] VITALS: BP 149/98; PULSE 81; RESP 14; TEMP 36.6; O2SAT 100
--- OUTSIDE RECORDS SUMMARY | 2025-03-18 13:31 | XMS RPT_ITS | CCD ---
Author Organization [facility] Care Team Providers Care Assistant Front Desk Manager Name Role Phone Ron Whitley Primary Care Unavailable Provider, Ed Physician Attending Unavailab Alonzo Boston Attending Unavailable Ron Whitley Primary Care Unavailable Parth Ferris Referring Unavailable Parth Ferris Attending Unavailable Ron Whitley Primary Care Unavailable Alonzo Weber Attending Unavailable Ron Whitley Primary Care Unavailable Ron Whitley MD Primary Care Provider [phone] Ron Whitley MD Primary Care Provider Veda SOAP MIXERAyaka CAREY Unavailable Leesa Brady PA-C Unavailable [phone] Ron Whitley MD Primary Care Provider [phone] TALI YANEZ Attending Unavailable RON WHITLEY Primary [...] atorvastatin; Translations: [ATORVASTATIN] Drug Allergy 11-27-2019 Myalgia [facility] Work Phone: Medications Current Medications [...] on above: Take 1 capsule by [facility] once daily. mirtazapine 15 mg [...] mouth once daily. Take 1 tablet by [facility] daily. pravastatin sodium 10 mg [...] up to 180 days. polyethylene glycol 3350 799384 mg / potassium chloride 2970 mg / sodium bicarbonate 6740 mg / sodium chloride 5860 mg / sodium sulfate 79222 mg powder for oral solution (12 sources) [...] Test Name Value Interpretation Reference Range Facility [facility] 11-24-2024 CNOV [facility] ASYA SHETH ([id number]) 1960 M Date Time Provider Department 11/24/24 10:20 AM AYAKA MCCOLLUM [facility] During your visit today, we recorded [...] DIP, URINE (POC) Ayaka Mccollum APRN.Ayaka Solorio APRN.CANVASSING MANAGER 11/24/2024 10 (more content not included)... Normal [facility] LIPID PANEL, NONFASTINGon Cholesterol [Mass/Vol] 218 mg/dL High <200 [facility] Comment on above: Order Comment: Speci men Type: BLOOD SPECIMEN Ordering Facility: [facility] Address: [address] [place] [address] Result Comment: <200 mg/dL, Desirable 200-239 mg/dL, Borderline high >239 mg/dL, High Performed By: #### L IPNF #### [facility] CLIA [id number] [address] [place] [address] [place] HDL CHOLESTEROL, NF 44 mg/dL Normal >39 [facility] Comment on above: Order Comment: Speci men Type: BLOOD SPECIMEN Ordering Facility: [facility] Address: [address] [place] [address] Result Comment: 40-5 9 mg/dL, Acceptable >59 mg/dL, High: Negative risk factor for coronary heart disease <40 mg/dL, Low: Positive risk factor for coronary heart disease Performed By: #### L IPNF #### [facility] CLIA [id number] [address] [place] [address] [place] LDL CHOLESTEROL CALCULATED, NF 132 mg/dL High <100 [facility] Comment on above: Order Comment: Speci men Type: BLOOD SPECIMEN Ordering Facility: [facility] Address: [address] [place] [address] Result Comment: <100 mg/dL, Optimal 100-129 mg/dL, Near optimal/above optimal 130-159 mg/dL, Borderline high 160-189 mg/dL, High >189 mg/dL, Very high Secondary prevention optimal LDL Cholesterol levels are recommended to be <70 mg/dL LDL cholesterol is calculated using the Andujar-NIH equation. Performed By: #### L IPNF #### [facility] CLIA [id number] [address] [place] [address] [place] LDL/HDL RATIO, NF 3.00 mg/dL High <2.54 [facility] Comment on above: Order Comment: Grace hayward Type: BLOOD SPECIMEN Ordering Facility: [facility] Address: [address] [place] [address] Result Comment: Donaldo basurto: 1. National Cholesterol Education Program ATP III Guideline At-A-Glance Quick Desk Reference: National Heart, Lung, and Blood Orient. National Institutes of Health. 2001: NIH Publication No. 01-3305. 2. An International Atherosclerosis Society position paper: global recommendations for the management of dyslipidemia: executive summary, Atherosclerosis. 2014: 232(2):410-413. Performed By: #### L IPNF #### [facility] CLIA [id number] [address] [place] [address] [place] NON HDL CHOL, NF 174 mg/dL High <130 [facility] Comment on above: Order Comment: Grace hayward Type: BLOOD SPECIMEN Ordering Facility: [facility] Address: [address] [place] [address] Result Comment: <130 mg/dL, Optimal 130-159 mg/dL, Near optimal/above optimal 160-189 mg/dL, Borderline high 190-219 mg/dL, High >219 mg/dL, Very high Secondary prevention optimal non HDL Cholesterol levels are recommended to be <100 mg/dL Performed By: #### L IPNF #### [facility] CLIA [id number] [address] [place] [address] [place] T CHOL/HDL RATIO NF 4.95 mg/dL Normal <5.10 [facility] Comment on above: Order Comment: Jaylini men Type: BLOOD SPECIMEN Ordering Facility: [facility] Address: [address] [place] [address] Performed By: #### L IPNF #### [facility] CLIA [id number] [address] [place] [address] [place] TRIGLYCERIDES, NF 234 mg/dL High <150 [facility] Comment on above: Order Comment: Grace men Type: BLOOD SPECIMEN Ordering Facility: [facility] Address: [address] [place] [address] Result Comment: <150 mg/dL, Normal 150-199 mg/dL, Borderline high 200-499 mg/dL, High >499 mg/dL, Very high Performed By: #### L IPNF #### [facility] CLIA [id number] [address] [place] [address] OF [facility] VLDL CHOLESTEROL, NF 42 mg/dL High <30 [facility] Comment on above: Order Comment: Speci men Type: BLOOD SPECIMEN Ordering Facility: [facility] Address: [address] [place] [address] Performed By: #### L IPNF #### [facility] CLIA [id number] [address] [place] [address] STATES OF [facility] XR ABDOMEN 3V KUB W/OBLIQUES on 11-24-2024 [...] shows degenerative changes. IMPRESSION: Unremarkable abdomen x-ray. Mechanical Service Technician: PSCB Transcribe Date/Time: Nov 24 2024 11:08A Dictated by : ANISHA WILSON MD This examination was interpreted and the report reviewed and electronically signed by: ANISHA WILSON MD on Nov 24 2024 11:10AM EST [id number] Normal [facility] CNOVon 07-30-2024 CNOV Office Visit ([facility] ) CLAREASYA SANTANA ([id number]) 1960 M Date Time Provider Department 07/30/24 [...] Date Value 05/07/2024 Negative 10/10/2016 Negative Specific [place], Ur (no units) Date Value 05/07/2024 1.022 [...] [R00.2] 08/21 (more content not included)... Normal [facility] Free PSA [Mass/Vol]on 2024 Free PSA/Total PSA [Mass fraction] 19 % Normal [facility] Comment on above: Order Comment: Speci men Type: BLOOD SPECIMEN Ordering Facility: [facility] Address: [address] [place] [address] Result Comment: Tota l and free PSA [...] 15.8% Performed By: #### 1 0886-0 #### [facility] [place] [id number] [address] [place] [address] [place] Prostate specific Ag [Mass/Vol] 3.45 ng/mL High <2.60 [facility] Comment on above: Order Comment: Speci men Type: BLOOD SPECIMEN Ordering Facility: [facility] Address: [address] [place] [address] Result Comment: Tota l PSA test methodology [...] 2003,349:335-42. Performed By: #### 1 0886-0 #### [facility] CLIA [id number] [address] [place] [address] OF [place] Fito 05-11-2024 STEPHANYN Telephone ([facility]) ASYA SHETH ([id number]) 1960 M Date Time Provider Department 05/11/24 AYAKA MCCOLLUM During your visit today, we recorded the following information about you: Ayaka Mccollum APRN.CANVASSING MANAGER 05/11/2024 7:59 AM Signed Please let patient [...] trying a different statin medication. Send to [facility]. Thank you. Ayaka Mccollum, KESHAWN.CANVASSING MANAGER 05/11/2024 12:04 PM Signed Rx sent. Vira [...] Order(s):PROSTATE SPECIFIC ANTIGEN, FREE [SQPSATF] Order #: [id number] FUTURE pravastatin (PRAVACHOL) 10 mg tabletTake 1 [...] Status:Closed by VIRA WHEATLEY on 05/11/24 Normal [facility] CBC W Auto Differential pane l (Bld)on 05-07-2024 Basophils (Bld) [#/Vol] 0.03 10*3/uL Normal <0.11 [facility] Comment on above: Order Comment: Speci men Type: BLOOD SPECIMEN Ordering Facility: [facility] Address: [address] [place] [address] Performed By: #### 5 7021-8 #### [facility] CLIA [id number] [address] [place] [address] [place] [address] [place] Basophils/100 WBC (Bld) 0.5 % Normal [facility] Comment on above: Order Comment: Speci men Type: BLOOD SPECIMEN Ordering Facility: [facility] Address: [address] [place] [address] Performed By: #### 5 7021-8 #### [facility] CLIA [id number] [address] [place] [address] [place] Differential cell count method Nom (Bld) Auto Normal [facility] Comment on above: Order Comment: Speci men Type: BLOOD SPECIMEN Ordering Facility: [facility] Address: [address] [place] [address] Performed By: #### 5 7021-8 #### [facility] CLIA [id number] [address] [place] [address] [place] Eosinophils (Bld) [#/Vol] 0.13 10*3/uL Normal <0.46 [facility] Comment on above: Order Comment: Speci men Type: BLOOD SPECIMEN Ordering Facility: [facility] Address: [address] [place] [address] Performed By: #### 5 7021-8 #### [facility] CLIA [id number] [address] [place] [address] [place] Eosinophils/100 WBC (Bld) 2.2 % Normal [facility] Comment on above: Order Comment: Speci men Type: BLOOD SPECIMEN Ordering Facility: [facility] Address: [address] [place] [address] Performed By: #### 5 7021-8 #### [facility] CLIA [id number] [address] [place] [address] [place] Erythrocyte distribution width (RBC) [Ratio] 12.4 % Normal 11.5-15.0 [facility] Comment on above: Order Comment: Speci men Type: BLOOD SPECIMEN Ordering Facility: [facility] Address: [address] [place] [address] Performed By: #### 5 7021-8 #### [facility] CLIA [id number] [address] [place] [address] [place] Hematocrit (Bld) [Volume fraction] 47.9 % Normal 39.0-51.0 [facility] Comment on above: Order Comment: Speci men Type: BLOOD SPECIMEN Ordering Facility: [facility] Address: [address] [place] [address] Performed By: #### 5 7021-8 #### [facility] CLIA [id number] [address] [place] [address] [place] Hemoglobin (Bld) [Mass/Vol] 16.2 g/dL Normal 13.0-17.0 [facility] Comment on above: Order Comment: Speci men Type: BLOOD SPECIMEN Ordering Facility: [facility] Address: [address] [place] [address] Performed By: #### 5 7021-8 #### [facility] CLIA [id number] [address] [place] [address] [place] Immature granulocytes (Bld) [#/Vol] 10*3/uL Normal <0.10 [facility] Comment on above: Order Comment: Speci men Type: BLOOD SPECIMEN Ordering Facility: [facility] Address: [address] [place] [address] Performed By: #### 5 7021-8 #### [facility] CLIA [id number] [address] [place] [address] [place] Immature granulocytes/100 WBC (Bld) 0.3 % Normal [facility] Comment on above: Order Comment: Speci men Type: BLOOD SPECIMEN Ordering Facility: [facility] Address: [address] [place] [address] Performed By: #### 5 7021-8 #### [facility] CLIA [id number] [address] [place] [address] [place] Lymphocytes (Bld) [#/Vol] 1.19 10*3/uL Normal 1.00-4.00 [facility] Comment on above: Order Comment: Speci men Type: BLOOD SPECIMEN Ordering Facility: [facility] Address: [address] [place] [address] Performed By: #### 5 7021-8 #### [facility] CLIA [id number] [address] [place] [address] [place] Lymphocytes/100 WBC (Bld) 20.4 % Normal [facility] Comment on above: Order Comment: Speci men Type: BLOOD SPECIMEN Ordering Facility: [facility] Address: [address] [place] [address] Performed By: #### 5 7021-8 #### [facility] CLIA [id number] [address] [place] [address] [place] MCH (RBC) [Entitic mass] 31.9 pg Normal 26.0-34.0 [facility] Comment on above: Order Comment: Speci men Type: BLOOD SPECIMEN Ordering Facility: [facility] Address: [address] [place] [address] Performed By: #### 5 7021-8 #### [facility] CLIA [id number] [address] [place] [address] [place] MCHC (RBC) [Mass/Vol] 33.8 g/dL Normal 30.5-36.0 [facility] Comment on above: Order Comment: Speci men Type: BLOOD SPECIMEN Ordering Facility: [facility] Address: [address] [place] [address] Performed By: #### 5 7021-8 #### [facility] CLIA [id number] [address] [place] [address] [place] MCV (RBC) [Entitic vol] 94.3 fL Normal 80.0-100.0 [facility] Comment on above: Order Comment: Speci men Type: BLOOD SPECIMEN Ordering Facility: [facility] Address: [address] [place] [address] Performed By: #### 5 7021-8 #### [facility] CLIA [id number] [address] [place] [address] [place] Monocytes (Bld) [#/Vol] 0.51 10*3/uL Normal <0.87 [facility] Comment on above: Order Comment: Speci men Type: BLOOD SPECIMEN Ordering Facility: [facility] Address: [address] [place] [address] Performed By: #### 5 7021-8 #### [facility] CLIA [id number] [address] [place] [address] [place] Monocytes/100 WBC (Bld) 8.7 % Normal [facility] Comment on above: Order Comment: Speci men Type: BLOOD SPECIMEN Ordering Facility: [facility] Address: [address] [place] [address] Performed By: #### 5 7021-8 #### [facility] CLIA [id number] [address] [place] [address] [place] Neutrophils (Bld) [#/Vol] 3.96 10*3/uL Normal 1.45-7.50 [facility] Comment on above: Order Comment: Speci men Type: BLOOD SPECIMEN Ordering Facility: [facility] Address: [address] [place] [address] Performed By: #### 5 7021-8 #### [facility] CLIA [id number] [address] [place] [address] [place] Neutrophils/100 WBC (Bld) 67.9 % Normal [facility] Comment on above: Order Comment: Speci men Type: BLOOD SPECIMEN Ordering Facility: [facility] Address: [address] [place] [address] Performed By: #### 5 7021-8 #### [facility] CLIA [id number] [address] [place] [address] [place] Nucleated RBC (Bld) [#/Vol] 10*3/uL Normal <0.01 [facility] Comment on above: Order Comment: Speci men Type: BLOOD SPECIMEN Ordering Facility: [facility] Address: [address] [place] [address] Performed By: #### 5 7021-8 #### [facility] CLIA [id number] [address] [place] [address] [place] Nucleated RBC/100 WBC (Bld) [Ratio] 0.0 /100 WBC Normal [facility] Comment on above: Order Comment: Speci men Type: BLOOD SPECIMEN Ordering Facility: [facility] Address: [address] [place] [address] Performed By: #### 5 7021-8 #### [facility] CLIA [id number] [address] [place] [address] [place] Platelet mean volume (Bld) [Entitic vol] 10.1 fL Normal 9.0-12.7 [facility] Comment on above: Order Comment: Speci men Type: BLOOD SPECIMEN Ordering Facility: [facility] Address: [address] [place] [address] Performed By: #### 5 7021-8 #### [facility] CLIA [id number] [address] [place] [address] [place] Platelets (Bld) [#/Vol] 184 10*3/uL Normal 150-400 [facility] Comment on above: Order Comment: Speci men Type: BLOOD SPECIMEN Ordering Facility: [facility] Address: [address] [place] [address] Performed By: #### 5 7021-8 #### [facility] CLIA [id number] [address] [place] [address] [place] RBC (Bld) [#/Vol] 5.08 10*6/uL Normal 4.20-6.00 [facility] Comment on above: Order Comment: Speci men Type: BLOOD SPECIMEN Ordering Facility: [facility] Address: [address] [place] [address] Performed By: #### 5 7021-8 #### [facility] CLIA [id number] [address] [place], [place] [address] [id number] [place] WBC (Bld) [#/Vol] 5.84 10*3/uL Normal 3.70-11.00 [facility] Comment on above: Order Comment: Speci men Type: BLOOD SPECIMEN Ordering Facility: [facility] Address: [address] [place] [address] Performed By: #### 5 7021-8 #### [facility] CLIA [id number] [address] [place], [place] [address] [place] CNOVon 05-07-2024 CNOV Office Visit ([facility] ) ASYA SHETH ([id number]) 1960 M Date Time Provider Department 05/07/24 10:40 AM AYAKA MCCOLLUM During your visit today, we recorded the following information about you: Pulse Respiration Blood pressure Weight 89/minute 16/minute 147/98 90.3 kg Ayaka Mccollum APRN.CANVASSING MANAGER 05/07/2024 11:40 AM Signed Chief Complaint Patient [...] Screening Disc (more content not included)... Normal [facility] Comprehensive metabolic 2000 panelon 05-07-2024 Albumin [Mass/Vol] 4.4 g/dL Normal 3.9-4.9 [facility] Comment on above: Order Comment: Speci men Type: URINE SPECIMEN Ordering Facility: [facility] Address: [address] [place] [address] Performed By: #### 2 4356-8 #### [facility] CLIA [id number] [address] [place] [address] [place] [address] [place] ALP [Catalytic activity/Vol] 101 U/L Normal 38-113 [facility] Comment on above: Order Comment: Speci men Type: URINE SPECIMEN Ordering Facility: [facility] Address: [address] [place] [address] Performed By: #### 2 4356-8 #### [facility] CLIA [id number] [address] [place] [address] [place] ALT [Catalytic activity/Vol] 40 U/L Normal 10-54 [facility] Comment on above: Order Comment: Speci men Type: URINE SPECIMEN Ordering Facility: [facility] Address: [address] [place] [address] Performed By: #### 2 4356-8 #### [facility] CLIA [id number] [address] [place] [address] [place] Anion gap [Moles/Vol] 13 mmol/L Normal 8-15 [facility] Comment on above: Order Comment: Speci men Type: URINE SPECIMEN Ordering Facility: [facility] Address: [address] [place] [address] Performed By: #### 2 4356-8 #### [facility] CLIA [id number] [address] [place] [address] [place] AST [Catalytic activity/Vol] 34 U/L Normal 14-40 [facility] Comment on above: Order Comment: Speci men Type: URINE SPECIMEN Ordering Facility: [facility] Address: [address] [place] [address] Performed By: #### 2 4356-8 #### [facility] CLIA [id number] [address] [place] [address] [place] Bilirubin [Mass/Vol] 0.9 mg/dL Normal 0.2-1.3 [facility] Comment on above: Order Comment: Speci men Type: URINE SPECIMEN Ordering Facility: [facility] Address: [address] [place] [address] Performed By: #### 2 4356-8 #### [facility] CLIA [id number] [address] [place] [address] [place] Calcium [Mass/Vol] 9.4 mg/dL Normal 8.5-10.2 [facility] Comment on above: Order Comment: Speci men Type: URINE SPECIMEN Ordering Facility: [facility] Address: [address] [place] [address] Performed By: #### 2 4356-8 #### [facility] CLIA [id number] [address] [place] [address] [place] Chloride [Moles/Vol] 104 mmol/L Normal 98-107 [facility] Comment on above: Order Comment: Speci men Type: URINE SPECIMEN Ordering Facility: [facility] Address: [address] [place] [address] Performed By: #### 2 4356-8 #### [facility] CLIA [id number] [address] [place] [address] [place] CO2 [Moles/Vol] 23 mmol/L Normal 22-30 [facility] Comment on above: Order Comment: Speci men Type: URINE SPECIMEN Ordering Facility: [facility] Address: [address] [place] [address] Performed By: #### 2 4356-8 #### [facility] CLIA [id number] [address] [place] [address] [place] Creatinine [Mass/Vol] 0.95 mg/dL Normal 0.73-1.22 [facility] Comment on above: Order Comment: Speci men Type: URINE SPECIMEN Ordering Facility: [facility] Address: [address] [place] [address] Performed By: #### 2 4356-8 #### [facility] CLIA [id number] [address] [place] [address] [place] Creatinine and Glomerular filtration rate.predicted panel (S/P/Bld) 89 mL/min/1.73m??? Normal >=60 [facility] Comment on above: Order Comment: Speci men Type: URINE SPECIMEN Ordering Facility: [facility] Address: [address] [place] [address] Result Comment: Juanita mated Glomerular Filtration Rate [...] GFR. Performed By: #### 2 4356-8 #### [facility] CLIA [id number] [address] [place] [address] [place] Glucose [Mass/Vol] 103 mg/dL High 74-99 [facility] Comment on above: Order Comment: Speci men Type: URINE SPECIMEN Ordering Facility: [facility] Address: [address] [place] [address] Result Comment: The [place] [employer] (ADA) provides guidance for cutoff [...] Standards of Medical Care in Diabetes 2016, [place] [employer]. Diabetes Care. 2016.39(Suppl 1). Performed By: #### 2 4356-8 #### [facility] CLIA [id number] [address] [place] [address] [place] Potassium [Moles/Vol] 4.6 mmol/L Normal 3.7-5.1 [facility] Comment on above: Order Comment: Speci men Type: URINE SPECIMEN Ordering Facility: [facility] Address: [address] [place] [address] Performed By: #### 2 4356-8 #### [facility] CLIA [id number] [address] [place] [address] [place] Protein [Mass/Vol] 7.3 g/dL Normal 6.3-8.0 [facility] Comment on above: Order Comment: Speci men Type: URINE SPECIMEN Ordering Facility: [facility] Address: [address] [place] [address] Performed By: #### 2 4356-8 #### [facility] CLIA [id number] [address] [place] [address] [place] Sodium [Moles/Vol] 140 mmol/L Normal 136-144 [facility] Comment on above: Order Comment: Speci men Type: URINE SPECIMEN Ordering Facility: [facility] Address: [address] [place] [address] Performed By: #### 2 4356-8 #### [facility] CLIA [id number] [address] [place] [address] [place] Urea nitrogen [Mass/Vol] 12 mg/dL Normal 9-24 [facility] Comment on above: Order Comment: Speci men Type: URINE SPECIMEN Ordering Facility: [facility] Address: [address] [place] [address] Performed By: #### 2 4356-8 #### [facility] CLIA [id number] [address] [place] [address] [place] HbA1c (Bld)on 05-07-2024 Average glucose Estimated from glycated hemoglobin (Bld) [Mass/Vol] 105 mg/dL Normal [facility] Comment on above: Order Comment: Speci men Type: BLOOD SPECIMEN Ordering Facility: [facility] Address: [address] [place] [address] Result Comment: eAG: (Estimated average glucose) is a calculated value from HgbA1c and is sales representative wire rope of the average blood glucose level in the last 2-3 month period. Performed By: #### 5 5454-3 #### [facility] CLIA [id number] [address] [place] [address] [place] HbA1c (Bld) [Mass fraction] 5.3 % Normal 4.3-5.6 [facility] Comment on above: Order Comment: Grace men Type: BLOOD SPECIMEN Ordering Facility: [facility] Address: [address] [place] [address] Result Comment: Amer ican Diabetes Association guidelines indicate that patients with HgbA1c in the range 5.7-6.4% are at increased risk for development of diabetes, and intervention by lifestyle modification may be beneficial. HgbA1c greater or equal to 6.5% is considered diagnostic of diabetes. Performed By: #### 5 5454-3 #### [facility] CLIA [id number] [address] [place] [address] [place] LIPID PANEL, NONFASTINGon Cholesterol [Mass/Vol] 251 mg/dL High <200 [facility] Comment on above: Order Comment: Grace men Type: URINE SPECIMEN Ordering Facility: [facility] Address: [address] [place] [address] Result Comment: <200 mg/dL, Desirable 200-239 mg/dL, Borderline high >239 mg/dL, High Performed By: #### 2 4356-8 #### [facility] CLIA [id number] [address] [place] [address] [place] HDL CHOLESTEROL, NF 58 mg/dL Normal >39 [facility] Comment on above: Order Comment: Jaylini men Type: URINE SPECIMEN Ordering Facility: [facility] Address: [address] [place] [address] Result Comment: 40-5 9 mg/dL, Acceptable >59 mg/dL, High: Negative risk factor for coronary heart disease <40 mg/dL, Low: Positive risk factor for coronary heart disease Performed By: #### 2 4356-8 #### [facility] CLIA [id number] [address] [place] [address] [place] LDL CHOLESTEROL, NF 167 mg/dL High <100 [facility] Comment on above: Order Comment: Speci men Type: URINE SPECIMEN Ordering Facility: [facility] Address: [address] [place] [address] Result Comment: <100 mg/dL, Optimal 100-129 mg/dL, Near optimal/above optimal 130-159 mg/dL, Borderline high 160-189 mg/dL, High >189 mg/dL, Very high Secondary prevention optimal LDL Cholesterol levels are recommended to be < 70 mg/dL Performed By: #### 2 4356-8 #### [facility] CLIA [id number] [address] [place] [address] [place] LDL/HDL RATIO, NF 2.88 mg/dL High <2.54 [facility] Comment on above: Order Comment: Speci men Type: URINE SPECIMEN Ordering Facility: [facility] Address: [address] [place] [address] Result Comment: Refe rence: 1. National Cholesterol Education Program ATP III Guideline At-A-Glance Quick Desk Reference: National Heart, Lung, and Blood Orient. National Institutes of Health. 2001: NIH Publication No. 01-3305. 2. An International Atherosclerosis Society position paper: global recommendations for the management of dyslipidemia: executive summary, Atherosclerosis. 2014: 232(2):410-413. Performed By: #### 2 4356-8 #### [facility] CLIA [id number] [address] [place] [address] [place] NON HDL CHOL, NF 193 mg/dL High <130 [facility] Comment on above: Order Comment: Speci men Type: URINE SPECIMEN Ordering Facility: [facility] Address: [address] [place] [address] Result Comment: <130 mg/dL, Optimal 130-159 mg/dL, Near optimal/above optimal 160-189 mg/dL, Borderline high 190-219 mg/dL, High >219 mg/dL, Very high Secondary prevention optimal non HDL Cholesterol levels are recommended to be <100 mg/dL Performed By: #### 2 4356-8 #### [facility] CLIA [id number] [address] [place], [place] [address] [place] T CHOL/HDL RATIO NF 4.33 mg/dL Normal <5.10 [facility] Comment on above: Order Comment: Speci men Type: URINE SPECIMEN Ordering Facility: [facility] Address: [address] [place] [address] Performed By: #### 2 4356-8 #### [facility] CLIA [id number] [address] [place] [address] [place] TRIGLYCERIDES, NF 128 mg/dL Normal <150 [facility] Comment on above: Order Comment: Speci men Type: URINE SPECIMEN Ordering Facility: [facility] Address: [address] [place] [address] Result Comment: <150 mg/dL, Normal 150-199 mg/dL, Borderline high 200-499 mg/dL, High >499 mg/dL, Very high Performed By: #### 2 4356-8 #### [facility] CLIA [id number] [address] [place] [address] [place] VLDL CHOLESTEROL, NF 26 mg/dL Normal <30 [facility] Comment on above: Order Comment: Speci men Type: URINE SPECIMEN Ordering Facility: [facility] Address: [address] [place] [address] Performed By: #### 2 4356-8 #### [facility] CLIA [id number] [address] [place] [address] [place] Magnesium SerPl-mCncon 05-07 Magnesium [Mass/Vol] 2.1 mg/dL Normal 1.7-2.3 [facility] Comment on above: Order Comment: Speci men Type: URINE SPECIMEN Ordering Facility: [facility] Address: [address] [place] [address] Performed By: #### 2 4356-8 #### [facility] CLIA [id number] [address] [place] [address] [place] PSA/PROSTATE SPECIFIC ANTIGE N SCREENINGon 05-07-2024 Prostate specific Ag [Mass/Vol] 4.31 ng/mL High <2.60 [facility] Comment on above: Order Comment: Speci men Type: BLOOD SPECIMEN Ordering Facility: [facility] Address: [address] [place] [address] Result Comment: Mark santiago PSA test methodology [...] 2003,349:335-42. Performed By: #### P SAS1 #### [facility] CLIA [id number] [address] [place] [address] [place] TSH SerPl-aCncon 05-07-2024 TSH Qn 0.965 m[IU]/L Normal 0.270-4.200 [facility] Comment on above: Order Comment: Speci men Type: URINE SPECIMEN Ordering Facility: [facility] Address: [address] [place], [place] [address] [address] Performed By: #### 2 4356-8 #### [facility] CLIA [id number] [address] [place] [address] [place] Urinalysis complete panel (U )on 05-07-2024 Bacteria LM.HPF (Urine sed) [#/Area] Negative Normal Negative [facility] Comment on above: Order Comment: Speci men Type: URINE SPECIMEN Ordering Facility: [facility] Address: [address] [place] [address] Performed By: #### 2 4356-8 #### [facility] CLIA [id number] [address] [place] [address] [place] Bilirubin Ql (U) Negative Normal Negative [facility] Comment on above: Order Comment: Speci men Type: URINE SPECIMEN Ordering Facility: [facility] Address: [address] [place] [address] Performed By: #### 2 4356-8 #### [facility] CLIA [id number] [address] [place] [address] [place] Clarity (Unsp spec) Clear Normal Clear [facility] Comment on above: Order Comment: Speci men Type: URINE SPECIMEN Ordering Facility: [facility] Address: [address] [place] [address] Performed By: #### 2 4356-8 #### [facility] CLIA [id number] [address] [place] [address] [place] Color (U) Yellow Normal Yellow [facility] Comment on above: Order Comment: Speci men Type: URINE SPECIMEN Ordering Facility: [facility] Address: [address] [place] [address] Performed By: #### 2 4356-8 #### [facility] CLIA [id number] [address] [place] [address] [place] Epithelial cells LM.HPF (Urine sed) [#/Area] None Seen Normal [facility] Comment on above: Order Comment: Speci men Type: URINE SPECIMEN Ordering Facility: [facility] Address: [address] [place] [address] Performed By: #### 2 4356-8 #### [facility] CLIA [id number] [address] [place] [address] [place] Glucose Test strip (U) [Mass/Vol] Negative Normal Negative [facility] Comment on above: Order Comment: Speci men Type: URINE SPECIMEN Ordering Facility: [facility] Address: [address] [place] [address] Performed By: #### 2 4356-8 #### [facility] CLIA [id number] [address] [place] [address] [place] Hemoglobin Ql (U) Negative Normal Negative [facility] Comment on above: Order Comment: Speci men Type: URINE SPECIMEN Ordering Facility: [facility] Address: [address] [place] [address] Performed By: #### 2 4356-8 #### [facility] CLIA [id number] [address] [place] [address] [place] Hyaline casts (Urine sed) [#/Area] 0 /[LPF] Normal 0 /LPF [facility] Comment on above: Order Comment: Speci men Type: URINE SPECIMEN Ordering Facility: [facility] Address: [address] [place] [address] Performed By: #### 2 4356-8 #### [facility] CLIA [id number] [address] [place] [address] [place] Ketones Ql (U) Negative Normal Negative [facility] Comment on above: Order Comment: Speci men Type: URINE SPECIMEN Ordering Facility: [facility] Address: [address] [place] [address] Performed By: #### 2 4356-8 #### [facility] CLIA [id number] [address] [place] [address] [place] Leukocyte esterase Test strip Ql (U) Negative Normal Negative [facility] Comment on above: Order Comment: Speci men Type: URINE SPECIMEN Ordering Facility: [facility] Address: [address] [place] [address] Performed By: #### 2 4356-8 #### [facility] CLIA [id number] [address] [place] [address] [place] Nitrite Ql (U) Negative Normal Negative [facility] Comment on above: Order Comment: Speci men Type: URINE SPECIMEN Ordering Facility: [facility] Address: [address] [place] [address] Performed By: #### 2 4356-8 #### [facility] CLIA [id number] [address] [place] [address] [place] pH (U) 5.5 [pH] Normal <8.5 [facility] Comment on above: Order Comment: Speci men Type: URINE SPECIMEN Ordering Facility: [facility] Address: [address] [place] [address] Performed By: #### 2 4356-8 #### [facility] CLIA [id number] [address] [place] [address] [place] Protein (U) [Mass/Vol] Trace Abnormal Negative [facility] Comment on above: Order Comment: Speci men Type: URINE SPECIMEN Ordering Facility: [facility] Address: [address] [place] [address] Performed By: #### 2 4356-8 #### [facility] CLIA [id number] [address] [place] [address] [place] RBC LM.HPF (Urine sed) [#/Area] 0-2 /HPF Normal 0-2 /HPF [facility] Comment on above: Order Comment: Speci men Type: URINE SPECIMEN Ordering Facility: [facility] Address: [address] [place] [address] Performed By: #### 2 4356-8 #### [facility] CLIA [id number] [address] [place] [address] [place] Specific gravity (U) [Rel density] 1.022 Normal 1.005-1.030 [facility] Comment on above: Order Comment: Speci men Type: URINE SPECIMEN Ordering Facility: [facility] Address: [address] [place] [address] Performed By: #### 2 4356-8 #### [facility] CLIA [id number] [address] [place] [address] [place] Urobilinogen Ql (U) 0.2 EU/dL Normal 0.2-1.0 EU/dL [facility] Comment on above: Order Comment: Speci men Type: URINE SPECIMEN Ordering Facility: [facility] Address: [address] [place] [address] Performed By: #### 2 4356-8 #### [facility] CLIA [id number] [address] [place] [address] [place] WBC LM.HPF (Urine sed) [#/Area] 0-5 /HPF Normal 0-5 /HPF [facility] Comment on above: Order Comment: Speci men Type: URINE SPECIMEN Ordering Facility: [facility] Address: [address] [place] [address] Performed By: #### 2 4356-8 #### [facility] IA [id number] [address] [place] [address] [place] [facility] Cobalamin (Vitamin B12) [Mass/Vol] 495 pg/mL Normal 232-1245 [facility] Comment on above: Order Comment: Speci men Type: URINE SPECIMEN Ordering Facility: [facility] Address: [address] [place] [address] Performed By: #### 2 4356-8 #### [facility] CLIA [id number] [address] [place] [address] [place] Influenza virus A and B RNA and SARS-CoV-2 (COVID-19) N gene panel SEBASTIÁN+probe (Resp)on 03-19-2023 FLUAV RNA SEBASTIÁN+probe Ql (Unsp spec) Detected Abnormal Not Detected [facility] FLUBV RNA SEBASTIÁN+probe Ql (Unsp spec) Not detected Not Detected [facility] SARS-CoV-2 (COVID-19) RNA SEBASTIÁN+probe Ql (Resp) Not detected See comment [facility] XR CHEST 2V FRONTAL/LATon [facility] XR Chest PA and Lateralon IMPRESSION: No acute radiographic abnormality. Mechanical Service Technician: ISABELL Transcribe Date/Time: Mar 19 2023 1:20P Dictated by : NAZIA OCAMPO MD This examination was interpreted and the report reviewed and electronically signed by: NAZIA OCAMPO MD on Mar 19 2023 1:21PM [facility] DIVISION OF RADIOLOGY * * *Final Report* [...] the thoracic spine. DIVISION OF RADIOLOGY Provider, [facility] - 03/19/2023 * * *Final Report* * [...] spine. IMPRESSION IMPRESSION: No acute radiographic abnormality. Mechanical Service Technician: PSCB Transcribe Date/Time: Mar 19 2023 1:20P Dictated by : NAZIA OCAMPO MD This examination was interpreted and the report reviewed and electronically signed by: NAZIA OCAMPO MD on Mar 19 2023 1:21PM EST [facility] Radiology Study observation (narrative) [facility] XR Chest PA and LateralOrder ed By: [facility] Provider on 03-19-2023 [facility] Emergency Department Summary on 12-20-2021 Emergency Department Summary [facility] Medical Records Department [address] [place] [address] Emergency Department Summary 12/20/21 MR#: [id number] Acct: [id number] Name: ASYA SHETH Rep #: [id number] : 1960 61 From: Alonzo Weber MD [...] your Primary Care Provider. Call [facility] ([phone]) or report to the closest Emergency Room. Call 911 if necessary. 12/20/21 1641 Cosigner Signature (if applicable): CC: Dr. Ron Whitley MD Signed Normal [facility] Vital Signs Date Time Vital Sign Value Performing Clinician Facility 07-30-2024 09:06-0400 Body height 177.2 cm Tali Yanez MD Work Phone: [facility] 07-30-2024 09:06-0400 Body mass index (BMI) [Ratio] 28.75 kg/m2 Tali Yanez MD Work Phone: [facility] 07-30-2024 09:06-0400 Body weight 90.27 kg Tali Yanez MD Work Phone: [facility] 07-30-2024 09:06-0400 Heart rate 97 /min Tali Yanez MD Work Phone: [facility] 07-30-2024 09:06-0400 SaO2% (BldA) [Mass fraction] 98 % Tali Yanez MD Work Phone: [facility] 05-07-2024 10:27-0500 Body mass index (BMI) [Ratio] 28.75 kg/m2 Ayaka Mccollum SOAP MIXER.CANVASSING MANAGER Work Phone: [facility] 05-07-2024 10:27-0500 Body weight 90.27 kg Ayaka Mccollum SOAP MIXER.CANVASSING MANAGER Work Phone: [facility] 05-07-2024 10:27-0500 Diastolic blood pressure 98 mm[Hg] Ayaka Mccollum APRN.CANVASSING MANAGER Work Phone: [facility] 05-07-2024 10:27-0500 Heart rate 89 /min Ayaka Mccollum APRN.CANVASSING MANAGER Work Phone: [facility] 05-07-2024 10:27-0500 Respiratory rate 16 /min Ayaka Mccollum SOAP MIXER.CANVASSING MANAGER Work Phone: [facility] 05-07-2024 10:27-0500 Systolic blood pressure 147 mm[Hg] Ayaka Mccollum SOAP MIXER.CANVASSING MANAGER Work Phone: [facility] 07-08-2023 08:21-0400 Body height 177.2 cm Tali Yanez MD Work Phone: [facility] 07-08-2023 08:21-0400 Body weight 88 kg Tali Yanez MD Work Phone: [facility] 07-08-2023 08:21-0400 Heart rate 61 /min Tali Yanez MD Work Phone: [facility] 07-08-2023 08:21-0400 SaO2% (BldA) [Mass fraction] 99 % Tali Yanez MD Work Phone: [facility] 03-19-2023 12:52-0500 Body temperature 98.71 [degF] Camilla Chao PA-C Work Phone: [facility] 03-19-2023 12:52-0500 Body weight 88 kg Camilla Bogner PA-C Work Phone: [facility] 03-19-2023 12:52-0500 Diastolic blood pressure 80 mm[Hg] Camilla Bogner PA-C Work Phone: [facility] 03-19-2023 12:52-0500 Heart rate 97 /min Camilla Bogner PA-C Work Phone: [facility] 03-19-2023 12:52-0500 Respiratory rate 20 /min Camilla Bogner PA-C Work Phone: [facility] 03-19-2023 12:52-0500 SaO2% (BldA) [Mass fraction] 95 % Camilla Bogner PA-C Work Phone: [facility] 03-19-2023 12:52-0500 Systolic blood pressure 112 mm[Hg] Camilla Bogner PA-C Work Phone: [facility] 12-18-2022 11:57-0400 Body height 177.2 cm Leesa Brady PA-C Work Phone: [facility] 12-18-2022 11:57-0400 Body temperature 98.91 [degF] Leesa Brady PA-C Work Phone: [facility] 12-18-2022 11:57-0400 Body weight 88 kg Leesa Brady PA-C Work Phone: [facility] 12-18-2022 11:57-0400 Diastolic blood pressure 84 mm[Hg] Leesa Brady PA-C Work Phone: [facility] 12-18-2022 11:57-0400 Heart rate 60 /min Leesa Brady PA-C Work Phone: [facility] 12-18-2022 11:57-0400 Respiratory rate 16 /min Leesa Brady PA-C Work Phone: [facility] 12-18-2022 11:57-0400 Systolic blood pressure 122 mm[Hg] Leesa Brady PA-C Work Phone: [facility] 01-03-2022 18:28-0400 Body height 177.8 cm [facility] Work Phone: 01-03-2022 18:28-0400 Body mass index (BMI) [Ratio] 28.7 kg/m2 [facility] Work Phone: 01-03-2022 18:28-0400 Body temperature 97.9 [degF] [facility] Work Phone: 01-03-2022 18:28-0400 Body weight 90.71 kg [facility] Work Phone: 01-03-2022 18:28-0400 Diastolic blood pressure 86 mm[Hg] [facility] Work Phone: 01-03-2022 18:28-0400 Heart rate 88 /min [facility] Work Phone: 01-03-2022 18:28-0400 Respiratory rate 17 /min [facility] Work Phone: 01-03-2022 18:28-0400 SaO2% (BldA) [Mass fraction] 95 % [facility] Work Phone: 01-03-2022 18:28-0400 Systolic blood pressure 144 mm[Hg] [facility] Work Phone: 12-28-2021 16:54-0400 Body height 177.8 cm [facility] Work Phone: 12-28-2021 16:54-0400 Body mass index (BMI) [Ratio] 28.7 kg/m2 [facility] Work Phone: 12-28-2021 16:54-0400 Body temperature 98.7 [degF] [facility] Work Phone: 12-28-2021 16:54-0400 Body weight 90.71 kg [facility] Work Phone: 12-28-2021 16:54-0400 Diastolic blood pressure 104 mm[Hg] [facility] Work Phone: 12-28-2021 16:54-0400 Heart rate 90 /min [facility] Work Phone: 12-28-2021 16:54-0400 Respiratory rate 16 /min [facility] Work Phone: 12-28-2021 16:54-0400 SaO2% (BldA) [Mass fraction] 98 % [facility] Work Phone: 12-28-2021 16:54-0400 Systolic blood pressure 144 mm[Hg] [facility] Work Phone: 12-23-2021 13:18-0400 Body height 177.8 cm [facility] Work Phone: 12-23-2021 13:18-0400 Body mass index (BMI) [Ratio] 28.7 kg/m2 [facility] Work Phone: 12-23-2021 13:18-0400 Body temperature 97.5 [degF] [facility] Work Phone: 12-23-2021 13:18-0400 Body weight 90.71 kg [facility] Work Phone: 12-23-2021 13:18-0400 Diastolic blood pressure 98 mm[Hg] [facility] Work Phone: 12-23-2021 13:18-0400 Heart rate 88 /min [facility] Work Phone: 12-23-2021 13:18-0400 Respiratory rate 16 /min [facility] Work Phone: 12-23-2021 13:18-0400 SaO2% (BldA) [Mass fraction] 95 % [facility] Work Phone: 12-23-2021 13:18-0400 Systolic blood pressure 139 mm[Hg] [facility] Work Phone: 12-20-2021 16:49-0400 Respiratory rate 18 /min [facility] Work Phone: 12-20-2021 16:16-0400 Body height 177.8 cm [facility] Work Phone: 12-20-2021 16:16-0400 Body mass index (BMI) [Ratio] 28.7 kg/m2 [facility] Work Phone: 12-20-2021 16:16-0400 Body temperature 96.9 [degF] [facility] Work Phone: 12-20-2021 16:16-0400 Body weight 90.71 kg [facility] Work Phone: 12-20-2021 16:16-0400 Diastolic blood pressure 99 mm[Hg] [facility] Work Phone: 12-20-2021 16:16-0400 Heart rate 112 /min [facility] Work Phone: 12-20-2021 16:16-0400 SaO2% (BldA) [Mass fraction] 95 % [facility] Work Phone: 12-20-2021 16:16-0400 Systolic blood pressure 130 mm[Hg] [facility] Work Phone: Encounters Encounter Date Encounter Type Care Provider Facility Start: 11-24-2024 End: 11-24-2024 ambulatory RON WHITLEY Facility:[facility] Start: 11-24-2024 End: 11-24-2024 ambulatory AYAKA MCCOLLUM Facility:[facility] Start: 07-30-2024 End: 07-30-2024 Patient encounter procedure Tali Yanez MD Work Phone: Urology Comment on above: Elevated PSA (Primar y Dx); BPH with obstruction/lower urinary tract symptoms; Nocturia Start: 07-30-2024 End: 07-30-2024 ambulatory TALI YANEZ Facility:[facility] Start: 07-04-2024 End: 07-05-2024 Refill Ron Whitley MD Work Phone: [facility] Comment on above: Refill Request Start: 06-11-2024 End: 06-11-2024 Follow-up encounter Ayaka Mccollum APRN.CANVASSING MANAGER Work Phone: [facility] Start: 06-05-2024 End: 06-05-2024 ambulatory RON WHITLEY Facility:[facility] Start: 05-11-2024 End: 05-11-2024 Telephone encounter Ayaka Mccollum APRN.CANVASSING MANAGER Work Phone: [facility] Comment on above: Results Start: 05-07-2024 End: 05-07-2024 Patient encounter procedure Ayaka Mccollum APRN.CANVASSING MANAGER Work Phone: [facility] Comment on above: Medication managemen t (Primary Dx); Screening for depression; Elevated PSA; Mixed hyperlipidemia; Elevated fasting blood sugar; Generalized anxiety disorder; Encounter for immunization; GERD without esophagitis; Elevated BP without diagnosis of hypertension; Primary insomnia Start: 05-07-2024 End: 05-07-2024 ambulatory RON WHITLEY Facility:[facility] Start: 05-05-2024 End: 05-05-2024 Refill Ron Whitley MD Work Phone: [facility] Comment on above: Refill Request Start: 07-08-2023 End: 07-08-2023 Patient encounter procedure Tali Yanez MD Work Phone: Urology Comment on above: BPH with obstruction /lower urinary tract symptoms (Primary Dx); Elevated PSA; Nocturia Start: 06-15-2023 Telephone encounter Ron Whitley MD Work Phone: [facility] Comment on above: Results Start: 06-13-2023 Telephone encounter Rut Valentin [address] Comment on above: Orders Start: 03-20-2023 Telephone encounter Isai DAWSON Work Phone: [facility] Comment on above: Results Start: 03-19-2023 End: 03-19-2023 Subsequent hospital visit by physician Nika [facility] Work Phone: Radiology Comment on above: Acute cough [R05.1] Start: 03-19-2023 End: 03-19-2023 Office outpatient visit 15 minutes Camilla Chao PA-C Work Phone: [facility] Comment on above: Acute cough (Primary Dx); Subconjunctival hemorrhage of right eye Start: 12-18-2022 End: 12-18-2022 Patient encounter procedure Leesa Brady PA-C Work Phone: [facility] Comment on above: Well adult exam (Deepa quin Dx); Generalized anxiety disorder; Palpitations; Mixed hyperlipidemia; GERD without esophagitis; Elevated fasting blood sugar; Osteoarthritis, unspecified osteoarthritis type, unspecified site; Elevated PSA; Primary insomnia Start: 12-18-2022 End: 12-18-2022 Patient encounter status Leesa Brady PA-C Work Phone: [facility] Work Phone: Start: 11-23-2022 Refill [facility] Comment on above: Refill Request Start: 11-21-2022 Telephone encounter [facility] Whit[facility] MD [facility] Comment on above: Appointment Start: 10-26-2022 Telephone encounter Leesa patiño PA-C Work Phone: [facility] Comment on above: Orders Start: 01-03-2022 End: 01-03-2022 ambulatory Ron Whitley Facility:[facility] Start: 01-03-2022 End: 01-03-2022 ambulatory [facility] Work Phone: Start: 01-03-2022 End: 01-03-2022 Patient encounter procedure [facility] Start: 12-28-2021 End: 12-28-2021 Patient encounter procedure [facility] Start: 12-28-2021 End: 12-28-2021 ambulatory Alonzo Weber [facility] Work Phone: Start: 12-23-2021 End: 12-23-2021 ambulatory Parth Ferris Facility:[facility] Start: 12-23-2021 End: 12-23-2021 Emergency department patient visit [facility] Start: 12-23-2021 End: 12-23-2021 Patient encounter procedure [facility] Start: 12-20-2021 End: 12-20-2021 Emergency department patient visit Alonzo Weber Facility:[facility] Start: 12-20-2021 End: 12-20-2021 Emergency department patient visit [facility] Start: 05-26-2019 Patient encounter status Maryuri Brady PA-C Work Phone: [facility] Work Phone: Procedures Date Procedure Procedure Detail Performing Clinician Start: 05-07-2024 Adult depression scr eening assessment Ayaka Mccollum APRN.CANVASSING MANAGER Work Phone: Start: 05-07-2024 Lipid 1996 panel - S allie or Plasma Ayaka Mccollum APRN.CANVASSING MANAGER Work Phone: Start: 03-19-2023 COVID & INFLUENZA [...] RSV Vaccine (1 - 1-dose 75+ series) [facility] Start: 06-05-2029 Prostate specific antigen measurement Prostate Cancer Screening Discussion [facility] Start: 05-07-2029 Lipid panel Lipid Screening [facility] Start: 05-07-2029 Prostate specific antigen measurement Prostate Cancer Screening Discussion [facility] Start: 06-14-2028 Prostate specific antigen measurement Prostate Cancer Screening Discussion [facility] Start: 11-14-2027 Lipid 1996 panel - Serum or Plasma Lipid Screening [facility] Start: 11-14-2027 Lipid panel Lipid Screening [facility] Start: 11-14-2027 LIPID SCREEN LIPID SCREEN [facility] Start: 11-14-2027 PROSTATE CANCER SCREENING DISCUSSION PROSTATE CANCER SCREENING DISCUSSION [facility] Start: 11-14-2027 Prostate specific antigen measurement Prostate Cancer Screening Discussion [facility] Start: 06-29-2027 Urine microalbumin profile [facility] Start: 05-07-2027 Diabetes Screening Diabetes Screenin g [facility] Start: 05-22-2026 Colonoscopy COLONOSCOPY [facility] Start: 05-22-2026 COLORECTAL CANCER SCREENING COLORECTAL CANCER SCREENING [facility] Start: 05-22-2026 Screening for malign ant neoplasm of colon [facility] Start: 03-11-2026 LIPID SCREEN LIPID SCREEN [facility] Start: 11-13-2025 DIABETES SCREEN DIABETES SCREEN [facility] Start: 11-13-2025 Diabetes Screening Diabetes Screenin g [facility] Start: 05-07-2025 Depression Screening Depression Scre ening [facility] Start: 05-07-2025 Pneumococcal Vaccine : 50+ (1 of 1 - PCV) Pneumococcal Vaccine: 50+ (1 of 1 - PCV) [facility] Comment on above: Postponed from 04/25 (Declined at this time) Start: 05-07-2025 Shingrix Vaccine (1 of 2) Shingrix Vaccine (1 of 2) [facility] Comment on above: Postponed from 04/25 (Declined at this time) Start: 04-21-2025 Advance Directive Discussion Advance Directive Discussion [facility] Comment on above: Postponed from 04/25 (Declined at this time) Start: 11-04-2024 End: 11-04-2024 Patient encounter procedure [facility] Comment on above: 6 month follow up Start: 09-11-2024 Covid-19 Vaccine () Covid-19 Vaccine () [facility] Start: 07-30-2024 End: 07-30-2024 Patient encounter procedure 07/30/2024 9:15 AM EDT Office Visit Urology [address] [place] [address] Tali Yanez MD [address] [place] [address] 1 year follow up psa prior Urology Comment on above: 1 year follow up psa prior Start: 07-07-2024 End: 10-06-2024 Prostate specific Ag [Mass/volume] in Serum or Plasma PSA/PROSTSPECAG DIAG Lab Routine Elevated PSA BPH with obstruction/lower urinary tract symptoms Nocturia Expected: 07/07/2024 (Approximate), Expires: 10/06/2024 [facility] Work Phone: Comment on above: Expected: 07/07/2024 (Approximate), Expires: 10/06/2024 Start: 05-11-2024 End: 08-10-2024 Prostate Specific Ag Free [Mass/volume] in Serum or Plasma PROSTATE SPECIFIC ANTIGEN, FREE Lab Routine Elevated PSA Expected: 05/11/2024, Expires: 08/10/2024 [facility] Work Phone: Comment on above: Expected: 05/11/2024 , Expires: 08/10/2024 Start: 05-07-2024 End: 08-06-2024 CBC W Auto Differential panel - Blood [facility] Work Phone: Comment on above: Expected: 05/07/2024 , Expires: 08/06/2024 Start: 05-07-2024 End: 08-06-2024 Cobalamin (Vitamin B12) [Mass/volume] in Serum or Plasma [facility] Comment on above: Expected: 05/07/2024 , Expires: 08/06/2024 Start: 05-07-2024 End: 08-06-2024 Comprehensive metabolic 2000 panel - Serum or Plasma [facility] Comment on above: Expected: 05/07/2024 , Expires: 08/06/2024 Start: 05-07-2024 End: 08-06-2024 Hemoglobin A1c in Blood [facility] Comment on above: Expected: 05/07/2024 , Expires: 08/06/2024 Start: 05-07-2024 End: 08-06-2024 LIPID PANEL, NONFASTING [facility] Comment on above: Expected: 05/07/2024 , Expires: 08/06/2024 Start: 05-07-2024 End: 08-06-2024 Magnesium [Mass/volume] in Serum or Plasma [facility] Comment on above: Expected: 05/07/2024 , Expires: 08/06/2024 Start: 05-07-2024 End: 08-06-2024 PSA/PROSTATE SPECIFIC ANTIGEN SCREENING [facility] Comment on above: Expected: 05/07/2024 , Expires: 08/06/2024 Start: 05-07-2024 End: 08-06-2024 Thyrotropin [Units/volume] in Serum or Plasma [facility] Comment on above: Expected: 05/07/2024 , Expires: 08/06/2024 Start: 05-07-2024 End: 08-06-2024 Urinalysis complete panel - Urine [facility] Comment on above: Expected: 05/07/2024 , Expires: 08/06/2024 Start: 05-07-2024 End: 05-07-2024 Patient encounter procedure 05/07/2024 10:40 AM EST Office Visit [facility] [address], [place] [id number] Ayaka Mccollum APRN.CANVASSING MANAGER [address] [place] [address] Yearly exam [facility] Comment on above: Yearly exam Start: 2024 Advance Directive Discussion Advance Directive Discussion [facility] Start: 03-11-2024 DIABETES SCREEN DIABETES SCREEN [facility] Start: 01-04-2024 End: 04-04-2024 Prostate specific Ag [Mass/volume] in Serum or Plasma PSA/PROSTSPECAG DIAG Lab Routine Elevated PSA BPH with obstruction/lower urinary tract symptoms Nocturia Expected: 01/04/2024 (Approximate), Expires: 04/04/2024 [facility] Work Phone: Comment on above: Expected: 01/04/2024 (Approximate), Expires: 04/04/2024 Start: 12-22-2023 Covid-19 Vaccine () Covid-19 Vaccine () [facility] Start: 06-13-2023 End: 09-12-2023 Prostate Specific Ag Free [Mass/volume] in Serum or Plasma PSA FREE Lab Routine Elevated PSA Expected: 06/13/2023, Expires: 09/12/2023 [facility] Work Phone: Comment on above: Expected: 06/13/2023 , Expires: 09/12/2023 Start: 04-22-2023 Depression Assessment Depression Ass [facility] Start: 04-21-2023 DEPRESSION ASSESSMENT DEPRESSION ASS [facility] Comment on above: Postponed from 04/22 (Postponed To Appropriate Date) Start: 03-20-2023 End: 05-20-2023 Prostate Specific Ag Free [Mass/volume] in Serum or Plasma PSA FREE Lab Routine Elevated PSA Expected: 03/20/2023, Expires: 05/20/2023 [facility] Work Phone: Comment on above: Expected: 03/20/2023 , Expires: 05/20/2023 Start: 12-21-2022 Covid-19 Vaccine () Covid-19 Vaccine () [facility] Start: 10-29-2022 End: 12-29-2022 CBC W Auto Differential panel - Blood CBC + DIFF Lab Routine Mixed hyperlipidemia Generalized anxiety disorder Prostate cancer screening Elevated fasting blood sugar Expected: 10/29/2022, Expires: 12/29/2022 [facility] Work Phone: Comment on above: Expected: 10/29/2022 , Expires: 12/29/2022 Start: 10-29-2022 End: 12-29-2022 Comprehensive metabolic 2000 panel - Serum or Plasma COMP METABOLIC PANEL Lab Routine Mixed hyperlipidemia Generalized anxiety disorder Prostate cancer screening Elevated fasting blood sugar Expected: 10/29/2022, Expires: 12/29/2022 [facility] Work Phone: Comment on above: Expected: 10/29/2022 , Expires: 12/29/2022 Start: 10-29-2022 End: 12-29-2022 Hemoglobin A1c in Blood HGB A1C Lab Routine Mixed hyperlipidemia Generalized anxiety disorder Prostate cancer screening Elevated fasting blood sugar Expected: 10/29/2022, Expires: 12/29/2022 [facility] Work Phone: Comment on above: Expected: 10/29/2022 , Expires: 12/29/2022 Start: 10-29-2022 End: 12-29-2022 LIPID PANEL, NONFASTING LIPID PANEL, NONFASTING Lab Routine Mixed hyperlipidemia Generalized anxiety disorder Prostate cancer screening Elevated fasting blood sugar Expected: 10/29/2022, Expires: 12/29/2022 [facility] Work Phone: Comment on above: Expected: 10/29/2022 , Expires: 12/29/2022 Start: 10-29-2022 End: 12-29-2022 Prostate specific Ag [Mass/volume] in Serum or Plasma PSA/PROSTSPECAG DIAG Lab Routine Prostate cancer screening Expected: 10/29/2022, Expires: 12/29/2022 [facility] Work Phone: Comment on above: Expected: 10/29/2022 , Expires: 12/29/2022 Start: 10-29-2022 End: 12-29-2022 Urinalysis complete panel - Urine URINALYSIS, WITH MICROSCOPIC Lab Routine Mixed hyperlipidemia Generalized anxiety disorder Prostate cancer screening Elevated fasting blood sugar Expected: 10/29/2022, Expires: 12/29/2022 [facility] Work Phone: Comment on above: Expected: 10/29/2022 , Expires: 12/29/2022 Start: 04-22-2022 DEPRESSION ASSESSMENT DEPRESSION ASS ESSMENT [facility] Start: 10-10-2021 PROSTATE CANCER SCREENING DISCUSSION PROSTATE CANCER SCREENING DISCUSSION [facility] Start: 05-18-2021 COVID-19 VACCINE (4 - Pfizer series) COVID-19 VACCINE (4 - Pfizer series) [facility] Start: 2019 RSV Vaccine (1 - 1-d ose 60+ series) RSV Vaccine (1 - 1-dose 60+ series) [facility] Start: 2009 Pneumococcal Vaccine : 50+ (1 of 1 - PCV) Pneumococcal Vaccine: 50+ (1 of 1 - PCV) [facility] Start: 2009 SHINGRIX VACCINE (1 of 2) SHINGRIX VACCINE (1 of 2) [facility] Start: 2004 COLOGUARD (FIT-DNA) COLOGUARD (FIT-D NA) [facility] Start: [address] COLONOGRAPHY [facility] Start: 2004 FECAL OCCULT BLOOD FECAL OCCULT BLOO D [facility] Start: 2004 Screening for malign ant neoplasm of colon [facility] Start: 2004 SIGMOIDOSCOPY SIGMOIDOSCOPY [facility] Start: 1977 Depression Screening Depression Scre ening [facility] Start: 1977 HIV SCREENING HIV SCREENING [facility] Patient Education Understanding Rabies [facility] Work Phone: Patient referral [facility] Work Phone: [facility] Immunizations Immunization Date Immunization Notes Care Provider Fa cili 01-03-2022 rabies vaccine, for intramuscular injection [facility] 12-28-2021 rabies vaccine, for intramuscular injection [facility] 12-23-2021 rabies vaccine, for intramuscular injection [facility] 12-20-2021 rabies immune globulin [facility] 12-20-2021 rabies vaccine, for intramuscular injection [facility] 07-27-2020 COVID-19 original vaccine, age 12+ yr, monovalent (PFIZER-BIONTECH - PURPLE TOP) Leesa Brady PA-C Work Phone: [facility] 07-02-2020 COVID-19 original vaccine, age 12+ yr, monovalent (PFIZER-BIONTECH - PURPLE TOP) Leesa Brady PA-C Work Phone: [facility] 06-28-2017 tetanus toxoid, redu alisia diphtheria toxoid, and acellular pertussis vaccine, adsorbed Leesa Brady PA-C Work Phone: [facility] 09-17-2008 tetanus and diphther ia toxoids, adsorbed, preservative free, for adult use (2 Lf of tetanus toxoid and 2 Lf of diphtheria toxoid) Leesa Brady PA-C Work Phone: [facility] Payers Date Payer Category Payer Self-pay [id number] 2018 Private Health Insurance MMO SU[employer] PPO [id number] 2018 Unknown MMO MMO [employer] PPO [id number] 2018-Present [phone] [address] [place] [address] PPO [id number] 2018 Unknown [id number] Unknown OB [id number] Unknown OBW [id number] [id number] Unknown [id number] Unknown [id number] Unknown [id number] Unknown [id number] Social History Date Type Detail Facility Start: 12-20-2021 Tobacco smoking stat us NHIS Unknown if ever smoked [facility] Work Phone: Start: 07-16-2019 None [facility] Work Phone: Start: 07-16-2019 Spouse/ Signif icant Other [facility] Work Phone: Start: 1960 Sex Assigned At Male [facility] Work Phone: Start: 06-23-2014 End: 12-18-2022 Tobacco smoking status NHIS Never smoked tobacco [facility] Work Phone: Start: 06-23-2014 End: 12-18-2022 Tobacco use and exposure Former smokeless tobacco user [facility] Work Phone: Start: 06-21-2021 End: 07-30-2024 Alcohol intake Current drinker of alcohol (finding) [facility] Start: 06-21-2021 End: 11-15-2022 History of Social function [facility] Start: 06-21-2021 End: 11-15-2022 Tobacco use panel [facility] Adult Depression Screening Assessment 0 [facility] Start: 05-22-2021 Alcohol Comment 1 beer daily [facility] Start: 1960 Sex Assigned At Not on file C [facility] Functional Status Date Assessment Result Facility 06-23-2014 Are you deaf, or do you have serious difficulty hearing No 06/23/2014 10:15 AM Sheela Thompson LPN [facility] Work Phone: 06-23-2014 Are you blind, or do you have serious difficulty seeing, even when wearing glasses No 06/23/2014 10:15 AM Sheela Thompson LPN No [facility] 06-23-2014 Do you have serious difficulty walking or climbing stairs No 06/23/2014 10:15 AM Sheela Thompson LPN No [facility] 06-23-2014 Do you have difficul ty dressing or bathing No 06/23/2014 10:15 AM Sheela Thompson LPN No [facility] 06-23-2014 Because of a physica l, mental, or emotional condition, do you have difficulty doing errands alone such as visiting a physician's office or shopping No 06/23/2014 10:15 AM Sheela Thompson LPN No [facility] Mental Status Date Assessment Result Facility 12-20-2021 Cognitive function Level Of Cons ciousness Awake;Alert;Appropriate;Fol lows Commands [facility] Work Phone: 06-23-2014 Because of a physica l, mental, or emotional condition, do you have serious difficulty concentrating, remembering, or making decisions No 06/23/2014 10:15 AM Sheela Thompson LPN No [facility] Clinical Notes 10-29-2022 to 11-24-2024 Tali Yanez MD - 07/30/2024 9:12 AM EDTTelephone Encounter - Marivel Oliveira MA - 07/05/2024 3:10 PM EDTTelephone Encounter - Marivel Oliveira MA - 07/05/2024 3:10 PM EDTPatient Instructions Note Date & Type Note Facility 11-24-2024 Note HNO ID: [id number] Author: JANETT SARABIA Tech Service: ? Author Type: Teacher Of The Visually Impaired Type: Progress Notes Filed: 11/24/2024 11:02 Note [...] PATIENT PRESENTS WITH AN IMPLANTABLE OR ATTACHED ASSEMBLER WET WASH: No RADIOLOGY DEPARTMENT: General X-ray: Exam(s) Completed: Abdomen X-Ray: Abdomen with Obliques PERIPHERAL IV DATA: Not applicable SIGNED BY: Ben Mahan November 24, 2024 10:49 AM [facility] 11-24-2024 Note HNO ID: [id number] Author: AYAKA MCCOLLUM APRN.CANVASSING MANAGER Service: ? Author Type: Nurse Practitioner Type: [...] - UA DIP, URINE (POC) Ayaka Mccollum APRN.[facility] 07-30-2024 History of Presen t [...] Date Value 05/07/2024 Negative 10/10/2016 Negative Specific [place], Ur (no units) Date Value 05/07/2024 1.022 [...] stable at 3.5 documented in this encounter [facility] 07-30-2024 Note HNO ID: [id number] Author: TALI YANEZ MD Service: ? Author [...] Date Value 05/07/2024 Negative 10/10/2016 Negative Specific [place], Ur (no units) Date Value 05/07/2024 1.022 [...] declined MRI. Latest PSA stable at 3.5 [facility] 07-05-2024 Telephone encounter Note Pt notified via [employer] that he should have another 90 day supply at pharmacy. Marivel Oliveira MA [facility] 07-05-2024 Miscellaneous Notes Pt notified via [employer] that he should have another 90 day [...] 2024 11:14 AM documented in this encounter [facility] 07-04-2024 Telephone encounter Note Prescription [...] Bessy Polanco July 04, 2024 11:14 AM [facility] 06-11-2024 Telephone encounter Note Pt active on [employer]- message sent Janett Mejia MA [facility] 06-11-2024 Miscellaneous Notes Pt active on mychart- message sent Janett Mejia MA Please let patient know his PSA continues to decrease. documented in this encounter [facility] 06-11-2024 Telephone encounter Note Please let patient know his PSA continues to decrease. [facility] 05-11-2024 Telephone encounter Note Patient updated and voiced understanding. Vira Wheatley LPN [facility] 05-11-2024 Miscellaneous Notes Patient updated and voiced understanding. Vira Wheatley LPN Rx sent. Patient voices understanding of provider's message below and will complete lab order. Patient agreeable to trying a different statin medication. Send to [facility]. Thank you. Message left for [...] different statin medication? documented in this encounter [facility] 05-11-2024 Telephone encounter Note Rx sent. [facility] 05-11-2024 Telephone encounter Note Patient voices understanding of provider's message below and will complete lab order. Patient agreeable to trying a different statin medication. Send to [facility]. Thank you. [facility] 05-11-2024 Telephone encounter Note Message left for patient to return call to review provider's message with him. Vira Wheatley LPN [facility] 05-11-2024 Telephone encounter Note Please let patient know his labs show an elevated PSA. I would like to get a follow up lab to check this. Also his lipid panel is elevated from previous. His total cholesterol is high and his LDL is high. Is patient open to trying a different statin medication? [facility] 05-07-2024 Note Addended by: AYAKA MCCOLLUM on: 05/07/2024 11:41 AM Modules accepted: Orders [facility] 05-07-2024 Miscellaneous Notes Addended by: AYAKA MCCOLLUM on: 05/07/2024 11:41 AM Modules accepted: Orders documented in this encounter [facility] 05-07-2024 Note HNO ID: [id number] Author: AYAKA MCCOLLUM APRN.STEPHANY Service: ? Author [...] Z79.899 (primary diagnosis) (more content not included)... [facility] 05-07-2024 History of Presen t illness Narrative Chief Complaint Patient presents with: Physical HPI Asya Shteh is a 64 year old male who [...] have reviewed the Advanced Practice Registered Nurse (SOAP MIXER) student's documentation and verified the findings in the note as written. Any additions or changes are noted in bold/italics. Ayaka Mccollum APRN.CANVASSING MANAGER documented in this encounter [facility] 05-05-2024 Telephone encounter Note The following approved medication requests have been transmitted electronically. Requested Prescriptions Signed Prescriptions Disp Refills FLUoxetine (PROZAC) 40 mg capsule 30 capsule 0 Sig: Take 1 capsule by mouth once daily. Authorizing Provider: LEESA BRADY PA-C [facility] 05-05-2024 Miscellaneous Notes The following [...] 2024 10:10 AM documented in this encounter [facility] 05-05-2024 Telephone encounter Note Patient scheduled for 05/07/2023 to be seen by Ayaka [facility] 05-05-2024 Telephone encounter Note Prescription [...] capsule by mouth once daily. Mary Crane [facility] May 05, 2024 10:10 AM [facility] 07-08-2023 History of Presen t [...] Date Value 11/13/2022 Negative 10/10/2016 Negative Specific [place], Ur (no units) Date Value 11/13/2022 1.023 [...] & 12 mths documented in this encounter [facility] 06-15-2023 Miscellaneous Notes Spoke with [...] [facility] Order [facility]. documented in this encounter [facility] 06-14-2023 Miscellaneous Notes Pt notified [...] done. Thank you documented in this encounter [facility] 03-20-2023 Miscellaneous Notes Pt was [...] or not improving. documented in this encounter [facility] 03-19-2023 History of Presen t [...] 2023 1:14 PM documented in this encounter [facility] 03-19-2023 History of Presen t [...] Chao PA-C 03/20/2023 documented in this encounter [facility] [facility] Instructions Leesa Brady PA-C - 12/18/2022 12:37 PM EDT Repeat PSA in . Follow up in 1 year documented in this encounter [facility] 12-18-2022 History of Presen t [...] Abs Lymph 1.00 - 4.00 k/uL 1.18 Grayson% % 6.9 Abs Grayson <0.87 k/uL 0.42 Eosin% % 1.0 Abs [...] Negative Ketones, Urine Trace, Negative Negative Specific [place], Ur 1.005 - 1.030 1.023 Hemoglobin/Blood,Ur Negative, [...] Leesa Brady PA-C documented in this encounter [facility] 11-26-2022 Miscellaneous Notes Patient scheduled. Patience Gutierrez MA Left message on voicemail to call office back Nikki Harmon Ma Patient's complete PE on 11/15/2022 had to be canceled because Leesa had to leave due to illness. Please help reschedule documented in this encounter [facility] 11-23-2022 Miscellaneous Notes The following [...] advise. Adithya Lara documented in this encounter [facility] 10-29-2022 Miscellaneous Notes Pt notified of same. Jt De Dios LPN Orders placed. Patient has an appointment scheduled for 11/15/22 and is asking if needs to complete labs prior? documented in this encounter [facility] Evaluation note No assessment inform ation available [facility] Work Phone: Evaluation note Diagnosis Mixed [...] specific antigen (PSA) [facility] with obstruction/lower urinary [...] Will No December 20 4:56pm Power of Coal Carrier No December 20 022 4:56pm Summary Purpose Family History No Family History Records FoundNo Family History Records FoundNo Family History Records Found Reason for Referral Specialty Diagnoses / Procedures Referred By Su de la cruz Referred To Contact Urology Diagnoses Elevated PSA Procedures CONSULT TO UROLOGY OFFICE/OUTPATIENT [facility] 60 MINUTES Ron Whitley MD [address] [place] [address] Referral ID Status Reason Start Date Expiration Date Visits Requested Visits Authorized [id number] Authorized PCP Requested Referral 06/15/2023 06/14/2024 1 [...] section and content) DATE CREATED AUTHOR 01/17/2022 [facility] DATE CREATED AUTHOR AUTHOR'S ORGANIZ ATION 07/31/2024 [facility] DATE CREATED AUTHOR AUTHOR'S ORGANIZ ATION 11/30/2024 [facility] Source Comments (unrecognize d section and content) In the event this informatio n is protected by the Federal Confidentiality of Alcohol and Drug Abuse Patient Records regulations: The Federal rules restrict any use of the information to criminally investigate or prosecute any alcohol or drug abuse patient.[facility] the event this information is protected by the Federal Confidentiality of Alcohol and Drug Abuse Patient Records regulations: The Federal rules restrict any use of the information to criminally investigate or prosecute any alcohol or drug abuse patient.[facility] the event this information is protected by the Federal Confidentiality of Alcohol and Drug Abuse Patient Records regulations: The Federal rules restrict any use of the information to criminally investigate or prosecute any alcohol or drug abuse patient.[facility] the event this information is protected by the Federal Confidentiality of Alcohol and Drug Abuse Patient Records regulations: The Federal rules restrict any use of the information to criminally investigate or prosecute any alcohol or drug abuse patient.[facility] the event this information is protected by the Federal Confidentiality of Alcohol and Drug Abuse Patient Records regulations: The Federal rules restrict any use of the information to criminally investigate or prosecute any alcohol or drug abuse patient.[facility] the event this information is protected by the Federal Confidentiality of Alcohol and Drug Abuse Patient Records regulations: The Federal rules restrict any use of the information to criminally investigate or prosecute any alcohol or drug abuse patient.[facility] the event this information is protected by the Federal Confidentiality of Alcohol and Drug Abuse Patient Records regulations: The Federal rules restrict any use of the information to criminally investigate or prosecute any alcohol or drug abuse patient.[facility] the event this information is protected by the Federal Confidentiality of Alcohol and Drug Abuse Patient Records regulations: The Federal rules restrict any use of the information to criminally investigate or prosecute any alcohol or drug abuse patient.[facility] the event this information is protected by the Federal Confidentiality of Alcohol and Drug Abuse Patient Records regulations: The Federal rules restrict any use of the information to criminally investigate or prosecute any alcohol or drug abuse patient.[facility] the event this information is protected by the Federal Confidentiality of Alcohol and Drug Abuse Patient Records regulations: The Federal rules restrict any use of the information to criminally investigate or prosecute any alcohol or drug abuse patient.[facility] the event this information is protected by the Federal Confidentiality of Alcohol and Drug Abuse Patient Records regulations: The Federal rules restrict any use of the information to criminally investigate or prosecute any alcohol or drug abuse patient.[facility] the event this information is protected by the Federal Confidentiality of Alcohol and Drug Abuse Patient Records regulations: The Federal rules restrict any use of the information to criminally investigate or prosecute any alcohol or drug abuse patient.[facility] the event this information is protected by the Federal Confidentiality of Alcohol and Drug Abuse Patient Records regulations: The Federal rules restrict any use of the information to criminally investigate or prosecute any alcohol or drug abuse patient.[facility] the event this information is protected by the Federal Confidentiality of Alcohol and Drug Abuse Patient Records regulations: The Federal rules restrict any use of the information to criminally investigate or prosecute any alcohol or drug abuse patient.[facility] the event this information is protected by the Federal Confidentiality of Alcohol and Drug Abuse Patient Records regulations: The Federal rules restrict any use of the information to criminally investigate or prosecute any alcohol or drug abuse patient.[facility] Center[facility] the event this information is protected by the Federal Confidentiality of Alcohol and Drug Abuse Patient Records regulations: The Federal rules restrict any use of the information to criminally investigate or prosecute any alcohol or drug abuse patient.[facility] Reason for Visit (unrecogniz ed [...] MDM 60 MINUTES Ron Whitley MD [address] [place] [address] Referral ID Status Reason Start Date Expiration Date V isits Requested Visits Authorized [id number] Closed PCP Requested Referral 06/15/2023 06/14/2024 1 1 Reason Onset Date Comments Refill Request 05/05/2024 Reason Comments Physical Reason Onset Date Comments Refill Request 07/04/2024 Reason Comments Benign Prostatic Hypertrophy Nocturia Care Teams (unrecognized sec tion and content) Assistant Front Desk Manager Relationship Specialty Start Date End Date Ron Whitley MD [address] [place], [place] [id number] PCP - General Family Medicine 05/09/15 Assistant Front Desk Manager Relationship Specialty Start Date End Date Ron Whitley MD [address] [place], [place] [id number] PCP - General Family Medicine 05/09/15 Assistant Front Desk Manager Relationship Specialty Start Date End Date Ron Whitley MD [address] [place], [place] [id number] PCP - General Family Medicine 05/09/15 Assistant Front Desk Manager Relationship Specialty Start Date End Date Ron Whitley MD [address] [place], [place] [address] [phone] PCP - General Family Medicine 05/09/15 Assistant Front Desk Manager Relationship Specialty Start Date End Date Ron Whitley MD [address] [place], [place] [address] [phone] PCP - General Family Medicine 05/09/15 Assistant Front Desk Manager Relationship Specialty Start Date End Date Ron Whitley MD [address] [place] [address] PCP - General Family Medicine 05/09/15 Assistant Front Desk Manager Relationship Specialty Start Date End Date Ron Whitley MD [address] [place] [address] PCP - General Family Medicine 05/09/15 Assistant Front Desk Manager Relationship Specialty Start Date End Date Ron Whitley MD [address] [place] [address] PCP - General Family Medicine 05/09/15 Assistant Front Desk Manager Relationship Specialty Start Date End Date Ron Whitley MD [address] [place] [address] PCP - General Family Medicine 05/09/15 Assistant Front Desk Manager Relationship Specialty Start Date End Date Ron Whitley MD [address] [place] [address] PCP - General Family Medicine 05/09/15 Assistant Front Desk Manager Relationship Specialty Start Date End Date Ron Whitley MD [address] [place] [address] PCP - General Family Medicine 05/09/15 Ayaka Mccollum, KESHAWN.CANVASSING MANAGER [address] [place] [address] Associate Financial Advisor Family Medicine 03/28/24 Leesa Brady PA-C [address] [place] [address] Associate Financial Advisor Family Medicine 03/28/24 Assistant Front Desk Manager Relationship Specialty Start Date End Date Ron Whitley MD [address] [facility] [place] [address] PCP - General Family Medicine 05/09/15 Ayaka Mccollum, KESHAWN.CANVASSING MANAGER [address] [facility] [place] [address] Associate Financial Advisor Family Medicine 03/28/24 Leesa Brady PA-C [address] [facility] [place] [address] Associate Financial Advisor Family Medicine 03/28/24 Assistant Front Desk Manager Relationship Specialty Start Date End Date Ron Whitley MD [address] [facility] [place] [address] PCP - General Family Medicine 05/09/15 Ayaka Mccollum, SOAP MIXER.CANVASSING MANAGER [address] [facility] [place] [address] Associate Financial Advisor Family Medicine 03/28/24 Leesa Brady PA-C [address] [facility] [place] [address] Associate Financial Advisor Family Medicine 03/28/24 Assistant Front Desk Manager Relationship Specialty Start Date End Date Ron Whitley MD [address] [facility] [place] [address] PCP - General Family Medicine 05/09/15 Ayaka Mccollum, SOAP MIXER.CANVASSING MANAGER [address] [facility] [place] [address] Associate Financial Advisor Family Medicine 03/28/24 Leesa Brady PA-C [address] [facility] [place] [address] [facility] 03/28/24 Assistant Front Desk Manager Relationship Specialty [place] [address] [place] [phone] PCP - General Family Medicine 05/09/15 Ayaka Mccollum APRN.CANVASSING MANAGER [address] [place] [phone] [facility] 03/28/24 Leesa Brady PA-C [facility] [place] [address] [facility] 03/28/24 Assistant Front Desk Manager Relationship Specialty Start Date End Date Ron Whitley MD [address] [place] [phone] PCP - General Family [facility] 07/27/24 Ayaka Mccollum APRN.CANVASSING MANAGER [address] [place] [phone] [facility] 03/28/24 Leesa Brady PA-C [facility] [place], [place] [address] [facility] 03/28/24 FOR RECORDS PERTAINING TO PATIENTS [...] BE BASED ON THE PRIMARY CLINICAL RECORDS. [facility] [employer] [facility]. provides no warranty or guarantee of the accuracy or completeness of information in this document.
== END 2025-03-18 12:30 | disposition home or self-care (01) ==
PROVIDERS: PCP Family Medicine; Referring Provider Emergency Medicine; Visit Provider Emergency Medicine
DX: Z20.3 Contact with and (suspected) exposure to rabies (principal); Z23 Encounter for immunization
CPT/HCPCS: 90675; 96372